=== PATIENT | female | born 1985 | race Caucasian/White ===

== ENCOUNTER 2019-10-16 01:40 | Emergency (ER) | payer MEDICAID ==
[~2019-10-16] VITALS: Ht 160 cm; Wt 77.1 kg
--- OUTSIDE RECORDS SUMMARY | ~2019-10-16 | XMS | Encounter Summary ---
Demographics + + + | Address | [address] | | | [place] [address] | + + + | Home Phone | [phone] | + + + | Preferred Language | Unknown | + + + | Marital Status | Legally | + + + | Zoroastrian Affiliation | Unknown | + + + | Race | White | + + + | Ethnic Group | Not or | + + + Author + + + | Author | | + + + | Organization | | + + + | Address | [address] | | | [place] [address] | + + + | Phone | [phone] | + + + Care Team Providers + +------+ + | Care Hydro Station Operator Name | Role | Phone | + +------+ + | Dr. Family Adhikari | 3 | Unavailable | | [place] | | | + +------+ + | Aurelio Dong MD | 3 | Unavailable | + +------+ + | Dr. Family Adhikari | 4 | Unavailable | | [place] | | | + +------+ + Reason for Visit + + | None recorded. | + + Instructions + + | 1. Moderate persistent asthma | + + | Advair Diskus 250 mcg-50 mcg/dose powder for inhalation | + + | Advair Diskus 250 mcg-50 mcg/dose powder for inhalation | + + | 2. Goiter | + + | US, head + neck, soft tissue | + + | TSH, serum or plasma | + + | T4, free, serum | + + | 3. Smoker | + + | Chantix Starting Month Box 0.5 mg (11)-1 mg (42) tablets in dose pack | + + + + | Discussion Note | + + | [id number] | + + Patient educational handouts: No information available. Plan of Care + + + + + | Reminders | | | Provider | | | | | | + + + + + | Appointments | Office Visit 20 | 04/13/2018 1:20PM | Aurelio Dong MD | + + + + + | | Well Woman Exam 40 | on or around | [facility] | | | | 05/06/2018 | | + + + + + | Lab | TSH, Serum or | 03/05/2018 | [facility] | | | Plasma | | Lab | + + + + + | | T4, Free, Serum | 03/05/2018 | [facility] | | | | | Lab | + + + + + | Referral | None recorded. | | | + + + + + | Procedures | None recorded. | | | + + + + + | Surgeries | None recorded. | | | + + + + + | Imaging | US, Head + Neck, | 03/05/2018 | [facility] | | | Soft Tissue | | Center (Main) | + + + + + Medications + + + + | Name | Start Date | | | | | | + + + + + +---+ | Advair Diskus 250 mcg-50 mcg/dose powder | | | for inhalation Inhale 1 puff twice a day | | | by inhalation route. | | + +---+ | Chantix Starting Month Box 0.5 mg (11)-1 | | | mg (42) tablets in dose pack Take 1 startr | | | pk by oral route. | | + +---+ | EpiPen 2-El 0.3 mg/0.3 mL injection, | | | auto-injector Use as directed for | | | anaphylaxis reaction | | + +---+ | levothyroxine 100 mcg tablet | | | Take 1 tablet every day by oral route. | | + +---+ | mirtazapine 15 mg tablet Take 1 tablet | | | every day by oral route at bedtime. | | + +---+ | prazosin 2 mg capsule Take 1 capsule every | | | day by oral route at bedtime. | | + +---+ | ProAir HFA 90 mcg/actuation aerosol | | | inhaler Inhale 2 puffs every 4 hours by | | | inhalation route as needed. | | + +---+ Medications Administered None recorded. Vitals + + + + + | Height | Weight | BMI | Blood Pressure | + + + + + | 5 ft 4 in | 172 lbs 16 oz | 29.7 kg/m2 | 122/74 mm[Hg] | + + + + + Lab Results None recorded. Allergies +--------+--------+ + + +--------+-------+ | Code | Code | Name | Reaction | Severity | Status | Onset | | | System | | | | | | +--------+--------+ + + +--------+-------+ | [id number] | RxNorm | Geodon | Rash | | Active | | +--------+--------+ + + +--------+-------+ | | | Insect | | | Active | | | | | Venom | | | | | +--------+--------+ + + +--------+-------+ | [id number] | RxNorm | Morphine | Hives | | Active | | +--------+--------+ + + +--------+-------+ | | | Penicillin | | | Active | | | | | s | | | | | +--------+--------+ + + +--------+-------+ | [id number] | RxNorm | Venom-darci | | | Active | | | | | y Bee | | | | | +--------+--------+ + + +--------+-------+ | [id number] | RxNorm | Ziprasidon | | | Active | | | | | e | | | | | +--------+--------+ + + +--------+-------+ Problems + + + + + + | Name | Status | Onset Date | Source | | | | | | | | + + + + + + + +--------+ +---+ | 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 | | | | + +--------+ +---+ | 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 | | + +--------+ +---+ | Nicotine Dependence | Active | 01/10/2018 | | + +--------+ +---+ | Asthma | Active | 01/10/2018 | | + +--------+ +---+ | Pain in Right Lower | Active | 01/10/2018 | | | Limb | | | | + +--------+ +---+ Procedures + + + + + | Date | Name | Performed by | | | | | | | + + + + + + + + + | | Section | Information not available | + + + + | | Section | Information not available | + + + + | | Section | Information not available | + + + + | | Section | Information not available | + + + + | | Open Heart Surgery | Information not available | + + + + | 03/05/2018 | US, Head + Neck, Soft | [facility] ([facility] | | | Tissue | [address] | | | | [place] [address] | | | | (Work Place) | + + + + Vaccine List + + | Vaccine Type | + + | influenza, unspecified formulation | + + | 12/02/2017 | + + | Tdap | + + | 12/08/2002 | + + Social History + + +---+ | Smoking Status | Heavy Tobacco Smoker (1 | | | | PPD) | | + + +---+ Past Encounters + + | 03/05/2018Moderate Persistent Asthma; Goiter; Lisa Dong MD: [address] | | [address] [place], [place] [address], Ph. | |Aurelio Dong MD: [address], [place] [address], Ph. | + + | 02/28/2018Allergy to Bee Venom; Asthma; ROCIO Seo: [address] | [address], [place] [address], Ph. | |ROCIO Holt: [address], [place] [address], Ph. | + + History of Present Illness Note:32yo female here for a new patient. Patient has a long history of asthma for which she has taken advair (but is currently out of). She states she often wakes up at nigh t and has to use her albuterol inhalor multiple times throughout the day. She has been hospi talized 2 times for asthma exacerbations within the last five years. She has taken off of al l of her medications by her ex- who she is now living apart from and would like to re start her medications. She is also newly and active smoker and wishes to quit smoking. Review of Systems + + + | | Moderate Female ROS | + + + | Reported By: | Patient | + + + | Constitutional: | Constitutional: no fever, no significant | | | weight loss/gain | + + + | ENMT: | Mouth/Throat: no sore throat. Nose: no | | | nose/sinus problems. Eyes: no ocular | | | discharge. Ears no ear pain, no loss of | | | hearing, no ringing in the ears | + + + | Cardiovascular: | Cardiovascular: no chest pain, no | | | palpitations | + + + | Respiratory: | Respiratory: no wheezing, no shortness of | | | breath | + + + | Gastrointestinal: | Gastrointestinal: no nausea, no vomiting, | | | no diarrhea | + + + | Genitourinary: | Genitourinary: no dysuria, no urinary | | | frequency | + + + | Integumentary: | Skin: no pruritis, no lesions | + + + | Neurologic: | Neurologic: no seizures, no headaches | + + + Physical Exam + + + | | FM General Adult Exam-Male | + + + | Reported By: | Patient | + + + | Constitutional: | General Appearance: healthy-appearing, | | | well-nourished, well-developed, well | | | hydrated. Level of Distress: NAD. | | | Ambulation: ambulating normally | + + + | Psychiatric: | Insight: good judgement. Mental Status: | | | active and alert, normal mood, normal | | | affect | + + + | Head: | Head: normocephalic, atraumatic | + + + | Eyes: | Pupils: PERRLA. EOM: EOMI. Vision: acuity | | | grossly intact | + + + | Neck: | Neck: supple. Thyroid: non-tender, no | | | nodules, thyromegaly | + + + | Lungs: | Respiratory effort: no dyspnea. | | | Auscultation: breath sounds normal, good | | | air movement, equal bilaterally | + + + | Cardiovascular: | Heart Auscultation: RRR, no murmurs | + + + | Abdomen: | Bowel Sounds: normal. Inspection and | | | Palpation: soft, non-distended, non-tender | | | (no guarding, no rebound), no masses | + + + | Musculoskeletal:: | Joints, Bones, and Muscles: normal | | | movement of all extremities. Extremities: | | | no cyanosis, no edema | + + + | Neurologic: | Gait and Station: normal gait. Cranial | | | Nerves: grossly intact | + + + | Skin: | Inspection and palpation: clear | + + +"
--- OUTSIDE RECORDS SUMMARY | ~2019-10-16 | XMS | Continuity of Care Document ---
Demographics + + + | Address | [address] | | | [place] [address] | + + + | Home Phone | | + + + | Preferred Language | Unknown | + + + | Marital Status | Unknown | + + + | Oriental Orthodox Affiliation | Unknown | + + + | Race | Unknown | + + + | Ethnic Group | Unknown | + + + Author + + + | Author | [facility] | + + + | Organization | [facility] | + + + | Address | [address] | | | [place] [address] | + + + | Phone | | + + + Support + + + + + | Name | Relationship | Address | Phone | + + + + + | Aurelio Dong MD | Caregiver | [address] | | | | | [place], | | | | | [place] [address] | | + + + + + | Jorge Luis Owens MD | Caregiver | ER | | | | | [place] [address] | | + + + + + | ALLI ALVARADO | Next Of Kin | [address] | | | | | [place] | | | | | [address] | | + + + + + Care Team Providers + + + + | Care Project Management Intern Name | Role | Phone | + + + + | Aurelio Dong MD | Unavailable | | + + + + Insurance Providers + + + + + | Payer Name | Policy Number | Subscriber Name | Relationship | + + + + + | [employer] | [id number] | ALY LIPSCOMB | SELF | + + + + + Chief Complaint and Reason for Visit + + + | Reason for Visit | ASTHMA FLARE | + + + Problems Active Medical Problems + + + +--------+ | Problem | Onset Date | Recorded Date | Status | + + + +--------+ | Abdominal pain | Unknown | 04/21/14 | Active | + + + +--------+ | Sore throat | Unknown | 04/28/14 | Active | + + + +--------+ | Pneumonia | Unknown | 06/11/14 | Active | + + + +--------+ | Excessive cerumen | Unknown | 06/28/14 | Active | | in both ear canals | | | | + + + +--------+ | Left ear pain | Unknown | 10/12/14 | Active | + + + +--------+ | Cerumen impaction | Unknown | 10/12/14 | Active | + + + +--------+ | UTI (urinary tract | Unknown | 06/27/15 | Active | | infection) | | | | + + + +--------+ | Cellulitis of right | Unknown | 12/28/15 | Active | | thigh | | | | + + + +--------+ | | Unknown | 07/03/16 | Active | + + + +--------+ | Pharyngitis | Unknown | 07/11/16 | Active | + + + +--------+ | Asthma | Unknown | 07/25/17 | Active | + + + +--------+ | Right calf pain | Unknown | 09/08/17 | Active | + + + +--------+ | Influenza | Unknown | 04/03/18 | Active | + + + +--------+ Medications Current Home Medications + +------+-------+ + + + + + | Medicati | Dose | Units | Route | Directio | Days/Qty | Instruct | Start | | on | | | | ns | | ions | Date | + +------+-------+ + + + + + | ADVAIR | | | | | | | | + +------+-------+ + + + + + | Albutero | 1-2 | PUFF | Inhalati | Every 4 | 1 | Please | 04/10/16 | | l | | | on | Hours as | | instruct | | | (Ventoli | | | | Needed | | patient | | | n Hfa) | | | | as | | on use. | | | 90 MCG | | | | needed | | | | | INH | | | | for | | | | | | | | | Cough | | | | + +------+-------+ + + + + + | Buspiron | 20 | MG | ORAL | Daily | | | | | e Hcl | | | | | | | | | (Buspar) | | | | | | | | | | | | | | | | | | (Unknown | | | | | | | | | | | | | | | | | | Strength | | | | | | | | | ) TAB | | | | | | | | + +------+-------+ + + + + + | Citalopr | 20 | MG | ORAL | Daily | | | | | am | | | | | | | | | Hydrobro | | | | | | | | | mide | | | | | | | | | (Celexa) | | | | | | | | | 20 MG | | | | | | | | | TAB | | | | | | | | + +------+-------+ + + + + + | Epinephr | 0.3 | MG | INTRAMUS | As | | | | | ine Hcl | | | C | Directed | | | | | (Epipen) | | | | as | | | | | 0.3 | | | | needed | | | | | MG/SYR | | | | for | | | | | SYR | | | | Allergic | | | | | | | | | | | | | | | | | | Reaction | | | | + +------+-------+ + + + + + | Guaifene | 600 | MG | ORAL | | | | | | sin | | | | | | | | | (Mucinex | | | | | | | | | ) 600 MG | | | | | | | | | | | | | | | | | | TABLET.S | | | | | | | | | A | | | | | | | | + +------+-------+ + + + + + | Hydrocod | 1-2 | TAB | ORAL | Every 4 | 20 | max | /04/21 | | one | | | | Hours as | | 6/day | | | Bit/Acet | | | | needed | | | | | aminophe | | | | for Pain | | | | | n (Sunset | | | | | | | | | 5-325 | | | | | | | | | Tablet) | | | | | | | | | 1 EACH | | | | | | | | | TABLET | | | | | | | | + +------+-------+ + + + + + | Levothyr | 50 | MCG | ORAL | Daily | | | | | oxine | | | | | | | | | Sodium | | | | | | | | | (Synthro | | | | | | | | | id/Levot | | | | | | | | | hroid) | | | | | | | | | (Unknown | | | | | | | | | | | | | | | | | | Strength | | | | | | | | | ) TAB | | | | | | | | + +------+-------+ + + + + + | Nicotine | 1 | PATCH | Topical | Daily | | | | | | | | | | | | | | (Nicoder | | | | | | | | | owen Skinner) 14 | | | | | | | | | MG | | | | | | | | | PATCH | | | | | | | | + +------+-------+ + + + + + Past Home Medications + + + + + | Medication | Directions | Ordered | Status | + + + + + | Albuterol (Proair | Every 4 Hours as | Unknown | Discontinued | | Hfa) 6.7 Gm Aers | Needed as needed | | | | Aers, 1-2 Puff | for SOB | | | | Inhalation | | | | + + + + + | Albuterol (Proair | Every 4-6 Hours as | Unknown | Discontinued | | Hfa) 6.7 Gm Aers | Needed | | | | Aers, 1-2 Puff | | | | | Inhalation | | | | + + + + + | Albuterol (Proair | Every 4 Hours as | 06/11/14 | Discontinued | | Hfa) 6.7 Gm Aers | Needed | | | | Aers, 1-2 Puff | | | | | Inhalation | | | | + + + + + | Albuterol (Proair | Every 4-6 Hours as | 04/28/14 | Discontinued | | Hfa) 6.7 Gm Aers | Needed as needed | | | | Aers, 1-2 Puff | for Difficulty | | | | Inhalation | Breathing | | | + + + + + | Amoxicillin 500 Mg | Q8H | 08/07/08 | Discontinued | | Cap Cap, 500 Mg | | | | | Oral | | | | + + + + + | Amoxicillin | Twice Each Day for | 10/12/14 | Discontinued | | Trihydrate | Infection | | | | (Amoxicillin) 500 | | | | | Mg Capsule Capsule, | | | | | 1,000 Mg Oral | | | | + + + + + | Azithromycin | Daily | 06/11/14 | Discontinued | | (Zithromax) 250 Mg | | | | | Tab Tab, 0 Mg Oral | | | | + + + + + | Azithromycin | DIRECTED for | 04/10/16 | Discontinued | | (Zithromax) 250 Mg | INFECTION | | | | Tablet Tablet, 0 Mg | | | | | Oral | | | | + + + + + | Benzocaine/Antipyri | Three Times a Day | 06/28/14 | Discontinued | | ne Otic (Auralgan | as Needed as needed | | | | Otic) 10 Ml Soln | for EAR PAIN | | | | Soln, 2 Drop Both | | | | | Ears | | | | + + + + + | Benzonatate | Every 8 Hours as | 04/10/16 | Discontinued | | (Tessalon) 100 Mg | Needed as needed | | | | Cap Cap, 100 Mg | for Cough | | | | Oral | | | | + + + + + | Bupropion Hcl | Once A Day | Unknown | Discontinued | | (Wellbutrin) 75 Mg | | | | | Tab Tab, 350 Mg | | | | | Oral | | | | + + + + + | Buspirone Hcl | | Unknown | Discontinued | | (Buspar) 15 Mg Tab | | | | | Tab, 15 Mg Oral | | | | + + + + + | Buspirone Hcl | Twice Each Day | 04/28/14 | Discontinued | | (Buspar) 15 Mg Tab | | | | | Tab, 15 Mg Oral | | | | + + + + + | Cephalexin | Three Times a Day | 06/27/15 | Discontinued | | Monohydrate | | | | | (Keflex) 500 Mg Cap | | | | | Cap, 500 Mg Oral | | | | + + + + + | Citalopram | Daily | Unknown | Discontinued | | Hydrobromide | | | | | (Celexa) 20 Mg Tab | | | | | Tab, 20 Mg Oral | | | | + + + + + | Clonazepam | Twice Each Day | Unknown | Discontinued | | (Klonopin) 1 Mg Tab | | | | | Tab, 1 Tab Oral | | | | + + + + + | Cyclobenzaprine | | Unknown | Discontinued | | (Flexeril) 10 Mg | | | | | Tab Tab, 10 Mg Oral | | | | + + + + + | Cyclobenzaprine | Two Times A Day As | 08/07/08 | Discontinued | | (Flexeril) 10 Mg | Needed | | | | Tab Tab, 10 Mg Oral | | | | + + + + + | Duloxetine Hcl | Q12H | Unknown | Discontinued | | (Cymbalta) 30 Mg | | | | | Capsule. | | | | | Capsule., 25 Mg | | | | | Oral | | | | + + + + + | Epinephrine (Epipen | | Unknown | Discontinued | | 2-El) 0.3 Mg/0.3 | | | | | Ml Auto.injct | | | | | Auto.injct, 0.3 Mg | | | | | Injection | | | | + + + + + | Escitalopram | Daily | Unknown | Discontinued | | Oxalate (Lexapro) | | | | | 20 Mg Tab Tab, 20 | | | | | Mg Oral | | | | + + + + + | Fluticasone/Salmete | Twice Each Day | Unknown | Discontinued | | rol (Advair 250/50) | | | | | 250 Mcg/50 Mcg | | | | | Disk Disk, 1 Puff | | | | | Inhalation | | | | + + + + + | Hydrocodone/Acetami | as needed for PAIN | Unknown | Discontinued | | nophen 5-300 Mgz | | | | | (Vicodin 5-300 Mg) | | | | | 1 Each Tablet | | | | | Tablet, 1 Each Oral | | | | + + + + + | Hydrocodone | Every 4 Hours as | 03/19/15 | Discontinued | | Bit/Acetaminophen | Needed as needed | | | | (Sunset 5-325 | for PAIN | | | | Tablet) 1 Each | | | | | Tablet Tablet, 1-2 | | | | | Tab Oral | | | | + + + + + | Hydrocodone/Acetami | Every 4-6 Hours PRN | Unknown | Discontinued | | nophen (Vicodin) 5 | Pain | | | | Mg/500 Mg Tab Tab, | | | | | 1 Tab Oral | | | | + + + + + | Hydrocodone/Acetami | Q6HPP | 08/07/08 | Discontinued | | nophen (Vicodin) 5 | | | | | Mg/500 Mg Tab Tab, | | | | | 1 Tab Oral | | | | + + + + + | Hydroxyzine Hcl | Every 6 Hours as | 06/18/13 | Discontinued | | (Atarax) 25 Mg Tab | Needed as needed | | | | Tab, 1-2 Tab Oral | for Anxiety | | | + + + + + | Inhaler, Assist | Every 4 Hours | 04/10/16 | Discontinued | | Devices (Space | | | | | Chamber Plus) 1 | | | | | Each Spacer Spacer, | | | | | 1 Each Miscell | | | | + + + + + | Ibuprofen (Motrin) | Three Times a Day | Unknown | Discontinued | | 800 Mg Tab Tab, 800 | | | | | Mg Oral | | | | + + + + + | Ibuprofen (Motrin) | Three Times a Day | 08/07/08 | Discontinued | | 800 Mg Tab Tab, 800 | as Needed | | | | Mg Oral | | | | + + + + + | Ketorolac | Every 4-6 Hours as | 07/06/11 | Discontinued | | Tromethamine | Needed | | | | (Toradol) 10 Mg Tab | | | | | Tab, 1 Tab Oral | | | | + + + + + | Levothyroxine | Daily | Unknown | Discontinued | | Sodium | | | | | (Synthroid/Levothro | | | | | id) 0.075 Mg Tab | | | | | Tab, 0.075 Mg Oral | | | | + + + + + | Naproxen (Naprosyn) | Twice Each Day | 06/25/11 | Discontinued | | 500 Mg Tab Tab, 1 | | | | | Tab Oral | | | | + + + + + | Naproxen (Naprosyn) | Twice Each Day for | 06/27/15 | Discontinued | | 500 Mg Tablet | PAIN | | | | Tablet, 500 Mg Oral | | | | + + + + + | Naproxen (Naprosyn) | Twice Each Day for | 06/18/13 | Discontinued | | 500 Mg Tablet | PAIN | | | | Tablet, 500 Mg Oral | | | | + + + + + | No Historical | | Unknown | Discontinued | | Medications . ., | | | | + + + + + | Omeprazole | Daily | Unknown | Discontinued | | Magnesium (Prilosec | | | | | Otc) 20 Mg | | | | | Tablet. | | | | | Tablet.dr, 20 Mg | | | | | Oral | | | | + + + + + | Phenazopyridine | Three Times a Day | 06/27/15 | Discontinued | | (Pyridium) 200 Mg | for PAIN | | | | Tablet Tablet, 200 | | | | | Mg Oral | | | | + + + + + | Prednisone | TAPER | 06/11/14 | Discontinued | | (Prednisone 10 Mg | | | | | Tab) 10 Mg Tab Tab, | | | | | 0 Mg Oral | | | | + + + + + | Promethazine Hcl | Every 4 Hours as | Unknown | Discontinued | | (Phenergan) 25 Mg | Needed as needed | | | | Tab Tab, 25 Mg Oral | for Nausea & | | | | | Vomiting | | | + + + + + | Promethazine/Codein | Every 4 Hours as | 04/28/14 | Discontinued | | e | Needed as needed | | | | (Phenergan/Codeine | for Nausea & | | | | Syrup) 6.25 Mg/10 | Vomiting/cough | | | | Mg Syrp Syrp, 1 Tsp | | | | | Oral | | | | + + + + + | Pseudoephedrine Hcl | Q12H | 06/25/11 | Discontinued | | (Sudafed 12 Hour) | | | | | 120 Mg Tabcr Tabcr, | | | | | 1 Tab Oral | | | | + + + + + | Quetiapine Fumarate | At Bedtime | Unknown | Discontinued | | (Seroquel) 100 Mg | | | | | Tab Tab, 1 Tab Oral | | | | + + + + + | Rx Prepack | Three Times a Day | 06/25/11 | Discontinued | | Codeine/Guaifenesin | | | | | (Robitussin Ac | | | | | Prepack) 10 Mg/100 | | | | | Mg Syrp Syrp, 1 Tsp | | | | | Oral | | | | + + + + + | Rx Prepack | Every 6 Hours as | 07/06/11 | Discontinued | | Promethazine | Needed | | | | (Phenergan Prepack) | | | | | 25 Mg Tab Tab, 25 | | | | | Mg Oral | | | | + + + + + | Sulfamethoxazole/Tr | Twice Each Day for | 12/28/15 | Discontinued | | imethoprim Ds | Infection | | | | (Bactrim Ds) 1 Each | | | | | Tablet Tablet, 1 | | | | | Tab Oral | | | | + + + + + | Thyroid ([place] | Daily | Unknown | Discontinued | | Thyroid) 60 Mg Tab | | | | | Tab, 15 Mg Oral | | | | + + + + + | Thyroid ([place] | Daily | Unknown | Discontinued | | Thyroid) 60 Mg Tab | | | | | Tab, 60 Mg Oral | | | | + + + + + | Tramadol Hcl | Every 6 Hours as | 04/21/14 | Discontinued | | (Ultram) 50 Mg | Needed as needed | | | | Tablet Tablet, | for PAIN | | | | 50-100 Mg Oral | | | | + + + + + | Tramadol Hcl | Every 6 Hours as | 06/18/13 | Discontinued | | (Ultram) 50 Mg | Needed as needed | | | | Tablet Tablet, | for PAIN | | | | 50-100 Mg Oral | | | | + + + + + | Varenicline | Once A Day | Unknown | Discontinued | | Tartrate (Chantix) | | | | | 1 Mg Tab Tab, 1 Tab | | | | | Oral | | | | + + + + + | Zolpidem Tartrate | At Bedtime | Unknown | Discontinued | | (Ambien) 10 Mg Tab | | | | | Tab, 1 Tab Oral | | | | + + + + + Social History + + + + | Problem | Response | Recorded Date | + + + + | MENTAL HEALTH PROBLEMS/ | Yes | 07/03/16 | + + + + + + + + + | Query | Response | Start Date | Stop Date | + + + + + | Smoking status/ | Current Every Day | | | | | Smoker | | | + + + + + Hospital Discharge Instructions No hospital discharge instructions. Plan of Care + + + | Discharge Date | 04/03/18 | + + + | Disposition | HOME | + + + | Condition at Discharge | Fair | + + + | Instructions/Education Provided | Influenza, Adult, [id number] | + + + | Prescriptions | See Medications Section | + + + | Referrals | Aurelio Dong MD - | + + + Functional Status No functional status results. Allergies, Adverse Reactions, Alerts + +---------+ + +--------+ + | Allergen | Type | Severity | Reaction | Status | Last Updated | + +---------+ + +--------+ + | morphine | Allergy | Mild | Itching | Active | 04/03/18 | + +---------+ + +--------+ + | Insect | Allergy | Severe | | Active | 04/03/18 | | Extracts | | | | | | + +---------+ + +--------+ + | venom-wasp | Allergy | Severe | | Active | 04/03/18 | + +---------+ + +--------+ + | ziprasidone | Allergy | Unknown | | Active | 04/03/18 | + +---------+ + +--------+ + Immunizations No Known History of Immunizations. Vital Signs + + + + | Vital Reading | Collection Date/Time | Result | + + + + | Blood Pressure | 04/03/18 2:59pm | 126/76 | + + + + | Blood Pressure Source | 07/03/16 11:46am | Left Arm | + + + + | Temperature | 04/03/18 1:26pm | 97.3 F | + + + + | Temperature Source | 04/03/18 1:26pm | Temporal | + + + + | Respiratory Rate | 04/03/18 2:59pm | 15 | + + + + | Pulse Rate | 04/03/18 2:59pm | 92 | + + + + | Bedside Pulse Oximetry | 04/03/18 2:59pm | 98 | + + + + | Height | 04/03/18 1:26pm | 5 ft 4 in | + + + + | Height | 04/03/18 1:26pm | 162.56 cm | + + + + | Weight | 04/03/18 1:26pm | 170 lb | + + + + | Weight | 04/03/18 1:26pm | 77.11 kg | + + + + | Body Mass Index | 04/03/18 1:26pm | 29.2 kg/m2 | + + + + Results No known relevant diagnostic tests, laboratory data and/or discharge summary. Procedures No Known History of Procedures. Encounters + + + + + + | Encounter | Location | Arrival/Admit | Discharge/Depar | Attending | | | | Date | t Date | Provider | + + + + + + | Departed | [facility] | 04/03/18 1:11pm | 04/03/18 4:03pm | Jorge Luis Owens | | Emergency | [facility] | | | MD | + + + + + + + + + | Encounter Diagnosis | Onset Date | + + + | Influenza | | + + +"
--- OUTSIDE RECORDS SUMMARY | ~2019-10-16 | XMS | Encounter Summary ---
Demographics + + + | Address | [address] | | | [place] [address] | + + + | Home Phone | [phone] | + + + | Preferred Language | Unknown | + + + | Marital Status | | + + + | Muslim Affiliation | Unknown | + + + | Race | White | + + + | Ethnic Group | Unknown | + + + Author + + + | Author | | + + + | Organization | | + + + | Address | [address] | | | [place] [address] | + + + | Phone | [phone] | + + + Care Team Providers + +------+ + | Care Concrete Paver Name | Role | Phone | + +------+ + | Dr. Myesha Aguilar | 3 | [phone] | + +------+ + Reason for Visit + + | None recorded. | + + Instructions + + | 1. Acid reflux | + + | omeprazole 20 mg capsule,delayed release | + + | H pylori urea breath test, co2 infrared | + + | 2. Abdominal pain | + + | Miralax 17 gram/dose oral powder | + + Discussion Note: None recorded.Patient educational handouts: No information available. Plan of Care + + + + + | Reminders | | | Provider | | | | | | + + + + + | Appointments | Return to Office | on or around | Gogo Marcum NP | | | | 09/16/2019 | | + + + + + | | Follow up 20 | 10/08/2019 10:50AM | Myesha Emmanuel | | | | | MD Lauren | + + + + + | Lab | H Pylori [place] | 09/16/2019 | [facility] | | | Breath Test, Co2 | | Center - Lab | | | Infrared | | | + + + + + | Referral | None recorded. | | | + + + + + | Procedures | None recorded. | | | + + + + + | Surgeries | None recorded. | | | + + + + + | Imaging | None recorded. | | | + + + + + Medications + + + + + | Name | Start Date | | | | | | | | + + + + + + +---+ | albuterol sulfate | | + +---+ | Epi E-Z Pen 0.3 mg/0.3 mL injection, | | | auto-injector INJECT 0.3 MILLILITER (0.3 | | | MG) BY INTRAMUSCULAR ROUTE ONCE NEEDED | | | FOR ANAPHYLAXIS | | + +---+ | escitalopram 20 mg tablet | | | Take 1 tablet every day by oral route. | | + +---+ | ibuprofen 800 mg tablet Take 1 tablet 3 | | | times a day by oral route. | | + +---+ | Miralax 17 gram/dose oral powder 17gm | | | twice daily until you have a large BM. | | | Then use once daily as needed after. | | + +---+ | montelukast 10 mg tablet | | | Take 1 tablet every day by oral route. | | + +---+ | omeprazole 20 mg capsule,delayed release | | | Take 1 capsule twice a day by oral route. | | + +---+ | ondansetron 4 mg disintegrating tablet | | | Take 2 tablets every 12 hours by oral | | | route. | | + +---+ Medications Administered None recorded. Vitals + + + + + | Height | Weight | BMI | Blood Pressure | + + + + + | 5 ft 4 in | 188 lbs | 32.3 kg/m2 | 128/88 mm[Hg] | + + + + + Results + + | Lab Results | + + | | + + +------+------+-------+-------+-------+-------+-------+-------+-------+-------+---+ | Date | Name | Speci | Resul | Inter | Descr | Value | Range | Statu | Addre | | | | | men | t | preta | iptio | | | s | ss | | | | | | | tion | n | | | | | | +------+------+-------+-------+-------+-------+-------+-------+-------+-------+---+ +--------+--------+---+--------+---+--------+--------+--------+-------+--------+ | 09/14/ | CBC W/ | | Normal | | Wbc | 11.24 | 4.00-1 | Final | [facility] | | 2020 | Auto | | | | | K/mm3 | 1.30 | | [facility] | | | Diff | | | | | | K/mm3 | | l | | | | | | | | | | | Center | | | | | | | | | | | | | | | | | | | | | | ([facility]) | | | | | | | | | | | : [address] | | | | | | | | | | | | | | | | | | | | | [address] | | | | | | | | | | | [address] | | | | | | | | | | | [address], | | | | | | | | | | | [place] | | | | | | | | | | | rg | +--------+--------+---+--------+---+--------+--------+--------+-------+--------+ | | | | Normal | | Rbc | 4.40 | 3.80-5 | Final | [facility] | | | | | | | | M/mm3 | .20 | | [facility] | | | | | | | | | M/mm3 | | l | | | | | | | | | | | Center | | | | | | | | | | | | | | | | | | | | | | (Main) | | | | | | | | | | | : [address] | | | | | | | | | | | | | | | | | | | | | [address] | | | | | | | | | | | [address] | | | | | | | | | | | [address], | | | | | | | | | | | [place] | | | | | | | | | | | rg | +--------+--------+---+--------+---+--------+--------+--------+-------+--------+ | | | | Normal | | Hgb | 13.8 | 11.5-1 | Final | [facility] | | | | | | | | g/dL | 6.0 | | [facility] | | | | | | | | | g/dL | | l | | | | | | | | | | | Center | | | | | | | | | | | | | | | | | | | | | | (Main) | | | | | | | | | | | : [address] | | | | | | | | [address] | | | | | | | | | | | [address], | | | | | | | | | | | [place] | | | | | | | | | | | rg | +--------+--------+---+--------+---+--------+--------+--------+-------+--------+ | | | | Normal | | Hct | 42.2 % | 33.0-5 | Final | [facility] | | | | | | | | | 1.0 % | | [facility] | | | | | | | | | | | l | | | | | | | | | | | Center | | | | | | | | | | | | | | | | | | | | | | (Main) | | | | | | | | | | | : [address] | | | | | | | | | | | | | | | | | | | | | | [address] | | | | | | | | | | | [address] | | | | | | | | | | | [address], | | | | | | | | | | | [place] | | | | | | | | | | | rg | +--------+--------+---+--------+---+--------+--------+--------+-------+--------+ | | | | Normal | | Mcv | 96 fL | 80-100 | Final | [facility] | | | | | | | | | fL | | [facility] | | | | | | | | | | | l | | | | | | | | | | | Center | | | | | | | | | | | | | | | | | | | | | | (Main) | | | | | | | | | | | : [address] | | | | | | | | | | | | | | | | | | | | | | [address] | | | | | | | | | | | [address] | | | | | | | | | | | [address], | | | | | | | | | | | [place] | | | | | | | | | | | rg | +--------+--------+---+--------+---+--------+--------+--------+-------+--------+ | | | | Normal | | Mch | 31.4 | 26.0-3 | Final | [facility] | | | | | | | | pg | 4.0 pg | | [facility] | | | | | | | | | | | l | | | | | | | | | | | Center | | | | | | | | | | | | | | | | | | | | | | (Main) | | | | | | | | | | | : [address] | | | | | | | | | | | | | | | | | | | | | | [address] | | | | | | | | | | | [address] | | | | | | | | | | | [address], | | | | | | | | | | | [place] | | | | | | | | | | | rg | +--------+--------+---+--------+---+--------+--------+--------+-------+--------+ | | | | Normal | | Mchc | 32.7 | 31.5-3 | Final | [facility] | | | | | | | | g/dL | 6.5 | | [facility] | | | | | | | | | g/dL | | l | | | | | | | | | | | Center | | | | | | | | | | | | | | | | | | | | | | (Main) | | | | | | | | | | | : [address] | | | | | | | | | | | | | | | | | | | | | | [address] | | | | | | | | | | | [address] | | | | | | | | | | | [address], | | | | | | | | | | | [place] | | | | | | | | | | | rg | +--------+--------+---+--------+---+--------+--------+--------+-------+--------+ | | | | Normal | | Rdw | 46.2 | 35.1-4 | Final | [facility] | | | | | | | Sd | fL | 6.3 fL | | [facility] | | | | | | | | | | | l | | | | | | | | | | | Center | | | | | | | | | | | | | | | | | | | | | | (Main) | | | | | | | | | | | : [address] | | | | | | | | | | | | | | | | | | | | | | [address] | | | | | | | | | | | [address] | | | | | | | | | | | [address], | | | | | | | | | | | [place] | | | | | | | | | | | rg | +--------+--------+---+--------+---+--------+--------+--------+-------+--------+ | | | | Normal | | Rdw | 13.0 % | 11.7-1 | Final | [facility] | | | | | | | Cv | | 4.2 % | | [facility] | | | | | | | | | | | l | | | | | | | | | | | Center | | | | | | | | | | | | | | | | | | | | | | (Main) | | | | | | | | | | | : [address] | | | | | | | | | | | | | | | | | | | | [address] | | | | | | | | | | | [address] | | | | | | | | | | | [address], | | | | | | | | | | | [place] | | | | | | | | | | | rg | +--------+--------+---+--------+---+--------+--------+--------+-------+--------+ | | | | Low | | Plt | 145 | 150-40 | Final | [facility] | | | | | | | | K/mm3 | 0 | | [facility] | | | | | | | | | K/mm3 | | l | | | | | | | | | | | Center | | | | | | | | | | | | | | | | | | | | | | (Main) | | | | | | | | | | | : [address] | | | | | | | | | | | | | | | | | | | | | | [address] | | | | | | | | | | | [address] | | | | | | | | | | | [address], | | | | | | | | | | | [place] | | | | | | | | | | | rg | +--------+--------+---+--------+---+--------+--------+--------+-------+--------+ | | | | High | | Mpv | 13.3 | 9.1-12 | Final | [facility] | | | | | | | | fL | .4 fL | | [facility] | | | | | | | | | | | l | | | | | | | | | | | Center | | | | | | | | | | | | | | | | | | | | | | (Main) | | | | | | | | | | | : [address] | | | | | | | | | | | | | | | | | | | | | | [address] | | | | | | | | | | | [address] | | | | | | | | | | | [address], | | | | | | | | | | | [place] | | | | | | | | | | | rg | +--------+--------+---+--------+---+--------+--------+--------+-------+--------+ | | | | Normal | | Diff | auto | | Final | [facility] | | | | | | | Type | | | | [facility] | | | | | | | | | | | l | | | | | | | | | | | Center | | | | | | | | | | | | | | | | | | | | | | (Main) | | | | | | | | | | | : [address] | | | | | | | | | | | | | | | | | | | | | | [address] | | | | | | | | | | | t | | | | | | | | | | | [address], | | | | | | | | | | | [place] | | | | | | | | | | | rg | +--------+--------+---+--------+---+--------+--------+--------+-------+--------+ | | | | Normal | | Neut | 51 % | 41-73 | Final | [facility] | | | | | | | % | | % | | [facility] | | | | | | | | | | | l | | | | | | | | | | | Center | | | | | | | | | | | | | | | | | | | | | | (Main) | | | | | | | | | | | : [address] | | | | | | | | | | | | | | | | | | | | | | [address] | | | | | | | | | | | [address] | | | | | | | | | | | [address], | | | | | | | | | | | [place] | | | | | | | | | | | rg | +--------+--------+---+--------+---+--------+--------+--------+-------+--------+ | | | | Normal | | Lymph | 38 % | 21-46 | Final | [facility] | | | | | | | % | | % | | [facility] | | | | | | | | | | | l | | | | | | | | | | | Center | | | | | | | | | | | | | | | | | | | | | | (Main) | | | | | | | | | | | : [address] | | | | | | | | | | | | | | | | | | | | | | [address] | | | | | | | | | | | [address] | | | | | | | | | | | [address], | | | | | | | | | | | [place] | | | | | | | | | | | rg | +--------+--------+---+--------+---+--------+--------+--------+-------+--------+ | | | | Normal | | [place] | 11 % | 4-13 % | Final | [facility] | | | | | | | % | | | | [facility] | | | | | | | | | | | l | | | | | | | | | | | Center | | | | | | | | | | | | | | | | | | | | | | (Main) | | | | | | | | | | | : [address] | | | | | | | | | | | | | | | | | | | | | | [address] | | | | | | | | | | | t | | | | | | | | | | | [address], | | | | | | | | | | | [place] | | | | | | | | | | | rg | +--------+--------+---+--------+---+--------+--------+--------+-------+--------+ | | | | Normal | | Eosin | 0 % | 0-6 % | Final | [facility] | | | | | | | % | | | | [facility] | | | | | | | | | | | l | | | | | | | | | | | Center | | | | | | | | | | | | | | | | | | | | | | (Main) | | | | | | | | | | | : [address] | | | | | | | | | | | | | | | | | | | | | | [address] | | | | | | | | | | | [address] | | | | | | | | | | | [address], | | | | | | | | | | | [place] | | | | | | | | | | | rg | +--------+--------+---+--------+---+--------+--------+--------+-------+--------+ | | | | Normal | | Baso | 1 % | 0-2 % | Final | [facility] | | | | | | | % | | | | [facility] | | | | | | | | | | | l | | | | | | | | | | | Center | | | | | | | | | | | | | | | | | | | | | | (Main) | | | | | | | | | | | : [address] | | | | | | | | | | | | | | | | | | | | | | [address] | | | | | | | | | | | t | | | | | | | | | | | [address], | | | | | | | | | | | [place] | | | | | | | | | | | rg | +--------+--------+---+--------+---+--------+--------+--------+-------+--------+ | | | | Normal | | Imm | 0 % | 0-1 % | Final | [facility] | | | | | | | Grans | | | | [facility] | | | | | | | % | | | | l | | | | | | | | | | | Center | | | | | | | | | | | | | | | | | | | | | | (Main) | | | | | | | | | | | : [address] | | | | | | | | | | | | | | | | | | | | | | [address] | | | | | | | | | | | t | | | | | | | | | | | [address], | | | | | | | | | | | [place] | | | | | | | | | | | rg | +--------+--------+---+--------+---+--------+--------+--------+-------+--------+ | | | | Normal | | Nrbc | 0.0 | 0.0-0. | Final | [facility] | | | | | | | | /100 | 2 /100 | | [facility] | | | | | | | | WBC | WBC | | l | | | | | | | | | | | Center | | | | | | | | | | | | | | | | | | | | | | (Main) | | | | | | | | | | | : [address] | | | | | | | | | | | | | | | | | | | | | | [address] | | | | | | | | | | | [address] | | | | | | | | | | | [address], | | | | | | | | | | | [place] | | | | | | | | | | | rg | +--------+--------+---+--------+---+--------+--------+--------+-------+--------+ | | | | Normal | | Abs | 5.71 | 1.96-9 | Final | [facility] | | | | | | | Neut | K/mm3 | .15 | | [facility] | | | | | | | | | K/mm3 | | l | | | | | | | | | | | Center | | | | | | | | | | | | | | | | | | | | | | (Main) | | | | | | | | | | | : [address] | | | | | | | | | | | | | | | | | | | | | | [address] | | | | | | | | | | | t | | | | | | | | | | | [address], | | | | | | | | | | | [place] | | | | | | | | | | | rg | +--------+--------+---+--------+---+--------+--------+--------+-------+--------+ | | | | Normal | | Abs | 4.22 | 0.84-5 | Final | [facility] | | | | | | | Lymph | K/mm3 | .20 | | [facility] | | | | | | | | | K/mm3 | | l | | | | | | | | | | | Center | | | | | | | | | | | | | | | | | | | | | | (Main) | | | | | | | | | | | : [address] | | | | | | | | | | | | | | | | | | | | | | [address] | | | | | | | | | | | t | | | | | | | | | | | [address], | | | | | | | | | | | [place] | | | | | | | | | | | rg | +--------+--------+---+--------+---+--------+--------+--------+-------+--------+ | | | | Normal | | Abs | 1.22 | 0.16-1 | Final | [facility] | | | | | | | [place] | K/mm3 | .47 | | [facility] | | | | | | | | | K/mm3 | | l | | | | | | | | | | | Center | | | | | | | | | | | | | | | | | | | | | | (Main) | | | | | | | | | | | : [address] | | | | | | | | | | | | | | | | | | | | [address] | | | | | | | | | | [address] | | | | | | | | | | | [address], | | | | | | | | | | | [place] | | | | | | | | | | | rg | +--------+--------+---+--------+---+--------+--------+--------+-------+--------+ | | | | Normal | | Abs | 0.00 | 0.00-0 | Final | [facility] | | | | | | | Eosin | K/mm3 | .68 | | [facility] | | | | | | | | | K/mm3 | | l | | | | | | | | | | | Center | | | | | | | | | | | | | | | | | | | | | | (Main) | | | | | | | | | | | : [address] | | | | | | | | | | | | | | | | | | | | | | [address] | | | | | | | | | | | t | | | | | | | | | | | [address], | | | | | | | | | | | [place] | | | | | | | | | | | rg | +--------+--------+---+--------+---+--------+--------+--------+-------+--------+ | | | | Normal | | Abs | 0.07 | 0.00-0 | Final | [facility] | | | | | | | Baso | K/mm3 | .23 | | [facility] | | | | | | | | | K/mm3 | | l | | | | | | | | | | | Center | | | | | | | | | | | | | | | | | | | | | | (Main) | | | | | | | | | | | : [address] | | | | | | | | | | | | | | | | | | | | | | [address] | | | | | | | | | | | t | | | | | | | | | | | [address], | | | | | | | | | | | [place] | | | | | | | | | | | rg | +--------+--------+---+--------+---+--------+--------+--------+-------+--------+ | | | | Normal | | Abs | 0.02 | 0.00-0 | Final | [facility] | | | | | | | Imm | K/mm3 | .10 | | [facility] | | | | | | | Grans | | K/mm3 | | l | | | | | | | | | | | Center | | | | | | | | | | | | | | | | | | | | | | (Main) | | | | | | | | | | | : [address] | | | | | | | | | | | | | | | | | | | | | | [address] | | | | | | | | | | | t | | | | | | | | | | | [address], | | | | | | | | | | | [place] | | | | | | | | | | | rg | +--------+--------+---+--------+---+--------+--------+--------+-------+--------+ | | | | Normal | | Abs | 0.00 | 0.00-0 | Final | [facility] | | | | | | | NRBC | K/mm3 | .02 | | [facility] | | | | | | | | | K/mm3 | | l | | | | | | | | | | | Center | | | | | | | | | | | | | | | | | | | | | | (Main) | | | | | | | | | | | : [address] | | | | | | | | | | | | | | | | | | | | | | [address] | | | | | | | | | | | t | | | | | | | | | | | [address], | | | | | | | | | | | [place] | | | | | | | | | | | rg | +--------+--------+---+--------+---+--------+--------+--------+-------+--------+ | 06/14/ | CMP, | | Normal | | Na | 137 | 136-14 | Final | [facility] | | 2020 | Serum | | | | | mmol/L | 5 | | [facility] | | | or | | | | | | mmol/L | | l | | | Plasma | | | | | | | | Center | | | | | | | | | | | | | | | | | | | | | | (Main) | | | | | | | | | | | : [address] | | | | | | | | | | | | | | | | | | | | | | [address] | | | | | | | | | | | t | | | | | | | | | | | [address], | | | | | | | | | | | [place] | | | | | | | | | | | rg | +--------+--------+---+--------+---+--------+--------+--------+-------+--------+ | | | | Normal | | K | 3.9 | 3.5-5. | Final | [facility] | | | | | | | | mmol/L | 5 | | [facility] | | | | | | | | | mmol/L | | l | | | | | | | | | | | Center | | | | | | | | | | | | | | | | | | | | | | (Main) | | | | | | | | | | | : [address] | | | | | | | | | | | | | | | | | | | | | | [address] | | | | | | | | | | | t | | | | | | | | | | | [address], | | | | | | | | | | | [place] | | | | | | | | | | | rg | +--------+--------+---+--------+---+--------+--------+--------+-------+--------+ | | | | Normal | | Cl | 107 | 98-108 | Final | [facility] | | | | | | | | mmol/L | | | [facility] | | | | | | | | | mmol/L | | l | | | | | | | | | | | Center | | | | | | | | | | | | | | | | | | | | | | (Main) | | | | | | | | | | | : [address] | | | | | | | | | | | | | | | | | | | | | | [address] | | | | | | | | | | | t | | | | | | | | | | | [address], | | | | | | | | | | | [place] | | | | | | | | | | | rg | +--------+--------+---+--------+---+--------+--------+--------+-------+--------+ | | | | Normal | | Co2 | 25 | 21-32 | Final | [facility] | | | | | | | | mmol/L | mmol/L | | [facility] | | | | | | | | | | | l | | | | | | | | | | | Center | | | | | | | | | | | | | | | | | | | | | | (Main) | | | | | | | | | | | : [address] | | | | | | | | | | | | | | | | | | | | | | [address] | | | | | | | | | | | t | | | | | | | | | | | [address], | | | | | | | | | | | [place] | | | | | | | | | | | rg | +--------+--------+---+--------+---+--------+--------+--------+-------+--------+ | | | | Low | | Anion | 5 | 6-16 | Final | [facility] | | | | | | | Gap | mmol/L | mmol/L | | [facility] | | | | | | | | | | | l | | | | | | | | | | | Center | | | | | | | | | | | | | | | | | | | | | | (Main) | | | | | | | | | | | : [address] | | | | | | | | | | | | | | | | | | | | | | [address] | | | | | | | | | | | t | | | | | | | | | | | [address], | | | | | | | | | | | [place] | | | | | | | | | | | rg | +--------+--------+---+--------+---+--------+--------+--------+-------+--------+ | | | | High | | Gluc | 122 | 70-99 | Final | [facility] | | | | | | | | mg/dL | mg/dL | | [facility] | | | | | | | | | | | l | | | | | | | | | | | Center | | | | | | | | | | | | | | | | | | | | | | (Main) | | | | | | | | | | | : [address] | | | | | | | | | | | | | | | | | | | | | | [address] | | | | | | | | | | | t | | | | | | | | | | | [address], | | | | | | | | | | | [place] | | | | | | | | | | | rg | +--------+--------+---+--------+---+--------+--------+--------+-------+--------+ | | | | Normal | | Bun | 13 | 8-24 | Final | [facility] | | | | | | | | mg/dL | mg/dL | | [facility] | | | | | | | | | | | l | | | | | | | | | | | Center | | | | | | | | | | | | | | | | | | | | | | (Main) | | | | | | | | | | | : [address] | | | | | | | | | | | | | | | | | | | | | | [address] | | | | | | | | | | | t | | | | | | | | | | | [address], | | | | | | | | | | | [place] | | | | | | | | | | | rg | +--------+--------+---+--------+---+--------+--------+--------+-------+--------+ | | | | Normal | | Creat | 0.65 | 0.40-1 | Final | [facility] | | | | | | | | mg/dL | .00 | | [facility] | | | | | | | | | mg/dL | | l | | | | | | | | | | | Center | | | | | | | | | | | | | | | | | | | | | | (Main) | | | | | | | | | | | : [address] | | | | | | | | | | | | | | | | | | | | [address] | | | | | | | | | [address] | | | | | | | | | | | [address], | | | | | | | | | | | [place] | | | | | | | | | | | rg | +--------+--------+---+--------+---+--------+--------+--------+-------+--------+ | | | | Normal | | | 20.0 % | 12.0-2 | Final | [facility] | | | | | | | BUN/cr | | 0.0 % | | [facility] | | | | | | | eat | | | | l | | | | | | | | | | | Center | | | | | | | | | | | | | | | | | | | | | | (Main) | | | | | | | | | | | : [address] | | | | | | | | | | | | | | | | | | | | | | [address] | | | | | | | | | | [address] | | | | | | | | | | | [address], | | | | | | | | | | | [place] | | | | | | | | | | | rg | +--------+--------+---+--------+---+--------+--------+--------+-------+--------+ | | | | Normal | | Gfr | >60 | 60- | Final | [facility] | | | | | | | | | | | [facility] | | | | | | | | | | | l | | | | | | | | | | | Center | | | | | | | | | | | | | | | | | | | | | | ([facility]) | | | | | | | | | | | : [address] | | | | | | | | | | | | | | | | | | | | | | [address] | | | | | | | | | | [address] | | | | | | | | | | | [address], | | | | | | | | | | | [place] | | | | | | | | | | | rg | +--------+--------+---+--------+---+--------+--------+--------+-------+--------+ | | | | Low | | Ca | 8.4 | 8.5-10 | Final | [facility] | | | | | | | | mg/dL | .1 | | [facility] | | | | | | | | | mg/dL | | l | | | | | | | | | | | Center | | | | | | | | | | | | | | | | | | | | | | ([place]) | | | | | | | | | | | : [address] | | | | | | | | | | | | | | | | | | | | | | [address] | | | | | | | | | | | [address] | | | | | | | | | | | [address], | | | | | | | | | | | [place] | | | | | | | | | | | rg | +--------+--------+---+--------+---+--------+--------+--------+-------+--------+ | | | | Normal | | Total | 8.0 | 6.4-8. | Final | [facility] | | | | | | | | g/dL | 2 g/dL | | [facility] | | | | | | | Protei | | | | l | | | | | | | n | | | | Center | | | | | | | | | | | | | | | | | | | | | | ([facility]) | | | | | | | | | | | : [address] | | | | | | | | | | | | | | | | | | | | | | [address] | | | | | | | | | | | [address] | | | | | | | | | | | [address], | | | | | | | | | | | [place] | | | | | | | | | | | rg | +--------+--------+---+--------+---+--------+--------+--------+-------+--------+ | | | | Normal | | Alb | 4.0 | 3.4-5. | Final | [facility] | | | | | | | | g/dL | 0 g/dL | | [facility] | | | | | | | | | | | l | | | | | | | | | | | Center | | | | | | | | | | | | | | | | | | | | | | (Main) | | | | | | | | | | | : [address] | | | | | | | | | | | | | | | | | | | | | | [address] | | | | | | | | | | | [address] | | | | | | | | | | | [address], | | | | | | | | | | | [place] | | | | | | | | | | | rg | +--------+--------+---+--------+---+--------+--------+--------+-------+--------+ | | | | Normal | | Glob | 4.0 | 2.2-4. | Final | [facility] | | | | | | | | g/dL | 0 g/dL | | [facility] | | | | | | | | | | | l | | | | | | | | | | | Center | | | | | | | | | | | | | | | | | | | | | | (Main) | | | | | | | | | | | : [address] | | | | | | | | | | | | | | | | | | | | | | [address] | | | | | | | | | | | [address] | | | | | | | | | | | [address], | | | | | | | | | | | [place] | | | | | | | | | | | rg | +--------+--------+---+--------+---+--------+--------+--------+-------+--------+ | | | | Normal | | | 1.0 | 0.8-1. | Final | [facility] | | | | | | | Alb/gl | | 8 | | [facility] | | | | | | | ob | | | | l | | | | | | | | | | | Center | | | | | | | | | | | | | | | | | | | | | | (Main) | | | | | | | | | | | : [address] | | | | | | | | | | | | | | | | | | | | | | [address] | | | | | | | | | | | [address] | | | | | | | | | | | [address], | | | | | | | | | | | [place] | | | | | | | | | | | rg | +--------+--------+---+--------+---+--------+--------+--------+-------+--------+ | | | | Normal | | Bili | 0.4 | 0.1-1. | Final | [facility] | | | | | | | Tot | mg/dL | 0 | | [facility] | | | | | | | | | mg/dL | | l | | | | | | | | | | | Center | | | | | | | | | | | | | | | | | | | | | | (Main) | | | | | | | | | | | : [address] | | | | | | | | | | | | | | | | | | | | | | [address] | | | | | | | | | | | [address] | | | | | | | | | | | [address], | | | | | | | | | | | [place] | | | | | | | | | | | rg | +--------+--------+---+--------+---+--------+--------+--------+-------+--------+ | | | | Normal | | Alk | 111 | 50-136 | Final | [facility] | | | | | | | Phos | U/L | U/L | | [facility] | | | | | | | | | | | l | | | | | | | | | | | Center | | | | | | | | | | | | | | | | | | | | | | ([facility]) | | | | | | | | | | | : [address] | | | | | | | | | | | | | | | | | | | | | | [address] | | | | | | | | | | | [address] | | | | | | | | | | | [address], | | | | | | | | | | | [place] | | | | | | | | | | | rg | +--------+--------+---+--------+---+--------+--------+--------+-------+--------+ | | | | Normal | | Ast | 35 U/L | 12-37 | Final | [facility] | | | | | | | (Sgot) | | U/L | | [facility] | | | | | | | | | | | l | | | | | | | | | | | Center | | | | | | | | | | | | | | | | | | | | | | ([facility]) | | | | | | | | | | | : [address] | | | | | | | | | | | | | | | | | | | | | | [address] | | | | | | | | | | | [address] | | | | | | | | | | | [address], | | | | | | | | | | | [place] | | | | | | | | | | | rg | +--------+--------+---+--------+---+--------+--------+--------+-------+--------+ | | | | Normal | | Alt | 58 U/L | 12-78 | Final | [facility] | | | | | | | (Sgpt) | | U/L | | [facility] | | | | | | | | | | | l | | | | | | | | | | | Center | | | | | | | | | | | | | | | | | | | | | | ([place]) | | | | | | | | | | | : [address] | | | | | | | | | | | | | | | | | | | | | | [address] | | | | | | | | | | | [address] | | | | | | | | | | | [address], | | | | | | | | | | | [place] | | | | | | | | | | | rg | +--------+--------+---+--------+---+--------+--------+--------+-------+--------+ | 09/14/ | Lipase | | Normal | | | 135 | 73-393 | Final | [facility] | | 2020 | , | | | | Lipase | U/L | U/L | | [facility] | | | Serum | | | | | | | | l | | | or | | | | | | | | Center | | | Plasma | | | | | | | | | | | | | | | | | | | ([facility]) | | | | | | | | | | | : [address] | | | | | | | | | | | | | | | | | | | | | | [address] | | | | | | | | | | | t | | | | | | | | | | | Pkw[address], | | | | | | | | | | | [place] | | | | | | | | | | | rg | +--------+--------+---+--------+---+--------+--------+--------+-------+--------+ | 09/14/ | Urinal | | Normal | | | clean | | Final | [facility] | | 2020 | ysis, | | | | Source | catch | | | [facility] | | | Reflex | | | | | | | | l | | | | | | | | | | | Center | | | Cultur | | | | | | | | | | | e | | | | | | | | (Main) | | | | | | | | | | | : [address] | | | | | | | | | | | | | | | | | | | | | | [address] | | | | | | | | | | | t | | | | | | | | | | | [address]kw[address], | | | | | | | | | | | [place] | | | | | | | | | | | rg | +--------+--------+---+--------+---+--------+--------+--------+-------+--------+ | | | | Normal | | Color | yellow | P-yell | Final | [facility] | | | | | | | | | ow | | [facility] | | | | | | | | | | | l | | | | | | | | | | | Center | | | | | | | | | | | | | | | | | | | | | | ([place]) | | | | | | | | | | | : [address] | | | | | | | | | | | | | | | | | | | | | | [address] | | | | | | | | | | | t | | | | | | | | | | | [address]kw[address], | | | | | | | | | | | [place] | | | | | | | | | | | rg | +--------+--------+---+--------+---+--------+--------+--------+-------+--------+ | | | | High | | | hazy | clear | Final | [facility] | | | | | | | Appear | | | | [facility]ica | | | | | | | ance | | | | l | | | | | | | | | | | Center | | | | | | | | | | | | | | | | | | | | | | (Main) | | | | | | | | | | | : [address] | | | | | | | | | | | | | | | | | | | | | | [address] | | | | | | | | | | | t | | | | | | | | | | | [address]kw[address], | | | | | | | | | | | [place] | | | | | | | | | | | rg | +--------+--------+---+--------+---+--------+--------+--------+-------+--------+ | | | | Normal | | Spec | 1.020 | 1.003- | Final | [facility] | | | | | | | Gravit | | 1.022 | | [facility] | | | | | | | y | | | | l | | | | | | | | | | | Center | | | | | | | | | | | | | | | | | | | | | | ([facility]) | | | | | | | | | | | : [address] | | | | | | | | | | | | | | | | | | | | | | [address] | | | | | | | | | | | t | | | | | | | | | | | Pkw[address], | | | | | | | | | | | [place] | | | | | | | | | | | rg | +--------+--------+---+--------+---+--------+--------+--------+-------+--------+ | | | | Normal | | Ph | 5.0 | 5.0-8. | Final | [facility] | | | | | | | | | 0 | | [facility] | | | | | | | | | | | l | | | | | | | | | | | Center | | | | | | | | | | | | | | | | | | | | | | ([facility]) | | | | | | | | | | | : [address] | | | | | | | | | | | | | | | | | | | | | | [address] | | | | | | | | | | | t | | | | | | | | | | | [address]kw[address], | | | | | | | | | | | [place] | | | | | | | | | | | rg | +--------+--------+---+--------+---+--------+--------+--------+-------+--------+ | | | | Normal | | | neg | neg | Final | [facility] | | | | | | | Leukoc | | | | [facility] | | | | | | | yte | | | | l | | | | | | | Est | | | | Center | | | | | | | | | | | | | | | | | | | | | | ([facility]) | | | | | | | | | | | : [address] | | | | | | | | | | | | | | | | | | | | | | [address] | | | | | | | | | | | t | | | | | | | | | | | Pkw[address], | | | | | | | | | | | [place] | | | | | | | | | | | rg | +--------+--------+---+--------+---+--------+--------+--------+-------+--------+ | | | | Normal | | | neg | neg | Final | [facility] | | | | | | | Nitrit | | | | Medica | | | | | | | e | | | | l | | | | | | | | | | | Center | | | | | | | | | | | | | | | | | | | | | | (Main) | | | | | | | | | | | : [address] | | | | | | | | | | | | | | | | | | | | | | [address] | | | | | | | | | | | t | | | | | | | | | | | [address], | | | | | | | | | | | [place] | | | | | | | | | | | rg | +--------+--------+---+--------+---+--------+--------+--------+-------+--------+ | | | | High | | | trace | neg | Final | [facility] | | | | | | | Protei | | | | Medica | | | | | | | n | | | | l | | | | | | | | | | | Center | | | | | | | | | | | | | | | | | | | | | | ([facility]) | | | | | | | | | | | : [address] | | | | | | | | | | | | | | | | | | | | | | [address] | | | | | | | | | | | t | | | | | | | | | | | [address]kw[address], | | | | | | | | | | | [place] | | | | | | | | | | | rg | +--------+--------+---+--------+---+--------+--------+--------+-------+--------+ | | | | High | | | 1+ | neg | Final | [facility] | | | | | | | Glucos | | | | Medica | | | | | | | e | | | | l | | | | | | | | | | | Center | | | | | | | | | | | | | | | | | | | | | | ([facility]) | | | | | | | | | | | : [address] | | | | | | | | | | | | | | | | | | | | | | [address] | | | | | | | | | | | t | | | | | | | | | | | Pkw[address], | | | | | | | | | | | [place] | | | | | | | | | | | rg | +--------+--------+---+--------+---+--------+--------+--------+-------+--------+ | | | | Normal | | | neg | neg | Final | [facility] | | | | | | | Ketone | | | | [facility]ica | | | | | | | s | | | | l | | | | | | | | | | | Center | | | | | | | | | | | | | | | | | | | | | | ([facility]) | | | | | | | | | | | : [address] | | | | | | | | | | | | | | | | | | | | | | [address] | | | | | | | | | | | t | | | | | | | | | | | Pkw[address], | | | | | | | | | | | [place] | | | | | | | | | | | rg | +--------+--------+---+--------+---+--------+--------+--------+-------+--------+ | | | | Normal | | | norm | normal | Final | [facility] | | | | | | | Urobil | | | | [facility] | | | | | | | inogen | | | | l | | | | | | | | | | | Center | | | | | | | | | | | | | | | | | | | | | | ([facility]) | | | | | | | | | | | : [address] | | | | | | | | | | | | | | | | | | | | | | [address] | | | | | | | | | | | t | | | | | | | | | | | [address]kw[address], | | | | | | | | | | | [place] | | | | | | | | | | | rg | +--------+--------+---+--------+---+--------+--------+--------+-------+--------+ | | | | Normal | | | neg | neg | Final | [facility] | | | | | | | Biliru | | | | Medica | | | | | | | bin | | | | l | | | | | | | | | | | Center | | | | | | | | | | | | | | | | | | | | | | (Main) | | | | | | | | | | | : [address] | | | | | | | | | | | | | | | | | | | | | | [address] | | | | | | | | | | | t | | | | | | | | | | | Pkw[address], | | | | | | | | | | | [place] | | | | | | | | | | | rg | +--------+--------+---+--------+---+--------+--------+--------+-------+--------+ | | | | High | | Blood | trace | neg | Final | [facility] | | | | | | | | | | | Medica | | | | | | | | | | | l | | | | | | | | | | | Center | | | | | | | | | | | | | | | | | | | | | | (Main) | | | | | | | | | | | : [address] | | | | | | | | | | | | | | | | | | | | | | [address] | | | | | | | | | | | t | | | | | | | | | | | Pkw[address], | | | | | | | | | | | [place] | | | | | | | | | | | rg | +--------+--------+---+--------+---+--------+--------+--------+-------+--------+ | | | | High | | | yes | no | Final | [facility] | | | | | | | Cultur | | | | Medica | | | | | | | ed ? | | | | l | | | | | | | | | | | Center | | | | | | | | | | | | | | | | | | | | | | (Main) | | | | | | | | | | | : [address] | | | | | | | | | | | | | | | | | | | | | | [address] | | | | | | | | | | | t | | | | | | | | | | | Pkwy, | | | | | | | | | | | [place] | | | | | | | | | | | rg | +--------+--------+---+--------+---+--------+--------+--------+-------+--------+ | 06/14/ | Urinal | | Normal | | Wbcs | 0-2 | 0-5 | Final | [facility] | | 2020 | ysis, | | | | | /hpf | /hpf | | [facility] | | | Micros | | | | | | | | l | | | copic | | | | | | | | Center | | | | | | | | | | | | | | | | | | | | | | (Main) | | | | | | | | | | | : [address] | | | | | | | | | | | | | | | | | | | | | | [address] | | | | | | | | | | | t | | | | | | | | | | | Pkwy, | | | | | | | | | | | [place] | | | | | | | | | | | rg | +--------+--------+---+--------+---+--------+--------+--------+-------+--------+ | | | | Normal | | Rbcs | 0-2 | 0-2 | Final | [facility] | | | | | | | | /hpf | /hpf | | [facility]ica | | | | | | | | | | | l | | | | | | | | | | | Center | | | | | | | | | | | | | | | | | | | | | | (Main) | | | | | | | | | | | : [address] | | | | | | | | | | | | | | | | | | | | | | [address] | | | | | | | | | | | t | | | | | | | | | | | Pkwy, | | | | | | | | | | | [place] | | | | | | | | | | | rg | +--------+--------+---+--------+---+--------+--------+--------+-------+--------+ | | | | High | | | many | few | Final | [facility] | | | | | | | Epithe | /hpf | /hpf | | Medica | | | | | | | lial | | | | l | | | | | | | | | | | Center | | | | | | | | | | | | | | | | | | | | | | (Main) | | | | | | | | | | | : [address] | | | | | | | | | | | | | | | | | | | | | | [address] | | | | | | | | | | | t | | | | | | | | | | | Pkwy, | | | | | | | | | | | [place] | | | | | | | | | | | rg | +--------+--------+---+--------+---+--------+--------+--------+-------+--------+ | | | | High | | | many | none | Final | [facility] | | | | | | | Bacter | /hpf | /hpf | | Medica | | | | | | | ia | | | | l | | | | | | | | | | | Center | | | | | | | | | | | | | | | | | | | | | | (Main) | | | | | | | | | | | : [address] | | | | | | | | | | | | | | | | | | | | | | [address] | | | | | | | | | | | t | | | | | | | | | | | Pkw[address], | | | | | | | | | | | [place] | | | | | | | | | | | rg | +--------+--------+---+--------+---+--------+--------+--------+-------+--------+ | 05/26/ | CBC W/ | | Normal | | Wbc | 9.77 | 4.00-1 | Final | [facility] | | 2020 | Auto | | | | | K/mm3 | 1.30 | | [facility] | | | Diff | | | | | | K/mm3 | | l | | | | | | | | | | | Center | | | | | | | | | | | | | | | | | | | | | | (Main) | | | | | | | | | | | : [address] | | | | | | | | | | | | | | | | | | | | | | [address] | | | | | | | | | | | t | | | | | | | | | | | Pkw[address], | | | | | | | | | | | [place] | | | | | | | | | | | rg | +--------+--------+---+--------+---+--------+--------+--------+-------+--------+ | | | | Normal | | Rbc | 4.15 | 3.80-5 | Final | [facility] | | | | | | | | M/mm3 | .20 | | [facility] | | | | | | | | | M/mm3 | | l | | | | | | | | | | | Center | | | | | | | | | | | | | | | | | | | | | | (Main) | | | | | | | | | | | : [address] | | | | | | | | | | | | | | | | | | | | | | [address] | | | | | | | | | | | t | | | | | | | | | | | Pkwy, | | | | | | | | | | | [place] | | | | | | | | | | | rg | +--------+--------+---+--------+---+--------+--------+--------+-------+--------+ | | | | Normal | | Hgb | 13.1 | 11.5-1 | Final | [facility] | | | | | | | | g/dL | 6.0 | | [facility] | | | | | | | | | g/dL | | l | | | | | | | | | | | Center | | | | | | | | | | | | | | | | | | | | | | (Main) | | | | | | | | | | | : [address] | | | | | | | | | | | | | | | | | | | | | | [address] | | | | | | | | | | | t | | | | | | | | | | | Pkwy, | | | | | | | | | | | [place] | | | | | | | | | | | rg | +--------+--------+---+--------+---+--------+--------+--------+-------+--------+ | | | | Normal | | Hct | 40.2 % | 33.0-5 | Final | [facility] | | | | | | | | | 1.0 % | | Medica | | | | | | | | | | | l | | | | | | | | | | | Center | | | | | | | | | | | | | | | | | | | | | | (Main) | | | | | | | | | | | : [address] | | | | | | | | | | | | | | | | | | | | | | [address] | | | | | | | | | | | t | | | | | | | | | | | Pkw[address], | | | | | | | | | | | [place] | | | | | | | | | | | rg | +--------+--------+---+--------+---+--------+--------+--------+-------+--------+ | | | | Normal | | Mcv | 97 fL | 80-100 | Final | [facility] | | | | | | | | | fL | | Medica | | | | | | | | | | | l | | | | | | | | | | | Center | | | | | | | | | | | | | | | | | | | | | | (Main) | | | | | | | | | | | : [address] | | | | | | | | | | | | | | | | | | | | | | [address] | | | | | | | | | | | t | | | | | | | | | | | Pkwy, | | | | | | | | | | | [place] | | | | | | | | | | | rg | +--------+--------+---+--------+---+--------+--------+--------+-------+--------+ | | | | Normal | | Mch | 31.6 | 26.0-3 | Final | [facility] | | | | | | | | pg | 4.0 pg | | [facility] | | | | | | | | | | | l | | | | | | | | | | | Center | | | | | | | | | | | | | | | | | | | | | | (Main) | | | | | | | | | | | : [address] | | | | | | | | | | | | | | | | | | | | | | [address] | | | | | | | | | | | t | | | | | | | | | | | Pkw[address], | | | | | | | | | | | [place] | | | | | | | | | | | rg | +--------+--------+---+--------+---+--------+--------+--------+-------+--------+ | | | | Normal | | Mchc | 32.6 | 31.5-3 | Final | [facility] | | | | | | | | g/dL | 6.5 | | [facility] | | | | | | | | | g/dL | | l | | | | | | | | | | | Center | | | | | | | | | | | | | | | | | | | | | | (Main) | | | | | | | | | | | : [address] | | | | | | | | | | | | | | | | | | | | | | [address] | | | | | | | | | | | t | | | | | | | | | | | Pkwy, | | | | | | | | | | | [place] | | | | | | | | | | | rg | +--------+--------+---+--------+---+--------+--------+--------+-------+--------+ | | | | High | | Rdw | 46.4 | 35.1-4 | Final | [facility] | | | | | | | Sd | fL | 6.3 fL | | Medica | | | | | | | | | | | l | | | | | | | | | | | Center | | | | | | | | | | | | | | | | | | | | | | (Main) | | | | | | | | | | | : [address] | | | | | | | | | | | | | | | | | | | | | | [address] | | | | | | | | | | | t | | | | | | | | | | | Pkwy, | | | | | | | | | | | [place] | | | | | | | | | | | rg | +--------+--------+---+--------+---+--------+--------+--------+-------+--------+ | | | | Normal | | Rdw | 13.0 % | 11.7-1 | Final | [facility] | | | | | | | Cv | | 4.2 % | | Medica | | | | | | | | | | | l | | | | | | | | | | | Center | | | | | | | | | | | | | | | | | | | | | | (Main) | | | | | | | | | | | : [address] | | | | | | | | | | | | | | | | | | | | | | [address] | | | | | | | | | | | t | | | | | | | | | | | Pkw[address], | | | | | | | | | | | [place] | | | | | | | | | | | rg | +--------+--------+---+--------+---+--------+--------+--------+-------+--------+ | | | | Low | | Plt | 148 | 150-40 | Final | [facility] | | | | | | | | K/mm3 | 0 | | [facility] | | | | | | | | | K/mm3 | | l | | | | | | | | | | | Center | | | | | | | | | | | | | | | | | | | | | | (Main) | | | | | | | | | | | : [address] | | | | | | | | | | | | | | | | | | | | | | [address] | | | | | | | | | | | t | | | | | | | | | | | Pkwy, | | | | | | | | | | | [place] | | | | | | | | | | | rg | +--------+--------+---+--------+---+--------+--------+--------+-------+--------+ | | | | High | | Mpv | 13.3 | 9.1-12 | Final | [facility] | | | | | | | | fL | .4 fL | | [facility] | | | | | | | | | | | l | | | | | | | | | | | Center | | | | | | | | | | | | | | | | | | | | | | (Main) | | | | | | | | | | | : [address] | | | | | | | | | | | | | | | | | | | | | | [address] | | | | | | | | | | | t | | | | | | | | | | | [address]kw[address], | | | | | | | | | | | [place] | | | | | | | | | | | rg | +--------+--------+---+--------+---+--------+--------+--------+-------+--------+ | | | | Normal | | Diff | auto | | Final | [facility] | | | | | | | Type | | | | [facility]ica | | | | | | | | | | | l | | | | | | | | | | | Center | | | | | | | | | | | | | | | | | | | | | | (Main) | | | | | | | | | | | : [address] | | | | | | | | | | | | | | | | | | | | | | [address] | | | | | | | | | | | t | | | | | | | | | | | Pkw[address], | | | | | | | | | | | [place] | | | | | | | | | | | rg | +--------+--------+---+--------+---+--------+--------+--------+-------+--------+ | | | | Normal | | Neut | 53 % | 41-73 | Final | [facility] | | | | | | | % | | % | | Medica | | | | | | | | | | | l | | | | | | | | | | | Center | | | | | | | | | | | | | | | | | | | | | | (Main) | | | | | | | | | | | : [address] | | | | | | | | | | | | | | | | | | | | | | [address] | | | | | | | | | | | t | | | | | | | | | | | [address]kw[address], | | | | | | | | | | | [place] | | | | | | | | | | | rg | +--------+--------+---+--------+---+--------+--------+--------+-------+--------+ | | | | Normal | | Lymph | 36 % | 21-46 | Final | [facility] | | | | | | | % | | % | | Medica | | | | | | | | | | | l | | | | | | | | | | | Center | | | | | | | | | | | | | | | | | | | | | | (Main) | | | | | | | | | | | : [address] | | | | | | | | | | | | | | | | | | | | | | [address] | | | | | | | | | | | t | | | | | | | | | | | Pkw[address], | | | | | | | | | | | [place] | | | | | | | | | | | rg | +--------+--------+---+--------+---+--------+--------+--------+-------+--------+ | | | | Normal | | [place] | 10 % | 4-13 % | Final | [facility] | | | | | | | % | | | | Medica | | | | | | | | | | | l | | | | | | | | | | | Center | | | | | | | | | | | | | | | | | | | | | | (Main) | | | | | | | | | | | : [address] | | | | | | | | | | | | | | | | | | | | | | [address] | | | | | | | | | | | t | | | | | | | | | | | Pkw[address], | | | | | | | | | | | [place] | | | | | | | | | | | rg | +--------+--------+---+--------+---+--------+--------+--------+-------+--------+ | | | | Normal | | Eosin | 0 % | 0-6 % | Final | [facility] | | | | | | | % | | | | Med[facility] | | | | | | | | | | | l | | | | | | | | | | | Center | | | | | | | | | | | | | | | | | | | | | | (Main) | | | | | | | | | | | : [address] | | | | | | | | | | | | | | | | | | | | | | [address] | | | | | | | | | | | t | | | | | | | | | | | Pkwy, | | | | | | | | | | | [place] | | | | | | | | | | | rg | +--------+--------+---+--------+---+--------+--------+--------+-------+--------+ | | | | Normal | | Baso | 1 % | 0-2 % | Final | [facility] | | | | | | | % | | | | [facility] | | | | | | | | | | | l | | | | | | | | | | | Center | | | | | | | | | | | | | | | | | | | | | | (Main) | | | | | | | | | | | : [address] | | | | | | | | | | | | | | | | | | | | | | [address] | | | | | | | | | | | t | | | | | | | | | | | Pkw[address], | | | | | | | | | | | [place] | | | | | | | | | | | rg | +--------+--------+---+--------+---+--------+--------+--------+-------+--------+ | | | | Normal | | Imm | 0 % | 0-1 % | Final | [facility] | | | | | | | Grans | | | | Medica | | | | | | | % | | | | l | | | | | | | | | | | Center | | | | | | | | | | | | | | | | | | | | | | (Main) | | | | | | | | | | | : [address] | | | | | | | | | | | | | | | | | | | | | | [address] | | | | | | | | | | | t | | | | | | | | | | | Pkw[address], | | | | | | | | | | | [place] | | | | | | | | | | | rg | +--------+--------+---+--------+---+--------+--------+--------+-------+--------+ | | | | Normal | | Nrbc | 0.0 | 0.0-0. | Final | [facility] | | | | | | | | /100 | 2 /100 | | [facility] | | | | | | | | WBC | WBC | | l | | | | | | | | | | | Center | | | | | | | | | | | | | | | | | | | | | | (Main) | | | | | | | | | | | : [address] | | | | | | | | | | | | | | | | | | | | | | [address] | | | | | | | | | | | t | | | | | | | | | | | Pkwy, | | | | | | | | | | | [place] | | | | | | | | | | | rg | +--------+--------+---+--------+---+--------+--------+--------+-------+--------+ | | | | Normal | | Abs | 5.18 | 1.96-9 | Final | [facility] | | | | | | | Neut | K/mm3 | .15 | | [facility] | | | | | | | | | K/mm3 | | l | | | | | | | | | | | Center | | | | | | | | | | | | | | | | | | | | | | (Main) | | | | | | | | | | | : [address] | | | | | | | | | | | | | | | | | | | | | | [address] | | | | | | | | | | | t | | | | | | | | | | | Pkw[address], | | | | | | | | | | | [place] | | | | | | | | | | | rg | +--------+--------+---+--------+---+--------+--------+--------+-------+--------+ | | | | Normal | | Abs | 3.56 | 0.84-5 | Final | [facility] | | | | | | | Lymph | K/mm3 | .20 | | [facility] | | | | | | | | | K/mm3 | | l | | | | | | | | | | | Center | | | | | | | | | | | | | | | | | | | | | | (Main) | | | | | | | | | | | : [address] | | | | | | | | | | | | | | | | | | | | | [address] | | | | | | | | | | [address] | | | | | | | | | | | [address], | | | | | | | | | | | [facility] | | | | | | | | | | | rg | +--------+--------+---+--------+---+--------+--------+--------+-------+--------+ | | | | Normal | | Abs | 0.95 | 0.16-1 | Final | [facility] | | | | | | | [place] | K/mm3 | .47 | | [facility] | | | | | | | | | K/mm3 | | l | | | | | | | | | | | Center | | | | | | | | | | | | | | | | | | | | | | (Main) | | | | | | | | | | | : [address] | | | | | | | | | | | | | | | | | | | | | | [address] | | | | | | | | | | | [address] | | | | | | | | | | | [address], | | | | | | | | | | | [facility] | | | | | | | | | | | rg | +--------+--------+---+--------+---+--------+--------+--------+-------+--------+ | | | | Normal | | Abs | 0.00 | 0.00-0 | Final | [facility] | | | | | | | Eosin | K/mm3 | .68 | | [facility] | | | | | | | | | K/mm3 | | l | | | | | | | | | | | Center | | | | | | | | | | | | | | | | | | | | | | ([facility]) | | | | | | | | | | | : [address] | | | | | | | | | | | | | | | | | | | | | | [address] | | | | | | | | | | | [address] | | | | | | | | | | | [address], | | | | | | | | | | | [place] | | | | | | | | | | | rg | +--------+--------+---+--------+---+--------+--------+--------+-------+--------+ | | | | Normal | | Abs | 0.07 | 0.00-0 | Final | [facility] | | | | | | | Baso | K/mm3 | .23 | | [facility] | | | | | | | | | K/mm3 | | l | | | | | | | | | | | Center | | | | | | | | | | | | | | | | | | | | | | ([facility]) | | | | | | | | | | | : [address] | | | | | | | | | | | | | | | | | | | | | | [address] | | | | | | | | | | [address] | | | | | | | | | | | [address], | | | | | | | | | | | [place] | | | | | | | | | | | rg | +--------+--------+---+--------+---+--------+--------+--------+-------+--------+ | | | | Normal | | Abs | 0.01 | 0.00-0 | Final | [facility] | | | | | | | Imm | K/mm3 | .10 | | [facility] | | | | | | | Grans | | K/mm3 | | l | | | | | | | | | | | Center | | | | | | | | | | | | | | | | | | | | | | (Main) | | | | | | | | | | | : [address] | | | | | | | | | | | | | | | | | | | | | | [address] | | | | | | | | | | | [address] | | | | | | | | | | | [address], | | | | | | | | | | | [facility] | | | | | | | | | | | rg | +--------+--------+---+--------+---+--------+--------+--------+-------+--------+ | | | | Normal | | Abs | 0.00 | 0.00-0 | Final | [facility] | | | | | | | NRBC | K/mm3 | .02 | | [facility] | | | | | | | | | K/mm3 | | l | | | | | | | | | | | Center | | | | | | | | | | | | | | | | | | | | | | (Main) | | | | | | | | | | | : [address] | | | | | | | | | | | | | | | | | | | | | | [address] | | | | | | | | | | | [address] | | | | | | | | | | | [address], | | | | | | | | | | | [place] | | | | | | | | | | | rg | +--------+--------+---+--------+---+--------+--------+--------+-------+--------+ | 05/26/ | CMP, | | Normal | | Na | 142 | 136-14 | Final | [facility] | | 2020 | Serum | | | | | mmol/L | 5 | | [facility] | | | or | | | | | | mmol/L | | l | | | Plasma | | | | | | | | Center | | | | | | | | | | | | | | | | | | | | | | ([facility]) | | | | | | | | | | | : [address] | | | | | | | | | | | | | | | | | | | | | | [address] | | | | | | | | | | | [address] | | | | | | | | | | | [address], | | | | | | | | | | | [facility] | | | | | | | | | | | rg | +--------+--------+---+--------+---+--------+--------+--------+-------+--------+ | | | | Normal | | K | 3.8 | 3.5-5. | Final | [facility] | | | | | | | | mmol/L | 5 | | [facility] | | | | | | | | | mmol/L | | l | | | | | | | | | | | Center | | | | | | | | | | | | | | | | | | | | | | (Main) | | | | | | | | | | | : [address] | | | | | | | | | | | | | | | | | | | | | | [address] | | | | | | | | | | | [address] | | | | | | | | | | | [address], | | | | | | | | | | | [facility] | | | | | | | | | | | rg | +--------+--------+---+--------+---+--------+--------+--------+-------+--------+ | | | | High | | Cl | 110 | 98-108 | Final | [facility] | | | | | | | | mmol/L | | | [facility] | | | | | | | | | mmol/L | | l | | | | | | | | | | | Center | | | | | | | | | | | | | | | | | | | | | | (Main) | | | | | | | | | | | : [address] | | | | | | | | | | | | | | | | | | | | | | [address] | | | | | | | | | | | [address] | | | | | | | | | | | [address], | | | | | | | | | | | [facility] | | | | | | | | | | | rg | +--------+--------+---+--------+---+--------+--------+--------+-------+--------+ | | | | Normal | | Co2 | 27 | 21-32 | Final | [facility] | | | | | | | | mmol/L | mmol/L | | [facility] | | | | | | | | | | | l | | | | | | | | | | | Center | | | | | | | | | | | | | | | | | | | | | | ([facility]) | | | | | | | | | | | : [address] | | | | | | | | | | | | | | | | | | | | | | [address] | | | | | | | | | | | [address] | | | | | | | | | | | [address], | | | | | | | | | | | [facility] | | | | | | | | | | | rg | +--------+--------+---+--------+---+--------+--------+--------+-------+--------+ | | | | Low | | Anion | 5 | 6-16 | Final | [facility] | | | | | | | Gap | mmol/L | mmol/L | | [facility] | | | | | | | | | | | l | | | | | | | | | | | Center | | | | | | | | | | | | | | | | | | | | | | ([facility]) | | | | | | | | | | | : [address] | | | | | | | | | | | | | | | | | | | | | | [address] | | | | | | | | | | | [address] | | | | | | | | | | | [address], | | | | | | | | | | | [facility] | | | | | | | | | | | rg | +--------+--------+---+--------+---+--------+--------+--------+-------+--------+ | | | | Normal | | Gluc | 84 | 70-99 | Final | [facility] | | | | | | | | mg/dL | mg/dL | | [facility] | | | | | | | | | | | l | | | | | | | | | | | Center | | | | | | | | | | | | | | | | | | | | | | (Main) | | | | | | | | | | | : [address] | | | | | | | | | | | | | | | | | | | [address] | | | | | | | | | | [address] | | | | | | | | | [address], | | | | | | | | | | | [place] | | | | | | | | | | | rg | +--------+--------+---+--------+---+--------+--------+--------+-------+--------+ | | | | Normal | | Bun | 13 | 8-24 | Final | [facility] | | | | | | | | mg/dL | mg/dL | | [facility] | | | | | | | | | | | l | | | | | | | | | | | Center | | | | | | | | | | | | | | | | | | | | | | (Main) | | | | | | | | | | | : [address] | | | | | | | | | | | | | | | | | | | | | | [address] | | | | | | | | | | [address] | | | | | | | | | | | [address], | | | | | | | | | | | [place] | | | | | | | | | | | rg | +--------+--------+---+--------+---+--------+--------+--------+-------+--------+ | | | | Normal | | Creat | 0.82 | 0.40-1 | Final | [facility] | | | | | | | | mg/dL | .00 | | [facility] | | | | | | | | | mg/dL | | l | | | | | | | | | | | Center | | | | | | | | | | | | | | | | | | | | | | (Main) | | | | | | | | | | | : [address] | | | | | | | | | | | | | | | | | | | | | [address] | | | | | | | | | | [address] | | | | | | | | | | | [address], | | | | | | | | | | | [place] | | | | | | | | | | | rg | +--------+--------+---+--------+---+--------+--------+--------+-------+--------+ | | | | Normal | | | 15.8 % | 12.0-2 | Final | [facility] | | | | | | | BUN/cr | | 0.0 % | | [facility] | | | | | | | eat | | | | l | | | | | | | | | | | Center | | | | | | | | | | | | | | | | | | | | | | (Main) | | | | | | | | | | | : [address] | | | | | | | | | | | | | | | | | | | | | | [address] | | | | | | | | | | [address] | | | | | | | | | | | [address], | | | | | | | | | | | [place] | | | | | | | | | | | rg | +--------+--------+---+--------+---+--------+--------+--------+-------+--------+ | | | | Normal | | Gfr | >60 | 60- | Final | [facility] | | | | | | | | | | | [facility] | | | | | | | | | | | l | | | | | | | | | | | Center | | | | | | | | | | | | | | | | | | | | | | (Main) | | | | | | | | | | | : [address] | | | | | | | | | | | | | | | | | | | | | [address] | | | | | | | | | | [address] | | | | | | | | | | | [address], | | | | | | | | | | | [place] | | | | | | | | | | | rg | +--------+--------+---+--------+---+--------+--------+--------+-------+--------+ | | | | Normal | | Ca | 8.5 | 8.5-10 | Final | [facility] | | | | | | | | mg/dL | .1 | | [facility] | | | | | | | | | mg/dL | | l | | | | | | | | | | | Center | | | | | | | | | | | | | | | | | | | | | | (Main) | | | | | | | | | | | : [address] | | | | | | | | | | | | | | | | | | | | | | [address] | | | | | | | | | | [address] | | | | | | | | | | | [address], | | | | | | | | | | | [place] | | | | | | | | | | | rg | +--------+--------+---+--------+---+--------+--------+--------+-------+--------+ | | | | Normal | | Total | 7.8 | 6.4-8. | Final | [facility] | | | | | | | | g/dL | 2 g/dL | | [facility] | | | | | | | Protei | | | | l | | | | | | | n | | | | Center | | | | | | | | | | | | | | | | | | | | | | (Main) | | | | | | | | | | | : [address] | | | | | | | | | | | | | | | | | | | | | | [address] | | | | | | | | | | [address] | | | | | | | | | | | [address], | | | | | | | | | | | [place] | | | | | | | | | | | rg | +--------+--------+---+--------+---+--------+--------+--------+-------+--------+ | | | | Normal | | Alb | 3.9 | 3.4-5. | Final | [facility] | | | | | | | | g/dL | 0 g/dL | | [facility] | | | | | | | | | | | l | | | | | | | | | | | Center | | | | | | | | | | | | | | | | | | | | | | (Main) | | | | | | | | | | | : [address] | | | | | | | | | | | | | | | | | | | | | | [address] | | | | | | | | | | | [address] | | | | | | | | | | | [address]kw[address], | | | | | | | | | | | [place] | | | | | | | | | | | rg | +--------+--------+---+--------+---+--------+--------+--------+-------+--------+ | | | | Normal | | Glob | 3.9 | 2.2-4. | Final | [facility] | | | | | | | | g/dL | 0 g/dL | | [facility] | | | | | | | | | | | l | | | | | | | | | | | Center | | | | | | | | | | | | | | | | | | | | | | (Main) | | | | | | | | | | | : [address] | | | | | | | | | | | | | | | | | | | | | | [address] | | | | | | | | | | [address] | | | | | | | | | | | [address], | | | | | | | | | | | [place] | | | | | | | | | | | rg | +--------+--------+---+--------+---+--------+--------+--------+-------+--------+ | | | | Normal | | | 1.0 | 0.8-1. | Final | [facility] | | | | | | | Alb/gl | | 8 | | [facility] | | | | | | | ob | | | | l | | | | | | | | | | | Center | | | | | | | | | | | | | | | | | | | | | | (Main) | | | | | | | | | | | : [address] | | | | | | | | | | | | | | | | | | | | | | [address] | | | | | | | | | | [address] | | | | | | | | | | | [address], | | | | | | | | | | | [place] | | | | | | | | | | | rg | +--------+--------+---+--------+---+--------+--------+--------+-------+--------+ | | | | Normal | | Bili | 0.4 | 0.1-1. | Final | [facility] | | | | | | | Tot | mg/dL | 0 | | [facility] | | | | | | | | | mg/dL | | l | | | | | | | | | | | Center | | | | | | | | | | | | | | | | | | | | | | (Main) | | | | | | | | | | | : [address] | | | | | | | | | | | | | | | | | | | | | | [address] | | | | | | | | | | [address] | | | | | | | | | | | [address]kw[address], | | | | | | | | | | | [place] | | | | | | | | | | | rg | +--------+--------+---+--------+---+--------+--------+--------+-------+--------+ | | | | Normal | | Alk | 80 U/L | 50-136 | Final | [facility] | | | | | | | Phos | | U/L | | [facility] | | | | | | | | | | | l | | | | | | | | | | | Center | | | | | | | | | | | | | | | | | | | | | | (Main) | | | | | | | | | | | : [address] | | | | | | | | | | | | | | | | | | | | | | [address] | | | | | | | | | | | [address] | | | | | | | | | | | [address]kw[address], | | | | | | | | | | | [place] | | | | | | | | | | | rg | +--------+--------+---+--------+---+--------+--------+--------+-------+--------+ | | | | Normal | | Ast | 13 U/L | 12-37 | Final | [facility] | | | | | | | (Sgot) | | U/L | | [facility] | | | | | | | | | | | l | | | | | | | | | | | Center | | | | | | | | | | | | | | | | | | | | | | (Main) | | | | | | | | | | | : [address] | | | | | | | | | | | | | | | | | | | | | | [address] | | | | | | | | | | [address] | | | | | | | | | | | [address]kw[address], | | | | | | | | | | | [place] | | | | | | | | | | | rg | +--------+--------+---+--------+---+--------+--------+--------+-------+--------+ | | | | Normal | | Alt | 22 U/L | 12-78 | Final | [facility] | | | | | | | (Sgpt) | | U/L | | [facility] | | | | | | | | | | | l | | | | | | | | | | | Center | | | | | | | | | | | | | | | | | | | | | | (Main) | | | | | | | | | | | : [address] | | | | | | | | | | | | | | | | | | | | | | [address] | | | | | | | | | | | [address] | | | | | | | | | | | [address]kw[address], | | | | | | | | | | | [place] | | | | | | | | | | | rg | +--------+--------+---+--------+---+--------+--------+--------+-------+--------+ | 05/26/ | TSH, | | Normal | | Tsh | 1.300 | 0.360- | Final | [facility] | | 2020 | Serum | | | | | uIU/mL | 4.800 | | [facility] | | | or | | | | | | uIU/mL | | l | | | Plasma | | | | | | | | Center | | | | | | | | | | | | | | | | | | | | | | (Main) | | | | | | | | | | | : [address] | | | | | | | | | | | | | | | | | | | | | | [address] | | | | | | | | | | | [address] | | | | | | | | | | | [address]kw[address], | | | | | | | | | | | [place] | | | | | | | | | | | rg | +--------+--------+---+--------+---+--------+--------+--------+-------+--------+ | 05/26/ | T4, | | Normal | | Free | 1.20 | 0.70-1 | Final | [facility] | | 2020 | Free, | | | | T4 | NG/dL | .60 | | [facility] | | | Serum | | | | | | NG/dL | | l | | | | | | | | | | | Center | | | | | | | | | | | | | | | | | | | | | | (Main) | | | | | | | | | | | : [address] | | | | | | | | | | | | | | | | | | | | | | [address] | | | | | | | | | | | [address] | | | | | | | | | | | [address]kw[address], | | | | | | | | | | | [place] | | | | | | | | | | | rg | +--------+--------+---+--------+---+--------+--------+--------+-------+--------+ Allergies +--------+--------+ + + +--------+-------+ | Code | Code | Name | Reaction | Severity | Status | Onset | | | System | | | | | | +--------+--------+ + + +--------+-------+ | | | Bee Venom | Anaphylaxi | Fatal | Active | | | | | Protein | s | | | | | | | (Honey | | | | | | | | Bee) | | | | | +--------+--------+ + + +--------+-------+ | [id number] | RxNorm | Chantix | Headache | Mild | Active | | +--------+--------+ + + +--------+-------+ | [id number] | RxNorm | Geodon | | | Active | | +--------+--------+ + + +--------+-------+ | 7052 | RxNorm | Morphine | | | Active | | +--------+--------+ + + +--------+-------+ Problems + + + + + + | Name | Status | Onset Date | Source | | | | | | | | + + + + + + + +--------+ +---+ | Bipolar Disorder | Active | 08/14/2018 | | + +--------+ +---+ | Mixed Anxiety and | Active | 08/14/2018 | | | Depressive Disorder | | | | + +--------+ +---+ | Nicotine Dependence | Active | 08/14/2018 | | + +--------+ +---+ | Asthma | Active | 08/14/2018 | | + +--------+ +---+ | 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 | | + +--------+ +---+ | History of | Active | 08/17/2018 | | | Pancreatitis | | | | + +--------+ +---+ | Goiter | Active | 08/12/2019 | | + +--------+ +---+ | Tobacco Dependence | Active | 08/12/2019 | | | Syndrome | | | | + +--------+ +---+ | 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 | 08/12/2019 | | | Asthma | | | | + +--------+ +---+ | 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 | | | | + +--------+ +---+ Procedures + + + + + | Date | Name | Performed by | | | | | | | + + + + + +---+ + + | | Section | Information not available | +---+ + + | | Section | Information not available | +---+ + + | | Section | Information not available | +---+ + + | | Open Heart Surgery | Information not available | +---+ + + | | Section | Information not available | +---+ + + Vaccine List + + | Vaccine Type | + + | influenza, unspecified formulation | + + | 12/02/2017 | + + | Tdap | + + | 12/08/2002 | + + Social History + + +---+ | Tobacco Smoking Status | Heavy Tobacco Smoker (1 | | | | PPD) | | + + +---+ Past Encounters + + | 09/16/2019 | | Acid Reflux; Abdominal Pain | | Gogo Marcum NP: [address] [place] [address], Ph. [phone] | + + | 08/27/2019 | | Mixed Anxiety and Depressive Disorder | | Isai Pedroza: [address] [place] [address], Ph. [phone] | + + History of Present Illness Note:<p>33 yr old female presents to clinic today for ER follow up / stomach pain .
</p><p>
</p><p>For the last week was having needle like pain in her abdomen and r adiating around to her flanks. Went to the ER yesterday. Testing was unremarkable including UA (C&S shows no growth on prelim as of today), labs and CT abd/pelvis. States she passed ou t due to the pain once she arrived to the ER. She was told she had an ulcer and believes she was sent home with zofran and an NSAID. Was given toradol and diazepam while in ER. ER note indicates a dx of only abdominal pain. </p><p>
</p><p>Today she has pain in the middle o f her abdomen, crackers and noodles are the only things she's kept down today. Vomiting x 3 days. Has had a tubal ligation.
</p> Review of Systems + + + | | Comprehensive General Adult ROS | + + + | Reported By: | Patient | + + + | Constitutional: | Constitutional: no fever, no chills | + + + | Eyes: | Eyes: no vision change | + + + | Cardiovascular: | Cardiovascular: no chest pain, no | | | palpitations | + + + | Respiratory: | Respiratory: no cough, no shortness of | | | breath | + + + | Gastrointestinal: | Gastrointestinal: abdominal pain, nausea, | | | vomiting | + + + | Musculoskeletal: | Musculoskeletal: no muscle aches, no | | | muscle weakness | + + + | Integumentary: | Skin: no rashes | + + + | Psychiatric: | Psych: no depression, no anxiety | + + + | Notes: | <p>
</p> | + + + Physical Exam + + + | | General Adult Exam | + + + | Reported By: | Patient | + + + | Constitutional: | General Appearance: healthy-appearing, | | | well-nourished, well-developed. Level of | | | Distress: NAD. Ambulation: ambulating | | | normally | + + + | Psychiatric: | Mental Status: active and alert, normal | | | mood, normal affect. Orientation: to time, | | | to place, to person | + + + | Head: | Head: normocephalic, atraumatic | + + + | Eyes: | Lids and Conjunctivae: non-injected, no | | | discharge. Corneas: grossly intact | + + + | ENMT: | Ears: no lesions on external ear. | | | Oropharynx: moist mucous membranes | + + + | Lungs: | Respiratory effort: no dyspnea; No | | | increased respiratory effort | + + + | Abdomen: | Inspection and Palpation: non-distended, | | | no guarding, no masses, epigastric | | | tenderness, RUQ tenderness, RLQ | | | tenderness, CVA tenderness; milder | | | tenderness in RLQ, LLQ. Left CVA | | | tenderness | + + + | Musculoskeletal:: | Motor Strength and Tone: normal motor | | | strength, normal tone. Joints, Bones, and | | | Muscles: normal movement of all | | | extremities | + + + | Neurologic: | Gait and Station: normal gait, normal | | | station. Cranial Nerves: grossly intact. | | | Coordination and Cerebellum: no tremor | + + + | Skin: | Inspection and palpation: no rash, no | | | lesions, no jaundice | + + + | Back: | Thoracolumbar Appearance: normal curvature | + + +"
--- OUTSIDE RECORDS SUMMARY | ~2019-10-16 | XMS | Encounter Summary ---
Demographics + + + | Address | [address] | | | [place] [address] | + + + | Home Phone | [phone] | + + + | Preferred Language | Unknown | + + + | Marital Status | | + + + | Shinto Affiliation | Unknown | + + + | Race | White | + + + | Ethnic Group | Not or | + + + Author + + + | Author | | + + + | Organization | | + + + | Address | [address] | | | [place] [address] | + + + | Phone | [phone] | + + + Care Team Providers + +------+ + | Care Road Machine Operator Name | Role | Phone | + +------+ + | Dr. Family Adhikari | 3 | Unavailable | | [place] | | | + +------+ + | Aurelio Dong MD | 3 | Unavailable | + +------+ + | Dr. Family Adhikari | 4 | Unavailable | | [place] | | | + +------+ + Reason for Visit + + | None recorded. | + + Instructions + + | 1. Impacted cerumen | + + | ibuprofen 800 mg tablet | + + | 2. Otitis externa of left ear | + + | Ciprodex 0.3 %-0.1 % ear drops,suspension | + + + + | Discussion Note | + + | Patient advised to followup if symptoms are not improving in 3 days, if symptoms worsen, | | or if new symptoms develop. | + + Patient educational handouts: No information available. Plan of Care + + + + + | Reminders | | | Provider | | | | | | + + + + + | Appointments | None recorded. | | | + + + + + | Lab | None recorded. | | | + [...] inhalation route. | | + +---+ | cefuroxime axetil 500 mg tablet Take 1 | | | tablet every 12 hours by oral route for 10 | | | days. | | + +---+ | Chantix Starting Month Box 0.5 mg (11)-1 | | | mg (42) tablets in dose pack Take 1 startr | | | pk by oral route. | | + +---+ | Ciprodex 0.3 %-0.1 % ear drops,suspension | | | INSTILL 4 DROPS INTO AFFECTED EAR(S) BY | | | OTIC ROUTE 2 TIMES PER DAY FOR 7 DAYS | | + +---+ | EpiPen 2-El 0.3 mg/0.3 mL injection, | | | auto-injector Use as directed for | | | anaphylaxis reaction | | + +---+ | ibuprofen 800 mg tablet | | | Take 1 tablet by oral route. | | | ec 1330 | | + +---+ | levothyroxine 100 mcg tablet | | | Take 1 tablet every day by oral route. | | + +---+ | mirtazapine 15 mg tablet Take 1 tablet | | | every day by oral route at bedtime. | | + +---+ | duguvrok-yghrmscbp-gkscsfpwp 3.5 mg-10,000 | | | unit/mL-1 % ear drops,susp INSTILL 4 | | | DROPS INTO AFFECTED EAR(S) BY OTIC ROUTE 3 | | | TIMES PER DAY FOR 10 DAYS | | + +---+ | Neffs 5 mg-325 mg tablet Take 1 tablet | | | every 4-6 hours by oral route. | | + +---+ | prazosin 2 mg capsule Take 1 capsule every | | | day by oral route at bedtime. | | + +---+ | ProAir HFA 90 mcg/actuation aerosol | | | inhaler Inhale 2 puffs every 4 hours by | | | inhalation route as needed. | | + +---+ Medications Administered + + + + | Name | Date | | + + + + + + + | ibuprofen 800 mg tablet | [id number]:[id number]:31 | | Take 1 tablet by oral route. | | + + + Vitals + + + + + | Height | Weight | BMI | Blood Pressure | + + + + + | 5 ft 4 in | 195 lbs 2 oz | 33.5 kg/m2 | 119/59 mm[Hg] | + + + + + Lab Results None recorded. Allergies +--------+--------+ + + +--------+-------+ | Code | Code | Name | Reaction | Severity | Status | Onset | | | System | | | | | | +--------+--------+ + + +--------+-------+ | [id number] | RxNorm | Geodon | Rash | [...] | | +--------+--------+ + + +--------+-------+ | [id number] | RxNorm | Venom-darci | | | Active | | | | | y Bee | | | | | +--------+--------+ + + +--------+-------+ | [id number] | RxNorm | Ziprasidon | | | Active | | | | | e | | | | | +--------+--------+ + + +--------+-------+ Problems + + + + + + | Name | Status | Onset Date | Source | | | | | | | | + + + + + + + +--------+ + + | 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 | | | | + +--------+ + + | 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 | | + +--------+ + + | Nicotine Dependence | Active | 01/10/2018 | | + +--------+ + + | Asthma | Active | 01/10/2018 | | + +--------+ + + | Pain in Right Lower | Active | 01/10/2018 | | | Limb | | | | + +--------+ + + | Excessive Cerumen | Active | | External | | in Ear Canal | | | | + +--------+ + + | Impacted Cerumen | Active | | External | + +--------+ + + | Otalgia | Active | | External | + +--------+ + + | Sore Throat Symptom | Active | | External | + +--------+ + + | Pharyngitis | Active | | External | + +--------+ + + | Pneumonia | Active | | External | + +--------+ + + | Urinary Tract | Active | | External | | Infectious Disease | | | | + +--------+ + + | Cellulitis of Thigh | Active | | External | + +--------+ + + | Pain in Calf | Active | | External | + +--------+ + + | Abdominal Pain | Active | | External | + +--------+ + + Procedures + + + + + | [...] | + + +---+ Past Encounters + -------+ | 07/13/2018Impacted Cerumen; Otitis Externa of Left EarJohannasera OSORIO Ware: [address] | | [facility] [address] [address], Ph. | |OSORIO Maxwell: [address] [address], Ph. [phone] | + -------+ | 06/30/2018 | | Acute Left Otitis Media; Otitis Externa of Left Ear | | Bruno Gaspar MD: [address] [address] [address], Ph. | + -------+ History of Present Illness Note:32 y/o female c/o left ear pain and feeling plugged x 2 weeks despite being treated with omnicef and polymixin ear drops. Denies drainage from ear, +decreased hearing. No f/c/s. No n/v/d. Review of Systems None recorded. Physical Exam + + + | | General Adult Exam | + + + | Reported By: | Patient | + + + | Constitutional: | General Appearance: awake, alert, oriented | | | x 3, NAD, hydrated | + + + | Head: | Head: normocephalic | + + + | Eyes: | Eyes: OTF, EOMI, clear | + + + | ENMT: | Ears: left TM clear, left canal clear; | | | right EAC impacted with cerumen.Unable to | | | fully evacuated with. Pharynx: mucous | | | membranes moist, airway clear, normal | | | dentition. Nasopharynx: clear. Throat: | | | throat clear, tonsils normal. Neck: | | | supple, non tender | + + + | Cardiovascular: | Heart: no murmurs; normal S1 and S2 and | | | RRR | + + + | Lungs: | Chest/Lungs: ; No wheezing or | | | rales/crackles and CTA bilaterally | + + + | Skin: | Skin: clear | + + +"
--- OUTSIDE RECORDS SUMMARY | ~2019-10-16 | XMS | Encounter Summary ---
Demographics + + + | Address | [address] | | | [place] [address] | + + + | Home Phone | [phone] | + + + | Preferred Language [...] | [address] | | | [place] [address] | + + + | Phone | [phone] | + + + Care Team Providers + +------+ + | Care Utility Worker [place] Name | Role | Phone | + +------+ + | Dr. Family Adhikari | 3 | Unavailable | | [place] | | | + +------+ + | Aurelio Dong MD | 3 | Unavailable | + +------+ + | Dr. Family Adhikari | 4 | Unavailable | | [place] | | | + +------+ + Reason for Visit + + | None recorded. | + + Instructions + + | 1. Acute left otitis media | + + | cefuroxime axetil 500 mg tablet | + + | 2. Otitis externa of left ear | + + | jrqdpdwz-zaswrhshq-kwesvoqmt 3.5 mg-10,000 unit/mL-1 % ear drops,susp | + + + + | Discussion Note | + + | L OTITIS MEDIA; possible cerumen impaction left ear Rx cefuroxime 500mg tab, 1 PO BID | | for 10 days L OTITIS EXTERNA Rx cortisporin otic suspension, instill 4 | | drops to the the affected ear TID for 10 days Given her pain, advised | | against irrigation today as it would be too painful Followup | | with PCP next week when the pain has subsided for irrigation of possible cerumen | | impaction. Recheck if not markedly improved in three days, or not entirely | | well in ten days. Recheck sooner if worsening. | | | | | |Given her pain, advised against irrigation today as it would be too painful | | | | | | | | | |Followup with PCP next week when the pain has subsided for irrigation of possible cerumen i mpaction. | | | | | | | | | |Recheck if not markedly improved in three days, or not entirely well in ten days. Recheck s ooner if worsening. | + + Patient educational handouts: No [...] at bedtime. | | + +---+ | iedgwojv-wngsqzdmc-bozfvdxkb 3.5 mg-10,000 | | | unit/mL-1 % ear drops,susp INSTILL 4 | | | DROPS INTO AFFECTED EAR(S) BY OTIC ROUTE 3 | | | TIMES PER DAY FOR 10 DAYS | | + +---+ | [place] 5 mg-325 mg tablet Take 1 tablet [...] 5 ft 4 in | 188 lbs 5 oz | 32.3 kg/m2 | 110/80 mm[Hg] | + + + + + Lab Results None recorded. Allergies +--------+--------+ + + +--------+-------+ | Code | Code | Name | Reaction | Severity | Status | Onset | | | System | | | | | | +--------+--------+ + + +--------+-------+ | [id number] | RxNorm | Geodon | Rash | [...] | | +--------+--------+ + + +--------+-------+ | [id number] | RxNorm | Venom-darci | | | Active | | | | | y Bee | | | | | +--------+--------+ + + +--------+-------+ | [id number] | RxNorm | Ziprasidon | | | [...] | 07/13/2018Impacted Cerumen; Otitis Externa of Left EarChenelle Chaz, PASUP: [address] | | [address] [address], Ph. | |ELDA MaxwellUP: [address] [facility] [address] [address], Ph. | + -------+ | 06/30/2018 | | Acute Left Otitis Media; Otitis Externa of Left Ear | | Bruno Gaspar MD: [address] [address], Ph. | + -------+ History of Present Illness Note:32 YOF nonsmoker, complains of Lt ear ache x1week, which [facility]. She states her ear pops and feels plugged. She had a fever a couple of days ago. Does no t use Q-tips.<div>
</div><div>Denies S/T, runny nose, cough, chills, congestion, nause a, vomiting, or changes in bowel or bladder.
</div><div>
</div><div>PMH; no diabetes, heart disease, thyroid problems, chronic lung disease or asthma.</div> Review of Systems + + + | | Moderate Male ROS | + + + | Reported By: | Patient | + + + | Constitutional: | Constitutional: no fever | + + + | ENMT: | Mouth/Throat: no sore throat. Nose: no | | | nose/sinus problems. Ears ear pain | + + + | Cardiovascular: | Cardiovascular: no chest pain | + + + | Respiratory: | Respiratory: no shortness of breath | + + + | Gastrointestinal: | Gastrointestinal: no nausea, no vomiting, | | | no diarrhea | + + + Physical Exam + + + | | Male Exam - Moderate | + + + | Reported By: | Patient | + + + | Constitutional: | General Appearance: awake, alert, oriented | | | x 3, NAD, hydrated | + + + | HEENT: | Ears: normal EACs, normal tympanic | | | membranes; L EAR: Hurt to pull on the | | | external ear. The EAC was full of wax. | | | Oropharynx: no pharyngeal erythema, no | | | pharyngeal exudates; no trismus, no | | | abcess, pt has nl voice | + + + | Neck: | Neck: no cervical lymphadenopathy, no | | | thyroid nodules; Supple, non-tender, no | | | supraclavicular adenopathy. No JVD | + + + | Cardiovascular: | Heart Auscultation: RRR, no murmurs | + + + | Lungs: | Auscultation: clear to auscultation | | | bilaterally, no wheezing, no | | | rales/crackles, no rhonchi | + + + | Musculoskeletal:: | Extremities: no edema | + + + | Skin: | Inspection and palpation: no concerning | | | lesions | + + +"
--- OUTSIDE RECORDS SUMMARY | ~2019-10-16 | XMS | Encounter Summary ---
Demographics + + + | Address | [address] | | | [place] [address] | + + + | Home Phone | [phone] | + + + | Preferred Language | Unknown | + + + | Marital Status | | + + + | Methodist Affiliation | Unknown | + + + | Race | White | + + + | Ethnic Group | Unknown | + + + Author + + + | Author | | + + + | Organization | | + + + | Address | [address] | | | [place] [address] | + + + | Phone | [phone] | + + + Care Team Providers + +------+ + | Care Senior Software Engineering Manager Name | Role | Phone | + +------+ + | Dr. Myesha Aguilar | 3 | [phone] | + +------+ + Reason for Visit + + | None recorded. | + + Instructions + + | 1. Mixed anxiety and depressive disorder | + + Discussion Note: None recorded.Patient educational handouts: No information available. Plan of Care + + + + + | Reminders | | | Provider | | | | | | + + + + + | Appointments | Follow up 20 | on or around | Myesha Emmanuel | | | | 09/24/2019 | MD Lauren | + + + [...] inhalation route. | | + +---+ | albuterol sulfate HFA 90 mcg/actuation | | | aerosol inhaler Inhale 2 puffs every 4 | | | hours by inhalation route. | | + +---+ | Epi E-Z Pen 0.3 mg/0.3 mL injection, | | | auto-injector INJECT 0.3 MILLILITER (0.3 | | | MG) BY INTRAMUSCULAR ROUTE ONCE NEEDED | | | FOR ANAPHYLAXIS | | + +---+ | escitalopram 20 mg tablet | | | Take 1 tablet every day by oral route. | | + +---+ | montelukast 10 mg tablet | | | Take 1 tablet every day by oral route. | | + +---+ Medications Administered None recorded. Vitals None recorded. Results + + | Lab Results | [...] | | | | +------+------+-------+-------+-------+-------+-------+-------+-------+-------+---+ +--------+--------+---+--------+---+--------+--------+--------+-------+--------+ | 08/12/ | Bacter | | Normal | | | vagina | | Final | [facility] | | 2020 | ial | | | | Source | l/cerv | | | Medica | | | Vagino | | | | | ix | | | l | | | sis + | | | | | | | | Center | | | Vagini | | | | | | | | | | | tis | | | | | | | | (Main) | | | Panel, | | | | | | | | : [address] | | | | | | | | | | | | | | [address] | | | | | | | | [address] | | | l | | | | | | | | t | | | | | | | | | | | P[address], | | | | | | | | | | | [place] | | | | | | | | | | | rg | +--------+--------+---+--------+---+--------+--------+--------+-------+--------+ | | | | Normal | | T. | negati | negati | Final | [facility] | | | | | | | Vagina | ve | ve | | Medica | | | | | | | lis | | | | l | | | | | | | (DNA | | | | Center | | | | | | | Probe) | | | | | | | [...] | | | | Normal | | g. | negati | negati | Final | [facility] | | | | | | | Vagina | ve | ve | | Medica | | | | | | | lis | | | | l | | | | | | | (DNA | | | | Center | | | | | | | Probe) | | | | | | | [...] | | | Normal | | | negati | negati | Final | [facility] | | | | | | | Candid | ve | ve | | Medica | | | | | | | a | | | | l | | | | | | | Specie | | | | Center | | | | | | | s (DNA | | | | | | | | | | | | | | | (Main) | | | | | | | Probe) | | | | : [address] | [...] | | | rg | +--------+--------+---+--------+---+--------+--------+--------+-------+--------+ | 0512/ | Pap, | | Normal | | | commen | . | Final | [facility] | | 2020 | LB + | | | | Diagno | t | | | Medica | | | hr HPV | | | | sis: | | | | l | | [...] | | | Normal | | | commen | . | Final | [facility] | | | | | | | Specim | t | | | Medica | | | | | | | en | | | | l | | | | | | | Adequa | | | | Center | | | | | | | cy: | | | | | | | [...] | | | Normal | | | commen | . | Final | [facility] | | | | | | | Perfor | t | | | Medica | | | | | | | med | | | | l | | | | | | | by: | | | | Center | | [...] | | | | Normal | | . | . | . | Final | [facility] | | | [...] | | | | Normal | | Note: | commen | . | Final | [facility] | | | | | | | | t | | | Medica | | | [...] | | | | Normal | | Test | commen | | Final | [facility] | | | | | | | Method | t | | | Medica | | | | | | | ology: | | | | l | | [...] | | | | Normal | | HPV | negati | negati | Final | [facility] | | | | | | | Other | ve | ve | | Medica | | | | | | | hr | | | | l | | | | | | | Types | | | | Center | | [...] | | | | Normal | | Hpv | negati | negati | Final | [facility] | | | | | | | 16 | ve | ve | | Medica | | | | [...] | | | | Normal | | Hpv | negati | negati | Final | [facility] | | | | | | | 18 | ve | ve | | Medica | | | | [...] | | +--------+--------+ + + +--------+-------+ | [id number] | RxNorm | Chantix | Headache | Mild | Active | | +--------+--------+ + + +--------+-------+ | [id number] | RxNorm | Geodon | | | [...] available | + + + + | 08/13/2019 | US, Head + Neck, Soft | [facility] | | | Tissue | (Imaging)[address] | | | | [address] [place] [address], [place] [address]) | | | | [phone] (Work Place) | + + + + | 08/13/2019 | US, Doppler Echocardiogram, | [facility] ([facility]) | | | W/ Color Flow | [address] | | | | [place] [address] | | | | (Work Place) | [...] + +---+ Past Encounters + + | 08/27/2019 | | Mixed Anxiety and Depressive Disorder | | Isai Pedroza: [address] [place] [address], Ph. [phone] | + + | 08/13/2019 | | Mixed Anxiety and Depressive Disorder | | Isai Pedroza: [address], [place] [address], Ph. [phone] | + + | 08/13/2019Gynecologic Examination; Goiter; Vaginal Discharge; Moderate Persistent | | Asthma; Tobacco Dependence Syndrome; 22Q11.2 Deletion Syndrome; History of Repair of | | Patent Ductus Arteriosus; Mixed Anxiety and Depressive Disorder; Fatigue; Allergic | | Reaction to Bee Sting; Health Condition Feared but Not PresentHeidi Lien Aguilar MD: | | [address], [place] [address], Ph. [phone] | + + History of Present Illness None recorded. Review of Systems None recorded. Physical Exam None recorded."
--- OUTSIDE RECORDS SUMMARY | ~2019-10-16 | XMS | Encounter Summary ---
Demographics + + + | Address | [address] | | | [place] [address] | + + + | Home Phone | [phone] | + + + | Preferred Language | Unknown | + + + | Marital Status | | + + + | Adventism Affiliation | Unknown | + + + | Race | White | + + + | Ethnic Group | Unknown | + + + Author + + + | Author | | + + + | Organization | | + + + | Address | [address] | | | [place] [address] | + + + | Phone | [phone] | + + + Care Team Providers + +------+ + | Care Tableau Developer Name | Role | Phone | + +------+ + | Dr. Myesha Aguilar | 3 | [phone] | + +------+ + Reason for Visit + + | physical | + + Instructions + + | 1. Gynecologic examination | + + | pap, LB + HR HPV | + + | 2. Goiter | + + | TSH, ultra-sensitive, serum | + + | US, head + neck, soft tissue | + + | T4, free, serum | + + | ENT referral - Referral # [id number] | + + | 3. Vaginal discharge | + + | bacterial vaginosis + vaginitis panel, vaginal | + + | 4. Moderate persistent asthma | + + | montelukast 10 mg tablet | + + | albuterol sulfate HFA 90 mcg/actuation aerosol inhaler | + + | 5. 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 History of repair of patent ductus arteriosus | + + | US, doppler echocardiogram, w/ color flow - PFO repair | + + | 8. Mixed anxiety and depressive disorder | + + | escitalopram 20 mg tablet | + + | 9. Fatigue | + + | CBC w/ auto diff | + + | 10. Allergic reaction to bee sting | + + | 11. Health condition feared but not present | + + Discussion Note: None recorded.Patient educational handouts: No information available. Plan of Care + + + + + | Reminders | | | Provider | | | | | | + + + + + | Appointments | Video Visit | 08/27/2019 4:00PM | Isai Pedroza | + + + + + | | Follow up 20 | on or around | Myesha Emmanuel | | | | 09/24/2019 | MD Lauren | + + + + + | Lab | Pap, LB + hr HPV | 08/13/2019 | [facility] | | | | | [facility] | | | | | [place] (Lab | | | | | Clinic) | + + + + + | | TSH, | 08/13/2019 | [facility] | | | Ultra-sensitive, | | [place] - Lab | | | Serum | | | + + + + + | | T4, Free, Serum | 08/13/2019 | [facility] | | | | | Center - Lab | + + + + + | | CBC W/ Auto Diff | 08/13/2019 | [facility] | | | | | Center - Lab | + + + + + | | CMP, Serum or | 08/13/2019 | [facility] | | | Plasma | | Center - Lab | + + + + + | | Bacterial Vaginosis | 08/13/2019 | [facility] | | | + Vaginitis Panel, | | Center - Lab | | | Vaginal | | | + + + + + | Referral | ENT Referral | 08/13/2019 | [facility] | | | | | [facility] | + + + + + | Procedures | None recorded. | | | + + + + + | Surgeries | None recorded. | | | + + + + + | Imaging | US, Head + Neck, | 08/13/2019 | [facility] | | | Soft Tissue | | Imaging (Imaging) | + + + + + | | US, Doppler | 08/13/2019 | [facility] | | | Echocardiogram, W/ | | Center ([facility]) | | | Color Flow | | | + + + + [...] + | 5 ft 4 in | 194 lbs | 33.3 kg/m2 | 124/80 mm[Hg] | + + + + + Results + + | Lab Results | + + | | + + None recorded. Allergies +--------+--------+ + + +--------+-------+ [...] | | +--------+--------+ + + +--------+-------+ | [id number] | RxNorm | Chantix | Headache | Mild | Active | | +--------+--------+ + + +--------+-------+ | [id number] | RxNorm | Geodon | | | [...] | | | Tissue | (Imaging)[address] | | | | [address] [place] [address], [place] [address]) | | | | [phone] (Work Place) | + + + + | 08/13/2019 | US, Doppler Echocardiogram, | [facility] ([facility]) | | | W/ Color Flow | [address] | | | | [place] [address] | | | | (Work Place) | [...] + +---+ Past Encounters + + | 08/13/2019 | | Mixed Anxiety and Depressive Disorder | | Isai Pedroza: [address] [place] [address], Ph. [phone] | + + | 08/13/2019Gynecologic Examination; Goiter; Vaginal Discharge; Moderate Persistent | | Asthma; Tobacco Dependence Syndrome; 22Q11.2 Deletion Syndrome; History of Repair of | | Patent Ductus Arteriosus; Mixed Anxiety and Depressive Disorder; Fatigue; Allergic | | Reaction to Bee Sting; Health Condition Feared but Not PresentHeidi Lien Aguilar MD: | | [address] [place] [address], Ph. [phone] | + + History of Present Illness Note:<p>Jessica is a 33 y/o female here today with her for her annual w omens exam with pap.</p><p>
</p><p>Spot - She says her mom is currently dying from oral c ancer. Pt has a small spot on her inner lip that is red in color and she would like it check ed today. </p><p>
</p><p>Thyroid - She is also requesting a TSH, due to worsening fatigue . Reports that she has been told of a new treatment to treat her goiter a couple of years ag o. Reports that it is hard for her to breathe and swallow at times due to her goiter. Used t o see Dr. Clinton.</p><p>
</p><p>Asthma - Has not been breathing as well recently due to not having her medications. Also struggles with allergies which further makes it harder for her to breathe.</p><p>
</p><p>Smoking - Has been smoking more due to her recent losses in her life and depression.</p><p>
</p><p>Reaction - When she got stung by a bee last year, she got disoriented and she felt like she became swollen. Patient adds that she felt like sh e could not breathe when she was last stung by a bee. Was not admitted to the hospital for t his.</p><p>
</p><p>Depression- PHQ-9 is a . Depression Severity: Severe. Immediate i nitiation of pharmacotherapy and, if severe impairment or poor response to therapy, expedite d referral to a mental health specialist for psychotherapy and/or collaborative management. She hasn't been seeing her counselor due to COVID and is currently off of lexapro. Is unsure how long she has been off of it. She says she lost a close uncle and has been grieving and she would like to restart the lexapro. Doesn't get to talk to her kids which made her sad, e specially on mother's day. Has nightmares about her kids sometimes. She says she has a mom i [place] dying of mouth cancer and uncle dying of throat/lung cancer which makes her sad. H as been crying a lot. Notes that her anxiety is also off and on most days due to having so m uch on her plate. Has difficulty sleeping as well. She has had a lot of close family members pass over the last year and is sad due to that. When she took the Lexapro, she found that i t worked well for her. Is going to try and get back into counseling at [facility], but wants so meone different this time.
</p><p>
</p><p>Gissel's - Reports that she had a heart macias rgery to close a hole in her heart when she was younger, but otherwise does not believe that she has any cardiac defects.</p><p>
</p><p>Yeast Infection - She is also concerned about a possible yeast infection. She says it started a few days ago. She has itching, foul odor and vaginal discharge that is white in color. She says she also has some pelvic pain and marily rrhea since this started and believes this is associated with possible yeast infection</p> Review of Systems + + + | | Comprehensive General Adult ROS, | | | Comprehensive Adult Problem ROS | + + + | Reported By: | Patient | + + + | Constitutional: | Constitutional: no significant weight | | | gain, no significant weight loss | + + + | Gastrointestinal: | GI: diarrhea | + + + | Integumentary: | Skin: abnormal mole | + + + | Psychiatric: | Psych: depression, sleep disturbances, | | | anxiety, stress | + + + | Endocrine: | Endocrine: fatigue | + + + Physical Exam + + + | | General Adult Exam, Annual Customer Pricing Manager Exam | + + + | Reported By: | Patient | + + + | Constitutional: | General Appearance: healthy-appearing, | | | well-developed, obese. Level of Distress: | | | NAD | + + + | Psychiatric: | Insight: good judgement. Mental Status: | | | active and alert, normal mood, normal | | | affect | + + + | Head: | Head: normocephalic, atraumatic | + + + | ENMT: | Ears: no lesions on external ear. Lips, | | | Teeth, and Gums: no mouth or lip ulcers, | | | no bleeding gums, normal dentition. | | | Oropharynx: moist mucous membranes, no | | | erythema, no exudates, tonsils not | | | enlarged | + + + | Neck: | Thyroid: thyromegaly | + + + | Lungs: | Auscultation: no wheezing, no | | | rales/crackles, no rhonchi, diminished air | | | movement | + + + | Cardiovascular: | Heart Auscultation: RRR, no murmurs | + + + | Abdomen: | Inspection and Palpation: soft, | | | non-distended, no tenderness | + + + | Female : | External genitalia: normal, no lesions, no | | | rash, no masses. Vagina: moist mucosa, no | | | discharge, no erythema, tenderness. | | | Cervix: no discharge, no cervical motion | | | tenderness, grossly normal, sample taken | | | for Pap smear. Uterus: normal size, | | | non-tender. Adnexae: size WNL | + + + | Musculoskeletal:: | Extremities: no cyanosis, no edema | + + +"
--- OUTSIDE RECORDS SUMMARY | ~2019-10-16 | XMS | Encounter Summary ---
Demographics + + + | Address | [address] | | | [place] [address] | + + + | Home Phone | [phone] | + + + | Preferred Language | Unknown | + + + | Marital Status | Legally | + + + | Church Affiliation | Unknown | + + + | Race | White | + + + | Ethnic Group | Not or | + + + Author + + + | Author | | + + + | Organization | | + + + | Address | [address] | | | [place] [address] | + + + | Phone | [phone] | + + + Care Team Providers + +------+ + | Care Paraprofessional Education Assistant Name | Role | Phone | + +------+ + | Dr. Family Adhikari | 3 | Unavailable | | [place] | | | + +------+ + | Aurelio Dong MD | 3 | Unavailable | + +------+ + | Dr. Family Adhikari | 4 | Unavailable | | [place] | | | + +------+ + Reason for Visit + + | None recorded. | + + Instructions + + | 1. Allergy to bee venom | + + | EpiPen 2-El 0.3 mg/0.3 mL injection, auto-injector | + + | 2. Asthma | + + | ProAir HFA 90 mcg/actuation aerosol inhaler | + + | 3. Hyperthyroidism | + + + + | Discussion Note | + + | 1) Asthma and allergy: Medications refilled as requested. 2) Hypothyroidism: off | | levothyroxine for months. Patient had her thyroid levels checked recently by Dr. Love | | Betito at [facility]. Her TSH and free T4 were WNL. Patient was called and | | informed that she does not need to be on thyroid medications at this time. Additionally, | | she will be set up with her PCP here at [place]. recommend she schedule f/u with her | | farm planner she saw about 1 year ago. | + + Patient educational handouts: No information available. Plan of Care + + + + + | Reminders | | | Provider | | | | | | + + + + + | Appointments | New Patient 38 | 03/05/2018 2:20PM | Aurelio Dong MD | + + [...] + + + + + +---+ | EpiPen 2-El 0.3 mg/0.3 mL injection, | | | auto-injector Use as directed for | | | anaphylaxis reaction | | + +---+ | levothyroxine 100 mcg tablet | | | Take 1 tablet twice a day by oral route. | [...] + | 5 ft 4 in | 171 lbs | 29.4 kg/m2 | 140/99 mm[Hg] | + + + + + Lab Results None recorded. Allergies +--------+--------+ + + +--------+-------+ | Code | Code | Name | Reaction | Severity | Status | Onset | | | System | | | | | | +--------+--------+ + + +--------+-------+ | [id number] | RxNorm | Geodon | Rash | [...] | | +--------+--------+ + + +--------+-------+ | [id number] | RxNorm | Venom-darci | | | Active | | | | | y Bee | | | | | +--------+--------+ + + +--------+-------+ | [id number] | RxNorm | Ziprasidon | | | [...] | Smoking Status | Heavy Tobacco Smoker (04/04 | | | | PPD) | | + + +---+ Past Encounters + + | 02/28/2018Allergy to Bee Venom; Asthma; Eliecer uBrton PA: [address] | | [facility] [address] [address], Ph. | |ROCIO Holt: [address] [address], Ph. | + + History of Present Illness Note:<div>Jessica Vazquez is a 32 YOF requesting a refill on her epi pen and lev othyroxine 100 mcg. She has been off her thyroid medication for months. She is on additional medications for nightmares, depression, and anxiety, but does not remember their names. Rec ently placed on these by her psychiatrist Dr. Cisse. States she had her thyroid level chec ked after Dr. Kate Cisse at [facility] sent her for blood work. She does not h ave a PCP at this time, but she had one assigned by her insurance. She saw an endocrinologis t one year ago but has not scheduled a f/u appt. they had recommended treatments for her goi ter. </div><div>
</div><div>SHx</div><div>Recently </div> Review of Systems + + + | | Moderate Female ROS | + + + | Reported By: | Patient | + + + | Constitutional: | Constitutional: no fever | + + + | ENMT: | Mouth/Throat: ; thyroid enlargement and | | | tenderness | + + + Physical Exam + + + | | UC URI | + + + | Reported By: | Patient | + + + | Constitutional: | General Appearance: awake, alert, NAD, | | | well-hydrated | + + + | ENT: | Right Ear: TM clear, EAC clear. Left Ear: | | | TM clear, EAC clear. External Eye | | | conjunctivae clear, sclerae clear. | | | Nasopharynx: clear. Pharynx: airway clear. | | | Tonsils: normal, no erythema, no trismus, | | | no abscess. Neck: supple, trachea | | | midline; Diffusely moderately enlarged | | | thyroid that is mildly tender to palpation | + + + | Chest/Lungs: | Chest/Lungs: clear to auscultation, breath | | | sounds equal bilaterally; No wheezing, | | | rhonchi, rales, tachypnea or accessory | | | muscle use | + + + | Cardiovascular: | Heart: heart sounds, normal, regular rate | | | & rhythm | + + + | Abdomen: | Palpation soft, nontender, normal bowel | | | sounds; No HSM | + + + | Musculoskeletal:: | Extremities: ; Brisk capillary refills. No | | | peripheral edema | + + + | Skin: | Skin ; [place], warm, and dry | + + +"
--- OUTSIDE RECORDS SUMMARY | ~2019-10-16 | XMS | Encounter Summary ---
Demographics + + + | Address | [address] | | | [place] [address] | + + + | Home Phone | [phone] | + + + | Preferred Language | Unknown | + + + | Marital Status | Legally | + + + | Episcopal Affiliation | Unknown | + + + | Race | White | + + + | Ethnic Group | Not or | + + + Author + + + | Author | | + + + | Organization | | + + + | Address | [address] | | | [place] [address] | + + + | Phone | [phone] | + + + Care Team Providers + +------+ + | Care Silk Soaker Name | Role | Phone | + +------+ + | Dr. Family Adhikari | 3 | Unavailable | | [place] | | | + +------+ + | Aurelio Dong MD | 3 | Unavailable | + +------+ + | Dr. Family Adhikari | 4 | Unavailable | | [place] | | | + +------+ + Reason [...] | Discussion Note | + + | [id number] | + + Patient educational handouts: No [...] | TSH, Serum or | 03/05/2018 | [facility] | | | Plasma | | [...] | | +--------+--------+ + + +--------+-------+ | [id number] | RxNorm | Geodon | Rash | [...] | | +--------+--------+ + + +--------+-------+ | [id number] | RxNorm | Venom-darci | | | Active | | | | | y Bee | | | | | +--------+--------+ + + +--------+-------+ | [id number] | RxNorm | Ziprasidon | | | [...] | US, Head + Neck, Soft | [facility] | | | Tissue | [address] | | | | [place] [address] | | | | (Work Place) | [...] Asthma; Goiter; Lisa Dong MD: [address] | | [employer], [place] [address], Ph. | |Aureilo Dong MD: [address], [place] [address], Ph. | + + | 02/28/2018Allergy to Bee Venom; Asthma; ROCIO Seo: [address] | | [address], [place] [address], Ph. | |ROCIO Holt: [address], [place] [address], Ph. | + + History of Present [...]
--- OUTSIDE RECORDS SUMMARY | ~2019-10-16 | XMS | Encounter Summary ---
Demographics + + + | Address | [facility] | | | [place] [address] | + + + | Home Phone | [phone] | + + + | Preferred Language | Unknown | + + + | Marital Status | | + + + | Worship Affiliation | Unknown | + + + | Race | White | + + + | Ethnic Group | Not or | + + + Author + + + | Author | | + + + | Organization | | + + + | Address | [address] | | | [place] [address] | + + + | Phone | [phone] | + + + Care Team Providers + +------+ + | Care Instrument Inspector Name | Role | Phone | + +------+ + | Dr. Family Adhikari | 3 | Unavailable | | [facility] | | | + +------+ + | Kieran GONZALEZ | 3 | [phone] | + +------+ + | Dr. Family Adhikari | 4 | Unavailable | | [facility] | | | + +------+ + Reason for Visit + + | None recorded. | + + Instructions + + | 1. Infectious gastroenteritis | + + | urinalysis, dipstick, auto | + + | test, urine | + + | gastrointestinal pathogens panel, PCR, stool | + + | Zofran ODT 8 mg disintegrating tablet | + + | 2. Headache | + + + + | Discussion Note | + + | Patient declined IV fluids/lab work at this time. Patient received GI Panel PCR. | | Discussed the diagnosis and prescribed medications with the patient. Supportive measures | | were advised including BRAT diet and pushing fluids (1 L of gatorade and 1 L of watery | | by bedtime today). Questions and concerns were addressed. Patient to return if signs and | | symptoms worsen or fail to improve in 3 days. | + + Patient educational handouts: No information available. Plan of Care + + + + + | Reminders | | | Provider | | | | | | + + + + + | Appointments | New Patient 38 | 01/11/2018 1:20PM | [facility] | + + + + + | Lab | Urinalysis, | 01/01/2018 | [facility] | | | Dipstick, Auto | | [facility] | + + + + + | | Test, | 01/01/2018 | [facility] | | | Urine | | [facility] | + + + + + | | Gastrointestinal | 01/01/2018 | [facility] | | | Pathogens Panel, | | Lab | | | PCR, Stool | | | + + + + [...] + + + + + +---+ | buspirone 7.5 mg tablet | | | Take 1 tablet twice a day by oral route. | | + +---+ | citalopram 20 mg tablet | | | Take 1 tablet every day by oral route. | | + +---+ | hydroxyzine HCl 25 mg tablet TAKE ONE | | | TABLET BY MOUTH EVERY 8 HOURS NEEDED | | | FOR ITCHING | | + +---+ | levothyroxine 50 mcg tablet | | | Take 1 tablet every day by oral route. | | + +---+ | Zofran ODT 8 mg disintegrating tablet | | | Place 1 tablet every 8 hours by | | | translingual route as needed. | | + +---+ Medications Administered None recorded. Vitals + + + | Weight | Blood Pressure | + + + | 177 lbs 16 oz | 143/88 mm[Hg] | + + + Lab Results +-------+-------+-------+-------+-------+-------+-------+-------+-------+-------+-------+ | Date | Name | Speci | Resul | Inter | Descr | Value | Range | Statu | Addre | | | | | men | t | preta | iptio | | | s | ss | | | | | | | tion | n | | | | | | | | | | | | | | | | | | | | | | | | | | | | | | | | | | | | | | | | | | | | | | | | | | | | | | +-------+-------+-------+-------+-------+-------+-------+-------+-------+-------+-------+ +---+--------+---+---+---+--------+--------+---+---+--------+ | | Pregna | | | | | negati | | | Evergr | | | ncy | | | | Result | ve | | | een | | | Test, | | | | | | | | Family | | | Urine | | | | | | | | | | | | | | | | | | | Medici | | | | | | | | | | | ne PC: | | | | | | | | | | | [address] | | | | | | | | | | | [address] | | | | | | | | | | | [address] | | | | | | | | | | | [address], | | | | | | | | | | | [place] | | | | | | | | | | | rg | +---+--------+---+---+---+--------+--------+---+---+--------+ | | Urinal | | | | Color | Yellow | | | Evergr | | | ysis, | | | | | | | | een | | | Dipsti | | | | | | | | Family | | | ck, | | | | | | | | | | | Auto | | | | | | | | Medici | | | | | | | | | | | ne PC: | | | | | | | | | | | [address] | | | | | | | | | | | [address] | | | | | | | | | | | [address] | | | | | | | | | | | [address], | | | | | | | | | | | [place] | | | | | | | | | | | rg | +---+--------+---+---+---+--------+--------+---+---+--------+ | | | | | | | Turbid | | | Evergr | | | | | | | Clarit | | | | een | | | | | | | y | | | | Family | | | | | | | | | | | | | | | | | | | | | | Medici | | | | | | | | | | | ne PC: | | | | | | | | | | | [address] | | | | | | | | | | | [address] | | | | | | | | | | | [address] | | | | | | | | | | | [address], | | | | | | | | | | | [place] | | | | | | | | | | | rg | +---+--------+---+---+---+--------+--------+---+---+--------+ | | | | | | | Negati | | | Evergr | | | | | | | Glucos | ve | | | een | | | | | | | e | | | | Family | | | | | | | | | | | | | | | | | | | | | | Medici | | | | | | | | | | | ne PC: | | | | | | | | | | | [address] | [address] | | | | | | | | | | | [address] | | | | | | | | | | | [address] | | | | | | | | | | | [address], | | | | | | | | | | | [place] | | | | | | | | | | | rg | +---+--------+---+---+---+--------+--------+---+---+--------+ | | | | | | | Negati | | | Evergr | | | | | | | Biliru | ve | | | een | | | | | | | bin | | | | Family | | | | | | | | | | | | | | | | | | | | | | Medici | | | | | | | | | | | ne PC: | | | | | | | | | | | [address] | | | | | | | | | | | [address] | | | | | | | | | | | [address] | | | | | | | | | | | [address], | | | | | | | | | | | [place] | | | | | | | | | | | rg | +---+--------+---+---+---+--------+--------+---+---+--------+ | | | | | | | Negati | | | Evergr | | | | | | | Ketone | ve | | | een | | | | | | | s | | | | Family | | | | | | | | | | | | | | | | | | | | | | Medici | | | | | | | | | | | ne PC: | | | | | | | | | | | [address] | | | | | | | | | | | [address] | | | | | | | | | | | [address] | | | | | | | | | | | [address], | | | | | | | | | | | [place] | | | | | | | | | | | rg | +---+--------+---+---+---+--------+--------+---+---+--------+ | | | | | | | 1.020 | | | Evergr | | | | | | | Specif | | | | een | | | | | | | ic | | | | Family | | | | | | | Gravit | | | | | | | | | | | y | | | | Medici | | | | | | | | | | | ne PC: | | | | | | | | | | | [address] | | | | | | | | | | | [address] | | | | | | | | | | | [address] | | | | | | | | | | | [address], | | | | | | | | | | | [place] | | | | | | | | | | | rg | +---+--------+---+---+---+--------+--------+---+---+--------+ | | | | | | Blood | Negati | | | Evergr | | | | | | | | ve | | | een | | | | | | | | | | | Family | | | | | | | | | | | | | | | | | | | | | | Medici | | | | | | | | | | | ne PC: | | | | | | | | | | | [address] | | | | | | | | | | | [address] | | | | | | | | | | | [address] | | | | | | | | | | | [address], | | | | | | | | | | | [place] | | | | | | | | | | | rg | +---+--------+---+---+---+--------+--------+---+---+--------+ | | | | | | Ph | 8.5 | | | Evergr | | | | | | | | | | | een | | | | | | | | | | | Family | | | | | | | | | | | | | | | | | | | | | | Medici | | | | | | | | | | | ne PC: | | | | | | | | | | | [address] | | | | | | | | | | | [address] | | | | | | | | | | | [address] | | | | | | | | | | | [address], | | | | | | | | | | | [place] | | | | | | | | | | | rg | +---+--------+---+---+---+--------+--------+---+---+--------+ | | | | | | | Negati | | | Evergr | | | | | | | Protei | ve | | | een | | | | | | | n | | | | Family | | | | | | | | | | | | | | | | | | | | | | Medici | | | | | | | | | | | ne PC: | | | | | | | | | | | [address] | | [address] | | | | | | | | | | | [address] | | | | | | | | | | | [address] | | | | | | | | | | | [address], | | | | | | | | | | | [place] | | | | | | | | | | | rg | +---+--------+---+---+---+--------+--------+---+---+--------+ | | | | | | | 0.2 | | | Evergr | | | | | | | Urobil | | | | een | | | | | | | inogen | | | | Family | | | | | | | | | | | | | | | | | | | | | | Medici | | | | | | | | | | | ne PC: | | | | | | | | | | | [address] | | | | | | | | | | | [address] | | | | | | | | | | | [address] | | | | | | | | | | | [address], | | | | | | | | | | | [place] | | | | | | | | | | | rg | +---+--------+---+---+---+--------+--------+---+---+--------+ | | | | | | | Negati | | | Evergr | | | | | | | Nitrat | ve | | | een | | | | | | | e | | | | Family | | | | | | | | | | | | | | | | | | | | | | Medici | | | | | | | | | | | ne PC: | | | | | | | | | | | [address] | | [address] | [address] | | | | | | | | | | | [place] | | | | | | | | | | | [address] | | | | | | | | | | | [address], | | | | | | | | | | | [place] | | | | | | | | | | | rg | +---+--------+---+---+---+--------+--------+---+---+--------+ | | | | | | | Negati | | | Evergr | | | | | | | Leukoc | ve | | | een | | | | | | | ytes | | | | Family | | | | | | | | | | | | | | | | | | | | | | Medici | | | | | | | | | | | ne PC: | | | | | | | | | | | [address] | | | | | | | | | | | [place] | | | | | | | | | | | [address] | | | | | | | | | | | [address], | | | | | | | | | | | [place] | | | | | | | | | | | rg | +---+--------+---+---+---+--------+--------+---+---+--------+ Allergies +--------+--------+ + + +--------+-------+ | Code | Code | Name | Reaction | Severity | Status | Onset | | | System | | | | | | +--------+--------+ + + +--------+-------+ | [id number] | RxNorm | Geodon | Rash | | Active | | +--------+--------+ + + +--------+-------+ | [id number] | RxNorm | Morphine | Hives | | Active | | +--------+--------+ + + +--------+-------+ | | | Penicillin | | | Active | | | | | s | | | | | +--------+--------+ + + +--------+-------+ | [id number] | RxNorm | Venom-darci | | | Active | | | | | y Bee | | | | | +--------+--------+ + + +--------+-------+ Problems + + + + + + | Name | Status | Onset Date | Source | | | | | | | | + + + + + + + +--------+---+ + | Viral Disease | Active | | Encounter | + +--------+---+ + | Migraine | Active | | Encounter | + +--------+---+ + | Nausea and Vomiting | Active | | Encounter | + +--------+---+ + Procedures None recorded. Vaccine List None recorded. Social History + + +---+ | Smoking Status | Light Tobacco Smoker (2 | | | | PPW) | | + + +---+ Past Encounters + + | 01/01/2018Infectious Gastroenteritis; HeadacheROCIO Holt: [address] [facility] | | [address] [place] [phone], Ph. | |RCOIO Holt: [address] [address] [address], [place] [address], Ph. | + + History of Present Illness Note:Jessica is a 32 year old female who presents with n/v/d, headach,e, myalgi as, intermittent dizzinesss x 3 days. Symptoms started with n/v/d on monday with some genera lzied cramping and stabbing and burning belly abd pain and body aches. she consumed alcohol , (one drink) at a alliance party on monday. then dizziness and MEDRANO developed by monday evening. her dizziness is a Room spinning sensation, lightheadedness like she might pass out when sh e stands up. Last period at end of last month (hx of tubal ligation). <div>Denies black or bloody stools, rhinorrhea, cough, s/t, hematemesis, sob, wheezing. No suspect food or water sources, no recent travel outside [place]. PMHX: hypothyroidism but has not been treated for it i n a year, asthma, , tubal ligation, no other abdominal surgeries.</div> Review of Systems + + + | | Moderate Female ROS | + + + | Reported By: | Patient | + + + | Constitutional: | Constitutional: no fever | + + + | ENMT: | Mouth/Throat: no sore throat | + + + | Respiratory: | Respiratory: ; no cough | + + + | Gastrointestinal: | Gastrointestinal: nausea, vomiting; | | | abdominal pain, loose stool, no blood in | | | stool | + + + | Neurologic: | Neurologic: headaches; dizziness, | | | lightheadedness | + + + Physical Exam + + + | | UC URI | + + + | Reported By: | Patient | + + + | Constitutional: | General Appearance: awake, alert, NAD; | + + + | ENT: | Right Ear: TM clear, EAC ceruminous. Left | | | Ear: TM clear, EAC clear. External Eye | | | conjunctivae clear, sclerae clear; Sclerae | | | white. Eyelids normal. no ulcers, | | | abrasion, or infiltrate of the anterior | | | chamber were appreciated . PERRLA. | | | Nasopharynx: clear; No tenderness with | | | percussion to the maxillary and frontal | | | sinuses. Pharynx: airway clear. Tonsils: | | | normal, no erythema, no trismus, no | | | abscess. Neck: supple, trachea midline; | | | Tenderness of cervical paraspinals, no | | | anterior or posterior bilateral cervical | | | lymphadenopathy | + + + | Chest/Lungs: | [...] | Musculoskeletal:: | Extremities: ; Brisk capillary refills | + + + | Skin: | Skin ; [place], warm, and dry | + + + | Notes: | NEURO: A&Ox3/3, CN II-XII grossly intact, | | | 5/5 strength in flexion and extension | | | symmetric in bilateral upper and lower | | | extremities, sensation intact, no pronator | | | drift, negative Romberg's | + + +"
--- OUTSIDE RECORDS SUMMARY | ~2019-10-16 | XMS | Clinical Summary ---
Demographics + + + | Address | [facility] [address] | | | [place] [address] | + + + | Home Phone | | + + + | Preferred Language | Unknown | + + + | Marital Status | M | + + + | Buddhism Affiliation | Unknown | + + + | Race | White | + + + | Ethnic Group | Not or | + + + Author + + + | Author | [facility] | + + + | Organization | [facility] | + + + | Address | [address] | | | [place] [address] | + + + | Phone | Unavailable | + + + Care Team Providers + +------+ + | Care Bindery Helper Name | Role | Phone | + +------+ + | Tejas Davis MD | PCP | | + +------+ + Conditions or Problems +---------+---------+---------+---------+---------+---------+---------+---------+---------+ | Problem | Problem | Onset | Status | Entry | Provide | Comment | Standar | Annotat | | Name | Code | Date | | Date | r | | d | e | | | | | | | | | Descrip | | | | | | | | | | tion | | +---------+---------+---------+---------+---------+---------+---------+---------+---------+ | PERIPHE | [id number] | | Active | | [place] | | Periphe | | | RAL | 00 | /11 | | /11 | Killian | | ral | | | EDEMA | (SNOMED | | | | PA-C | | edema | | | | CT) | | | | | | | | +---------+---------+---------+---------+---------+---------+---------+---------+---------+ | WHEEZIN | [id number] | | Resolve | | [place] | | Wheezin | | | G | 4 | /13 | d | /13 | Killian | | g | | | | (SNOMED | | | | PA-C | | | | | | CT) | | | | | | | | +---------+---------+---------+---------+---------+---------+---------+---------+---------+ | PNEUMON | [id number] | | Resolve | | [place] | | Pneumon | | | IA | 07 | /07 | d | /07 | Killian | | ia | | | | (SNOMED | | | | PA-C | | | | | | CT) | | | | | | | | +---------+---------+---------+---------+---------+---------+---------+---------+---------+ | SCREENI | Z13.9 | | Resolve | | [place] | | Encount | | | NG FOR | (ICD-10 | /07 | d | /07 | Killian | | er for | | | OTHER | -CM) | | | | PA-C | | screeni | | | AND | | | | | | | ng, | | | UNSPECI | | | | | | | unspeci | | | FIED | | | | | | | fied | | | ENDOCRI | | | | | | | | | | NE, | | | | | | | | | | NUTRITI | | | | | | | | | | ONAL, | | | | | | | | | | METABOL | | | | | | | | | | IC, AND | | | | | | | | | | | | | | | | | | | | IMMUNIT | | | | | | | | | | Y | | | | | | | | | | DISORDE | | | | | | | | | | RS | | | | | | | | | +---------+---------+---------+---------+---------+---------+---------+---------+---------+ | ABDOMIN | [id number] | | Resolve | | [place] | | Right | | | AL | 06 | / | d | /17 | Killian | | upper | | | PAIN, | (SNOMED | | | | PA-C | | quadran | | | RIGHT | CT) | | | | | | t pain | | | UPPER | | | | | | | | | | QUADRAN | | | | | | | | | | T | | | | | | | | | +---------+---------+---------+---------+---------+---------+---------+---------+---------+ | NAUSEA | [id number] | | Resolve | | [place] | | Nausea | | | AND | 0 | | d | | Killian | | and | | | VOMITIN | (SNOMED | | | | PA-C | | vomitin | | | G | CT) | | | | | | g | | +---------+---------+---------+---------+---------+---------+---------+---------+---------+ | DIARRHE | [id number] | | Resolve | | [place] | | Diarrhe | | | A | 8 | | d | /17 | Killian | | a | | | | (SNOMED | | | | PA-C | | | | | | CT) | | | | | | | | +---------+---------+---------+---------+---------+---------+---------+---------+---------+ | DYSURIA | [id number] | | Resolve | | [place] | | Dysuria | painful | | | 1 | /08 | d | /08 | Killian | | | | | | (SNOMED | | | | PA-C | | | urinati | | | CT) | | | | | | | on | +---------+---------+---------+---------+---------+---------+---------+---------+---------+ | PREVENT | [id number] | | Resolve | | [place] | | Screeni | | | KAY | 02 | /06 | d | /06 | Killian | | ng - | | | HEALTH | (SNOMED | | | | PA-C | | health | | | CARE | CT) | | | | | | check | | +---------+---------+---------+---------+---------+---------+---------+---------+---------+ | MISSED | [id number] | | Resolve | | [place] | | Missed | | | PERIOD | 0 | /13 | d | /13 | Killian | | period | | | | (SNOMED | | | | PA-C | | | | | | CT) | | | | | | | | +---------+---------+---------+---------+---------+---------+---------+---------+---------+ | STRIDOR | [id number] | | Active | | Tejas | | Stridor | | | | 1 | /19 | | / | Balhan | | | | | | (SNOMED | | | | MD | | | | | | CT) | | | | | | | | +---------+---------+---------+---------+---------+---------+---------+---------+---------+ | HX OF | [id number] | | Active | | Daniela | | H/O: | | | BEE | | | | | Green | | non-alexei | | | STING | (SNOMED | | | | NCMA | | g | | | ALLERGY | CT) | | | | | | allergy | | +---------+---------+---------+---------+---------+---------+---------+---------+---------+ | WHEEZIN | [id number] | | Removed | | Hanna | | Wheezin | | | G | 4 | /13 | | /13 | Winston | | g | | | | (SNOMED | | | | CNM | | | | | | CT) | | | | | | | | +---------+---------+---------+---------+---------+---------+---------+---------+---------+ | MISSED | [id number] | | Removed | | Hanna | | Missed | | | PERIOD | 0 | /13 | | /13 | Winston | | period | | | | (SNOMED | | | | CNM | | | | | | CT) | | | | | | | | +---------+---------+---------+---------+---------+---------+---------+---------+---------+ | PREVENT | [id number] | | Removed | | [place] | | Screeni | | | KAY | 02 | / | | | Devereu | | ng - | | | HEALTH | (SNOMED | | | | x DNP, | | health | | | CARE | CT) | | | | CRANE SERVICE TECHNICIAN-C | | check | | +---------+---------+---------+---------+---------+---------+---------+---------+---------+ | DYSURIA | [id number] | | Removed | | [place] | | Dysuria | painful | | | 1 | /08 | | /08 | Devereu | | | | | | (SNOMED | | | | x DNP, | | | urinati | | | CT) | | | | CRANE SERVICE TECHNICIAN-C | | | on | +---------+---------+---------+---------+---------+---------+---------+---------+---------+ | SEXUAL | [id number] | | Inactiv | | [place] | | High | | | ACTIVIT | 04 | /08 | e | /08 | Devereu | | risk | | | Y, HIGH | (SNOMED | | | | x DNP, | | sexual | | | RISK | CT) | | | | CRANE SERVICE TECHNICIAN-C | | behavio | | | | | | | | | | r | | +---------+---------+---------+---------+---------+---------+---------+---------+---------+ | DIARRHE | [id number] | | Removed | | Adilia | | Diarrhe | | | A | 8 | /17 | | /17 | Kallie | | a | | | | (SNOMED | | | | ANP | | | | | | CT) | | | | | | | | +---------+---------+---------+---------+---------+---------+---------+---------+---------+ | NAUSEA | [id number] | | Removed | | Adilia | | Nausea | | | AND | 0 | /17 | | / | Kallie | | and | | | VOMITIN | (SNOMED | | | | ANP | | vomitin | | | G | CT) | | | | | | g | | +---------+---------+---------+---------+---------+---------+---------+---------+---------+ | ABDOMIN | [id number] | | Removed | | Adilia | | Right | | | AL | 06 | /17 | | /17 | Kallie | | upper | | | PAIN, | (SNOMED | | | | ANP | | quadran | | | RIGHT | CT) | | | | | | t pain | | | UPPER | | | | | | | | | | QUADRAN | | | | | | | | | | T | | | | | | | | | +---------+---------+---------+---------+---------+---------+---------+---------+---------+ | OTITIS | [id number] | | Inactiv | | Jorge Luis Fair | | Otitis | | | EXTERNA | | | e | | Calderón | | externa | | | | (SNOMED | | | | ACNP | | | | | | CT) | | | | | | | | +---------+---------+---------+---------+---------+---------+---------+---------+---------+ | CERUMEN | [id number] | | Inactiv | | Jorge Luis Fair | | Impacte | | | | 6 | | e | | Kaitlynn | | d | | | IMPACTI | (SNOMED | | | | ACNP | | cerumen | | | ON | CT) | | | | | | | | +---------+---------+---------+---------+---------+---------+---------+---------+---------+ | SCREENI | Z13.9 | | Removed | | Adilia | | Encount | | | NG FOR | (ICD-10 | | | | Kallie | | er for | | | OTHER | -CM) | | | | ANP | | screeni | | | AND | | | | | | | ng, | | | UNSPECI | | | | | | | unspeci | | | FIED | | | | | | | fied | | | ENDOCRI | | | | | | | | | | NE, | | | | | | | | | | NUTRITI | | | | | | | | | | ONAL, | | | | | | | | | | METABOL | | | | | | | | | | IC, AND | | | | | | | | | | | | | | | | | | | | IMMUNIT | | | | | | | | | | Y | | | | | | | | | | DISORDE | | | | | | | | | | RS | | | | | | | | | +---------+---------+---------+---------+---------+---------+---------+---------+---------+ | HYPOTHY | [id number] | | Active | | Adilia | | Hypothy | | | ROIDISM | 8 | | | | Kallie | | roidism | | | | (SNOMED | | | | ANP | | | | | | CT) | | | | | | | | +---------+---------+---------+---------+---------+---------+---------+---------+---------+ | ANXIETY | [id number] | | Active | | Adilia | | Mixed | | | | 06 | /07 | | /07 | Kallie | | anxiety | | | DEPRESS | (SNOMED | | | | ANP | | and | | | ION | CT) | | | | | | depress | | | | | | | | | | kay | | | | | | | | | | disorde | | | | | | | | | | r | | +---------+---------+---------+---------+---------+---------+---------+---------+---------+ | NICOTIN | [id number] | | Active | | Adilia | | Nicotin | | | E | 8 | / | | /07 | Kallie | | e | | | ADDICTI | (SNOMED | | | | ANP | | depende | | | ON | CT) | | | | | | nce | | +---------+---------+---------+---------+---------+---------+---------+---------+---------+ | BACK | [id number] | | Active | | Adilia | | Low | | | PAIN, | 07 | /07 | | /07 | Kallie | | back | | | LUMBAR | (SNOMED | | | | ANP | | pain | | | | CT) | | | | | | | | +---------+---------+---------+---------+---------+---------+---------+---------+---------+ | PNEUMON | [id number] | | Removed | | Adilia | | Pneumon | | | IA | 07 | /07 | | /07 | Kallie | | ia | | | | (SNOMED | | | | ANP | | | | | | CT) | | | | | | | | +---------+---------+---------+---------+---------+---------+---------+---------+---------+ | ASTHMA | [id number] | | Active | | Adilia | | Asthma | | | | 01 | /07 | | /07 | Kallie | | | | | | (SNOMED | | | | ANP | | | | | | CT) | | | | | | | | +---------+---------+---------+---------+---------+---------+---------+---------+---------+ Medications + + + + + + + + | Medication | Instructio | Start Date | Stop Date | Generic | NDC | Provider | | | ns | | | Name | | | + + + + + + + + | IBUPROFEN | One tab by | | | IBUPROFEN | [id number] | Adilia | | 800 MG | mouth | | | | 0 | Kallie ANP | | TABS | every 12 | | | | | | | | hours as | | | | | | | | needed for | | | | | | | | back pain | | | | | | | | take with | | | | | | | | food | | | | | | + + + + + + + + | CELEXA 40 | | | | CITALOPRAM | [id number] | Delaney | | MG TABS | | | | | 0 | Rishi MA | | | | | | HYDROBROMI | | | | | | | | DE | | | + + + + + + + + | PREDNISONE | 1 tab po q | | | PREDNISONE | [id number] | Adilia | | 10 MG | d | | | | 2 | Kallie ANP | | TABS | | | | | | | + + + + + + + + | BIMART | | | | BIMART | | Adilia | | ROSEBUG | | | | ROSEBUG | | Kallie ANP | + + + + + + + + | PROAIR HFA | | | | ALBUTEROL | [id number] | [place] | | 108 (90 | | | | SULFATE | 0 | Killian PA-C | | Base) | | | | | | | | MCG/ACT | | | | | | | | AERS | | | | | | | + + + + + + + + | OMEPRAZOLE | 1 capsule | | | OMEPRAZOLE | [id number] | Delaney | | MAGNESIUM | by mouth | | | MAGNESIUM | 2 | Rishi MA | | 20.6 (20 | once a day | | | | | | | Base) MG | | | | | | | | CPDR | | | | | | | + + + + + + + + | PREDNISONE | 1 tab po q | | | PREDNISONE | [id number] | Adilia | | 10 MG | d | | | | 2 | Kallie ANP | | TABS | | | | | | | + + + + + + + + | LEVOXYL 88 | | | | LEVOTHYROX | [id number] | Delaney | | MCG TABS | | | | INE SODIUM | 0 | Rishi TAIWO | + + + + + + + + | HYDROXYZIN | | | | HYDROXYZIN | [id number] | Delaney | | E HCL 10 | | | | E HCL | 0 | Rishi MARAVILLA | | MG TABS | | | | | | | + + + + + + + + | PROAIR HFA | as needed | | | ALBUTEROL | [id number] | Daniela | | 108 (90 | | | | SULFATE | 0 | Green NCMA | | Base) | | | | | | | | MCG/ACT | | | | | | | | AERS | | | | | | | + + + + + + + + | DOXYCYCLIN | | | | DOXYCYCLIN | [id number] | [place]ma | | E HYCLATE | | | | E HYCLATE | 1 | Killian PA-C | | 150 MG | | | | | | | | TBEC | | | | | | | + + + + + + + + | BUSPIRONE | 1 tab po q | | | BUSPIRONE | [id number] | Delaney | | HCL 15 MG | d | | | HCL | 0 | Rishi MARAVILLA | | TABS | | | | | | | + + + + + + + + | ARMOUR | 1 tab po q | | | THYROID | [id number] | Delaney | | THYROID 15 | d | | | | 1 | Rishi MA | | MG TABS | | | | | | | + + + + + + + + | CYCLOBENZA | 1 tab po | | | CYCLOBENZA | [id number] | Delaney | | GRZEGORZ HCL | BIDprn for | | | GRZEGORZ HCL | 0 | Rishi MA | | 10 MG TABS | muscle | | | | | | | | spasms | | | | | | + + + + + + + + | PROAIR HFA | | | | ALBUTEROL | [id number] | Delaney | | 108 (90 | | | | SULFATE | 0 | Rishi MA | | Base) | | | | | | | | MCG/ACT | | | | | | | | AERS | | | | | | | + + + + + + + + | CHANTIX | take as | | | VARENICLIN | [id number] | Cam[place] | | STARTING | directed | | | E TARTRATE | 3 | Devereux | | MONTH TEDDY | | | | | | DNP, CRANE SERVICE TECHNICIAN-C | | 0.5 MG X | | | | | | | | 11 & 1 MG | | | | | | | | X 42 TABS | | | | | | | + + + + + + + + | PROMETHAZI | 1 tab po | | | PROMETHAZI | [id number] | [place] | | NE HCL 25 | Q6prn for | | | NE HCL | 0 | Devereux | | MG TABS | nausea | | | | | DNP, CRANE SERVICE TECHNICIAN-C | + + + + + + + + | MUCINEX | 1 tab two | | | GUAIFENESI | [id number] | [place] | | 600 MG | times per | | | N | 2 | Constantin PETERS | | [id number] | day | | | | | | + + + + + + + + | LEVAQUIN | 1 tab | | | LEVOFLOXAC | [id number] | [place] | | 750 MG | every day | | | IN | 7 | Devereux | | TABS | for 6 days | | | | | DNP, CRANE SERVICE TECHNICIAN-C | + + + + + + + + | ESCITALOPR | 1 tab po | | | ESCITALOPR | 8591508403 | Delaney | | AM OXALATE | daily for | | | AM OXALATE | 7 | Rishi MA | | 20 MG | depression | | | | | | | TABS | | | | | | | + + + + + + + + | IBUPROFEN | One tab by | | | IBUPROFEN | [id number] | [place] | | 800 MG | mouth | | | | 0 | Devereux | | TABS | every 12 | | | | | DNP, CRANE SERVICE TECHNICIAN-C | | | hours as | | | | | | | | needed for | | | | | | | | back pain | | | | | | | | take with | | | | | | | | food | | | | | | + + + + + + + + | PREDNISONE | take three | | | PREDNISONE | [id number] | [place] | | 20 MG | tablets | | | | 5 | Devereux | | TABS | daily for | | | | | DNP, CRANE SERVICE TECHNICIAN-C | | | 2 days, | | | | | | | | then take | | | | | | | | 2 tablets | | | | | | | | for 2 | | | | | | | | days, then | | | | | | | | 1 tablet | | | | | | | | for 2 days | | | | | | | | and | | | | | | | | finally | | | | | | | | 1/2 tab | | | | | | | | for 2 days | | | | | | | | then | | | | | | | | stop. | | | | | | + + + + + + + + | DOXYCYCLIN | | | | DOXYCYCLIN | [id number] | Delaney | | E HYCLATE | | | | E HYCLATE | 1 | Rishi MA | | 150 MG | | | | | | | | TBEC | | | | | | | + + + + + + + + | BENZONATAT | 1 tab once | | | BENZONATAT | [id number] | Hanna Montero | | E 100 MG | every 8 | | | E | 0 | CNM | | CAPS | hours | | | | | | + + + + + + + + | ONDANSETRO | 1 tab po | | | ONDANSETRO | 5670737675 | Adilia | | N HCL 4 MG | daily as | | | N HCL | 0 | Kallie ANP | | TABS | needed | | | | | | + + + + + + + + | VENTOLIN | 2 puffs | | | ALBUTEROL | 6139691453 | Delaney | | HFA 108 | QIDprn for | | | SULFATE | 0 | Rishi MA | | (90 Base) | SOB | | | | | | | MCG/ACT | | | | | | | | AERS | | | | | | | + + + + + + + + | BENZONATAT | 1 tab once | | | BENZONATAT | 9618592725 | Camille | | E 100 MG | every 8 | | | E | 0 | Devereux | | CAPS | hours | | | | | DNP, CRANE SERVICE TECHNICIAN-C | + + + + + + + + | KLOR-CON | Take 1 tab | | | POTASSIUM | 6572070731 | [place] | | M10 10 MEQ | with | | | CHLORIDE | 0 | Constantin PETERS | | CR-TABS | Lasix | | | ROBERTO CR | | | | | (furosemid | | | | | | | | e) | | | | | | + + + + + + + + | FUROSEMIDE | Take 1 tab | | | FUROSEMIDE | 0028743851 | [place] | | 20 MG | daily x | | | | 0 | Constantin PETERS | | TABS | 10 days. | | | | | | + + + + + + + + | ALBUTEROL | use | | | ALBUTEROL | 6145292330 | [place] | | SULFATE | nebulizer | | | SULFATE | 3 | Devereux | | 0.63 | every 6 | | | | | DNP, CRANE SERVICE TECHNICIAN-C | | MG/3ML | hours as | | | | | | | NEBU | needed for | | | | | | | | | | | | | | | | bronchospa | | | | | | | | sm. | | | | | | + + + + + + + + | MUCINEX | 1 tab two | | | GUAIFENESI | 8158401738 | [place] | | 600 MG | times per | | | N | 2 | Devereux | | [id number] | day | | | | | DNP, CRANE SERVICE TECHNICIAN-C | + + + + + + + + | PREDNISONE | take three | | | PREDNISONE | [id number] | [place] | | 20 MG | tablets | | | | 5 | Devereux | | TABS | daily for | | | | | DNP, CRANE SERVICE TECHNICIAN-C | | | 2 days, | | | | | | | | then take | | | | | | | | 2 tablets | | | | | | | | for 2 | | | | | | | | days, then | | | | | | | | 1 tablet | | | | | | | | for 2 days | | | | | | | | and | | | | | | | | finally | | | | | | | | 1/2 tab | | | | | | | | for 2 days | | | | | | | | then | | | | | | | | stop. | | | | | | + + + + + + + + | EPIPEN | use as | | | EPINEPHRIN | [id number] | Cam[facility] | | 2-TEDDY 0.3 | directed | | | E | 2 | Devereux | | MG/0.3ML | for | | | | | DNP, CRANE SERVICE TECHNICIAN-C | | SOAJ | anaphylaxi | | | | | | | | s reaction | | | | | | + + + + + + + + | NICODERM | Apply one | | | NICOTINE | [id number] | Hanna Montero | | CQ 21 | patch | | | | 2 | CNM | | MG/24HR | every 24 | | | | | | | PT24 | hours. | | | | | | + + + + + + + + | LEVAQUIN | 1 tab | | | LEVOFLOXAC | 6216257327 | Cam[facility] | | 750 MG | every day | | | IN | 7 | Devereux | | TABS | for 6 days | | | | | DNP, CRANE SERVICE TECHNICIAN-C | + + + + + + + + | CHANTIX | take as | | | VARENICLIN | 4040158174 | [place] | | STARTING | directed | | | E TARTRATE | 3 | Devereux | | MONTH TEDDY | | | | | | DNP, CRANE SERVICE TECHNICIAN-C | | 0.5 MG X | | | | | | | | 11 & 1 MG | | | | | | | | X 42 TABS | | | | | | | + + + + + + + + | OMEPRAZOLE | 1 capsule | | | OMEPRAZOLE | 8794625271 | Cam[facility] | | MAGNESIUM | by mouth | | | MAGNESIUM | 2 | Devereux | | 20.6 (20 | once a day | | | | | DNP, CRANE SERVICE TECHNICIAN-C | | Base) MG | | | | | | | | CPDR | | | | | | | + + + + + + + + | ESCITALOPR | 1 tab po | | | ESCITALOPR | 4508376825 | [place] | | AM OXALATE | daily for | | | AM OXALATE | 7 | Devereux | | 20 MG | depression | | | | | DNP, CRANE SERVICE TECHNICIAN-C | | TABS | | | | | | | + + + + + + + + | BUSPIRONE | 1 tab po q | | | BUSPIRONE | 4187276617 | Cam[place] | | HCL 15 MG | d | | | HCL | 0 | Devereux | | TABS | | | | | | DNP, CRANE SERVICE TECHNICIAN-C | + + + + + + + + | CYCLOBENZA | 1 tab po | | | CYCLOBENZA | 4058624768 | [place] | | GRZEGORZ HCL | BIDprn for | | | GRZEGORZ HCL | 0 | Devereux | | 10 MG TABS | muscle | | | | | DNP, CRANE SERVICE TECHNICIAN-C | | | spasms | | | | | | + + + + + + + + | VENTOLIN | 2 puffs | | | ALBUTEROL | [id number] | [place] | | HFA 108 | QIDprn for | | | SULFATE | 0 | Devereux | | (90 Base) | SOB | | | | | DNP, CRANE SERVICE TECHNICIAN-C | | MCG/ACT | | | | | | | | AERS | | | | | | | + + + + + + + + | ADVAIR | 1 puff BID | | | FLUTICASON | [id number] | [place] | | DISKUS | for | | | E-SALMETER | 0 | Devereux | | 250-50 | asthma | | | OL | | DNP, CRANE SERVICE TECHNICIAN-C | | MCG/DOSE | | | | | | | | AEPB | | | | | | | + + + + + + + + | PROAIR HFA | as needed | | | ALBUTEROL | 1823738178 | Cam[facility] | | 108 (90 | | | | SULFATE | 0 | Devereux | | Base) | | | | | | DNP, CRANE SERVICE TECHNICIAN-C | | MCG/ACT | | | | | | | | AERS | | | | | | | + + + + + + + + | ARMOUR | 1 tab po q | | | THYROID | 7662123638 | [place] | | THYROID 15 | d | | | | 1 | Devereux | | MG TABS | | | | | | DNP, CRANE SERVICE TECHNICIAN-C | + + + + + + + + | PROMETHAZI | 1 tab po | | | PROMETHAZI | [id number] | Ad[facility] | | NE HCL 25 | Q6prn for | | | NE HCL | 0 | Kallie ANP | | MG TABS | nausea | | | | | | + + + + + + + + | POLYMYXIN | Place 4 | | | POLYMYXIN | [id number] | Jorge Luis Fair | | B-TRIMETHO | drops in | | | B-TRIMETHO | 0 | Calderón | | PRIM | the | | | PRIM | | ACNP | | 17138-4.1 | affected | | | | | | | UNIT/ML-% | ear four | | | | | | | SOLN | times per | | | | | | | | day for | | | | | | | | seven | | | | | | | | days. | | | | | | + + + + + + + + | ONDANSETRO | 1 tab po | | | ONDANSETRO | 0546093312 | Adilia | | N HCL 4 MG | daily as | | | N HCL | 0 | Kallie ANP | | TABS | needed | | | | | | + + + + + + + + | IBUPROFEN | One tab by | | | IBUPROFEN | [id number] | Adilia | | 800 MG | mouth | | | | 0 | Kallie ANP | | TABS | every 12 | | | | | | | | hours as | | | | | | | | needed for | | | | | | | | back pain | | | | | | | | take with | | | | | | | | food | | | | | | + + + + + + + + | ESCITALOPR | 1 tab po | | | ESCITALOPR | 9694338869 | Adilia | | AM OXALATE | daily for | | | AM OXALATE | 2 | Kallie ANP | | 20 MG | depression | | | | | | | TABS | | | | | | | + + + + + + + + | CYCLOBENZA | 1 tab po | | | CYCLOBENZA | [id number] | Adilia | | GRZEGORZ HCL | BIDprn for | | | GRZEGORZ HCL | 0 | Kallie ANP | | 10 MG TABS | muscle | | | | | | | | spasms | | | | | | + + + + + + + + Medications Administered No information available. Allergies, Adverse Reactions, Alerts + + + + +--------+ + | Allergy Name | Reaction | Start Date | Severity | Status | Provider | | | Description | | | | | + + + + +--------+ + | BEE STINGS | | | Critical | | Daniela Green | | | | | | | NCMA | + + + + +--------+ + | GEODON | | | Critical | | Adilia Kallie | | | | | | | ANP | + + + + +--------+ + | MORPHINE | | | Critical | | Adilia Kallie | | | | | | | ANP | + + + + +--------+ + Results +------+------+-------+------+-------+------+ + | Date | Name | Value | Unit | Range | Flag | Descriptio | | | | | | | | n | +------+------+-------+------+-------+------+ + + + | Office Visit: Follow Up | + + + + +----+---+---+---+ + | | CULT MRSA | No | | | | Culture, | | | | | | | | Methicilli | | | | | | | | n | | | | | | | | Resistant | | | | | | | | Staphyloco | | | | | | | | ccus | | | | | | | | aureus | + + +----+---+---+---+ + + + | Lab Report: H. Pylori Antibody | + + + + + +---+ +---+ + | | HELICOB | Negative | | Negative | | Helicobact | | | IGG | | | | | er pylori | | | | | | | | antibody, | | | | | | | | IgG, serum | + + + +---+ +---+ + + + | Lab Report: CMP (Comprehensive Metabolic Panel), Lipase | + + + +---------+-----+-----+--------+---+ + | | LIPASE | 134 | U/L | [phone] | | lipase, | | | SERUM | | | | | serum | + +---------+-----+-----+--------+---+ + + + | Office Visit: Establish Care | + + + + + +---+---+---+ + | | DEPSCREEN | positive | | | | Adolescent | | | | | | | | | | | | | | | | depression | | | | | | | | screening | | | | | | | | | | | | | | | | assessment | + + + +---+---+---+ + | | BLOOD UR | negative | | | | blood in | | | DIP | | | | | urine | | | | | | | | (hemoglobi | | | | | | | | n) by | | | | | | | | dipstick | + + + +---+---+---+ + | | PHQ-9 | 16 | | | | PHQ-9 | | | SCORE | | | | | quick | | | | | | | | depression | | | | | | | | | | | | | | | | assessment | | | | | | | | panel | | | | | | | | [Reported. | | | | | | | | PHQ] | + + + +---+---+---+ + | | PHQ-9 | 3|3|3||2|3 | | | | Adolescent | | | | |0|0|2|Cm | | | | | | | | ewhat | | | | depression | | | | Difficult | | | | screening | | | | | | | | | | | | | | | | assessment | + + + +---+---+---+ + + + | Replaced Document: Urinalysis Culture If Indicat, Urinalysis, Microscopic | + + + + + + + +---+ + | | BACTERIA | Few | | None | A | bacteria, | | | URN | | | | | urine | | | | | | | | microscopy | + + + + + +---+ + | | EPI | Few | /[HPF] | Few | | epithelial | | | CELL/HPF | | | | | cells, | | | | | | | | urine, per | | | | | | | | | | | | | | | | microscopy | + + + + + +---+ + | | RBCS MICRO | 10-25 | | 0-2 | A | RBC urine | | | U | | | | | by | | | | | | | | microscopy | + + + + + +---+ + | | WBCS MICRO | 5-10 / | {Cells}/[H | 0-5 | A | WBC urine | | | U | | PF] | | | on | | | | | | | | microscopy | + + + + + +---+ + | | REFURINCLT | Yes | | No | A | reflex | | | IN | | | | | urine | | | | | | | | culture | | | | | | | | indicated | + + + + + +---+ + | | BLOOD | 5+ | | Neg | A | RBC, | | | URINE | | | | | urine, | | | | | | | | dipstick | + + + + + +---+ + | | BILIRUBIN | Neg | | Neg | | bilirubin, | | | UR | | | | | urine | + + + + + +---+ + | | UROBILINOG | 1+ | | Normal | A | urobilinog | | | EN | | | | | en, urine, | | | | | | | | | | | | | | | | semiquanti | | | | | | | | tative | | | | | | | | (dipstick) | + + + + + +---+ + | | KETONES | 1+ | | Neg | A | ketones, | | | URN | | | | | urine, by | | | | | | | | test strip | + + + + + +---+ + | | GLUCOSE, | Neg | | Neg | | glucose, | | | URN | | | | | urine, | | | | | | | | semiquanti | | | | | | | | tative | + + + + + +---+ + | | PROTEIN, | 3+ | | Neg | A | Albumin | | | URN | | | | | [Presence] | | | | | | | | in Urine | + + + + + +---+ + | | NITRITE | Pos | | Neg | A | nitrite, | | | URN | | | | | urine, | | | | | | | | semiquanti | | | | | | | | tative | + + + + + +---+ + | | WBC DIPSTK | 2+ | | Neg | A | leukocyte | | | U | | | | | esterase, | | | | | | | | urine, by | | | | | | | | dipstick | + + + + + +---+ + | | PH URINE | 5.0 | | 5.0-8.0 | | pH, urine, | | | | | | | | | | | | | | | | semiquanti | | | | | | | | tative | + + + + + +---+ + | | SPEC GR | 1.030 | | 1.003-1.02 | A | specific | | | URIN | | | 2 | | gravity, | | | | | | | | urine | + + + + + +---+ + | | APPEARANCE | Cloudy | | Clear | A | appearance | | | U | | | | | , urine | + + + + + +---+ + | | UA COLOR | Rachel | | P-Yellow | A | urine | | | | | | | | color | + + + + + +---+ + + + | Office Visit: F/u Anxiety/Depression | + + + + + +---+---+---+ + | | HPV RESULT | Negative | | | | Human | | | | | | | | papilloma | | | | | | | | virus | | | | | | | | identified | | | | | | | | in | | | | | | | | Unspecifie | | | | | | | | d specimen | + + + +---+---+---+ + | | PAP DONE | WNL | | | | General | | | | | | | | categories | | | | | | | | | | | | | | | | [Interpret | | | | | | | | ation] of | | | | | | | | Cervical | | | | | | | | or vaginal | | | | | | | | smear or | | | | | | | | scraping | | | | | | | | by Cyto | | | | | | | | stain | + + + +---+---+---+ + + + | Lab Report: Comprehensive Metabolic Panel, Thyroid Stimulating Hormone, ... | + + + + +------+-------+ +---+ + | | T4, FREE | 1.15 | ng/dL | 0.70-1.60 | N | thyroxine, | | | | | | | | serum, | | | | | | | | free | + + +------+-------+ +---+ + + + | Lab Report: Comprehensive Metabolic Panel, Magnesium, Blood | + + + + +-----+-------+---------+---+ + | | MAGNESIUM | 2.0 | mg/dL | 1.6-2.4 | N | magnesium, | | | | | | | | serum | + + +-----+-------+---------+---+ + + + | Lab Report: Beta Hcg Serum | + + + + + +---+ +---+ + | | BETA-HCG | Negative | | Negative | N | beta HCG, | | | QL | | | | | serum, | | | | | | | | qualitativ | | | | | | | | e | + + + +---+ +---+ + + + | Lab Report: Arterial Blood Gases | + + + + +------+--------+ +---+ + | | OXYHEMOG % | 91.6 | % | 95.0-100.0 | L | oxyhemoglo | | | | | | | | bin as | | | | | | | | percent of | | | | | | | | arterial | | | | | | | | blood | | | | | | | | hemoglobin | + + +------+--------+ +---+ + | | HB ARTER | 13.2 | g/dL | 12.0-16.0 | N | hemoglobin | | | TOT | | | | | , arterial | | | | | | | | blood, | | | | | | | | total | + + +------+--------+ +---+ + | | O2SAT | 94 | % | 95-100 | L | oxygen | | | (ART) | | | | | saturation | | | | | | | | , arterial | | | | | | | | blood | + + +------+--------+ +---+ + | | BASE | 4.6 | mmol/L | -2-2 | H | base | | | EXCESS | | | | | excess, | | | | | | | | arterial | | | | | | | | blood | + + +------+--------+ +---+ + | | HCO3 (ART) | 27.9 | mmol/L | 22.0-28.0 | N | bicarbonat | | | | | | | | e, | | | | | | | | arterial | | | | | | | | blood | + + +------+--------+ +---+ + | | PO2 (ART) | 71.0 | mm[Hg] | 80-100 | L | oxygen, | | | | | | | | partial | | | | | | | | pressure, | | | | | | | | arterial | | | | | | | | blood | + + +------+--------+ +---+ + | | PCO2 (ART) | 55.5 | mm[Hg] | 35-45 | H | carbon | | | | | | | | dioxide, | | | | | | | | partial | | | | | | | | pressure, | | | | | | | | arterial | | | | | | | | blood | + + +------+--------+ +---+ + | | PH (ART) | 7.35 | | 7.35-7.45 | N | pH, | | | | | | | | arterial | | | | | | | | blood | + + +------+--------+ +---+ + + + | Lab Report: CBC with Auto Diff | + + + + + + + +---+ + | | ZZ-GE-UNK | 0.00 K/mm3 | | 0.00-0.02 | N | GE use | | | | | | | | only - for | | | | | | | | LinkLogic | | | | | | | | import | | | | | | | | when terms | | | | | | | | are not | | | | | | | | otherwise | | | | | | | | specified | + + + + + +---+ + | | ABSOLUTE | 0.01 | 10*3/uL | 0.00-0.23 | N | Absolute | | | BAS | | | | | Basophils | + + + + + +---+ + | | EOS ABSLT | 0.17 | 10*3/uL | 0.00-0.68 | N | Eosinophil | | | | | | | | Absolute | | | | | | | | Count | + + + + + +---+ + | | ABSOLUTE | 1.17 | 10*3/uL | 0.16-1.47 | N | Absolute | | | MON | | | | | Monocytes | + + + + + +---+ + | | LYMPHOCYTA | 4.06 | 10*3/uL | 0.84-5.20 | N | lymphocyte | | | BS | | | | | s, | | | | | | | | absolute | + + + + + +---+ + | | ANC | 4.63 | 10*3/mm3 | 1.96-9.15 | N | neutrophil | | | | | | | | count, | | | | | | | | blood | + + + + + +---+ + | | NRBCS/100W | 0.0 | % | 0.0-0.2 | N | nucleated | | | BC | | | | | red blood | | | | | | | | cells as | | | | | | | | percent of | | | | | | | | blood | | | | | | | | leukocytes | + + + + + +---+ + | | IMM GRANU | 0 | % | 0-1 | N | immature | | | % | | | | | granulocyt | | | | | | | | es, | | | | | | | | percentage | | | | | | | | of total | | | | | | | | cells, | | | | | | | | blood | + + + + + +---+ + | | BASOPHIL % | 0 | % | 0-2 | N | basophils | | | | | | | | as percent | | | | | | | | of blood | | | | | | | | leukocytes | + + + + + +---+ + | | EOSINOPHIL | 2 | % | 0-6 | N | eosinophil | | | % | | | | | s as | | | | | | | | percent of | | | | | | | | blood | | | | | | | | leukocytes | + + + + + +---+ + | | MONOCYTE % | 12 | % | 4-13 | N | monocytes | | | | | | | | as percent | | | | | | | | of blood | | | | | | | | leukocytes | + + + + + +---+ + | | LYMPHS % | 40 | % | 21-46 | N | lymphocyte | | | | | | | | s as | | | | | | | | percent of | | | | | | | | blood | | | | | | | | leukocytes | + + + + + +---+ + | | PMN % | 46 | % | 41-73 | N | neutrophil | | | | | | | | s as | | | | | | | | percent of | | | | | | | | blood | | | | | | | | leukocytes | + + + + + +---+ + | | MPV | 12.6 | fL | 9.1-12.4 | H | mean | | | | | | | | platelet | | | | | | | | volume | + + + + + +---+ + | | PLATELETS | 171 | 10*3/mm3 | 150-400 | N | platelet | | | | | | | | count | + + + + + +---+ + | | RDW | 13.6 | % | 11.7-14.2 | N | red blood | | | | | | | | cell | | | | | | | | distributi | | | | | | | | on width | + + + + + +---+ + | | RDW-SD | 48.9 | fL | 35.1-46.3 | H | red blood | | | | | | | | cell | | | | | | | | distributi | | | | | | | | on width, | | | | | | | | size | | | | | | | | density | + + + + + +---+ + | | MCHC RBC | 32.9 | g/dL | 31.5-36.5 | N | mean | | | | | | | | corpuscula | | | | | | | | r | | | | | | | | hemoglobin | | | | | | | | | | | | | | | | concentrat | | | | | | | | ion, RBC | + + + + + +---+ + | | MCH | 32.7 | pg | 26.0-34.0 | N | mean | | | | | | | | corpuscula | | | | | | | | r | | | | | | | | hemoglobin | | | | | | | | , RBC | + + + + + +---+ + | | MCV | 99 | fL | 80-100 | N | mean | | | | | | | | corpuscula | | | | | | | | r volume, | | | | | | | | RBC | + + + + + +---+ + | | HCT | 39.8 | % | 33.0-51.0 | N | hematocrit | | | | | | | | , blood | + + + + + +---+ + | | HGB | 13.1 | g/dL | 11.5-16.0 | N | hemoglobin | | | | | | | | , blood | + + + + + +---+ + | | RBC | 4.01 | 10*6/mm3 | 3.80-5.20 | N | erythrocyt | | | | | | | | e (RBC) | | | | | | | | count | + + + + + +---+ + | | WBC | 10.07 | 10*3/mm3 | 4.00-11.30 | N | leukocyte | | | | | | | | count, | | | | | | | | blood | + + + + + +---+ + + + | Lab Report: Comprehensive Metabolic Panel, Thyroid Stimulating Hormone | + + + + +--------+ + +---+ + | | TSH ULTRA | 1.150 | u[iU]/mL | 0.360-4.80 | N | thyroid | | | | | | 0 | | stimulatin | | | | | | | | g hormone | | | | | | | | (TSH), | | | | | | | | ultra | | | | | | | | sensitive | + + +--------+ + +---+ + | | SGPT (ALT) | 23 | U/L | 12-78 | N | alanine | | | | | | | | aminotrans | | | | | | | | ferase | | | | | | | | (SGPT), | | | | | | | | serum | + + +--------+ + +---+ + | | SGOT (AST) | 17 | U/L | 12-37 | N | aspartate | | | | | | | | aminotrans | | | | | | | | ferase | | | | | | | | (SGOT), | | | | | | | | serum | + + +--------+ + +---+ + | | ALK PHOS | 72 | U/L | 50-136 | N | alkaline | | | | | | | | phosphatas | | | | | | | | e, serum | + + +--------+ + +---+ + | | BILI TOTAL | 0.2 | mg/dL | 0.1-1.0 | N | bilirubin, | | | | | | | | serum, | | | | | | | | total | + + +--------+ + +---+ + | | A/G RATIO | 1.0 | | 0.8-1.8 | N | albumin/gl | | | | | | | | obulin | | | | | | | | ratio, | | | | | | | | serum | + + +--------+ + +---+ + | | GLOBULIN | 3.3 | g/dL | 2.2-4.0 | N | globulins, | | | TOT | | | | | serum, | | | | | | | | total | + + +--------+ + +---+ + | | ALBUMIN | 3.4 | g/dL | 3.4-5.0 | N | albumin, | | | | | | | | serum | + + +--------+ + +---+ + | | PROTEIN, | 6.7 | g/dL | 6.4-8.2 | N | protein, | | | TOT | | | | | total, | | | | | | | | serum | + + +--------+ + +---+ + | | CALCIUM | 8.3 | mg/dL | 8.5-10.1 | L | calcium, | | | | | | | | serum | + + +--------+ + +---+ + | | GFRC | >60 | mL/min/1.7 | 60- | N | Glomerular | | | | | 3m2 | | | | | | | | | | | Filtration | | | | | | | | Rate | | | | | | | | Calculatio | | | | | | | | n | + + +--------+ + +---+ + | | BUN/CREAT | 25.9 % | | 12.0-20.0 | H | urea | | | | | | | | nitrogen/c | | | | | | | | reatinine | | | | | | | | ratio, | | | | | | | | serum | + + +--------+ + +---+ + | | CREATININE | 0.54 | mg/dL | 0.40-1.00 | N | creatinine | | | | | | | | , serum | + + +--------+ + +---+ + | | BUN | 14 | mg/dL | 8-24 | N | urea | | | | | | | | nitrogen, | | | | | | | | blood | + + +--------+ + +---+ + | | GLUCOSE | 96 | mg/dL | 70-99 | N | blood | | | SER | | | | | glucose | + + +--------+ + +---+ + | | ANION GAP | 7 | mmol/L | 6-16 | N | anion gap, | | | | | | | | serum | + + +--------+ + +---+ + | | CO2 | 30 | mmol/L | 21-32 | N | carbon | | | | | | | | dioxide, | | | | | | | | venous | | | | | | | | blood | + + +--------+ + +---+ + | | CHLORIDE | 105 | mmol/L | 98-108 | N | chloride, | | | | | | | | serum | + + +--------+ + +---+ + | | POTASSIUM | 3.9 | mmol/L | 3.5-5.5 | N | potassium, | | | | | | | | serum | + + +--------+ + +---+ + | | SODIUM | 142 | mmol/L | 136-145 | N | sodium, | | | | | | | | serum | + + +--------+ + +---+ + + + | Office Visit: [place]: L leg pain and swelling | + + + +--------+ +---+---+---+ + | | SMOK | Current | | | | Tobacco | | | STATUS | every day | | | | use CPHS | | | | smoker | | | | | + +--------+ +---+---+---+ + | | MEDS | Done | | | | Documentat | | | REVIEW | | | | | ion of | | | | | | | | current | | | | | | | | medication | | | | | | | | s | | | | | | | | (procedure | | | | | | | | ) | + +--------+ +---+---+---+ + Plan of Care + + + + | Type | Date | Detail | + + + + | Appointment | 09:00 AM | Hanna HARRISON, [address] | | | | [facility] [address], | | | | [place], [address], | | | | | + + + + | Appointment | 02:20 PM | Tejas Davis MD, [address] | | | | [place] [address], | | | | [place], [address], | | | | | + + + + | Referral | | Follow Up Appt | + + + + | Referral | | PFT (Complete) | + + + + | Referral | | ENT Consult | + + + + | Referral | | PFT (Complete) | + + + + | Referral | | ENT Consult | + + + + | Referral | | Pulmonology Consult | | | | Tejas Davis, | | | | [address], [address], | | | | [place], [address] | | | | | + + + + | Referral | | Pulmonology Consult | | | | Tejas Davis, | | | | [address], [address], | | | | [place], [address] | | | | | + + + + | Referral | | [facility]ST[facility] HELPER Consult | + + + + | Pending order | | Comprehensive Metabolic | | | | Panel | + + + + | Pending order | | BNP (natriuretic peptide) | + + + + | Pending order | | CT Chest-WO Con | + + + + | Pending order | | CT Neck Soft Tissue-W Con | + + + + | Pending order | | CT Chest-WO Con | + + + + | Pending order | | CT Neck Soft Tissue-W Con | + + + + | Pending order | | XR Chest-2V | + + + + | Pending order | | Sputum Culture | + + + + | Pending order | | TSH | + + + + | Pending order | | Comprehensive Metabolic | | | | Panel | + + + + | Pending order | | T4 Free | + + + + | Pending order | | Chlamydia / GC DNA Probe | + + + + | Pending order | | CBC w/ Auto Diff | + + + + | Pending order | | US Abdomen-Cmplt | + + + + | Pending order | | Lipase | + + + + | Pending order | | H. Pylori Antibody | + + + + | Pending order | | TSH | + + + + | Pending order | | Comprehensive Metabolic | | | | Panel | + + + + | Pending order | | CBC w/ Auto Diff | + + + + | Pending order | | Comprehensive Metabolic | | | | Panel | + + + + | Pending order | | TSH | + + + + | Pending order | | Vit D, 25 hydroxy | + + + + Procedures + + + + + | Code | Procedure Name | Date | Entry Date | + + + + + | CPT-07596 | PeakFlow | | | + + + + + | CPT-86959 | Nebulizer Treatment | | | | | | | | + + + + + | CPT-J7620 | Duoneb | | | + + + + + | CPT-04772 | Nebulizer/Updraft | | | | | Treatment | | | + + + + + | TSH 67898 | TSH | | | + + + + + | CHEM PROF | Comprehensive | | | | | Metabolic Panel | | | + + + + + | FREE T4 82118 | T4 Free | | | + + + + + | CPT-25651 | UA Dipstick | | | + + + + + | GC CHL PRO MULTIPLE | Chlamydia / GC DNA | | | | | Probe | | | + + + + + | CPT-H0002 | Behavioral Health | | | | | Screening (H0002) | | | + + + + + | [address] | US Abdomen-Cmplt | | | + + + + + | [place] [address] | H. Pylori Antibody | | | + + + + + | CBC AUTO 25932 | CBC w/ Auto Diff | | | + + + + + | LIPASE 81593 | Lipase | | | + + + + + | TSH 07836 | TSH | | | + + + + + | CHEM PROF | Comprehensive | | | | | Metabolic Panel | | | + + + + + | CPT-G8427 | Current Medications | | | | | Documented | | | + + + + + Vital Signs + + +-------+---------+ + | Date | Name | Value | Unit | Description | + + +-------+---------+ + | | BMI (Body Mass | 27.88 | kg/m2 | Body Mass Index | | | Index) | | | [Ratio] | + + +-------+---------+ + | | BP Diastolic | 80 | mm[Hg] | blood pressure, | | | | | | diastolic, | | | | | | second | | | | | | observation | + + +-------+---------+ + | | BP Diastolic | 80 | mm[Hg] | blood pressure, | | | | | | diastolic - | | | | | | 8462-4 | + + +-------+---------+ + | | BP Systolic | 128 | mm[Hg] | blood pressure, | | | | | | systolic - | | | | | | 8480-6 | + + +-------+---------+ + | | BP Systolic | 128 | mm[Hg] | blood pressure, | | | | | | systolic, | | | | | | second | | | | | | observation | + + +-------+---------+ + | | Body | 97.2 | [degF] | temperature E&M | | | Temperature | | | | + + +-------+---------+ + | | Heart Rate | 105 | /min | pulse rate E&M | | | | | | - 8867-4 | + + +-------+---------+ + | | Height | 61 | [in_us] | height E&M - | | | | | | 8302-2 | + + +-------+---------+ + | | O2 % BldC | 98 | % | oxygen | | | Oximetry | | | saturation, | | | | | | oximetry | + + +-------+---------+ + | | Weight Measured | 147 | [lb_av] | weight E&M - | | | | | | 3141-9 | + + +-------+---------+ + | | Respiratory | 16 | /min | respiratory | | | Rate | | | rate E&M - | | | | | | 9279-1 | + + +-------+---------+ + | | BSA (Body | 1.60 | | body surface | | | Surface Area) | | | area | + + +-------+---------+ + Social History + + + +-------+ + | Concept | Observation | Observation | Units | Start Date | | Description | Name | Value | | | + + + +-------+ + | Current every | SMOK STATUS | Current every | | | | day smoker | | day smoker | | | + + + +-------+ + | Current every | SMOK STATUS | Current every | | | | day smoker | | day smoker | | | + + + +-------+ + | Current every | SMOK STATUS | Current every | | | | day smoker | | day smoker | | | + + + +-------+ + | Current every | SMOK STATUS | Current every | | | | day smoker | | day smoker | | | + + + +-------+ + | Current every | SMOK STATUS | Current every | | | | day smoker | | day smoker | | | + + + +-------+ + | Current every | SMOK STATUS | Current every | | | | day smoker | | day smoker | | | + + + +-------+ + | Current every | SMOK STATUS | Current every | | | | day smoker | | day smoker | | | + + + +-------+ + | Current every | SMOK STATUS | Current every | | | | day smoker | | day smoker | | | + + + +-------+ + | Current every | SMOK STATUS | Current every | | | | day smoker | | day smoker | | | + + + +-------+ + | Details of drug | DRUG USE | none | | | | misuse | | | | | | behavior | | | | | + + + +-------+ + | Feeling down, | PHQ9 Q2 | 3 | | | | depressed, or | | | | | | hopeless? | | | | | + + + +-------+ + | Little interest | PHQ9 Q1 | 3 | | | | or pleasure in | | | | | | doing things? | | | | | + + + +-------+ + | Feeling down, | PHQ9 Q2 | 3 | | | | depressed, or | | | | | | hopeless? | | | | | + + + +-------+ + | Little interest | PHQ9 Q1 | 2 | | | | or pleasure in | | | | | | doing things? | | | | | + + + +-------+ + | Current every | SMOK STATUS | Current every | | | | day smoker | | day smoker | | | + + + +-------+ + | Health-related | HIV RSK EVAL | No | | | | behavior | | | | | + + + +-------+ + | Current every | SMOK STATUS | Current every | | | | day smoker | | day smoker | | | + + + +-------+ + | Alcohol intake | ETOH USE | current | | | + + + +-------+ + | Current every | SMOK STATUS | Current every | | | | day smoker | | day smoker | | | + + + +-------+ + | Details of drug | DRUG USE | cannabis | | | | misuse | | (marijuana; | | | | behavior | | pot) | | | + + + +-------+ +"
--- OUTSIDE RECORDS SUMMARY | ~2019-10-16 | XMS | Continuity of Care Document ---
Demographics + + + | Address | [address] | | | [place] [address] | + + + | Home Phone | | + + + | Preferred Language | Unknown | + + + | Marital Status | | + + + | Adventist Affiliation | Cheondoism (non-Spiritism, non-specific) | + + + | Race | White | + + + | Ethnic Group | Not or | + + + Author + + + | Author | [facility] | + + + | Organization | [facility] | + + + | Address | [address] | | | [place] [address] | + + + | Phone | | + + + Support + + + + + | Name | Relationship | Address | Phone | + + + + + | MD Myesha Aguilar | PRS | [address] | | | | | [place] | | | | | [address] | | + + + + + | ROCIO Conde July | PRS | [address] | | | | | [place] [address] | | + + + + + | ALLI ALVARADO | PRS | [address] | | | | | [place] | | | | | [address] | | + + + + + Care Team Providers + +------+ + | Care Strategy Consultant Name | Role | Phone | + +------+ + | MD Myesha Aguilar | PCP | | + +------+ + Allergies, Adverse Reactions, Alerts + + + + + + + + | Allergen | Type | Severity | Reaction | Last | Verified | Status | | | | | | Updated | | | | | | | | | | | | | | | | | | | + + + + + + + + | diazepam | Allergy | Unknown | | September 14, | Yes | Active | | | | | | 2020 | | | | | | | | | | | | | | | | | | | + + + + + + + + | morphine | Allergy | Mild | Itching | September 14, | Yes | Active | | | | | | 2020 | | | | | | | | | | | | | | | | | | | + + + + + + + + | Insect | Allergy | Severe | | September 14, | Yes | Active | | Extracts | | | | 2020 | | | | | | | | | | | | | | | | | | | + + + + + + + + | venom-wasp | Allergy | Severe | | September 14, | Yes | Active | | | | | | 2020 | | | | | | | | | | | | | | | | | | | + + + + + + + + | ziprasidon | Allergy | Unknown | | September 14, | Yes | Active | | e | | | | 2020 | | | | | | | | | | | | | | | | | | | + + + + + + + + Medications +-------+-------+-------+-------+-------+-------+-------+-------+-------+-------+-------+ | Medic | Statu | Dose | Units | Route | Sig | Qty | Days | Start | End | Instr | | ation | s | | | | | | | Date | Date | uctio | | | | | | | | | | | | ns | | | | | | | | | | | | | | | | | | | | | | | | | | | | | | | | | | | | | +-------+-------+-------+-------+-------+-------+-------+-------+-------+-------+-------+ | ADVAI | Activ | | | | | | | | | | | R | e | | | | | | | | | | | | | | | | | | | | | | | | | | | | | | | | | | | | | | | | | | | | | | | | | | | | | | | | | | +-------+-------+-------+-------+-------+-------+-------+-------+-------+-------+-------+ | Albut | Activ | 1-2 | | Respi | Every | 1 | | Janua | | Pleas | | kiki | e | | | rator | 4 | | | ry | | e | | (Prov | | | | y | Hours | | | 8th, | | instr | | entil | | | | (Inha | as | | | 2017 | | uct | | HFA | | | | latio | Neede | | | 10:26 | | patie | | Inhal | | | | n) | d as | | | am | | nt on | | er) | | | | | neede | | | | | use. | | 90 | | | | | d for | | | | | | | MCG | | | | | | | | | | | | INH | | | | | Cough | | | | | | | | | | | | | | | | | | | | | | | | | | | | | | | | | | | | | | | | | | | | | | | | | | | | | | +-------+-------+-------+-------+-------+-------+-------+-------+-------+-------+-------+ | BusPI | Activ | 20 | mg | Oral | Daily | | | | | | | Toy | e | | | | | | | | | | | HCL | | | | | | | | | | | | (Busp | | | | | | | | | | | | ar) | | | | | | | | | | | | (Unkn | | | | | | | | | | | | own | | | | | | | | | | | | Stren | | | | | | | | | | | | gth) | | | | | | | [...] | | | | | | +-------+-------+-------+-------+-------+-------+-------+-------+-------+-------+-------+ | Cital | Activ | 20 | mg | Oral | Daily | | | | | | | opram | e | | | | | | | | | | | | | | | | | | | | | | | Breda | | | | | | | | | | | | bromi | | | | | | | | | | | | de | | | | | | | | | | | | (Olivia | | | | | | | | | | | | XA 20 | | | | | | | | | | | | mg | | | | | | | | | | | | Tab) | | | | | | | [...] | | | | | | +-------+-------+-------+-------+-------+-------+-------+-------+-------+-------+-------+ | Epine | Activ | 0.3 | mg | Intra | As | | | | | | | phrin | e | | | muscu | Direc | | | | | | | e Hcl | | | | lar | elisabeth | | | | | | | | | | | | as | | | | | | | (Epip | | | | | neede | | | | | | | en) | | | | | d for | | | | | | | 0.3 | | | | | | | | | | | | MG/SY | | | | | Aller | | | | | | | R SYR | | | | | gic | | | | | | | | | | | | React | | | | | | | | | | | | ion | | | | | | | | | | | | | | | | | | | | | | | | | | | | | | | | | | | | | | | | | | | | | | | | | | | | | | +-------+-------+-------+-------+-------+-------+-------+-------+-------+-------+-------+ | HYDRO | Activ | 1-2 | | Oral | Every | 20 | | Janua | | max | | codon | e | | | | 4 | | | ry | | 6/day | | e/APA | | | | | Hours | | | 1st, | | | | P | | | | | as | | | 2019 | | | | (Norc | | | | | neede | | | 3:50p | | | | o | | | | | d for | | | m | | | | 5/325 | | | | | Pain | | | | | | | | | | | | | | | | | | | Table | | | | | | | | | | | | t) 1 | | | | | | | | | | | | EACH | | | | | | | | | | | | TABLE | | | | | | | | | | | | T | | | | | | | | | | | | | | | | | | | | | | | | | | | | | | | | | | | | | | | | | | | | | | | +-------+-------+-------+-------+-------+-------+-------+-------+-------+-------+-------+ | Ibupr | Activ | 800 | mg | Oral | Every | 30 | | Lorelei | | | | ofen | e | | | | 8 | | | 14th, | | | | (Advi | | | | | Hours | | | 2020 | | | | l/Mot | | | | | as | | | | | | | rin | | | | | neede | | | 1:16p | | | | 800 | | | | | d for | | | m | | | | mg | | | | | Pain | | | | | | | Tab) | | | | | | | | | | | | 800 | | | | | | | [...] | | | | | | +-------+-------+-------+-------+-------+-------+-------+-------+-------+-------+-------+ | Levot | Activ | 50 | ug | Oral | Daily | | | | | | | hyrox | e | | | | | | | | | | | ine | | | | | | | | | | | | Sodiu | | | | | | | | | | | | m | | | | | | | | | | | | (Synt | | | | | | | | | | | | hroid | | | | | | | | | | | | /Levo | | | | | | | | | | | | throi | | | | | | | | | | | | d) | | | | | | | | | | | | (Unkn | | | | | | | | | | | | own | | | | | | | | | | | | Stren | | | | | | | | | | | | gth) | | | | | | | [...] | | | | | | +-------+-------+-------+-------+-------+-------+-------+-------+-------+-------+-------+ | Nicot | Activ | 1 | | Topic | Daily | | | | | | | ine | e | | | al | | | | | | | | (João | | | | | | | | | | | | derm | | | | | | | | | | | | Cq) | | | | | | | | | | | | 14 MG | | | | | | [...] | | | | | | +-------+-------+-------+-------+-------+-------+-------+-------+-------+-------+-------+ | Ondan | Activ | 4 | mg | | Q6H | 10 | | Lorelei | | | | setro | e | | | | as | | | 14th, | | | | n | | | | | neede | | | 2020 | | | | (Zofr | | | | | d for | | | | | | | an | | | | | | | | 1:16p | | | | ODT 4 | | | | | Nause | | | m | | | | mg | | | | | a & | | | | | | | Tab) | | | | | Vomit | | | | | | | 4 MG | | | | | ing | | | | | | | SOLUT | | | | | | | | | | | | AB | | | | | | | | | | | | | | | | | | | | | | | | | | | | | | | | | | | | | | | | | | | | | | | +-------+-------+-------+-------+-------+-------+-------+-------+-------+-------+-------+ | guaiF | Activ | 600 | mg | Oral | | | | | | | | ENesi | e | | | | | | | | | | | n | | | | | | | | | | | | (Humi | | | | | | | | | | | | bid-L | | | | | | | | | | | | A 600 | | | | | | | | | | | | mg | | | | | | | | | | | | Tab | | | | | | | | | | | | CR) | | | | | | | | | | | | 600 | | | | | | | | | | | | MG | | | | | | | | | | | | TABLE | | | | | | | | | | | | T.SA | | | | | | | | | | | | | | | | | | | | | | | | | | | | | | | | | | | | | | | | | | | | | | | | | | | | | | | | | | | +-------+-------+-------+-------+-------+-------+-------+-------+-------+-------+-------+ | Albut | Disco | 1-2 | | Respi | Every | | | | Decem | Pleas | | kiki | ntinu | | | rator | 4 | | | | clark | e | | (Prov | ed | | | y | Hours | | | | 17th, | instr | | entil | | | | (Inha | as | | | | 2014 | uct | | HFA | | | | latio | Neede | | | | | patie | | Inhal | | | | n) | d as | | | | 7:08p | nt on | | er) | | | | | neede | | | | m | use. | | 200 | | | | | d for | | | | | | | ACT/6 | | | | | SOB | | | | | | | .7 GM | | | | | | | [...] | | | | | | +-------+-------+-------+-------+-------+-------+-------+-------+-------+-------+-------+ | Albut | Disco | 1 - 2 | | Respi | Every | 1 | | | Augus | Pleas | | kiki | ntinu | | | rator | 4-6 | | | | t | e | | (Prov | ed | | | y | Hours | | | | 17th, | instr | | entil | | | | (Inha | as | | | | 2015 | uct | | HFA | | | | latio | Neede | | | | | patie | | Inhal | | | | n) | d | | | | 9:11p | nt on | | er) | | | | | | | | | m | use. | | 200 | | | | | | | | | | | | ACT/6 | | | | | | | | | | | | .7 GM | | | | | | | [...] | | | | | | +-------+-------+-------+-------+-------+-------+-------+-------+-------+-------+-------+ | Albut | Disco | 1-2 | | Respi | Every | 1 | | March | Augus | Pleas | | kiki | ntinu | | | rator | 4 | | | | t | e | | (Prov | ed | | | y | Hours | | | 11th, | 17th, | instr | | entil | | | | (Inha | as | | | 2015 | 2015 | uct | | HFA | | | | latio | Neede | | | | | patie | | Inhal | | | | n) | d | | | 1:53a | 9:11p | nt on | | er) | | | | | | | | m | m | use. | | 200 | | | | | | | | | | | | ACT/6 | | | | | | | | | | | | .7 GM | | | | | | | [...] | | | | | | +-------+-------+-------+-------+-------+-------+-------+-------+-------+-------+-------+ | Albut | Disco | 1-2 | | Respi | Every | 1 | | Janua | March | Pleas | | kiki | ntinu | | | rator | 4-6 | | | ry | | e | | (Prov | ed | | | y | Hours | | | 26th, | 11th, | instr | | entil | | | | (Inha | as | | | 2015 | 2015 | uct | | HFA | | | | latio | Neede | | | | | patie | | Inhal | | | | n) | d as | | | 4:33p | 12:21 | nt on | | er) | | | | | neede | | | m | am | | | 200 | | | | | d for | | | | | use.W | | ACT/6 | | | | | | | | | | ITH | | .7 GM | | | | | Diffi | | | | | SPACE | | AERS | | | | | culty | | | | | R | | | | | | | | | | | | | | | | | | | Breat | | | | | | | | | | | | keerthi | | | | | | | | | | | | | | | | | | | | | | | | | | | | | | | | | | | | | | | | | | | | | | | | | | | | | | +-------+-------+-------+-------+-------+-------+-------+-------+-------+-------+-------+ | Amoxi | Disco | 500 | mg | Oral | Q8H | 42 | | May | Kalli | | | cilli | ntinu | | | | | | | 7th, | 4th, | | | n | ed | | | | | | | 2008 | 2011 | | | (Trim | | | | | | | | 5:02p | | | | ox | | | | | | | | m | 6:32p | | | 500 | | | | | | | | | m | | | mg | | | | | | | | | | | | Cap) | | | | | | | | | | | | 500 | | | | | | | | | | | | MG | | | | | | | | | | | | CAP | | | | | | | | | | | | | | | | | | | | | | | | | | | | | | | | | | | | | | | | | | | | | | | | | | | | | | | | | | | +-------+-------+-------+-------+-------+-------+-------+-------+-------+-------+-------+ | Amoxi | Disco | 1000 | mg | Oral | Twice | 40 | | Mica | Augus | 2 | | cilli | ntinu | | | | Each | | | , | t | CAPS | | n | ed | | | | Day | | | 2014 | 17, | TWICE | | Trihy | | | | | for | | | | 2015 | A | | drate | | | | | Infec | | | 5:39p | | DAYFO | | | | | | | tion | | | m | 9:11p | R 10 | | (Amox | | | | | | | | | m | DAYS. | | icill | | | | | | | | | | | | in) | | | | | | | | | | | | 500 | | | | | | | | | | | | MG | | | | | | | | | | | | CAPSU | | | | | | | | | | | | LE | | | | | | | | | | | | | | | | | | | | | | | | | | | | | | | | | | | | | | | | | | | | | | | +-------+-------+-------+-------+-------+-------+-------+-------+-------+-------+-------+ | Azith | Disco | 0 | mg | Oral | Daily | 6 | | March | Augus | TAKE | | romyc | ntinu | | | | | | | | t | TWO | | in | ed | | | | | | | 11th, | 17th, | TABLE | | (Zith | | | | | | | | 2015 | 2015 | TS | | romax | | | | | | | | | | FOR | | 250 | | | | | | | | 1:53a | 9:11p | THE | | mg | | | | | | | | m | m | FIRST | | Tab) | | | | | | | | | | DOSE | | 250 | | | | | | | | | | | | MG | | | | | | | | | | FOLLO | | TAB | | | | | | | | | | WEDBY | | | | | | | | | | | | ONE | | | | | | | | | | | | TABLE | | | | | | | | | | | | T | | | | | | | | | | | | DAILY | | | | | | | | | | | | FOR | | | | | | | | | | | | 4 | | | | | | | | | | | | DAYS. | | | | | | | | | | | | | | | | | | | | | | | | | | | | | | | | | | | | | | | | | | | | | | | | | +-------+-------+-------+-------+-------+-------+-------+-------+-------+-------+-------+ | Azith | Disco | 0 | mg | Oral | | 1 | | Janua | Kalli | 500 | | romyc | ntinu | | | | DIREC | | | ry | 1st, | MG ON | | in | ed | | | | ELISABETH | | | , | 2016 | DAY | | (Zith | | | | | for | | | 2017 | | ONE, | | romax | | | | | INFEC | | | 10:26 | 11:24 | THEN | | 250 | | | | | TION | | | am | pm | 250 | | mg | | | | | | | | | | MG ON | | Tab) | | | | | | | | | | DAYS | | 250 | | | | | | | | | | TWO | | MG | | | | | | | | | | THRU | | TABLE | | | | | | | | | | FIVE. | | T | | | | | | | | | | | | | | | | | | | | | | | | | | | | | | | | | | | | | | | | | | | | | | | +-------+-------+-------+-------+-------+-------+-------+-------+-------+-------+-------+ | Benzo | Disco | 2 | | | Three | 1 | | March | Augus | | | lauren | ntinu | | | | | | | | t | | | /Anti | ed | | | | Times | | | 28th, | 17th, | | | pyrin | | | | | a | | | 2015 | 2015 | | | e | | | | | Day | | | | | | | Otic | | | | | as | | | 1:39p | 9:11p | | | (Aura | | | | | Neede | | | m | m | | | lgan | | | | | d as | | | | | | | Otic) | | | | | neede | | | | | | | 10 | | | | | d for | | | | | | | ML | | | | | EAR | | | | | | | SOLN | | | | | PAIN | | | | | | | | | | | | | | | | | | | | | | | | | | | | | | | | | | | | | | | | | | | | | | | | | | | | | | +-------+-------+-------+-------+-------+-------+-------+-------+-------+-------+-------+ | Benzo | Disco | 100 | mg | Oral | Every | 30 | | Janua | Kalli | | | natat | ntinu | | | | 8 | | | ry | | | | e | ed | | | | Hours | | | 8th, | 10th, | | | (Lesley | | | | | as | | | 2017 | 2017 | | | juan) | | | | | Neede | | | 10:26 | | | | 100 | | | | | d as | | | am | 2:08p | | | MG | | | | | neede | | | | m | | | CAP | | | | | d for | | | | | | | | | | | | | | | | | | | | | | | | Cough | | | | | | | | | | | | | | | | | | | | | | | | | | | | | | | | | | | | | | | | | | | | | | | | | | | | | | +-------+-------+-------+-------+-------+-------+-------+-------+-------+-------+-------+ | Buspi | Disco | 15 | mg | Oral | | | | | Decem | | | toy | ntinu | | | | | | | | clark | | | Hcl | ed | | | | | | | | , | | | (Busp | | | | | | | | | 2014 | | | ar) | | | | | | | | | | | | 15 MG | | | | | | | | | 7:08p | | | TAB | | | | | | | | | m | | | | | | | | | | | | | | | | | | | | | | | | | | | | | | | | | | | | | | | | | | | | | | | | | | +-------+-------+-------+-------+-------+-------+-------+-------+-------+-------+-------+ | Buspi | Disco | 15 | mg | Oral | Twice | 30 | | Janua | Augus | | | toy | ntinu | | | | Each | | | ry | t | | | Hcl | ed | | | | Day | | | , | 17, | | | (Busp | | | | | | | | 2014 | 2014 | | | ar) | | | | | | | | | | | | 15 MG | | | | | | | | 4:33p | 9:11p | | | TAB | | | | | | | | m | m | | | | | | | | | | | | | | | | | | | | | | | | | | | | | | | | | | | | | | | | | | | | | | | | | | +-------+-------+-------+-------+-------+-------+-------+-------+-------+-------+-------+ | Cepha | Disco | 500 | mg | Oral | Three | 21 | | March | Septe | | | lexin | ntinu | | | | | | | | mber | | | | ed | | | | Times | | | , | 26, | | | Monoh | | | | | a | | | 2015 | 2015 | | | ydrat | | | | | Day | | | | | | | e | | | | | | | | 3:37p | 11:06 | | | (Kefl | | | | | | | | m | pm | | | ex | | | | | | | | | | | | 500 | | | | | | | | | | | | mg | | | | | | | | | | | | Cap) | | | | | | | | | | | | 500 | | | | | | | | | | | | MG | | | | | | | | | | | | CAP | | | | | | | | | | | | | | | | | | | | | | | | | | | | | | | | | | | | | | | | | | | | | | | | | | | | | | | | | | | +-------+-------+-------+-------+-------+-------+-------+-------+-------+-------+-------+ | Cital | Disco | 20 | mg | Oral | Daily | | | | Augus | | | opram | ntinu | | | | | | | | t | | | | ed | | | | | | | | 17th, | | | Breda | | | | | | | | | 2015 | | | bromi | | | | | | | | | | | | de | | | | | | | | | 9:11p | | | (Olivia | | | | | | | | | m | | | XA 20 | | | | | | | | | | | | mg | | | | | | | | | | | | Tab) | | | | | | | [...] | | | | | | +-------+-------+-------+-------+-------+-------+-------+-------+-------+-------+-------+ | Cyclo | Disco | 10 | mg | Oral | | | | | Decem | | | benza | ntinu | | | | | | | | clark | | | trae | ed | | | | | | | | 17th, | | | HCL | | | | | | | | | 2015 | | | (Flex | | | | | | | | | | | | eril | | | | | | | | | 7:08p | | | 10 mg | | | | | | | | | m | | | Tab) | | | | | | | | | | | | 10 | | | | | | | [...] | | | | | | +-------+-------+-------+-------+-------+-------+-------+-------+-------+-------+-------+ | Cyclo | Disco | 10 | mg | Oral | Two | 30 | | May | Kalli | | | benza | ntinu | | | | Times | | | 7th, | 4th, | | | trae | ed | | | | A | | | 2008 | 2011 | | | HCL | | | | | Day | | | 5:02p | | | | (Flex | | | | | As | | | m | 6:32p | | | eril | | | | | Neede | | | | m | | | 10 mg | | | | | d | | | | | | | Tab) | | | | | | | | | | | | 10 | | | | | | | [...] | | | | | | +-------+-------+-------+-------+-------+-------+-------+-------+-------+-------+-------+ | DULox | Disco | 25 | mg | Oral | Q12H | 30 | | | Augus | | | etine | ntinu | | | | | | | | t | | | HCL | ed | | | | | | | | 17th, | | | (Cymb | | | | | | | | | 2015 | | | zahra) | | | | | | | | | | | | 30 | | | | | | | | | 9:11p | | | MG | | | | | | | | | m | | | CAPSU | | | | | | | | | | | | LE.DR | | | | | | | | | | | | | | | | | | | | | | | | | | | | | | | | | | | | | | | | | | | | | | | | | | | | | | | | | | | +-------+-------+-------+-------+-------+-------+-------+-------+-------+-------+-------+ | EPINE | Disco | 0.3 | mg | | | | | | Decem | | | PHRIN | ntinu | | | | | | | | clark | | | E | ed | | | | | | | | 17th, | | | (EPIP | | | | | | | | | 2015 | | | EN | | | | | | | | | | | | 2-TEDDY | | | | | | | | | 7:08p | | | ) 0.3 | | | | | | | | | m | | | | | | | | | | | | | | | MG/0. | | | | | | | | | | | | 3 ML | | | | | | | | | | | | AUTO. | | | | | | | | | | | | INJCT | | | | | | | | | | | | | | | | | | | | | | | | | | | | | | | | | | | | | | | | | | | | | | | | | | | | | | | | | | | +-------+-------+-------+-------+-------+-------+-------+-------+-------+-------+-------+ | Escit | Disco | 20 | mg | Oral | Daily | | | | Decem | | | alopr | ntinu | | | | | | | | clark | | | am | ed | | | | | | | | , | | | Oxala | | | | | | | | | 2014 | | | te | | | | | | | | | | | | (Mathis | | | | | | | | | 7:08p | | | pro | | | | | | | | | m | | | 20) | | | | | | | | | | | | 20 MG | | | | | | | | | | | | Tab | | | | | | | | | | | | | | | | | | | | | | | | | | | | | | | | | | | | | | | | | | | | | | | | | | | | | | | | | | | +-------+-------+-------+-------+-------+-------+-------+-------+-------+-------+-------+ | Fluti | Disco | 1 | | Respi | Twice | | | | Decem | ONE | | javy | ntinu | | | rator | Each | | | | clark | PUFF | | e/Justyn | ed | | | y | Day | | | | 17, | | | meter | | | | (Inha | | | | | 2015 | | | ol | | | | latio | | | | | | | | (Adva | | | | n) | | | | | 7:08p | | | ir | | | | | | | | | m | | | 250/5 | | | | | | | | | | | | 0) | | | | | | | | | | | | 250 | | | | | | | | | | | | MCG-5 | | | | | | | | | | | | 0 | | | | | | | | | | | | MCG/D | | | | | | | | | | | | OSE | | | | | | | | | | | | DISK | | | | | | | | | | | | | | | | | | | | | | | | | | | | | | | | | | | | | | | | | | | | | | | | | | | | | | | | | | | +-------+-------+-------+-------+-------+-------+-------+-------+-------+-------+-------+ | HYDRO | Disco | 1 | | Oral | as | | | | Janua | | | CODON | ntinu | | | | neede | | | | ry | | | E/MIGUELANGEL | ed | | | | d for | | | | 19th, | | | TAMIN | | | | | PAIN | | | | 2015 | | | OPHEN | | | | | | | | | | | | | | | | | | | | | 11:09 | | | 5-300 | | | | | | | | | pm | | | MGz | | | | | | | | | | | | (KENRICK | | | | | | | | | | | | DIN | | | | | | | | | | | | 5-300 | | | | | | | | | | | | MG) | | | | | | | | | | | | 5 | | | | | | | | | | | | MG-30 | | | | | | | | | | | | 0 MG | | | | | | | | | | | | TABLE | | | | | | | | | | | | T | | | | | | | | | | | | | | | | | | | | | | | | | | | | | | | | | | | | | | | | | | | | | | | +-------+-------+-------+-------+-------+-------+-------+-------+-------+-------+-------+ | HYDRO | Disco | 1-2 | | Oral | Every | 20 | | Decem | Febru | | | codon | ntinu | | | | 4 | | | clark | tasneem | | | e/APA | ed | | | | Hours | | | 17, | , | | | P | | | | | as | | | 2014 | 2015 | | | (Norc | | | | | Neede | | | | | | | o | | | | | d as | | | 9:22p | 9:18a | | | 5/325 | | | | | neede | | | m | m | | | | | | | | d for | | | | | | | Table | | | | | PAIN | | | | | | | t) 1 | | | | | | | | | | | | EACH | | | | | | | | | | | | TABLE | | | | | | | | | | | | T | | | | | | | | | | | | | | | | | | | | | | | | | | | | | | | | | | | | | | | | | | | | | | | +-------+-------+-------+-------+-------+-------+-------+-------+-------+-------+-------+ | [facility] | Disco | 1 | | Oral | Every | 15 | | | Janua | | | codon | ntinu | | | | 4-6 | | | | ry | | | e/Miguelangel | ed | | | | Hours | | | | 19, | | | tamin | | | | | PRN | | | | 2015 | | | ophen | | | | | Pain | | | | | | | | | | | | | | | | 11:09 | | | (Kenrick | | | | | | | | | pm | | | din) | | | | | | | | | | | | 5 | | | | | | | | | | | | MG/50 | | | | | | | | | | | | 0 MG | | | | | | [...] | | | | | | +-------+-------+-------+-------+-------+-------+-------+-------+-------+-------+-------+ | [facility] | Disco | 1 | | Oral | Q6HPP | 15 | | May | Kalli | | | codon | ntinu | | | | | | | 7th, | 4th, | | | e/Miguelangel | ed | | | | | | | 2008 | 2011 | | | tamin | | | | | | | | 5:02p | | | | ophen | | | | | | | | m | 6:32p | | | | | | | | | | | | m | | | (Kenrick | | | | | | | | | | | | din) | | | | | | | | | | | | 5 | | | | | | | | | | | | MG/50 | | | | | | | | | | | | 0 MG | | | | | | [...] | | | | | | +-------+-------+-------+-------+-------+-------+-------+-------+-------+-------+-------+ | INHAL | Disco | 1 | | Not | Every | 1 | | Janua | Kalli | | | ER, | ntinu | | | Appli | 4 | | | ry | | | | ZINA | ed | | | cable | Hours | | | 8th, | 10th, | | | T | | | | | | | | 2016 | 2016 | | | DEVIC | | | | | | | | 10:26 | | | | ES | | | | | | | | am | 2:08p | | | (SPAC | | | | | | | | | m | | | E | | | | | | | | | | | | CHAMB | | | | | | | | | | | | ER | | | | | | | | | | | | PLUS) | | | | | | | | | | | | 1 | | | | | | | | | | | | EACH | | | | | | | | | | | | SPACE | | | | | | | | | | | | R | | | | | | | | | | | | | | | | | | | | | | | | | | | | | | | | | | | | | | | | | | | | | | | +-------+-------+-------+-------+-------+-------+-------+-------+-------+-------+-------+ | Ibupr | Disco | 800 | mg | Oral | Three | | | | Decem | | | ofen | ntinu | | | | | | | | clark | | | (Advi | ed | | | | Times | | | | 17th, | | | l/Mot | | | | | a | | | | 2015 | | | rin | | | | | Day | | | | | | | 800 | | | | | | | | | 7:08p | | | mg | | | | | | | | | m | | | Tab) | | | | | | | | | | | | 800 | | | | | | | [...] | | | | | | +-------+-------+-------+-------+-------+-------+-------+-------+-------+-------+-------+ | Ibupr | Disco | 800 | mg | Oral | Three | 30 | | May | Kalli | | | ofen | ntinu | | | | | | | 7th, | 4th, | | | (Advi | ed | | | | Times | | | 2009 | 2012 | | | l/Mot | | | | | a | | | 5:02p | | | | rin | | | | | Day | | | m | 6:32p | | | 800 | | | | | as | | | | m | | | mg | | | | | Neede | | | | | | | Tab) | | | | | d | | | | | | | 800 | | | | | | | [...] | | | | | | +-------+-------+-------+-------+-------+-------+-------+-------+-------+-------+-------+ | Ketor | Disco | 1 | | Oral | Every | 20 | | Kalli | March | | | olac | ntinu | | | | 4-6 | | | 4th, | | | | Trome | ed | | | | Hours | | | 2012 | 11th, | | | thami | | | | | as | | | | 2015 | | | ne | | | | | Neede | | | 8:15p | | | | (Nicolette | | | | | d | | | m | 12:22 | | | dol | | | | | | | | | am | | | 10 mg | | | | | | | | | | | | Tab) | | | | | | | | | | | | 10 | | | | | | | [...] | | | | | | +-------+-------+-------+-------+-------+-------+-------+-------+-------+-------+-------+ | Levot | Disco | 0.075 | mg | Oral | Daily | | | | Augus | | | hyrox | ntinu | | | | | | | | t | | | ine | ed | | | | | | | | 17th, | | | Sodiu | | | | | | | | | 2015 | | | m | | | | | | | | | | | | (Synt | | | | | | | | | 9:11p | | | hroid | | | | | | | | | m | | | /Levo | | | | | | | | | | | | throi | | | | | | | | | | | | d) 75 | | | | | | | | | | | | MCG | | | | | | | [...] | | | | | | +-------+-------+-------+-------+-------+-------+-------+-------+-------+-------+-------+ | Napro | Disco | 500 | mg | Oral | Twice | 30 | | June | June | | | xen | ntinu | | | | Each | | | | | | | (Napr | ed | | | | Day | | | 18th, | 11th, | | | osyn | | | | | for | | | 2014 | 2015 | | | 500 | | | | | PAIN | | | | | | | mg | | | | | | | | 2:31p | 12:22 | | | Tab) | | | | | | | | m | am | | | 500 | | | | | | | [...] | | | | | | +-------+-------+-------+-------+-------+-------+-------+-------+-------+-------+-------+ | Napro | Disco | 1 | | Oral | Twice | 14 | | March | Kalli | | | xen | ntinu | | | | Each | | | | 4th, | | | (Napr | ed | | | | Day | | | , | 2011 | | | osyn | | | | | | | | 2011 | | | | 500 | | | | | | | | | 6:32p | | | mg | | | | | | | | 8:49p | m | | | Tab) | | | | | | | | m | | | | 500 | | | | | | | [...] | | | | | | +-------+-------+-------+-------+-------+-------+-------+-------+-------+-------+-------+ | Napro | Disco | 500 | mg | Oral | Twice | 20 | | March | Septe | | | xen | ntinu | | | | Each | | | | mber | | | (Napr | ed | | | | Day | | | , | 26, | | | osyn | | | | | for | | | 2015 | 2016 | | | 500 | | | | | PAIN | | | | | | | mg | | | | | | | | 3:37p | 11:06 | | | Tab) | | | | | | | | m | pm | | | 500 | | | | | | | | | | | | MG | | | | | | | | | | | | TABLE | | | | | | | | | | | | T | | | | | | | | | | | | | | | | | | | | | | | | | | | | | | | | | | | | | | | | | | | | | | | +-------+-------+-------+-------+-------+-------+-------+-------+-------+-------+-------+ | No | Disco | | | | | | | | Septe | | | Histo | ntinu | | | | | | | | mber | | | rical | ed | | | | | | | | 26th, | | | | | | | | | | | | 2016 | | | Medic | | | | | | | | | | | | ation | | | | | | | | | 11:06 | | | s . | | | | | | | | | pm | | | | | | | | | | | | | | | | | | | | | | | | | | | | | | | | | | | | | | | | | | | | | | | | | | +-------+-------+-------+-------+-------+-------+-------+-------+-------+-------+-------+ | Omepr | Disco | 20 | mg | Oral | Daily | | | | Decem | | | azole | ntinu | | | | | | | | clark | | | | ed | | | | | | | | 17th, | | | (PriL | | | | | | | | | 2015 | | | OSEC | | | | | | | | | | | | 20 mg | | | | | | | | | 7:08p | | | | | | | | | | | | m | | | CapCR | | | | | | | | | | | | ) 20 | | | | | | | | | | | | MG | | | | | | | | | | | | CAPCR | | | | | | | | | | | | | | | | | | | | | | | | | | | | | | | | | | | | | | | | | | | | | | | | | | | | | | | | | | | +-------+-------+-------+-------+-------+-------+-------+-------+-------+-------+-------+ | Phena | Disco | 200 | mg | Oral | Three | 9 | | March | Septe | | | zopyr | ntinu | | | | | | | | mber | | | idine | ed | | | | Times | | | 26th, | 26th, | | | | | | | | a | | | 2016 | 2016 | | | (Pyri | | | | | Day | | | | | | | dium) | | | | | for | | | 4:41p | 11:06 | | | 200 | | | | | PAIN | | | m | pm | | | MG | | | | | | | | | | | | TABLE | | | | | | | | | | | | T | | | | | | | | | | | | | | | | | | | | | | | | | | | | | | | | | | | | | | | | | | | | | | | +-------+-------+-------+-------+-------+-------+-------+-------+-------+-------+-------+ | Prome | Disco | 25 | mg | Oral | Every | | | | Decem | | | thazi | ntinu | | | | 4 | | | | clark | | | ne | ed | | | | Hours | | | | 17th, | | | HCl | | | | | as | | | | 2014 | | | (Phen | | | | | Neede | | | | | | | ergan | | | | | d as | | | | 7:08p | | | 25 | | | | | neede | | | | m | | | mg | | | | | d for | | | | | | | Tab) | | | | | | | | | | | | 25 MG | | | | | Nause | | | | | | | TAB | | | | | a & | | | | | | | | | | | | Vomit | | | | | | | | | | | | ing | | | | | | | | | | | | | | | | | | | | | | | | | | | | | | | | | | | | | | | | | | | | | | | | | | | | | | +-------+-------+-------+-------+-------+-------+-------+-------+-------+-------+-------+ | Prome | Disco | 1 | | Oral | Every | 120 | | Janua | March | | | thazi | ntinu | | | | 4 | | | ry | | | | ne/Co | ed | | | | Hours | | | 26th, | 11th, | | | deine | | | | | as | | | 2015 | 2015 | | | | | | | | Neede | | | | | | | (Phen | | | | | d as | | | 4:33p | 12:22 | | | ergan | | | | | neede | | | m | am | | | /Code | | | | | d for | | | | | | | ine | | | | | | | | | | | | Syrup | | | | | Nause | | | | | | | ) | | | | | a & | | | | | | | 6.25 | | | | | Vomit | | | | | | | MG-10 | | | | | ing/c | | | | | | | MG/5 | | | | | ough | | | | | | | ML | | | | | | | | | | | | SYRP | | | | | | | | | | | | | | | | | | | | | | | | | | | | | | | | | | | | | | | | | | | | | | | | | | | | | | | | | | | +-------+-------+-------+-------+-------+-------+-------+-------+-------+-------+-------+ | Pseud | Disco | 1 | | Oral | Q12H | 20 | | March | Kalli | | | oephe | ntinu | | | | | | | | 4th, | | | drine | ed | | | | | | | 24, | 2011 | | | HCl | | | | | | | | 2011 | | | | (Suda | | | | | | | | | 6:32p | | | fed | | | | | | | | 8:49p | m | | | 12 | | | | | | | | m | | | | Hour) | | | | | | | | | | | | 120 | | | | | | | | | | | | MG | | | | | | | | | | | | TABCR | | | | | | | | | | | | | | | | | | | | | | | | | | | | | | | | | | | | | | | | | | | | | | | | | | | | | | | | | | | +-------+-------+-------+-------+-------+-------+-------+-------+-------+-------+-------+ | QUEti | Disco | 1 | | Oral | At | 60 | | | Kalli | | | apine | ntinu | | | | Bedti | | | | 4th, | | | | ed | | | | me | | | | 2012 | | | Fumar | | | | | | | | | | | | ate | | | | | | | | | 6:33p | | | (SERO | | | | | | | | | m | | | quel | | | | | | | | | | | | 100 | | | | | | | | | | | | mg | | | | | | | | | | | | Tab) | | | | | | | | | | | | 100 | | | | | | | [...] | | | | | | +-------+-------+-------+-------+-------+-------+-------+-------+-------+-------+-------+ | Rx | Disco | 1 | | Oral | Three | 30 | | June | Kalli | | | Prepa | ntinu | | | | | | | | 4th, | | | ck | ed | | | | Times | | | , | 2011 | | | Codei | | | | | a | | | 2011 | | | | ne/Gu | | | | | Day | | | | 6:32p | | | aifen | | | | | | | | 8:49p | m | | | esin | | | | | | | | m | | | | (Samy | | | | | | | | | | | | tussi | | | | | | | | | | | | n Ac | | | | | | | | | | | | Prepa | | | | | | | | | | | | ck) | | | | | | | | | | | | 10 | | | | | | | | | | | | MG/10 | | | | | | | | | | | | 0 MG | | | | | | | | | | | | SYRP | | | | | | | | | | | | | | | | | | | | | | | | | | | | | | | | | | | | | | | | | | | | | | | | | | | | | | | | | | | +-------+-------+-------+-------+-------+-------+-------+-------+-------+-------+-------+ | Rx | Disco | 25 | mg | Oral | Every | 4 | | Kalli | Janua | Take | | Prepa | ntinu | | | | 6 | | | 4th, | ry | one | | ck | ed | | | | Hours | | | 2011 | , | table | | Prome | | | | | as | | | | 2015 | t | | thazi | | | | | Neede | | | 8:15p | | every | | ne | | | | | d | | | m | 11:09 | 6 | | (Phen | | | | | | | | | pm | hours | | ergan | | | | | | | | | | as | | | | | | | | | | | | neede | | Prepa | | | | | | | | | | d for | | ck) | | | | | | | | | | | | 25 MG | | | | | | | | | | nause | | TAB | | | | | | | | | | a/ | | | | | | | | | | | | vomit | | | | | | | | | | | | ing. | | | | | | | | | | | | | | | | | | | | | | | | | | | | | | | | | | | | | +-------+-------+-------+-------+-------+-------+-------+-------+-------+-------+-------+ | Thyro | Disco | 15 | mg | Oral | Daily | | | | Decem | | | id | ntinu | | | | | | | | clark | | | (Armo | ed | | | | | | | | 17th, | | | ur | | | | | | | | | 2015 | | | Thyro | | | | | | | | | | | | id) | | | | | | | | | 7:08p | | | 60 MG | | | | | | | | | m | | | TAB | | | [...] | | | | | | +-------+-------+-------+-------+-------+-------+-------+-------+-------+-------+-------+ | Thyro | Disco | 60 | mg | Oral | Daily | | | | Augus | | | id | ntinu | | | | | | | | t | | | (Armo | ed | | | | | | | | 17th, | | | ur | | | | | | | | | 2014 | | | Thyro | | | | | | | | | | | | id) | | | | | | | | | 9:11p | | | 60 MG | | | | | | | | | m | | | TAB | | | [...] | | | | | | +-------+-------+-------+-------+-------+-------+-------+-------+-------+-------+-------+ | TraMA | Disco | 50-10 | mg | Oral | Every | 20 | | Janua | March | | | Dol | ntinu | 0 | | | 6 | | | ry | | | | HCL | ed | | | | Hours | | | 19, | 11th, | | | (Ultr | | | | | as | | | 2015 | 2015 | | | am 50 | | | | | Neede | | | | | | | mg | | | | | d as | | | 11:12 | 12:22 | | | Tab) | | | | | neede | | | pm | am | | | 50 MG | | | | | d for | | | | | | | TAB | | | | | PAIN | | | | | | | | | | | | | | | | | | | | | | | | | | | | | | | | | | | | | | | | | | | | | | | | | | | | | | +-------+-------+-------+-------+-------+-------+-------+-------+-------+-------+-------+ | TraMA | Disco | 50-10 | mg | Oral | Every | 20 | | March | Janua | | | Dol | ntinu | 0 | | | 6 | | | | ry | | | HCL | ed | | | | Hours | | | 18th, | 19th, | | | (Ultr | | | | | as | | | 2013 | 2014 | | | am 50 | | | | | Neede | | | | | | | mg | | | | | d as | | | 2:31p | 11:09 | | | Tab) | | | | | neede | | | m | pm | | | 50 MG | | | | | d for | | | | | | | TAB | | | | | PAIN | | | | | | | | | | | | | | | | | | | | | | | | | | | | | | | | | | | | | | | | | | | | | | | | | | | | | | +-------+-------+-------+-------+-------+-------+-------+-------+-------+-------+-------+ | Trime | Disco | 1 | | Oral | Twice | 20 | | Septe | Janua | | | thopr | ntinu | | | | Each | | | mber | ry | | | im/Adams | ed | | | | Day | | | 26th, | 8th, | | | lfame | | | | | for | | | 2016 | 2017 | | | thoxa | | | | | Infec | | | | 9:05a | | | zole | | | | | tion | | | 11:42 | m | | | (Bact | | | | | | | | pm | | | | rim | | | | | | | | | | | | DS) 1 | | | | | | | | | | | | EACH | | | | | | | | | | | | | | | | | | | | | | | | TABLE | | | | | | | | | | | | T | | | | | | | | | | | | | | | | | | | | | | | | | | | | | | | | | | | | | | | | | | | | | | | +-------+-------+-------+-------+-------+-------+-------+-------+-------+-------+-------+ | Varen | Disco | 1 | | Oral | Once | 15 | | | Kalli | | | iclin | ntinu | | | | A Day | | | | 4th, | | | e | ed | | | | | | | | 2011 | | | Tartr | | | | | | | | | | | | ate | | | | | | | | | 6:33p | | | (Manley | | | | | | | | | m | | | tix) | | | | | | | | | | | | 1 MG | | | | | | | | | | | | Tab | | | | | | | | | | | | | | | | | | | | | | | | | | | | | | | | | | | | | | | | | | | | | | | | | | | | | | | | | | | +-------+-------+-------+-------+-------+-------+-------+-------+-------+-------+-------+ | Zolpi | Disco | 1 | | Oral | At | 10 | | | March | | | dem | ntinu | | | | Bedti | | | | | | | Tartr | ed | | | | me | | | | 11th, | | | ate | | | | | | | | | 2015 | | | (Ambi | | | | | | | | | | | | en 10 | | | | | | | | | 12:22 | | | mg | | | | | | | | | am | | | Tab) | | | | | | | | | | | | 10 MG | | | | | | [...] | | | | | | +-------+-------+-------+-------+-------+-------+-------+-------+-------+-------+-------+ | buPRO | Disco | 350 | mg | Oral | Once | 60 | | | Augus | | | Pion | ntinu | | | | A Day | | | | t | | | HCl | ed | | | | | | | | 17th, | | | (Well | | | | | | | | | 2015 | | | butri | | | | | | | | | | | | n) 75 | | | | | | | | | 9:11p | | | MG | | | | | | | | | m | | | TAB | | | [...] | | | | | | +-------+-------+-------+-------+-------+-------+-------+-------+-------+-------+-------+ | clona | Disco | 1 | | Oral | Twice | 30 | | | Augus | | | zePAM | ntinu | | | | Each | | | | t | | | | ed | | | | Day | | | | 17, | | | (Klon | | | | | | | | | 2014 | | | oPIN) | | | | | | | | | | | | 1 MG | | | | | | | | | 9:11p | | | TAB | | | | | | | | | m | | | | | | | | | | | | | | | | | | | | | | | | | | | | | | | | | | | | | | | | | | | | | | | | | | +-------+-------+-------+-------+-------+-------+-------+-------+-------+-------+-------+ | hydrO | Disco | 1-2 | | Oral | Every | 30 | | March | March | | | XYzin | ntinu | | | | 6 | | | | | | | e HCl | ed | | | | Hours | | | 18th, | 11th, | | | | | | | | as | | | 2013 | 2014 | | | (Atar | | | | | Neede | | | | | | | ax 25 | | | | | d as | | | 2:31p | 12:22 | | | mg | | | | | neede | | | m | am | | | Tab) | | | | | d for | | | | | | | 25 MG | | | | | | | | | | | | TAB | | | | | Anxie | | | | | | | | | | | | ty | | | | | | | | | | | | | | | | | | | | | | | | | | | | | | | | | | | | | | | | | | +-------+-------+-------+-------+-------+-------+-------+-------+-------+-------+-------+ | predn | Disco | 0 | mg | Oral | TAPER | 33 | | March | Augus | GIVE | | iSONE | ntinu | | | | | | | | t | 40 MG | | | ed | | | | | | | 11th, | 17th, | | | (Delt | | | | | | | | 2015 | 2015 | DAILY | | asone | | | | | | | | | | FOR | | 10 | | | | | | | | 1:53a | 9:11p | 3 | | mg | | | | | | | | m | m | DAYS. | | Tab) | | | | | | | | | | THEN | | 10 MG | | | | | | | | | | 30 | | TAB | | | | | | | | | | MG | | | | | | | | | | | | DAILY | | | | | | | | | | | | X | | | | | | | | | | | | 3DAYS | | | | | | | | | | | | . | | | | | | | | | | | | THEN | | | | | | | | | | | | 20 MG | | | | | | | | | | | | | | | | | | | | | | | | DAILY | | | | | | | | | | | | X 3 | | | | | | | | | | | | DAYS. | | | | | | | | | | | | THEN | | | | | | | | | | | | 10 | | | | | | | | | | | | MG | | | | | | | | | | | | DAILY | | | | | | | | | | | | X 6 | | | | | | | | | | | | DAYS | | | | | | | | | | | | THEN | | | | | | | | | | | | STOP. | | | | | | | | | | | | | | | | | | | | | | | | | | | | | | | | | | | | | | | | | | | | | | | | | +-------+-------+-------+-------+-------+-------+-------+-------+-------+-------+-------+ Problems Active Problems + + + + | Medical Problem | Onset Date | Status | | | | | + + + + | Abdominal pain | | Active | | | | | + + + + | Sore throat | | Active | | | | | + + + + | Pneumonia | | Active | + + + + | Excessive cerumen in both | | Active | | ear canals | | | | | | | + + + + | Left ear pain | | Active | | | | | + + + + | Cerumen impaction | | Active | | | | | + + + + | UTI (urinary tract | | Active | | infection) | | | | | | | + + + + | Cellulitis of right thigh | | Active | | | | | + + + + | | | Active | + + + + | Pharyngitis | | Active | | | | | + + + + | Asthma | | Active | + + + + | Right calf pain | | Active | | | | | + + + + | Influenza | | Active | + + + + Procedures No procedure information available. Relevant Diagnostic Tests and/or Laboratory Data Laboratory Results + + + + + + + + | Test | Date/Time | Result | Interpreta | Reference | Result | Performing | | | | | tion | Range | Comment | Site | | | | | | | | | | | | | | | | | + + + + + + + + | White | September 14, | 11.24 | | 4.00-11.30 | | [facility] | | Blood | 2020 | | | | | [facility] | | Count | 11:54am | | | | | CENTER, | | | | | | | | [address] | | | [address] | [address] | | | | | | | | [address] | | | | | | | | [place] | | | | | | | | [address] | | | | | | | | | | | | | | | | | + + + + + + + + | Red Blood | September 14, | 4.40 | | 3.80-5.20 | | [facility] | | Count | 2020 | | | | | MEDICAL | | | 11:54am | | | | | CENTER, | | | | | | | | [address] | | | | | | | | [address] | | | | | | | | [address] | | | | | | | | [place] | | | | | | | | [address] | | | | | | | | | | | | | | | | | + + + + + + + + | Hemoglobin | September 14, | 13.8 | | 11.5-16.0 | | [facility] | | | 2020 | | | | | [facility] | | | 11:54am | | | | | CENTER, | | | | | | | | [address] | | | | | | | | [address] | | | | | | | | [address] | | | | | | | | [place] | | | | | | | | [address] | | | | | | | | | | | | | | | | | + + + + + + + + | Hematocrit | September 14, | 42.2 | | 33.0-51.0 | | [facility] | | | 2020 | | | | | [facility] | | | 11:54am | | | | | CENTER, | | | | | | | | [address] | | | | | | | | [address] | | | | | | | | [address] | | | | | | | | [place] | | | | | | | | [address] | | | | | | | | | | | | | | | | | + + + + + + + + | Mean | September 14, | 96 | | 80-100 | | [facility] | | Corpuscula | 2020 | | | | | MEDICAL | | r Volume | 11:54am | | | | | CENTER, | | | | | | | | [address] | [address] | | | | | | | [address] | | | | | | | | [place] | | | | | | | | [address] | | | | | | | | | | | | | | | | | + + + + + + + + | Mean | September 14, | 31.4 | | 26.0-34.0 | | [facility] | | Corpuscula | 2020 | | | | | MEDICAL | | r | 11:54am | | | | | CENTER, | | Hemoglobin | | | | | | [address] | | | | | | | | [address] | | | | | | | | [address] | | | | | | | | [place] | | | | | | | | [address] | | | | | | | | | | | | | | | | | + + + + + + + + | Mean | September 14, | 32.7 | | 31.5-36.5 | | [facility] | | Corpuscula | 2020 | | | | | MEDICAL | | r | 11:54am | | | | | CENTER, | | Hemoglobin | | | | | | [address] | | [address] | | | | | | [address] | | | | | | | | [address] | | | | | | | | [place] | | | | | | | | [address] | | | | | | | | | | | | | | | | | + + + + + + + + | RDW | September 14, | 46.2 | | 35.1-46.3 | | [facility] | | Standard | 2020 | | | | | MEDICAL | | Deviation | 11:54am | | | | | CENTER, | | | | | | | | [address] | | | | | | | | [address] | | | | | | | | [address] | | | | | | | | [place] | | | | | | | | [address] | | | | | | | | | | | | | | | | | + + + + + + + + | RDW | September 14, | 13.0 | | 11.7-14.2 | | [facility] | | Coefficien | 2020 | | | | | MEDICAL | | t of | 11:54am | | | | | CENTER, | | Variation | | | | | | [address] | | | | | | | | [address] | | | | | | | | [address] | | | | | | | | [place] | | | | | | | | [address] | | | | | | | | | | | | | | | | | + + + + + + + + | Platelet | September 14, | 145 | | 150-400 | | [facility] | | Count | 2020 | | | | | MEDICAL | | | 11:54am | | | | | CENTER, | | | | | | | | [address] | | | | | | | | [address] | | | | | | | | [address] | | | | | | | | [place] | | | | | | | | [address] | | | | | | | | | | | | | | | | | + + + + + + + + | Mean | September 14, | 13.3 | | 9.1-12.4 | | [facility] | | Platelet | 2020 | | | | | MEDICAL | | Volume | 11:54am | | | | | CENTER, | | | | | | | | [address] | | | | | | | | [address] | | | | | | | | [address] | | | | | | | | [place] | | | | | | | | [address] | | | | | | | | | | | | | | | | | + + + + + + + + | Differenti | September 14, | Auto | | | | [facility] | | al Method | 2019 | | | | | MEDICAL | | | 11:54am | | | | | CENTER, | | | | | | | | [address] | | | | | | | | [address] | | | | | | | | [address] | | | | | | | | [place] | | | | | | | | [address] | | | | | | | | | | | | | | | | | + + + + + + + + | Neutrophil | September 14, | 51 | | 41-73 | | [facility] | | s (%) | 2019 | | | | | MEDICAL | | (Auto) | 11:54am | | | | | CENTER, | | | | | | | | [address] | | | | | | | | [address] | | | | | | | | [address] | | | | | | | | [place] | | | | | | | | [address] | | | | | | | | | | | | | | | | | + + + + + + + + | Lymphocyte | September 14, | 38 | | 21-46 | | [facility] | | s (%) | 2020 | | | | | MEDICAL | | (Auto) | 11:54am | | | | | CENTER, | | | | | | | | [address] | | | | | | | | [address] | | | | | | | | [address] | | | | | | | | [place] | | | | | | | | [address] | | | | | | | | | | | | | | | | | + + + + + + + + | Monocytes | September 14, | 11 | | 4-13 | | [facility] | | (%) (Auto) | 2020 | | | | | MEDICAL | | | 11:54am | | | | | CENTER, | | | | | | | | [address] | | | | | | | | [address] | | | | | | | | [address] | | | | | | | | [place] | | | | | | | | [address] | | | | | | | | | | | | | | | | | + + + + + + + + | Eosinophil | September 14, | 0 | | 0-6 | | [facility] | | s (%) | 2019 | | | | | MED[facility] | | (Auto) | 11:54am | | | | | CENTER, | | | | | | | | [address] | | | | | | | | [address] | | | | | | | | [address] | | | | | | | | [place] | | | | | | | | [address] | | | | | | | | | | | | | | | | | + + + + + + + + | Basophils | September 14, | 1 | | 0-2 | | [facility] | | (%) (Auto) | 2020 | | | | | [facility] | | | 11:54am | | | | | CENTER, | | | | | | | | [address] | | | | | | | | [address] | | | | | | | | [address] | | | | | | | | [place] | | | | | | | | [address] | | | | | | | | | | | | | | | | | + + + + + + + + | Immature | September 14, | 0 | | 0-1 | | [facility] | | Granulocyt | 2020 | | | | | [facility] | | e % (Auto) | 11:54am | | | | | CENTER, | | | | | | | | [address] | | | | | | | | [address] | | | | | | | | [address] | | | | | | | | [place] | | | | | | | | [address] | | | | | | | | | | | | | | | | | + + + + + + + + | Nucleated | September 14, | 0.0 | | 0.0-0.2 | | [facility] | | Red Blood | 2020 | | | | | MED[facility] | | Cells % | 11:54am | | | | | CENTER, | | | | | | | | [address] | | | | | | | | [address] | | | | | | | | [address] | | | | | | | | [place] | | | | | | | | [address] | | | | | | | | | | | | | | | | | + + + + + + + + | Absolute | September 14, | 5.71 | | 1.96-9.15 | | [facility] | | Neutrophil | 2020 | | | | | MED[facility] | | s (auto) | 11:54am | | | | | CENTER, | | | | | | | | [address] | | | | | | | | [address] | | | | | | | | [address] | | | | | | | | [place] | | | | | | | | [address] | | | | | | | | | | | | | | | | | + + + + + + + + | Absolute | September 14, | 4.22 | | 0.84-5.20 | | [facility] | | Lymphocyte | 2019 | | | | | MED[facility] | | s (auto) | 11:54am | | | | | CENTER, | | | | | | | | [address] | | | | | | | | [address] | | | | | | | | [address] | | | | | | | | [place] | | | | | | | | [address] | | | | | | | | | | | | | | | | | + + + + + + + + | Absolute | September 14, | 1.22 | | 0.16-1.47 | | [facility] | | Monocytes | 2019 | | | | | MED[facility] | | (auto) | 11:54am | | | | | CENTER, | | | | | | | | [address] | | | | | | | | [address] | | | | | | | | [address] | | | | | | | | [place] | | | | | | | | [address] | | | | | | | | | | | | | | | | | + + + + + + + + | Absolute | September 14, | 0.00 | | 0.00-0.68 | | [facility] | | Eosinophil | 2019 | | | | | MED[facility] | | s (auto) | 11:54am | | | | | CENTER, | | | | | | | | [address] | | | | | | | | [address] | | | | | | | | [address] | | | | | | | | [place] | | | | | | | | [address] | | | | | | | | | | | | | | | | | + + + + + + + + | Absolute | September 14, | 0.07 | | 0.00-0.23 | | [facility] | | Basophils | 2019 | | | | | MED[facility] | | (auto) | 11:54am | | | | | CENTER, | | | | | | | | [address] | | | | | | | | [address] | | | | | | | | [address] | | | | | | | | [place] | | | | | | | | [address] | | | | | | | | | | | | | | | | | + + + + + + + + | Absolute | Lorelei 14th, | 0.02 | | 0.00-0.10 | | [facility] | | Immature | 2020 | | | | | MED[facility] | | Granulocyt | 11:54am | | | | | CENTER, | | e (auto | | | | | | [address] | | | | | | | | [address] | | | | | | | | [address] | | | | | | | | [place] | | | | | | | | [address] | | | | | | | | | | | | | | | | | + + + + + + + + | Nucleated | September 14, | 0.00 | | 0.00-0.02 | | [facility] | | RBC | 2020 | | | | | MED[facility] | | Absolute | 11:54am | | | | | CENTER, | | Count | | | | | | [address] | | (auto) | | | | | | [address] | | | | | | | | [address] | | | | | | | | [place] | | | | | | | | [address] | | | | | | | | | | | | | | | | | + + + + + + + + | Urine | September 14, | Clean | | | | [facility] | | Source | 2020 | Catch | | | | MEDICAL | | | 12:02pm | | | | | CENTER, | | | | | | | | [address] | | | | | | | | [address] | | | | | | | | [address] | | | | | | | | [place] | | | | | | | | [address] | | | | | | | | | | | | | | | | | + + + + + + + + | Urine | September 14, | Yellow | | P-Yellow | | [facility] | | Color | 2019 | | | | | MED[facility] | | | 12:02pm | | | | | CENTER, | | | | | | | | [address] | | | | | | | | [address] | | | | | | | | [address] | | | | | | | | [place] | | | | | | | | [address] | | | | | | | | | | | | | | | | | + + + + + + + + | Urine | September 14, | Hazy | | Clear | | [facility] | | Appearance | 2020 | | | | | MED[facility] | | | 12:02pm | | | | | CENTER, | | | | | | | | [address] | | | | | | | | [address] | | | | | | | | [address] | | | | | | | | [place] | | | | | | | | [address] | | | | | | | | | | | | | | | | | + + + + + + + + | Urine | September 14, | 1.020 | | 1.003-1.02 | | [facility] | | Specific | 2020 | | | 2 | | MEDICAL | | Curtiss | 12:02pm | | | | | CENTER, | | | | | | | | [address] | | | | | | | | [address] | | | | | | | | [address] | | | | | | | | [place] | | | | | | | | [address] | | | | | | | | | | | | | | | | | + + + + + + + + | Urine pH | September 14, | 5.0 | | 5.0-8.0 | | [facility] | | | 2019 | | | | | [facility] | | | 12:02pm | | | | | CENTER, | | | | | | | | [address] | | | | | | | | [address] | | | | | | | | [address] | | | | | | | | [place] | | | | | | | | [address] | | | | | | | | | | | | | | | | | + + + + + + + + | Urine | September 14, | Neg | | Neg | | [facility] | | Leukocyte | 2019 | | | | | MEDICAL | | Esterase | 12:02pm | | | | | CENTER, | | | | | | | | [address] | | | | | | | | [address] | | | | | | | | [address] | | | | | | | | [place] | | | | | | | | [address] | | | | | | | | | | | | | | | | | + + + + + + + + | Urine | September 14, | Neg | | Neg | | [facility] | | Nitrite | 2020 | | | | | MEDICAL | | | 12:02pm | | | | | CENTER, | | | | | | | | [address] | | | | | | | | [address] | | | | | | | | [address] | | | | | | | | [place] | | | | | | | | [address] | | | | | | | | | | | | | | | | | + + + + + + + + | Urine | September 14, | Trace | | Neg | | [facility] | | Protein | 2020 | | | | | MEDICAL | | | 12:02pm | | | | | CENTER, | | | | | | | | [address] | | | | | | | | [address] | | | | | | | | [address] | | | | | | | | [place] | | | | | | | | [address] | | | | | | | | | | | | | | | | | + + + + + + + + | Urine | September 14, | 1+ | | Neg | | [facility] | | Glucose | 2019 | | | | | MEDICAL | | | 12:02pm | | | | | CENTER, | | | | | | | | [address] | | | | | | | | [address] | | | | | | | | [address] | | | | | | | | [place] | | | | | | | | [address] | | | | | | | | | | | | | | | | | + + + + + + + + | Urine | September 14, | Neg | | Neg | | [facility] | | Ketones | 2019 | | | | | MEDICAL | | | 12:02pm | | | | | CENTER, | | | | | | | | [address] | | | | | | | | [address] | | | | | | | | [address] | | | | | | | | [place] | | | | | | | | [address] | | | | | | | | | | | | | | | | | + + + + + + + + | Urine | September 14, | NORM | | Normal | | [facility] | | Urobilinog | 2019 | | | | | MEDICAL | | en | 12:02pm | | | | | CENTER, | | | | | | | | [address] | | | | | | | | [address] | | | | | | | | [address] | | | | | | | | [place] | | | | | | | | [address] | | | | | | | | | | | | | | | | | + + + + + + + + | Urine | September 14, | Neg | | Neg | | [facility] | | Bilirubin | 2020 | | | | | MEDICAL | | | 12:02pm | | | | | CENTER, | | | | | | | | [address] | | | | | | | | [address] | | | | | | | | [address] | | | | | | | | [place] | | | | | | | | [address] | | | | | | | | | | | | | | | | | + + + + + + + + | Urine | September 14, | Trace | | Neg | | [facility] | | Blood | 2020 | | | | | MEDICAL | | | 12:02pm | | | | | CENTER, | | | | | | | | [address] | | | | | | | | [address] | | | | | | | | [address] | | | | | | | | [place] | | | | | | | | [address] | | | | | | | | | | | | | | | | | + + + + + + + + | Urine WBC | September 14, | 0-2 | | 0-5 | | [facility] | | | 2019 | | | | | MEDICAL | | | 12:02pm | | | | | CENTER, | | | | | | | | [address] | | | | | | | | [address] | | | | | | | | [address] | | | | | | | | [place] | | | | | | | | [address] | | | | | | | | | | | | | | | | | + + + + + + + + | Urine RBC | September 14, | 0-2 | | 0-2 | | [facility] | | | 2019 | | | | | MEDICAL | | | 12:02pm | | | | | CENTER, | | | | | | | | [address] | | | | | | | | [address] | | | | | | | | [address] | | | | | | | | [place] | | | | | | | | [address] | | | | | | | | | | | | | | | | | + + + + + + + + | Urine | September 14, | Many | | Few | | [facility] | | Squamous | 2020 | | | | | MEDICAL | | Epithelial | 12:02pm | | | | | CENTER, | | Cells | | | | | | [address] | | | | | | | | [address] | | | | | | | | [address] | | | | | | | | [place] | | | | | | | | [address] | | | | | | | | | | | | | | | | | + + + + + + + + | Urine | September 14, | Many | | None | | [facility] | | Bacteria | 2020 | | | | | MEDICAL | | | 12:02pm | | | | | CENTER, | | | | | | | | [address] | | | | | | | | [address] | | | | | | | | [address] | | | | | | | | [place] | | | | | | | | [address] | | | | | | | | | | | | | | | | | + + + + + + + + | Urine | September 14, | Yes | | No | | [facility] | | Culture | 2020 | | | | | MEDICAL | | Indicated | 12:02pm | | | | | CENTER, | | | | | | | | [address] | | | | | | | | [address] | | | | | | | | [address] | | | | | | | | [place] | | | | | | | | [address] | | | | | | | | | | | | | | | | | + + + + + + + + | Sodium | September 14, | 137 | | 136-145 | | [facility] | | Level | 2020 | | | | | MEDICAL | | | 11:54am | | | | | CENTER, | | | | | | | | [address] | | | | | | | | [address] | | | | | | | | [address] | | | | | | | | [place] | | | | | | | | [address] | | | | | | | | | | | | | | | | | + + + + + + + + | Potassium | September 14, | 3.9 | | 3.5-5.5 | | [facility] | | Level | 2020 | | | | | MEDICAL | | | 11:54am | | | | | CENTER, | | | | | | | | [address] | | | | | | | | [address] | | | | | | | | [address] | | | | | | | | [place] | | | | | | | | [address] | | | | | | | | | | | | | | | | | + + + + + + + + | Chloride | September 14, | 107 | | 98-108 | | [facility] | | Level | 2020 | | | | | MEDICAL | | | 11:54am | | | | | CENTER, | | | | | | | | [address] | | | | | | | | [address] | | | | | | | | [address] | | | | | | | | [place] | | | | | | | | [address] | | | | | | | | | | | | | | | | | + + + + + + + + | Carbon | September 14, | 25 | | 21-32 | | [facility] | | Dioxide | 2020 | | | | | MEDICAL | | Level | 11:54am | | | | | CENTER, | | | | | | | | [address] | | | | | | | | [address] | | | | | | | | [address] | | | | | | | | [place] | | | | | | | | [address] | | | | | | | | | | | | | | | | | + + + + + + + + | Anion Gap | September 14, | 5 | | 6-16 | | [facility] | | | 2020 | | | | | MEDICAL | | | 11:54am | | | | | CENTER, | | | | | | | | [address] | | | | | | | | [address] | | | | | | | | [address] | | | | | | | | [place] | | | | | | | | [address] | | | | | | | | | | | | | | | | | + + + + + + + + | Glucose | September 14, | 122 | | 70-99 | | [facility] | | Level | 2020 | | | | | MEDICAL | | | 11:54am | | | | | CENTER, | | | | | | | | [address] | | | | | | | | [address] | | | | | | | | [address] | | | | | | | | [place] | | | | | | | | [address] | | | | | | | | | | | | | | | | | + + + + + + + + | Blood Urea | September 14, | 13 | | 8-24 | | [facility] | | Nitrogen | 2020 | | | | | MEDICAL | | | 11:54am | | | | | CENTER, | | | | | | | | [address] | | | | | | | | [address] | | | | | | | | [address] | | | | | | | | [place] | | | | | | | | [address] | | | | | | | | | | | | | | | | | + + + + + + + + | Creatinine | September 14, | 0.65 | | 0.40-1.00 | | [facility] | | | 2020 | | | | | MEDICAL | | | 11:54am | | | | | CENTER, | | | | | | | | [address] | | | | | | | | [address] | | | | | | | | [address] | | | | | | | | [place] | | | | | | | | [address] | | | | | | | | | | | | | | | | | + + + + + + + + | BUN/Creati | September 14, | 20.0 | | 12.0-20.0 | | [facility] | | nine Ratio | 2019 | | | | | MEDICAL | | | 11:54am | | | | | CENTER, | | | | | | | | [address] | | | | | | | | [address] | | | | | | | | [address] | | | | | | | | [place] | | | | | | | | [address] | | | | | | | | | | | | | | | | | + + + + + + + + | Glomerular | September 14, | >60 | | 60- | Non-Tessa | [facility] | | | 2019 | | | | n Stateless | MEDICAL | | Filtration | 11:54am | | | | GFR | CENTER, | | Rate Calc | | | | | CalcFor | [address] | | | | | | | | [address] | | | | | | | [place], | [place] | | | | | | | multiply | [place] | | | | | | | the | [address] | | | | | | | calculated | | | | | | | | GFR by | | | | | | | | 1.21Refere | | | | | | | | nce Range: | | | | | | | | Above 60 | | | | | | | | mL/min/1.7 | | | | | | | | 3m^2 | | | | | | | | | | | | | | | | | | + + + + + + + + | Calcium | September 14, | 8.4 | | 8.5-10.1 | | [facility] | | Level | 2020 | | | | | MEDICAL | | | 11:54am | | | | | CENTER, | | | | | | | | [address] | | | | | | | | [address] | | | | | | | | [address] | | | | | | | | [place] | | | | | | | | [address] | | | | | | | | | | | | | | | | | + + + + + + + + | Total | September 14, | 8.0 | | 6.4-8.2 | | [facility] | | Protein | 2020 | | | | | MEDICAL | | | 11:54am | | | | | CENTER, | | | | | | | | [address] | | | | | | | | [address] | | | | | | | | [address] | | | | | | | | [place] | | | | | | | | [address] | | | | | | | | | | | | | | | | | + + + + + + + + | Albumin | September 14, | 4.0 | | 3.4-5.0 | | [facility] | | | 2020 | | | | | MEDICAL | | | 11:54am | | | | | CENTER, | | | | | | | | [address] | | | | | | | | [address] | | | | | | | | [address] | | | | | | | | [place] | | | | | | | | [address] | | | | | | | | | | | | | | | | | + + + + + + + + | Globulin | September 14, | 4.0 | | 2.2-4.0 | | [facility] | | | 2020 | | | | | MEDICAL | | | 11:54am | | | | | CENTER, | | | | | | | | [address] | | | | | | | | [address] | | | | | | | | [address] | | | | | | | | [place] | | | | | | | | [address] | | | | | | | | | | | | | | | | | + + + + + + + + | Albumin/Gl | September 14, | 1.0 | | 0.8-1.8 | | [facility] | | obulin | 2019 | | | | | MEDICAL | | Ratio | 11:54am | | | | | CENTER, | | | | | | | | [address] | | | | | | | | [address] | | | | | | | | [address] | | | | | | | | [place] | | | | | | | | [address] | | | | | | | | | | | | | | | | | + + + + + + + + | Total | September 14, | 0.4 | | 0.1-1.0 | | [facility] | | Bilirubin | 2020 | | | | | MEDICAL | | | 11:54am | | | | | CENTER, | | | | | | | | [address] | | | | | | | | [address] | | | | | | | | [place] | | | | | | | | [place] | | | | | | | | [address] | | | | | | | | | | | | | | | | | + + + + + + + + | Alkaline | September 14, | 111 | | 50-136 | | [facility] | | Phosphatas | 2020 | | | | | MEDICAL | | e | 11:54am | | | | | CENTER, | | | | | | | | [address] | | | | | | | | [address] | | | | | | | | [address] | | | | | | | | [place] | | | | | | | | [address] | | | | | | | | | | | | | | | | | + + + + + + + + | Aspartate | September 14, | 35 | | 12-37 | | [facility] | | Amino | 2020 | | | | | MEDICAL | | Transf | 11:54am | | | | | CENTER, | | (AST/SGOT) | | | | | | [address] | | | | | | | | [address] | | | | | | | | [place] | | | | | | | | [place] | | | | | | | | [address] | | | | | | | | | | | | | | | | | + + + + + + + + | Alanine | September 14, | 58 | | 12-78 | | [facility] | | Aminotrans | 2020 | | | | | MEDICAL | | ferase | 11:54am | | | | | CENTER, | | (ALT/SGPT) | | | | | | [address] | | | | | | | | [address] | | | | | | | | [place] | | | | | | | | [place] | | | | | | | | [address] | | | | | | | | | | | | | | | | | + + + + + + + + | Lipase | September 14, | 135 | | 73-393 | | [facility] | | | 2019 | | | | | MEDICAL | | | 11:54am | | | | | CENTER, | | | | | | | | [address] | | | | | | | | [address] | | | | | | | | [place] | | | | | | | | [place] | | | | | | | | [address] | | | | | | | | | | | | | | | | | + + + + + + + + | Thyroid | August 26, | 1.300 | | 0.360-4.80 | | [facility] | | Stimulatin | 2019 | | | 0 | | MEDICAL | | g Hormone | 5:38pm | | | | | CENTER, | | (TSH) | | | | | | [address] | | | | | | | | [address] | | | | | | | | [place] | | | | | | | | [place] | | | | | | | | [address] | | | | | | | | | | | | | | | | | + + + + + + + + | Free | August 26, | 1.20 | | 0.70-1.60 | | [facility] | | Thyroxine | 2020 | | | | | MEDICAL | | | 5:38pm | | | | | CENTER, | | | | | | | | [address] | | | | | | | | [address] | | | | | | | | [place] | | | | | | | | [place] | | | | | | | | [address] | | | | | | | | | | | | | | | | | + + + + + + + + | Vaginal | August 12, | Vaginal/Ce | | | | [facility] | | Pathogen | 2019 | rvix | | | | MEDICAL | | Source | 10:50am | | | | | CENTER, | | | | | | | | [address] | | | | | | | | [address] | | | | | | | | [place] | | | | | | | | [place] | | | | | | | | [address] | | | | | | | | | | | | | | | | | + + + + + + + + | Trichomona | August 12, | Negative | | NEGATIVE | | [facility] | | s | 2020 | | | | | MEDICAL | | vaginalis | 10:50am | | | | | CENTER, | | (Amp | | | | | | [address] | | Detect) | | | | | | [address] | | | | | | | | [place] | | | | | | | | [place] | | | | | | | | [address] | | | | | | | | | | | | | | | | | + + + + + + + + | Nateell | August 12th, | Negative | | NEGATIVE | | [facility] | | a DNA | 2020 | | | | | MEDICAL | | Probe | 10:50am | | | | | CENTER, | | | | | | | | [address] | | | | | | | | [address] | | | | | | | | [place] | | | | | | | | [place] | | | | | | | | [address] | | | | | | | | | | | | | | | | | + + + + + + + + | Josselin | August 12, | Negative | | NEGATIVE | The | [facility] | | species | 2020 | | | | results | MEDICAL | | DNA Probe | 10:50am | | | | for this | CENTER, | | | | | | | test are | [address] | | | | | | | only valid | [address] | | | | | | | if the | [address] | | | | | | | specimenwa | [place] | | | | | | | s | [phone] | | | | | | | submitted | | | | | | | | using the | | | | | | | | Affirm | | | | | | | | VPIII | | | | | | | | Ambient | | | | | | | | Temperatur | | | | | | | | eTransport | | | | | | | | System, | | | | | | | | which | | | | | | | | includes | | | | | | | | the | | | | | | | | addition | | | | | | | | of the | | | | | | | | [employer] | | | | | | | | t to the | | | | | | | | specimen | | | | | | | | tube. This | | | | | | | | reagent | | | | | | | | stabilizes | | | | | | | | | | | | | | | | thesample | | | | | | | | for up to | | | | | | | | 72 hours. | | | | | | | | | | | | | | | | | | + + + + + + + + | Pap Smear | August 12, | Comment | | . | NEGATIVE | [facility] | | Diagnosis | 2020 | | | | FOR | #[id number]/ | | | 10:50am | | | | INTRAEPITH | CHITO#[id number] | | | | | | | ELIAL | [address] | | | | | | | [place] | [address] | | | | | | | [address] | [address], | | | | | | | . | [address] | | | | | | | | [address] | | | | | | | | [place] | | | | | | | | [address] | | | | | | | | | | | | | | | | | + + + + + + + + | Pap Smear | August 12, | Comment | | . | | [facility] | | Specimen | 2019 | | | | | #[id number]/ | | Adequacy 2 | 10:50am | | | | | CHITO#[id number] | | | | | | | | [address] | | | | | | | | [address] | [address] | | [address], | | | | | | | | [address] | | | | | | | | [address] | | | | | | | | [place] | | | | | | | | [address] | | | | | | | | | | | | | | | | | + + + + + + + + | Pap Smear | August 12, | Comment | | . | Ankush S | [facility] | | Performed | 2019 | | | | Miki, | #[id number]/ | | By | 10:50am | | | | Cytotechno | CHITO#[id number] | | | | | | | logist | [address] | | | | | | | (ASCP) | [address] | | | | [address] | | | [address], | | | | | | | | [address] | | | | | | | | [address] | | | | | | | | [place] | | | | | | | | [address] | | | | | | | | | | | | | | | | | + + + + + + + + | Pap Smear | August 12, | . | | . | | [facility] | | Note | 2019 | | | | | #[id number]/ | | | 10:50am | | | | | CHITO#[id number] | | | | | | | | [address] | | | | | | | | | | | | | | | | Avenue, | | | | | | | | [address] | | | | | | | | [address] | | | | | | | | [place] | | | | | | | | [address] | | | | | | | | | | | | | | | | | + + + + + + + + | Pap Smear | August 12, | Comment | | . | The Pap | [facility] | | Comment | 2019 | | | | smear is a | #[id number]/ | | (2) | 10:50am | | | | screening | CHITO#[id number] | | | | | | | test | [address] | | | | | | | designed | | | | | | | | to aid in | [address], | | | | | | | thedetecti | Suite | | | | | | | on of | [address] | | | | | | | premaligna | [place] | | | | | | | nt and | [address] | | | | | | | malignant | | | | | | | | conditions | | | | | | | | of | | | | | | | | theuterine | | | | | | | | cervix. | | | | | | | | It is not | | | | | | | | a | | | | | | | | diagnostic | | | | | | | | procedure | | | | | | | | andshould | | | | | | | | not be | | | | | | | | used as | | | | | | | | the sole | | | | | | | | means of | | | | | | | | detecting | | | | | | | | cervicalca | | | | | | | | ncer. | | | | | | | | Both | | | | | | | | false-posi | | | | | | | | tive and | | | | | | | | false-nega | | | | | | | | tive | | | | | | | | reports | | | | | | | | dooccur. | | | | | | | | | | | | | | | | | | + + + + + + + + | Pap Smear | August 12, | Comment | | | The Thin | [facility] | | Method | 2020 | | | | Prep(R) | #[id number]/ | | | 10:50am | | | | Improvement Intern was | CHITO#[id number] | | | | | | | unable to | [address] | | | | | | | read this | [address] | | | | | | | | [address], | | | | | | | specimen.T | Suite | | | | | | | herefore a | [address] | | | | | | | manual | [place] | | | | | | | review was | [address] | | | | | | | | | | | | | | | performed. | | | | | | | | | | | | | | | | | | + + + + + + + + | HPV High | August 12, | Negative | | Negative | | [facility] | | Risk Other | 2020 | | | | | #[id number]/ | | | 10:50am | | | | | CHITO#[id number] | | | | | | | | [address] | | | | | | | | [address] | | | | [address] | | | [address], | | | | | | | | [address] | | | | | | | | [address] | | | | | | | | [place] | | | | | | | | [address] | | | | | | | | | | | | | | | | | + + + + + + + + | HPV | August 12, | Negative | | Negative | | [facility] | | Genotype | 2019 | | | | | #[id number]/ | | 16 (PCR) | 10:50am | | | | | CHITO#[id number] | | | | | | | | [address] | | | | | | | | [address] | | | [address] | | | [address], | | | | | | | | [address] | | | | | | | | [address] | | | | | | | | [place] | | | | | | | | [address] | | | | | | | | | | | | | | | | | + + + + + + + + | HPV | May 12th, | Negative | | Negative | This | [facility] | | Genotype | 2020 | | | | nucleic | #[id number]/ | | 18 (PCR) | 10:50am | | | | acid | CHITO#[id number] | | | | | | | amplificat | [address] | | | | | | | ion test | [address] | | | | | | | detects | [address], | | | | | | | fourteen | Suite | | | | | | | high-risk | [address] | | | | | | | HPV types: | [place] | | | | | | | HPV16, | [address] | | | | | | | HPV18 and | | | | | | | | twelve | | | | | | | | other | | | | | | | | high-riskt | | | | | | | | ypes | | | | | | | | (31,33,35, | | | | | | | | 39,45,51,5 | | | | | | | | 2,56,58,59 | | | | | | | | ,66,68) | | | | | | | | withoutdif | | | | | | | | ferentiati | | | | | | | | on.Perform | | | | | | | | ed at: =Z | | | | | | | | - [facility] | | | | | | | | [place] | | | | | | | | [place] [id number] | | | | | | | | [address] | | [address] | | [address] | | | | | | | | [address], | | | | | | | | [place], | | | | | | | | [place] | | | | | | | | [id number] | | | | | | | | ab | | | | | | | | Director: | | | | | | | | Jason | | | | | | | | Towmargaritall | | | | | | | | MD, Phone: | | | | | | | | | | | | | | | | [phone] | | | | | | | | Performed | | | | | | | | at: SE - | | | | | | | | [facility] | | | | | | | | [id number] | | | | | | | | | | | | | | | | Avenue | | | | | | | | [address], | | | | | | | | [place], | | | | | | | | [place] | | | | | | | | [id number] | | | | | | | | ab | | | | | | | | Director: | | | | | | | | Jason | | | | | | | | Kiah | | | | | | | | MD, Phone: | | | | | | | | | | | | | | | | [phone] | | | | | | | | | | | | | | | | | | + + + + + + + + Diagnostic Imaging Reports + + + + + | Report | Dictated Date/Time | Dictated By | Status | | | | | | + + + + + | Ultrasound | August 22, 2019 | Placido Andrade | completed | | | 1:58pm Blanca Tim MD | | | | | | | + + + + + + + | [facility] | | EXAM # TYPE/EXAM | | RESULT | | [id number] US /US Soft Tissue Head/Neck Exam | | | | | | | | US Soft Tissue Head/Neck Exam | | | | REASON FOR EXAM: [id number] GOITER | | | | COMPARISON: None available. | | | | TECHNIQUE: Multiple grayscale and color doppler sonographic images of the | | thyroid were obtained. | | | | FINDINGS: | | The right thyroid lobe measures 5.1 x 1.6 x 1.8 cm. Left thyroid lobe measures | | 4.8 x 1.2 x 1.6 cm. The isthmus measures 1 mm in thickness. Normal background | | echotexture throughout. No hyperemia. There is a solitary heterogeneously | | hypoechoic and cystic nodule in the mid right thyroid lobe measuring 10 x 7 x 8 | | mm, previously measuring 7 x 6 x 6 mm with well circumscribed margins and | | internal vascularity. No additional thyroid nodules are seen. | | | | IMPRESSION: | | 1. Slightly increased size of solitary indeterminate nodule in the right | | thyroid lobe remains probably benign. Suggest follow-up exam in 12 months. | | | | 2. No new thyroid nodules. | | | | Electronically Signed By: Placido Andrade MD | | Electronically Signed On: 08/22/2019 14:02 PDT | | | | Dictated by: Placido Andrade MD | | 08/22/19 1406 <Electronically signed by Placido Andrade MD in [place]> | | | | CC: Myesha Aguilar MD | + + + + + + + | ECHOCARDIOGRAM | August 22, 2019 | Jeramie Mohan MD | completed | | | 1:56pm | | | | | | | | + + + + + + + | | | Date of Service: 08/22/19 | | | | ECHOCARDIOGRAM | | | | Transthoracic Echocardiography Report (TTE) | | | | Name: RUEL Height: 64 inches Age: 33 year(s) | | ALY | | FLOR | | | | Procedure 08/22/2019 Weight: 198 pounds Gender Female | | date: | | | | MR#: [id number] BSA: 1.95 m^2 : 1985 | | | | Patient OP | | #: location: | | | | Continuous Towel Roller: Rhonda Leyva RDCS | | | | Referring Myesha Aguilar MD | | Physician: | | | | 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 | | | | Blood Pressure: 131/71 | | Reason for Study: Congenital Heart Disease. | | Rhythm: Sinus rhythm | | | | Type of Study | | | | TTE procedure: Echo-2D/MM/Color/Dop. | | | | Conclusions | | A complete transthoracic (2D/Color/Doppler) echocardiographic exam was | | performed. The exam was technically adequate. | | | | Normal left ventricular dimensions, mural thickness and systolic function | | with an estimated EF of 60-65%. | | Doppler and volumetric assessment of left ventricular diastolic function | | demonstrates normal filling and relaxation for age . | | Normal right ventricle structure and function. | | Normal left atrial size. No obvious interatrial shunt was visualized. | | Normal right ventricular systolic pressure estimated by Doppler. | | No significant valvular pathology identified. | | No significant flow acceleration in the descending aorta to suggest patent | | PDA. Additionally the left atrial size appears to be normal. | | | | No comparison study was available. | | | | Signature | | | | Electronically signed by Jeramie Mohan MD(Interpreting Physician) on | | 09/02/2019 08:21 AM | | | | | | Findings | | Mitral Valve | | Normal mitral valve structure and function. Trace mitral regurgitation. | | Aortic Valve | | Normal trileaflet aortic valve structure and function. The imaged portions | | and sizes of the ascending aorta, arch and descending aorta are normal. | | Tricuspid Valve | | Normal tricuspid valve structure and function. Normal right ventricular | | systolic pressure estimated by Doppler. | | Pulmonic Valve | | Normal pulmonic valve structure and function. | | Left Atrium | | Normal left atrial size. No obvious interatrial shunt was visualized. | | Left Ventricle | | Normal left ventricular dimensions, mural thickness and systolic function | | with an estimated EF of 60-65%. No regional wall motion abnormalities. | | Doppler and volumetric assessment of left ventricular diastolic function | | demonstrates normal filling and relaxation for age . | | Right Atrium | | Normal right atrial size. The IVC size and respiratory phasicity were | | normal. | | Right Ventricle | | Normal right ventricle structure and function. | | Pericardium | | No pericardial effusion. | | | | M-Mode/2D Measurements Calculations | | | | LV Diast Dimen: 4.94 LV Syst Dimen: 2.88 LA Dimen: 3.4 cm | | cm cm AO Root Dimen: 2.8 cmLA Area: | | LV PW Diastolic: EF(Teich):72 % 17.5 cm^2 | | 1.02 cm AV Cusp Separation: | | Septum Diastolic: 1.6 cm | | 0.98 cm | | RV Diast Dimen: 2.88 cm | | | | LA/Aorta: 1.2 | | Asc Aorta: 3.4 cm | | LA Vol Index: 23 | | ml/m^2 | | | | Doppler Measurements Calculations | | | | MV Pk E-Wave: 91.2 cm/s AV Pk Micheal: 159 cm/s LVOT Micheal: 100 cm/s | | MV Pk A-Wave: 61.2 cm/s AV Pk Grad: 10 mmHg LVOT Pk Grad: 4 mmHg | | MV E/A Ratio: 1.5 Est. RVSP: 24 mmHg | | MV Pk Grad: 3 mmHg Est. RAP:5 mmHg | | | | MV Decel Time: 190 msec | | Est. PASP: 24.18 mmHg TR Micheal:219 cm/s | | PV Pk Micheal: 93.6 cm/s | | MV E' Micheal: 10 cm/s PV Pk Grad: 4 mmHg | | | | E/E' Ratio: 9 | | | | + + + + | | !Normal values (adult) ! | | + + + + | | !Aortic Root (2.0-3.7cm) !RVEDd (1.9-3.8cm) !MV Inflow (<100 cm/s) ! | | + + + + | | !Ao Cusp. Sep (1.5-2.6cm)!EF (>50%) !MV Inflow A (<100 cm/s) ! | | + + + + | | !LA Dimen. (2.1-4.0cm) !MVA (>3.0cm2) !E/A Ratio (>1.0) ! | | + + + + | | !LVEDd (3.5-6.0cm) !DELORIS (>2.5 cm2) !MV Decel.Time (160-240 ms) ! | | + + + + | | !IVSd (0.6-1.2cm) !LVOT Micheal (<120cm/s) !IVRT (60-100 ms) ! | | + + + + | | !LVPWd (0.6-1.0cm) !Ao Pk Micheal (<200cm/s) !E/E' (<15) ! | | + + + + | | !RVSP (<30 mmHg) !MPA Pk Micheal (<120cm/s)! ! | | + + + + | | | | 09/02/19 08 <Electronically signed by Jeramie Mohan MD in [place]> | + + + + + + + | CT Scan | September 15, 2019 | Mitch Phelps | completed | | | 12:48pm | | | | | | | | + + + + + + + | [facility] Room | | EXAM # TYPE/EXAM | | RESULT | | [id number] CT /CT Abdomen and Pelvis-W Con | | | | | | | | HISTORY: epigastric pain | | | | TECHNIQUE: Thin section helical CT acquisition through the abdomen and pelvis | | after the IV administration of iodinated contrast material. Contiguous axial, | | sagittal, and coronal images generated and reviewed. Delayed phase images | | acquired. Automated tube current modulation and iterative reconstruction | | techniques employed for dose reduction. | | | | COMPARISON: None. | | | | FINDINGS: | | | | Inferior thorax: | | No suspicious findings in the lung bases. There is a small decompressed | | sliding-type hiatal hernia, which was present on prior. | | | | Upper abdominal organs: | | No suspicious liver lesions or biliary ductal dilatation. The gallbladder, | | pancreas, spleen, and adrenals are within normal limits. | | | | Genitourinary tract: | | The kidneys enhance symmetrically. No suspicious renal masses or hydronephrosis. | | No gross ureteral or bladder abnormality. No suspicious uterine or adnexal | | masses. | | | | Gastrointestinal tract and peritoneum: | | There is a small sliding-type hiatal hernia as noted above. The stomach and | | duodenum are otherwise within normal limits. No small bowel obstruction. The | | appendix is normal. There is a moderate right-sided colonic stool burden. The | | left colon is predominantly decompressed. No pneumoperitoneum or ascites. | | | | Retroperitoneum and mesentery: | | No masses or enlarged lymph nodes. There are minimal aortoiliac atherosclerotic | | changes. The central portions of the major abdominal arteries are patent. 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 This may be developmental or related to previous venous | | insult. There are several engorged veins in the right pelvis, in association | | with this finding. | | | | Muscular skeletal and soft tissues: | | No suspicious soft tissue abnormalities. No suspicious osseous lesions or acute | | bony abnormality. | | | | IMPRESSION: | | 1. Sliding-type hiatal hernia without acute features. No other CT finding to | | explain the history of epigastric abdominal pain. | | 2. 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 This | | may be congenital, or related to previous venous insult. | | 3. Additional details as above. | | | | Report generated using voice recognition software. Effort has been made to | | ensure the accuracy of this report, however occasional wording errors may be | | overlooked. Please call with any questions or concerns. | | | | Electronically Signed By: Mitch Phelps MD | | Electronically Signed On: 09/15/2019 12:53 PDT | | | | Dictated by: Mitch Phelps MD | | 09/15/19 1255 <Electronically signed by Micth Phelps MD in [place]> | | | | CC: Myesha Aguilar MD; [place] | + + Health Concerns No known health concerns documented Chief Complaint and Reason for Visit + + + | Reason for Visit | SEVERE ABD PN ON R SIDE | + + + Encounters + + + + + + | Encounter | Location(s) | Arrival/Admit | Discharge/Depar | Provider(s) | | | | Date | t Date | | | | | | | | + + + + + + | Departed | [facility] | September 15, 2019 | September 15, 2019 | [place], | | Emergency | [facility] | 11:40am | 1:24pm | July [place] | | | | | | | | | | | | | + + + + + + | Registered | [facility] | August 27, 2019 | | Myesha Aguilar | | Referral | [facility] [place] | 5:36pm | | MD | | | | | | | | | | | | | + + + + + + | Registered | [facility] | August 22, 2019 | | Myesha Aguilar | | Referral | [facility] [place] | 1:09pm | | MD | | | | | | | | | | | | | + + + + + + | Registered | [facility] | August 13, 2019 | | Myesha Aguilar | | Clinical | [facility] | 10:50am | | MD | | | | | | | | | | | | | + + + + + + + + + | Recent Diagnosis | Onset Date | + + + | Abdominal pain | | + + + Assessments + + + + + | Diagnosis | Onset Date | Resolution | Status | | | | | | + + + + + | Abdominal pain | | | Active | | | | | | + + + + + Functional Status No Functional Status information available Goals No Goals Information Available Immunizations No Immunization Information Available Mental Status No Mental Status Information Available Medical Equipment No Medical Equipment Information available Insurance Providers + + + | Guarantor | ALY LIPSCOMB | + + + | Address | [address] | | | [place] [address] | + + + | Contact Info. | Home Phone: | | | | + + + + + + + + + + + | Payer | Policy Id | Coverage | Subscriber | Subscriber | Effective | Expiration | | | | Id | 's Name | Id | Date | Date | | | | | | | | | | | | | | | | | + + + + + + + + | [employer] | [id number] | | RUEL, | | December | | | HEALTH | | | ALY | | 2018 | | | | | | M | | | | | | | | | | | | + + + + + + + + Plan of Treatment Future Tests Future scheduled test information is unavailable Pending Tests + + + | Test Name | Date ordered | + + + | Culture, Urine Bacterial | September 15, 2019 12:02pm | + + + Future Visits Future appointment information is unavailable Referrals to Other Providers + + + + + + | Reason for | Referral Start | Provider | Provider | Provider | | Referral | Date | | Contact | Address | | | | | Information | | + + + + + + | | | Myesha Aguilar | | | | | | MD | | | + + + + + + Future Procedures Future procedure information is unavailable Future Medications Future medication information is unavailable Patient Instructions + + | Abdominal Pain, Adult, [id number]-op-Tphc | + + Social History Smoking Status + + + | Status | Date of Observation | + + + | Current every day smoker | September 15, 2019 11:53am | + + + Observation Status + + + + | Observation | Response | Date of Response | | | | | + + + + | MENTAL HEALTH PROBLEMS/ | Yes | July 03, 2016 4:13am | | | | | + + + + + + + | Assigned Sex | Female | + + + Vital Signs + + + + | Vital Reading | Result | Collection Date/Time | | | | | + + + + | BP Systolic | 199 mm[Hg] | September 15, 2019 11:51am | | | | | + + + + | BP Diastolic | 88 mm[Hg] | September 15, 2019 11:51am | | | | | + + + + | Body Temperature | 98.9 [degF] | September 15, 2019 11:51am | | | | | + + + + | Respiratory rate | 18 /min | September 15, 2019 11:51am | | | | | + + + + | Heart Rate | 115 /min | September 15, 2019 11:51am | | | | | + + + + | Oxygen saturation by Pulse | 99 % | September 15, 2019 11:51am | | oximetry | | | + + + + | Height | 63 [in_i] | September 15, 2019 11:51am | | | | | + + + + | Weight | 200.00 [lb_av] | September 15, 2019 11:51am | | | | | + + + + | Weight | 90.72 kg | September 15, 2019 11:51am | | | | | + + + + | BMI (Body Mass Index) | 35.4 kg/m2 | September 15, 2019 11:51am | | | | | + + + +"
--- OUTSIDE RECORDS SUMMARY | ~2019-10-16 | XMS | Encounter Summary ---
Demographics + + + | Address | [address] | | | [place] [address] | + + + | Home Phone | [phone] | + + + | Preferred Language | Unknown | + + + | Marital Status | | + + + | Christian Affiliation | Unknown | + + + | Race | White | + + + | Ethnic Group | Unknown | + + + Author + + + | Author | | + + + | Organization | | + + + | Address | [address] | | | [place] [address] | + + + | Phone | [phone] | + + + Care Team Providers + +------+ + | Care Technical Service Rep Name | Role | Phone | + +------+ + | Myesha Aguilar MD | 3 | Unavailable | + +------+ + Reason for Visit + + | None recorded. | + + Instructions + + | 1. Goiter | + + | 2. Mixed anxiety and depressive disorder | + + | escitalopram 20 mg tablet | + + | psychiatry referral | + + | 3. Moderate persistent asthma | + + | 4. Tobacco dependence syndrome | + + | 5. Impacted cerumen of bilateral ears | + + | removal impacted cerumen using irrigation/lavage (PROC) | + + Discussion Note: None recorded.Patient educational handouts: No information available. Plan of Care + + + + + | Reminders | | | Provider | | | | | | + + + + + | Appointments | Physical | 10/19/2018 3:50PM | Myesha Emmanuel | | | | | MD Lauren | + + + + + | Lab | None recorded. | | | + + + + + | Referral | Psychiatry Referral | 08/17/2018 | | + + + + + | Procedures | Removal Impacted | 08/17/2018 | | | | Cerumen Using | | | | | Irrigation/lavage | | | | | (PROC) | | | + + + + [...] + | 5 ft 4 in | 193 lbs | 33.1 kg/m2 | 123/80 mm[Hg] | + + + + + Lab Results None recorded. Allergies +--------+--------+ + + +--------+-------+ | Code | Code | Name | Reaction | Severity | Status | Onset | | | System | | | | | | +--------+--------+ + + +--------+-------+ | [id number] | RxNorm | Chantix | Headache | Mild | Active | | +--------+--------+ + + +--------+-------+ | [id number] | RxNorm | Geodon | | | [...] + + + + +--------+ +---+ | Traceyeorge Sequence | Active | 08/14/2018 | | + +--------+ +---+ | Bipolar Disorder | [...] + + +---+ + + | | Other | Information not available | +---+ + [...] + +---+ Past Encounters + + | 08/17/2018Goiter; Mixed Anxiety and Depressive Disorder; Moderate Persistent Asthma; | | Tobacco Dependence Syndrome; Impacted Cerumen of Bilateral EarsHeidi Lien Aguilar MD: | | [address], [place] [address], Ph. [phone] | + + History of Present Illness Note:<p>Jessica is a 32 y/o female here today as a new patient to [facility]. She previously saw Dr Aurelio Dong at [facility]. She has four children, ages 10, 12, 13 18. They live with their father in [place]. She lives with her and three step children, aged 11, 9, and 7. She had a congenital heart defect, but this was repaired as a c hild without lasting effects.</p><p>
</p><p>She reported a history of hypothyroidism a nd was previously treated with levothyroxine. Medication was discontinued due to patient mis sing appointments.</p><p>
</p><p>The patient is currently smoking 1/2 pack of cigarett es per day, which is less than she has smoked in the past. She rates her motivation to quit as a 6/10. She has failed Chantix, Wellbutrin, and nicotine patches.</p><p>
</p><p>She wa s seen in urgent care x2 in the last month for an ear infection in her left ear. She was giv en antibiotics and drops. She is concerned she still has some discomfort in her left ear</p> Review of Systems + + + | | Comprehensive General Adult ROS | + + + | Reported By: | Patient | + + + | ENMT: | Ears: ear pain | + + + | Psychiatric: | Psych: depression, anxiety | + + + Physical Exam + + + | | General Adult Exam | + + + | Reported By: | Patient | + + + | Constitutional: | General Appearance: healthy-appearing, | | | well-nourished, well-developed. Level of | | | Distress: NAD | + + + | Psychiatric: | Insight: good judgement. Mental Status: | | | active and alert, normal mood, normal | | | affect | + + + | Head: | Head: normocephalic, atraumatic | + + + | ENMT: | Ears: EAC ceruminous; TMs not visualized. | | | Oropharynx: moist mucous membranes, no | | | erythema, no exudates, tonsils not | | | enlarged | + + + | Neck: | Thyroid: ; goiter (larger on right than | | | left) | + + + | Lungs: | Auscultation: no wheezing, no | | | rales/crackles, no rhonchi, diminished air | | | movement | + + + | Cardiovascular: | Heart Auscultation: RRR, no murmurs | + + + | Abdomen: | Inspection and Palpation: soft, | | | non-distended, no tenderness | + + + | Musculoskeletal:: | Extremities: no cyanosis, no edema | + + +"
--- OUTSIDE RECORDS SUMMARY | ~2019-10-16 | XMS | Encounter Summary ---
Demographics + + + | Address | [address] | | | [place] [address] | + + + | Home Phone | [phone] | + + + | Preferred Language | Unknown | + + + | Marital Status | | + + + | Voodoo Affiliation | Unknown | + + + | Race | White | + + + | Ethnic Group | Not or | + + + Author + + + | Author | | + + + | Organization | | + + + | Address | [address] | | | [place] [address] | + + + | Phone | [phone] | + + + Care Team Providers + +------+ + | Care Media Consultant Name | Role | Phone | + +------+ + | Dr. Family Adhikari | 3 | Unavailable | | [place] | | | + +------+ + | Aurelio Dong MD | 3 | Unavailable | + +------+ + | Myesha [facility] | 3 | [phone] | | [facility] | | | + +------+ + | Dr. Family Adhikari | 4 | Unavailable | | [place] | | | + +------+ + Reason for Visit + + | None recorded. | + + Instructions + + | 1. Oral lesion | + + | HSV (1+2) DNA, qual, PCR, unspecified specimen | + + | acyclovir 400 mg tablet | + + Discussion Note: None recorded.Patient educational handouts: No information available. Plan of Care + + + + + | Reminders | | | Provider | | | | | | + + + + + | Appointments | None recorded. | | | + + + + + | Lab | HSV (1+2) DNA, | 12/27/2018 | [facility] | | | Qual, PCR, | | Lab | | | Unspecified | | | | | Specimen | | | + + + + [...] + + + + + +---+ | acyclovir 400 mg tablet Take 1 tablet | | | every 8 hours by oral route as directed | | | for 7 days. | | + +---+ | EpiPen 2-El 0.3 mg/0.3 mL injection, | | | auto-injector Use as directed for | | | anaphylaxis reaction | | + +---+ Medications Administered None recorded. Vitals + + + + + | Height | Weight | BMI | Blood Pressure | + + + + + | 5 ft 4 in | 178 lbs 16 oz | 30.7 kg/m2 | 127/83 mm[Hg] | + + + + + Lab Results None recorded. Allergies +--------+--------+ + + +--------+-------+ | Code | Code | Name | Reaction | Severity | Status | Onset | | | System | | | | | | +--------+--------+ + + +--------+-------+ | [id number] | RxNorm | Geodon | Rash | [...] | | +--------+--------+ + + +--------+-------+ | [id number] | RxNorm | Venom-darci | | | Active | | | | | y Bee | | | | | +--------+--------+ + + +--------+-------+ | [id number] | RxNorm | Ziprasidon | | | [...] Tobacco Smoking Status | Heavy Tobacco Smoker (04/04 | | | | PPD) | | + + +---+ Past Encounters + ------+ | 12/27/2018Oral LesionAlexandra Kaitlynn Willis PA: [address], [place], [place] | | [address], Ph. | |ROCIO Perez: [address], [place] [address], Ph. | + ------+ History of Present Illness Note:Ms. Vazquez is a 33 y/o female with a history of HSV-1 presenting with a lesi on over her lip noticed two months ago that is not improved with applying [id number] A breva. She was last treated with acyclovir for HSV on 11/24/15.<div>
</div><div>SHx</div>< div>[id number] mother.
<div><div>
</div><div><em>Denies fever/chills, NVD, rash.</em > </div></div></div> Review of Systems + + + | | Moderate Male ROS | + + + | Reported By: | Patient | + + + | Constitutional: | Constitutional: no fever | + + + | Gastrointestinal: | Gastrointestinal: no nausea, no vomiting, | | | no diarrhea | + + + | Integumentary: | Skin: lesions | + + + Physical Exam + + + | | UC Skin | + + + | Reported By: | Patient | + + + | General Appearance: | General Appearance in no acute distress, | | | oriented to time, place, and person; | | | well-appearing | + + + | Skin: | Lesions ; 1 cm x 5 mm shallow ulceration | | | along the right lower lip extending along | | | the paloma border with surrounding | | | edema of the lower lip, tender to | | | palpation. No lymphadenopathy | + + +"
--- OUTSIDE RECORDS SUMMARY | ~2019-10-16 | XMS | Encounter Summary ---
Demographics + + + | Address | [address] | | | [place] [address] | + + + | Home Phone | [phone] | + + + | Preferred Language | Unknown | + + + | Marital Status | | + + + | Latter-Day Affiliation | Unknown | + + + | Race | White | + + + | Ethnic Group | Not or | + + + Author + + + | Author | | + + + | Organization | | + + + | Address | [address] | | | [place] [address] | + + + | Phone | [phone] | + + + Care Team Providers + +------+ + | Care Brass Molder Name | Role | Phone | + +------+ + | [facility] | 3 | [phone] | | [facility] | | | + +------+ + | Adilia Arreguin PRECISION MACHINE OPERATOR | 3 | [phone] | + +------+ + | [facility] | 4 | [phone] | | [facility] Center | | | + +------+ + Reason for Visit + + | None recorded. | + + Instructions + + | 1. Anxiety disorder | + + | hydroxyzine HCl 25 mg tablet | + + | buspirone 7.5 mg tablet | + + | 2. Hypothyroidism | + + | levothyroxine 50 mcg tablet | + + Discussion Note: None [...] + + + +---+ | albuterol sulfate HFA 90 mcg/actuation | | | aerosol inhaler Inhale 2 puffs every 4 | | | hours by inhalation route. | | + +---+ | Atrovent HFA 17 mcg/actuation aerosol | | | inhaler Inhale 2 puffs 4 times a day by | | | inhalation route. | | + +---+ | buspirone 7.5 mg tablet [...] + | 5 ft 4 in | 148 lbs 16 oz | 25.6 kg/m2 | 150/98 mm[Hg] | + + + + + Lab Results None recorded. Allergies +--------+ + + + +-------+ | Code | Code System | Name | Reaction | Severity | Onset | +--------+ + + + +-------+ | [id number] | RxNorm | Geodon | Rash | | | +--------+ + + + +-------+ | [id number] | RxNorm | Morphine | Hives | | | +--------+ + + + +-------+ | | | Penicillins | | | | +--------+ + + + +-------+ Problems + + + + + + [...] + +---+ Past Encounters + + | 09/02/2016 | | Anxiety Disorder; Hypothyroidism | | Bo Ramos, DO: [address] [address], Ph. | + + History of Present Illness Note:Patient is a 30-year-old female who [facility] a 3 week history of panic attacks and anxiety she is a smoker but is slowly weaning off of her cigarettes she also requested a refill of her thyroid medicine and she h as recently had a TSH done she is afebrile vital signs are stable pulse ox is 97% on room ai r on there is no suicidal or homicidal ideationReview of Systems:ROS as noted in the HPI Review of Systems None recorded. Physical Exam [...] + + + | ENMT: | Ears: right TM clear, left TM clear, right | | | canal clear, left canal clear. Pharynx: | | | mucous membranes moist, airway clear, | | | normal dentition. Nasopharynx: clear. | | | Throat: throat clear, tonsils normal. | | | Neck: supple, non tender | + + + | Cardiovascular: | Heart: regular heart rate, no murmurs | + + + | Lungs: | Chest/Lungs: clear to auscultation | + + + | Musculoskeletal: | Musculoskeletal: neurovascular intact, no | | | deformity | + + + | Neurologic: | Neurological: motor, sensory, reflexes, | | | equilibrium, mental status | + + +"
--- OUTSIDE RECORDS SUMMARY | ~2019-10-16 | XMS | Continuity of Care Document ---
Demographics + + + | Address | [address] | | | [place] [address] | + + + | Home Phone | | + + + | Preferred Language | Unknown | + + + | Marital Status | Unknown | + + + | Mu-Ism Affiliation | Unknown | + + + | Race | Unknown | + + + | Ethnic Group | Unknown | + + + Author + + + | Author | [facility] | + + + | Organization | [facility] | + + + | Address | [address] | | | [place] [address] | + + + | Phone | Unavailable | + + + Support + + + + + | Name | Relationship | Address | Phone | + + + + + | FRAN Brown | Caregiver | [facility] | | | [place] | | [facility], | | | | | [place] [address] | | + + + + + | CARLOS Casillas | Caregiver | [facility] | | | [place] | | [facility], [place] | | | | | [address] | | + + + + + | Provider, ED | Caregiver | [address] | Unavailable | | | | [facility], [place] | | | | | [address] | | + + + + + | Julián Julian DO | Caregiver | Emergency Room | | | | | [place] [address] | | + + + + + | ALLI ALVARADO | [facility] | , [place] | | + + + + + Care Team Providers + + + + | Care Dedicated Regional Driver Name | Role | Phone | + + + + | Vinny [employer] SYSTEMSusanne Obrien | Unavailable | | + + + + Insurance Providers + + + + + | Payer Name | Policy Number | Subscriber Name | Relationship | + + + + + | DCIPA/OHP | [id number] | ALY LIPSCOMB | SELF | + + + + + Chief Complaint and Reason for Visit + + + | Reason for Visit | BREATHING DIFF | + + + Problems Active Medical [...] | | + + + +--------+ | The administrative | Unknown | 07/03/16 | Active | | codes within the | | | | | O content you are | | | | | accessing may have | | | | | as of | | | | | 07/02/2016. Please | | | | | contact your IT | | | | | Dept/Help Desk and | | | | | request the latest | | | | | Regulatory release | | | | | be installed. IT | | | | | Dept/Help Desk- | | | | | Please refer to our | | | | | FAQ page | | | | | ([email or web address] | | | | | [email or web address] | | | | | [email or web address]) or | | | | | contact [facility] | | | | | Customer Support at | | | | | | | | | | [email or web address] | | | | | [email or web address] | | | | + + + +--------+ | Pharyngitis | Unknown | 07/11/16 | Active | + + + +--------+ Medications Current Home Medications + +------+-------+-------+ + + + + | Medicati | Dose | Units | Route | Directio | Days/Qty | Instruct | Start | | on | | | | ns | | ions | Date | + +------+-------+-------+ + + + + | [ADVAIR] | | | | | | | | | | | | | | | | | + +------+-------+-------+ + + + + | Albutero | 1-2 | PUFF | INH | Every 4 | 1 | Please | 04/10/16 | | l | | | | Hours as | | instruct | | | (Ventoli | | | | Needed | | patient | | | n Hfa) | | | | PRN | | on use. | | | 90 MCG | | | | Cough | | | | | INH | | | | | | | | + +------+-------+-------+ + + + + | Buspiron | 20 | MG | PO | Daily | | | | | [...] | | | | | | + +------+-------+-------+ + + + + | Citalopr | 20 | MG | PO | Daily | | | | | [...] | | | | | | + +------+-------+-------+ + + + + | Epinephr | 0.3 | MG | IM | As | | | | | ine Hcl | | | | Directed | | | | | (Epipen) | | | | PRN | | | | | 0.3 | | | | Allergic | | | | | MG/SYR | | | | | | | | | SYR | | | | Reaction | | | | + +------+-------+-------+ + + + + | Guaifene | 600 | MG | PO | | | | | | sin [...] | | | | | | + +------+-------+-------+ + + + + | Levothyr | 50 | MCG | PO | Daily | | | | | [...] | | | | | | + +------+-------+-------+ + + + + | Nicotine | 1 | PATCH | TOP | Daily | | | | | | | | | | | | | | (Nicoder | | | | | | | | | m Cq) 14 | | | | | | | | | MG | | | | | | | | | PATCH | | | | | | | | + +------+-------+-------+ + + + + Past Home Medications + + + + + | Medication | Directions | Ordered | Status | + + + + + | Albuterol (Proair | Every 4 Hours as | Unknown | Discontinued | | Hfa) 6.7 Gm Aers | Needed PRN SOB | | | | Aers, 1-2 Puff Inh | | | | + + + + + | Albuterol (Proair | Every 4-6 Hours as | Unknown | Discontinued | | Hfa) 6.7 Gm Aers | Needed | | | | Aers, 1-2 Puff Inh | | | | + + + + + | Albuterol (Proair | Every 4 Hours as | 06/11/14 | Discontinued | | Hfa) 6.7 Gm Aers | Needed | | | | Aers, 1-2 Puff Inh | | | | + + + + + | Albuterol (Proair | Every 4-6 Hours as | 04/28/14 | Discontinued | | Hfa) 6.7 Gm Aers | Needed PRN | | | | Aers, 1-2 Puff Inh | Difficulty | | | | | Breathing | | | + + + + + | Amoxicillin 500 Mg | Q8H | 08/07/08 | Discontinued | | Cap Cap, 500 Mg Po | | | | + + + + + | Amoxicillin | Twice Each Day For | 10/12/14 | Discontinued | | Trihydrate | Infection | | | | (Amoxicillin) 500 | | | | | Mg Capsule Capsule, | | | | | 1,000 Mg Po | | | | + + + + + | Azithromycin | Daily | 06/11/14 | Discontinued | | (Zithromax) 250 Mg | | | | | Tab Tab, 0 Mg Po | | | | + + + + + | Azithromycin | DIRECTED For | 04/10/16 | Discontinued | | (Zithromax) 250 Mg | INFECTION | | | | Tablet Tablet, 0 Mg | | | | | Po | | | | + + + + + | Benzocaine/Antipyri | Three Times a Day | 06/28/14 | Discontinued | | ne Otic (Auralgan | as Needed PRN EAR | | | | Otic) 10 Ml Soln | PAIN | | | | Soln, 2 Drop | | | | | Bothears | | | | + + + + + | Benzonatate | Every 8 Hours as | 04/10/16 | Discontinued | | (Tessalon) 100 Mg | Needed PRN Cough | | | | Cap Cap, 100 Mg Po | | | | + + + + + | Bupropion Hcl | Once A Day | Unknown | Discontinued | | (Wellbutrin) 75 Mg | | | | | Tab Tab, 350 Mg Po | | | | + + + + + | Buspirone Hcl | | Unknown | Discontinued | | (Buspar) 15 Mg Tab | | | | | Tab, 15 Mg Po | | | | + + + + + | Buspirone Hcl | Twice Each Day | 04/28/14 | Discontinued | | (Buspar) 15 Mg Tab | | | | | Tab, 15 Mg Po | | | | + + + + + | Cephalexin | Three Times a Day | 06/27/15 | Discontinued | | Monohydrate | | | | | (Keflex) 500 Mg Cap | | | | | Cap, 500 Mg Po | | | | + + + + + | Citalopram | Daily | Unknown | Discontinued | | Hydrobromide | | | | | (Celexa) 20 Mg Tab | | | | | Tab, 20 Mg Po | | | | + + + + + | Clonazepam | Twice Each Day | Unknown | Discontinued | | (Klonopin) 1 Mg Tab | | | | | Tab, 1 Tab Po | | | | + + + + + | Cyclobenzaprine | | Unknown | Discontinued | | (Flexeril) 10 Mg | | | | | Tab Tab, 10 Mg Po | | | | + + + + + | Cyclobenzaprine | Two Times A Day As | 08/07/08 | Discontinued | | (Flexeril) 10 Mg | Needed | | | | Tab Tab, 10 Mg Po | | | | + + + + + | Duloxetine Hcl | Q12H | Unknown | Discontinued | | (Cymbalta) 30 Mg | | | | | Capsule. | | | | | Capsule.dr, 25 Mg | | | | | Po | | | | + + + + + | Epinephrine (Epipen | | Unknown | Discontinued | | 2-El) 0.3 Mg/0.3 | | | | | Ml Auto.injct | | | | | Auto.injct, 0.3 Mg | | | | | Ij | | | | + + + + + | Escitalopram | Daily | Unknown | Discontinued | | Oxalate (Lexapro) | | | | | 20 Mg Tab Tab, 20 | | | | | Mg Po | | | | + + + + + | Fluticasone/Salmete | Twice Each Day | Unknown | Discontinued | | rol (Advair 250/50) | | | | | 250 Mcg/50 Mcg | | | | | Disk Disk, 1 Puff | | | | | Inh | | | | + + + + + | Hydrocodone/Acetami | PRN PAIN | Unknown | Discontinued | | nophen 5-300 Mgz | | | | | (Vicodin 5-300 Mg) | | | | | 1 Each Tablet | | | | | Tablet, 1 Each Po | | | | + + + + + | Hydrocodone | Every 4 Hours as | 03/19/15 | Discontinued | | Bit/Acetaminophen | Needed PRN PAIN | | | | ([place] 5-325 | | | | | Tablet) 1 Each | | | | | Tablet Tablet, 1-2 | | | | | Tab Po | | | | + + + + + | Hydrocodone/Acetami | Every 4-6 Hours PRN | Unknown | Discontinued | | nophen (Vicodin) 5 | Pain | | | | Mg/500 Mg Tab Tab, | | | | | 1 Tab Po | | | | + + + + + | Hydrocodone/Acetami | Q6HPP | 08/07/08 | Discontinued | | nophen (Vicodin) 5 | | | | | Mg/500 Mg Tab Tab, | | | | | 1 Tab Po | | | | + + + + + | Hydroxyzine Hcl | Every 6 Hours as | 06/18/13 | Discontinued | | (Atarax) 25 Mg Tab | Needed PRN Anxiety | | | | Tab, 1-2 Tab Po | | | | + + + + + | Inhaler, Assist | Every 4 Hours | 04/10/16 | Discontinued | | Devices (Space | | | | | Chamber Plus) 1 | | | | | Each Spacer Spacer, | | | | | 1 Each Mc | | | | + + + + + | Ibuprofen (Motrin) | Three Times a Day | Unknown | Discontinued | | 800 Mg Tab Tab, 800 | | | | | Mg Po | | | | + + + + + | Ibuprofen (Motrin) | Three Times a Day | 08/07/08 | Discontinued | | 800 Mg Tab Tab, 800 | as Needed | | | | Mg Po | | | | + + + + + | Ketorolac | Every 4-6 Hours as | 07/06/11 | Discontinued | | Tromethamine | Needed | | | | (Toradol) 10 Mg Tab | | | | | Tab, 1 Tab Po | | | | + + + + + | Levothyroxine | Daily | Unknown | Discontinued | | Sodium | | | | | (Synthroid/Levothro | | | | | id) 0.075 Mg Tab | | | | | Tab, 0.075 Mg Po | | | | + + + + + | Naproxen (Naprosyn) | Twice Each Day | 06/25/11 | Discontinued | | 500 Mg Tab Tab, 1 | | | | | Tab Po | | | | + + + + + | Naproxen (Naprosyn) | Twice Each Day For | 06/27/15 | Discontinued | | 500 Mg Tablet | PAIN | | | | Tablet, 500 Mg Po | | | | + + + + + | Naproxen (Naprosyn) | Twice Each Day For | 06/18/13 | Discontinued | | 500 Mg Tablet | PAIN | | | | Tablet, 500 Mg Po | | | | + + + + + | No Historical | | Unknown | Discontinued | | Medications . ., | | | | + + + + + | Omeprazole | Daily | Unknown | Discontinued | | Magnesium (Prilosec | | | | | Otc) 20 Mg | | | | | Tablet. | | | | | Tablet., 20 Mg Po | | | | + + + + + | Phenazopyridine | Three Times a Day | 06/27/15 | Discontinued | | (Pyridium) 200 Mg | For PAIN | | | | Tablet Tablet, 200 | | | | | Mg Po | | | | + + + + + | Prednisone | TAPER | 06/11/14 | Discontinued | | (Prednisone 10 Mg | | | | | Tab) 10 Mg Tab Tab, | | | | | 0 Mg Po | | | | + + + + + | Promethazine Hcl | Every 4 Hours as | Unknown | Discontinued | | (Phenergan) 25 Mg | Needed PRN Nausea & | | | | Tab Tab, 25 Mg Po | Vomiting | | | + + + + + | Promethazine/Codein | Every 4 Hours as | 04/28/14 | Discontinued | | e | Needed PRN Nausea & | | | | (Phenergan/Codeine | Vomiting/cough | | | | Syrup) 6.25 Mg/10 | | | | | Mg Syrp Syrp, 1 Tsp | | | | | Po | | | | + + + + + | Pseudoephedrine Hcl | Q12H | 06/25/11 | Discontinued | | (Sudafed 12 Hour) | | | | | 120 Mg Tabcr Tabcr, | | | | | 1 Tab Po | | | | + + + + + | Quetiapine Fumarate | At Bedtime | Unknown | Discontinued | | (Seroquel) 100 Mg | | | | | Tab Tab, 1 Tab Po | | | | + + + + + | Rx Prepack | Three Times a Day | 06/25/11 | Discontinued | | Codeine/Guaifenesin | | | | | (Robitussin Ac | | | | | Prepack) 10 Mg/100 | | | | | Mg Syrp Syrp, 1 Tsp | | | | | Po | | | | + + + + + | Rx Prepack | Every 6 Hours as | 07/06/11 | Discontinued | | Promethazine | Needed | | | | (Phenergan Prepack) | | | | | 25 Mg Tab Tab, 25 | | | | | Mg Po | | | | + + + + + | Sulfamethoxazole/Tr | Twice Each Day For | 12/28/15 | Discontinued | | imethoprim Ds | Infection | | | | (Bactrim Ds) 1 Each | | | | | Tablet Tablet, 1 | | | | | Tab Po | | | | + + + + + | Thyroid ([place] | Daily | Unknown | Discontinued | | Thyroid) 60 Mg Tab | | | | | Tab, 15 Mg Po | | | | + + + + + | Thyroid ([place] | Daily | Unknown | Discontinued | | Thyroid) 60 Mg Tab | | | | | Tab, 60 Mg Po | | | | + + + + + | Tramadol Hcl | Every 6 Hours as | 04/21/14 | Discontinued | | (Ultram) 50 Mg | Needed PRN PAIN | | | | Tablet Tablet, | | | | | 50-100 Mg Po | | | | + + + + + | Tramadol Hcl | Every 6 Hours as | 06/18/13 | Discontinued | | (Ultram) 50 Mg | Needed PRN PAIN | | | | Tablet Tablet, | | | | | 50-100 Mg Po | | | | + + + + + | Varenicline | Once A Day | Unknown | Discontinued | | Tartrate (Chantix) | | | | | 1 Mg Tab Tab, 1 Tab | | | | | Po | | | | + + + + + | Zolpidem Tartrate | At Bedtime | Unknown | Discontinued | | (Ambien) 10 Mg Tab | | | | | Tab, 1 Tab Po | | | | + + + + + Social History + + + + | Problem | Response | Recorded Date | + + + + | Potential for self | N | 07/03/16 | | inflicted injury? | | | + + + + [...] + + + | Discharge Date | 07/11/16 | + + + | Disposition | HOME | + + + | Condition at Discharge | Good | + + + | Instructions/Education Provided | Pharyngitis | + + + | Prescriptions | See Medications Section | + + + | Referrals | Camille Casillas - | + + + | Additional Instructions/Education | 1. Return to the ED if you develop | | | worsening symptoms 2. Follow up with | | | [facility] physician in 2-3 days 3. | | | Take your medications as prescribed | + + + Functional Status No functional status results. Allergies, Adverse Reactions, Alerts + +---------+ + +--------+ + | Allergen | Type | Severity | Reaction | Status | Last Updated | + +---------+ + +--------+ + | morphine | Allergy | Mild | Itching | Active | 07/03/16 | + +---------+ + +--------+ + | Insect | Allergy | Severe | | Active | 07/02/16 | | Extracts | | | | | | + +---------+ + +--------+ + | venom-wasp | Allergy | Severe | | Active | 07/02/16 | + +---------+ + +--------+ + | ziprasidone | Allergy | Unknown | | Active | 07/02/16 | + +---------+ + +--------+ + Immunizations No Known History of Immunizations. Vital Signs + + + + | Vital Reading | Collection Date/Time | Result | + + + + | Blood Pressure | 07/11/16 2:05pm | 125/74 | + + + + | Blood Pressure Source | 07/03/16 11:46am | Left Arm | + + + + | Patient Temperature | 07/11/16 2:05pm | 98.6 | + + + + | Temperature Source | 07/11/16 12:49pm | Temporal | + + + + | Respiratory Rate | 07/11/16 2:05pm | 20 | + + + + | Pulse Rate | 07/11/16 2:05pm | 106 | + + + + | Bedside Pulse Oximetry | 07/11/16 2:05pm | 100 | + + + + | Height | 07/11/16 12:49pm | 5 ft 3 in | + + + + | Weight | 07/11/16 12:49pm | 61.69 kg | + + + + | Weight | 07/11/16 12:49pm | 136 lb | + + + + | Body Mass Index | 07/11/16 12:49pm | 24.1 | + + + + | Pulse Location | 07/03/16 11:46am | Monitor | + + + + | Height | 07/03/16 4:33am | 162.6 cm | + + + + Results Laboratory Results + + + +-------+ + + + + | Test | Result | Units | Flags | Referenc | Collecti | Result | Comments | | Name | | | | e | on | Date/Clif | | | | | | | | Date/Clif | e | | | | | | | | e | | | + + + +-------+ + + + + | White | 10.07 | K/mm3 | | 4.00-11. | 07/11/16 | 07/11/16 | | | Blood | | | | 30 | 1:40pm | 2:17pm | | | Count | | | | | | | | + + + +-------+ + + + + | Red | 4.01 | M/mm3 | | 3.80-5.2 | 07/11/16 | 07/11/16 | | | Blood | | | | 0 | 1:40pm | 2:17pm | | | Count | | | | | | | | + + + +-------+ + + + + | Hemoglob | 13.1 | g/dL | | 11.5-16. | 07/11/16 | 07/11/16 | | | in | | | | 0 | 1:40pm | 2:17pm | | + + + +-------+ + + + + | Hematocr | 39.8 | % | | 33.0-51. | 07/11/16 | 07/11/16 | | | it | | | | 0 | 1:40pm | 2:17pm | | + + + +-------+ + + + + | Mean | 99 | fL | | 80-100 | 07/11/16 | 07/11/16 | | | Corpuscu | | | | | 1:40pm | 2:17pm | | | lar | | | | | | | | | Volume | | | | | | | | + + + +-------+ + + + + | Mean | 32.7 | pg | | 26.0-34. | 07/11/16 | 07/11/16 | | | Corpuscu | | | | 0 | 1:40pm | 2:17pm | | | lar | | | | | | | | | Hemoglob | | | | | | | | | in | | | | | | | | + + + +-------+ + + + + | Mean | 32.9 | g/dL | | 31.5-36. | 07/11/16 | 07/11/16 | | | Corpuscu | | | | 5 | 1:40pm | 2:17pm | | | lar | | | | | | | | | Hemoglob | | | | | | | | | in | | | | | | | | | Concent | | | | | | | | + + + +-------+ + + + + | RDW | 48.9 | fL | H | 35.1-46. | 07/11/16 | 07/11/16 | | | Standard | | | | 3 | 1:40pm | 2:17pm | | | | | | | | | | | | Deviatio | | | | | | | | | n | | | | | | | | + + + +-------+ + + + + | RDW | 13.6 | % | | 11.7-14. | 07/11/16 | 07/11/16 | | | Coeffici | | | | 2 | 1:40pm | 2:17pm | | | ent of | | | | | | | | | Variatio | | | | | | | | | n | | | | | | | | + + + +-------+ + + + + | Platelet | 171 | K/mm3 | | 150-400 | 07/11/16 | 07/11/16 | | | Count | | | | | 1:40pm | 2:17pm | | + + + +-------+ + + + + | Mean | 12.6 | fL | H | 9.1-12.4 | 07/11/16 | 07/11/16 | | | Platelet | | | | | 1:40pm | 2:17pm | | | Volume | | | | | | | | + + + +-------+ + + + + | Differen | Auto | | | | 07/11/16 | 07/11/16 | | | tial | | | | | 1:40pm | 2:17pm | | | Method | | | | | | | | + + + +-------+ + + + + | Neutroph | 46 | % | | 41-73 | 07/11/16 | 07/11/16 | | | ils (%) | | | | | 1:40pm | 2:17pm | | | (Auto) | | | | | | | | + + + +-------+ + + + + | Lymphocy | 40 | % | | 21-46 | 07/11/16 | 07/11/16 | | | mary (%) | | | | | 1:40pm | 2:17pm | | | (Auto) | | | | | | | | + + + +-------+ + + + + | Monocyte | 12 | % | | 4-13 | 07/11/16 | 07/11/16 | | | s (%) | | | | | 1:40pm | 2:17pm | | | (Auto) | | | | | | | | + + + +-------+ + + + + | Eosinoph | 2 | % | | 0-6 | 07/11/16 | 07/11/16 | | | ils (%) | | | | | 1:40pm | 2:17pm | | | (Auto) | | | | | | | | + + + +-------+ + + + + | Basophil | 0 | % | | 0-2 | 07/11/16 | 07/11/16 | | | s (%) | | | | | 1:40pm | 2:17pm | | | (Auto) | | | | | | | | + + + +-------+ + + + + | Immature | 0 | % | | 0-1 | 07/11/16 | 07/11/16 | | | | | | | | 1:40pm | 2:17pm | | | Granuloc | | | | | | | | | yte % | | | | | | | | | (Auto) | | | | | | | | + + + +-------+ + + + + | Nucleate | 0.0 | /100 WBC | | 0.0-0.2 | 07/11/16 | 07/11/16 | | | d Red | | | | | 1:40pm | 2:17pm | | | Blood | | | | | | | | | Cells % | | | | | | | | + + + +-------+ + + + + | Absolute | 4.63 | K/mm3 | | 1.96-9.1 | 07/11/16 | 07/11/16 | | | | | | | 5 | 1:40pm | 2:17pm | | | Neutroph | | | | | | | | | ils | | | | | | | | | (auto) | | | | | | | | + + + +-------+ + + + + | Absolute | 4.06 | K/mm3 | | 0.84-5.2 | 07/11/16 | 07/11/16 | | | | | | | 0 | 1:40pm | 2:17pm | | | Lymphocy | | | | | | | | | mary | | | | | | | | | (auto) | | | | | | | | + + + +-------+ + + + + | Absolute | 1.17 | K/mm3 | | 0.16-1.4 | 07/11/16 | 07/11/16 | | | | | | | 7 | 1:40pm | 2:17pm | | | Monocyte | | | | | | | | | s (auto) | | | | | | | | + + + +-------+ + + + + | Absolute | 0.17 | K/mm3 | | 0.00-0.6 | 07/11/16 | 07/11/16 | | | | | | | 8 | 1:40pm | 2:17pm | | | Eosinoph | | | | | | | | | ils | | | | | | | | | (auto) | | | | | | | | + + + +-------+ + + + + | Absolute | 0.01 | K/mm3 | | 0.00-0.2 | 07/11/16 | 07/11/16 | | | | | | | 3 | 1:40pm | 2:17pm | | | Basophil | | | | | | | | | s (auto) | | | | | | | | + + + +-------+ + + + + | Absolute | 0.03 | K/mm3 | | 0.00-0.1 | 07/11/16 | 07/11/16 | | | | | | | 0 | 1:40pm | 2:17pm | | | Immature | | | | | | | | | | | | | | | | | | Granuloc | | | | | | | | | yte | | | | | | | | | (auto | | | | | | | | + + + +-------+ + + + + | Nucleate | 0.00 | K/mm3 | | 0.00-0.0 | 07/11/16 | 07/11/16 | | | d RBC | | | | 2 | 1:40pm | 2:17pm | | | Absolute | | | | | | | | | Count | | | | | | | | | (auto) | | | | | | | | + + + +-------+ + + + + | Sodium | 142 | mmol/L | | 136-145 | 07/11/16 | 07/11/16 | | | Level | | | | | 1:40pm | 2:46pm | | + + + +-------+ + + + + | [place] | 3.9 | mmol/L | | 3.5-5.5 | 07/11/16 | 07/11/16 | 1+ | | m Level | | | | | 1:40pm | 2:46pm | hemolysi | | | | | | | | | s:Subopt | | | | | | | | | imal | | | | | | | | | specimen | | | | | | | | | due to | | | | | | | | | the | | | | | | | | | presence | | | | | | | | | of | | | | | | | | | 1+hemoly | | | | | | | | | sis. | | | | | | | | | Results | | | | | | | | | may be | | | | | | | | | falsely | | | | | | | | | increase | | | | | | | | | d. | + + + +-------+ + + + + | Chloride | 105 | mmol/L | | 98-108 | 07/11/16 | 07/11/16 | | | Level | | | | | 1:40pm | 2:46pm | | + + + +-------+ + + + + | Carbon | 30 | mmol/L | | 21-32 | 07/11/16 | 07/11/16 | | | Dioxide | | | | | 1:40pm | 2:46pm | | | Level | | | | | | | | + + + +-------+ + + + + | Anion | 7 | mmol/L | | 6-16 | 07/11/16 | 07/11/16 | | | Gap | | | | | 1:40pm | 2:46pm | | + + + +-------+ + + + + | Glucose | 96 | mg/dL | | 70-99 | 07/11/16 | 07/11/16 | | | Level | | | | | 1:40pm | 2:46pm | | + + + +-------+ + + + + | Blood | 14 | mg/dL | | 8-24 | 07/11/16 | 07/11/16 | | | Urea | | | | | 1:40pm | 2:46pm | | | Nitrogen | | | | | | | | + + + +-------+ + + + + | Creatini | 0.54 | mg/dL | | 0.40-1.0 | 07/11/16 | 07/11/16 | | | ne | | | | 0 | 1:40pm | 2:46pm | | + + + +-------+ + + + + | BUN/Crea | 25.9 | % | H | 12.0-20. | 07/11/16 | 07/11/16 | | | tinine | | | | 0 | 1:40pm | 2:46pm | | | Ratio | | | | | | | | + + + +-------+ + + + + | Glomerul | >60 | | | 60- | 07/11/16 | 07/11/16 | Non-Afri | | ar | | | | | 1:40pm | 2:46pm | can | | Filtrati | | | | | | | [place] | | on Rate | | | | | | | GFR | | Calc | | | | | | | CalcFor | | | | | | | | | | | | | | | | | | [place] | | | | | | | | | s, | | | | | | | | | multiply | | | | | | | | | the | | | | | | | | | calculat | | | | | | | | | ed GFR | | | | | | | | | by | | | | | | | | | 1.21Refe | | | | | | | | | rence | | | | | | | | | Range: | | | | | | | | | Above 60 | | | | | | | | | | | | | | | | | | mL/min/1 | | | | | | | | | .73m^2 | + + + +-------+ + + + + | Calcium | 8.3 | mg/dL | L | 8.5-10.1 | 07/11/16 | 07/11/16 | | | Level | | | | | 1:40pm | 2:46pm | | + + + +-------+ + + + + | Total | 6.7 | g/dL | | 6.4-8.2 | 07/11/16 | 07/11/16 | | | Protein | | | | | 1:40pm | 2:46pm | | + + + +-------+ + + + + | Albumin | 3.4 | g/dL | | 3.4-5.0 | 07/11/16 | 07/11/16 | | | | | | | | 1:40pm | 2:46pm | | + + + +-------+ + + + + | Globulin | 3.3 | g/dL | | 2.2-4.0 | 07/11/16 | 07/11/16 | | | | | | | | 1:40pm | 2:46pm | | + + + +-------+ + + + + | Albumin/ | 1.0 | | | 0.8-1.8 | 07/11/16 | 07/11/16 | | | Globulin | | | | | 1:40pm | 2:46pm | | | Ratio | | | | | | | | + + + +-------+ + + + + | Total | 0.2 | mg/dL | | 0.1-1.0 | 07/11/16 | 07/11/16 | | | Bilirubi | | | | | 1:40pm | 2:46pm | | | n | | | | | | | | + + + +-------+ + + + + | Alkaline | 72 | U/L | | 50-136 | 07/11/16 | 07/11/16 | | | | | | | | 1:40pm | 2:46pm | | | Phosphat | | | | | | | | | ase | | | | | | | | + + + +-------+ + + + + | Aspartat | 17 | U/L | | 12-37 | 07/11/16 | 07/11/16 | 1+ | | e Amino | | | | | 1:40pm | 2:46pm | hemolysi | | Transf | | | | | | | s:Subopt | | (AST/SGO | | | | | | | imal | | T) | | | | | | | specimen | | | | | | | | | due to | | | | | | | | | the | | | | | | | | | presence | | | | | | | | | of | | | | | | | | | 1+hemoly | | | | | | | | | sis. | | | | | | | | | Results | | | | | | | | | may be | | | | | | | | | falsely | | | | | | | | | increase | | | | | | | | | d. | + + + +-------+ + + + + | Alanine | 23 | U/L | | 12-78 | 07/11/16 | 07/11/16 | | | Aminotra | | | | | 1:40pm | 2:46pm | | | nsferase | | | | | | | | | | | | | | | | | | (ALT/SGP | | | | | | | | | T) | | | | | | | | + + + +-------+ + + + + | Thyroid | 1.150 | uIU/mL | | 0.360-4. | 07/11/16 | 07/11/16 | | | Stimulat | | | | 800 | 1:40pm | 2:46pm | | | ing | | | | | | | | | Hormone | | | | | | | | | (TSH) | | | | | | | | + + + +-------+ + + + + | Influenz | [employer] Swab | | | | 07/03/16 | 07/03/16 | | | a | | | | | 3:45am | 4:32am | | | Antigen | | | | | | | | | Source | | | | | | | | + + + +-------+ + + + + | Influenz | Negative | | | NEGATIVE | 07/03/16 | 07/03/16 | "A | | a Type A | | | | | 3:45am | 4:32am | negative | | Antigen | | | | | | | result | | | | | | | | | does not | | | | | | | | | | | | | | | | | | complete | | | | | | | | | ly | | | | | | | | | exclude | | | | | | | | | influenz | | | | | | | | | aviral | | | | | | | | | infectio | | | | | | | | | n. | | | | | | | | | Negative | | | | | | | | | results | | | | | | | | | may be | | | | | | | | | confirme | | | | | | | | | d | | | | | | | | | byinflue | | | | | | | | | nza A | | | | | | | | | and B | | | | | | | | | molecula | | | | | | | | | r assay. | | | | | | | | | To | | | | | | | | | request | | | | | | | | | a | | | | | | | | | molecula | | | | | | | | | rassay | | | | | | | | | for | | | | | | | | | influenz | | | | | | | | | a A, | | | | | | | | | influenz | | | | | | | | | a B | | | | | | | | | and/or | | | | | | | | | addition | | | | | | | | | alrespir | | | | | | | | | atory | | | | | | | | | viruses, | | | | | | | | | please | | | | | | | | | call | | | | | | | | | [facility] | | | | | | | | | [facility] | | | | | | | | | logy | | | | | | | | | [phone] | | | | | | | | | [phone] | | | | | | | | | within | | | | | | | | | 24 | | | | | | | | | hours." | + + + +-------+ + + + + | Influenz | Negative | | | NEGATIVE | 07/03/16 | 07/03/16 | "A | | a Type B | | | | | 3:45am | 4:32am | negative | | Antigen | | | | | | | result | | | | | | | | | does not | | | | | | | | | | | | | | | | | | complete | | | | | | | | | ly | | | | | | | | | exclude | | | | | | | | | influenz | | | | | | | | | aviral | | | | | | | | | infectio | | | | | | | | | n. | | | | | | | | | Negative | | | | | | | | | results | | | | | | | | | may be | | | | | | | | | confirme | | | | | | | | | d | | | | | | | | | byinflue | | | | | | | | | nza A | | | | | | | | | and B | | | | | | | | | molecula | | | | | | | | | r assay. | | | | | | | | | To | | | | | | | | | request | | | | | | | | | a | | | | | | | | | molecula | | | | | | | | | rassay | | | | | | | | | for | | | | | | | | | influenz | | | | | | | | | a A, | | | | | | | | | influenz | | | | | | | | | a B | | | | | | | | | and/or | | | | | | | | | addition | | | | | | | | | alrespir | | | | | | | | | atory | | | | | | | | | viruses, | | | | | | | | | please | | | | | | | | | call | | | | | | | | | [facility] | | | | | | | | | [facility]bio | | | | | | | | | logy | | | | | | | | | [phone] | | | | | | | | | [phone] | | | | | | | | | within | | | | | | | | | 24 | | | | | | | | | hours." | | | | | | | | | Testing | | | | | | | | | performe | | | | | | | | | d using | | | | | | | | | Sindy | | | | | | | | | influenz | | | | | | | | | a A+B | | | | | | | | | fluoresc | | | | | | | | | enceimmu | | | | | | | | | noassay. | + + + +-------+ + + + + | Arterial | 7.35 | | | 7.35-7.4 | 07/03/16 | 07/03/16 | | | Blood | | | | 5 | 1:47am | 2:08am | | | pH | | | | | | | | + + + +-------+ + + + + | Arterial | 55.5 | mmHg | H | 35-45 | 07/03/16 | 07/03/16 | | | Blood | | | | | 1:47am | 2:08am | | | pCO2 | | | | | | | | | (Temp | | | | | | | | | correct) | | | | | | | | + + + +-------+ + + + + | Arterial | 71.0 | mmHg | L | 80-100 | 07/03/16 | 07/03/16 | | | Blood | | | | | 1:47am | 2:08am | | | pO2 | | | | | | | | | (Temp | | | | | | | | | correcte | | | | | | | | | d) | | | | | | | | + + + +-------+ + + + + | Blood | 27.9 | mmol/L | | 22.0-28. | 07/03/16 | 07/03/16 | | | Gas HCO3 | | | | 0 | 1:47am | 2:08am | | + + + +-------+ + + + + | Blood | 4.6 | mmol/L | H | -2-2 | 07/03/16 | 07/03/16 | | | Gas Base | | | | | 1:47am | 2:08am | | | Excess | | | | | | | | + + + +-------+ + + + + | Blood | 94 | % | L | 95-100 | 07/03/16 | 07/03/16 | | | Gas | | | | | 1:47am | 2:08am | | | Oxygen | | | | | | | | | Saturati | | | | | | | | | on | | | | | | | | + + + +-------+ + + + + | Room Air | YES | | | | 07/03/16 | 07/03/16 | | | | | | | | 1:47am | 2:08am | | + + + +-------+ + + + + | Blood | 22 | | | | 07/03/16 | 07/03/16 | | | Gas | | | | | 1:47am | 2:08am | | | Respirat | | | | | | | | | ion Rate | | | | | | | | + + + +-------+ + + + + | Blood | RR | | | | 07/03/16 | 07/03/16 | | | Gas | | | | | 1:47am | 2:08am | | | Puncture | | | | | | | | | Site | | | | | | | | + + + +-------+ + + + + | Blood | 94 | | | 94-100 | 07/03/16 | 07/03/16 | | | Gas | | | | | 1:47am | 2:08am | | | Oximetry | | | | | | | | + + + +-------+ + + + + | Arterial | 13.2 | G/dL | | 12.0-16. | 07/03/16 | 07/03/16 | "If | | Blood | | | | 0 | 1:47am | 2:08am | hemoglob | | Hemoglob | | | | | | | in | | in | | | | | | | outside | | | | | | | | | of | | | | | | | | | normal | | | | | | | | | limits, | | | | | | | | | use main | | | | | | | | | | | | | | | | | | Labresul | | | | | | | | | ts when | | | | | | | | | consider | | | | | | | | | ing | | | | | | | | | transfus | | | | | | | | | ions". | + + + +-------+ + + + + | Arterial | 91.6 | % | L | 95.0-100 | 07/03/16 | 07/03/16 | | | Blood | | | | .0 | 1:47am | 2:08am | | | Oxyhemog | | | | | | | | | lobin | | | | | | | | + + + +-------+ + + + + | Blood | RESULTS | | | | 07/03/16 | 07/03/16 | | | Gas | TO ED | | | | 1:47am | 2:08am | | | Comments | | | | | | | | + + + +-------+ + + + + | Serum | Negative | | | Negative | 07/03/16 | 07/03/16 | Interpre | | HCG, | | | | | 0:50am | 1:07am | tation: | | Qualitat | | | | | | | | | beny | | | | | | | Negative | | | | | | | | | - HCG | | | | | | | | | Not | | | | | | | | | Detected | + + + +-------+ + + + + | White | 15.90 | K/mm3 | H | 4.00-11. | 07/03/16 | 07/03/16 | | | Blood | | | | 30 | 0:01am | 0:46am | | | Count | | | | | | | | + + + +-------+ + + + + | Red | 4.32 | M/mm3 | | 3.80-5.2 | 07/03/16 | 07/03/16 | | | Blood | | | | 0 | 0:01am | 0:46am | | | Count | | | | | | | | + + + +-------+ + + + + | Hemoglob | 14.1 | g/dL | | 11.5-16. | 07/03/16 | 07/03/16 | | | in | | | | 0 | 0:01am | 0:46am | | + + + +-------+ + + + + | Hematocr | 42.3 | % | | 33.0-51. | 07/03/16 | 07/03/16 | | | it | | | | 0 | 0:01am | 0:46am | | + + + +-------+ + + + + | Mean | 98 | fL | | 80-100 | 07/03/16 | 07/03/16 | | | Corpuscu | | | | | 0:01am | 0:46am | | | lar | | | | | | | | | Volume | | | | | | | | + + + +-------+ + + + + | Mean | 32.6 | pg | | 26.0-34. | 07/03/16 | 07/03/16 | | | Corpuscu | | | | 0 | 0:01am | 0:46am | | | lar | | | | | | | | | Hemoglob | | | | | | | | | in | | | | | | | | + + + +-------+ + + + + | Mean | 33.3 | g/dL | | 31.5-36. | 07/03/16 | 07/03/16 | | | Corpuscu | | | | 5 | 0:01am | 0:46am | | | lar | | | | | | | | | Hemoglob | | | | | | | | | in | | | | | | | | | Concent | | | | | | | | + + + +-------+ + + + + | RDW | 46.6 | fL | H | 35.1-46. | 07/03/16 | 07/03/16 | | | Standard | | | | 3 | 0:01am | 0:46am | | | | | | | | | | | | Deviatio | | | | | | | | | n | | | | | | | | + + + +-------+ + + + + | RDW | 13.1 | % | | 11.7-14. | 07/03/16 | 07/03/16 | | | Coeffici | | | | 2 | 0:01am | 0:46am | | | ent of | | | | | | | | | Variatio | | | | | | | | | n | | | | | | | | + + + +-------+ + + + + | Platelet | 227 | K/mm3 | | 150-400 | 07/03/16 | 07/03/16 | | | Count | | | | | 0:01am | 0:46am | | + + + +-------+ + + + + | Mean | 12.9 | fL | H | 9.1-12.4 | 07/03/16 | 07/03/16 | | | Platelet | | | | | 0:01am | 0:46am | | | Volume | | | | | | | | + + + +-------+ + + + + | Differen | Auto | | | | 07/03/16 | 07/03/16 | | | tial | | | | | 0:01am | 0:46am | | | Method | | | | | | | | + + + +-------+ + + + + | Neutroph | 77 | % | H | 41-73 | 07/03/16 | 07/03/16 | | | ils (%) | | | | | 0:01am | 0:46am | | | (Auto) | | | | | | | | + + + +-------+ + + + + | Lymphocy | 13 | % | L | 21-46 | 07/03/16 | 07/03/16 | | | mary (%) | | | | | 0:01am | 0:46am | | | (Auto) | | | | | | | | + + + +-------+ + + + + | Monocyte | 10 | % | | 4-13 | 07/03/16 | 07/03/16 | | | s (%) | | | | | 0:01am | 0:46am | | | (Auto) | | | | | | | | + + + +-------+ + + + + | Eosinoph | 0 | % | | 0-6 | 07/03/16 | 07/03/16 | | | ils (%) | | | | | 0:01am | 0:46am | | | (Auto) | | | | | | | | + + + +-------+ + + + + | Basophil | 0 | % | | 0-2 | 07/03/16 | 07/03/16 | | | s (%) | | | | | 0:01am | 0:46am | | | (Auto) | | | | | | | | + + + +-------+ + + + + | Immature | 0 | % | | 0-1 | 07/03/16 | 07/03/16 | | | | | | | | 0:01am | 0:46am | | | Granuloc | | | | | | | | | yte % | | | | | | | | | (Auto) | | | | | | | | + + + +-------+ + + + + | Nucleate | 0.0 | /100 WBC | | 0.0-0.2 | 07/03/16 | 07/03/16 | | | d Red | | | | | 0:01am | 0:46am | | | Blood | | | | | | | | | Cells % | | | | | | | | + + + +-------+ + + + + | Absolute | 12.22 | K/mm3 | H | 1.96-9.1 | 07/03/16 | 07/03/16 | | | | | | | 5 | 0:01am | 0:46am | | | Neutroph | | | | | | | | | ils | | | | | | | | | (auto) | | | | | | | | + + + +-------+ + + + + | Absolute | 2.04 | K/mm3 | | 0.84-5.2 | 07/03/16 | 07/03/16 | | | | | | | 0 | 0:01am | 0:46am | | | Lymphocy | | | | | | | | | mary | | | | | | | | | (auto) | | | | | | | | + + + +-------+ + + + + | Absolute | 1.57 | K/mm3 | H | 0.16-1.4 | 07/03/16 | 07/03/16 | | | | | | | 7 | 0:01am | 0:46am | | | Monocyte | | | | | | | | | s (auto) | | | | | | | | + + + +-------+ + + + + | Absolute | 0.00 | K/mm3 | | 0.00-0.6 | 07/03/16 | 07/03/16 | | | | | | | 8 | 0:01am | 0:46am | | | Eosinoph | | | | | | | | | ils | | | | | | | | | (auto) | | | | | | | | + + + +-------+ + + + + | Absolute | 0.01 | K/mm3 | | 0.00-0.2 | 07/03/16 | 07/03/16 | | | | | | | 3 | 0:01am | 0:46am | | | Basophil | | | | | | | | | s (auto) | | | | | | | | + + + +-------+ + + + + | Absolute | 0.06 | K/mm3 | | 0.00-0.1 | 07/03/16 | 07/03/16 | | | | | | | 0 | 0:01am | 0:46am | | | Immature | | | | | | | | | | | | | | | | | | Granuloc | | | | | | | | | yte | | | | | | | | | (auto | | | | | | | | + + + +-------+ + + + + | Nucleate | 0.00 | K/mm3 | | 0.00-0.0 | 07/03/16 | 07/03/16 | | | d RBC | | | | 2 | 0:01am | 0:46am | | | Absolute | | | | | | | | | Count | | | | | | | | | (auto) | | | | | | | | + + + +-------+ + + + + | Sodium | 140 | mmol/L | | 136-145 | 07/03/16 | 07/03/16 | | | Level | | | | | 0:01am | 0:57am | | + + + +-------+ + + + + | Potassiu | 4.2 | mmol/L | | 3.5-5.5 | 07/03/16 | 07/03/16 | 1+ | | m Level | | | | | 0:01am | 0:57am | hemolysi | | | | | | | | | s:Subopt | | | | | | | | | imal | | | | | | | | | specimen | | | | | | | | | due to | | | | | | | | | the | | | | | | | | | presence | | | | | | | | | of | | | | | | | | | 1+hemoly | | | | | | | | | sis. | | | | | | | | | Results | | | | | | | | | may be | | | | | | | | | falsely | | | | | | | | | increase | | | | | | | | | d. | + + + +-------+ + + + + | Chloride | 102 | mmol/L | | 98-108 | 07/03/16 | 07/03/16 | | | Level | | | | | 0:01am | 0:57am | | + + + +-------+ + + + + | Carbon | 26 | mmol/L | | 21-32 | 07/03/16 | 07/03/16 | | | Dioxide | | | | | 0:01am | 0:57am | | | Level | | | | | | | | + + + +-------+ + + + + | Anion | 12 | mmol/L | | 6-16 | 07/03/16 | 07/03/16 | | | Gap | | | | | 0:01am | 0:57am | | + + + +-------+ + + + + | Glucose | 178 | mg/dL | H | 70-99 | 07/03/16 | 07/03/16 | | | Level | | | | | 0:01am | 0:57am | | + + + +-------+ + + + + | Blood | 11 | mg/dL | | 8-24 | 07/03/16 | 07/03/16 | | | Urea | | | | | 0:01am | 0:57am | | | Nitrogen | | | | | | | | + + + +-------+ + + + + | Creatini | 0.45 | mg/dL | | 0.40-1.0 | 07/03/16 | 07/03/16 | | | ne | | | | 0 | 0:01am | 0:57am | | + + + +-------+ + + + + | BUN/Crea | 24.5 | % | H | 12.0-20. | 07/03/16 | 07/03/16 | | | tinine | | | | 0 | 0:01am | 0:57am | | | Ratio | | | | | | | | + + + +-------+ + + + + | Glomerul | >60 | | | 60- | 07/03/16 | 07/03/16 | Non-Afri | | ar | | | | | 0:01am | 0:57am | can | | Filtrati | | | | | | | [place] | | on Rate | | | | | | | GFR | | Calc | | | | | | | CalcFor | | | | | | | | | | | | | | | | | | [place] | | | | | | | | | s, | | | | | | | | | multiply | | | | | | | | | the | | | | | | | | | calculat | | | | | | | | | ed GFR | | | | | | | | | by | | | | | | | | | 1.21Refe | | | | | | | | | rence | | | | | | | | | Range: | | | | | | | | | Above 60 | | | | | | | | | | | | | | | | | | mL/min/1 | | | | | | | | | .73m^2 | + + + +-------+ + + + + | Calcium | 8.9 | mg/dL | | 8.5-10.1 | 07/03/16 | 07/03/16 | | | Level | | | | | 0:01am | 0:57am | | + + + +-------+ + + + + | Magnesiu | 2.0 | mg/dL | | 1.6-2.4 | 07/03/16 | 07/03/16 | 1+ | | m Level | | | | | 0:01am | 0:57am | hemolysi | | | | | | | | | s:Subopt | | | | | | | | | imal | | | | | | | | | specimen | | | | | | | | | due to | | | | | | | | | the | | | | | | | | | presence | | | | | | | | | of | | | | | | | | | 1+hemoly | | | | | | | | | sis. | | | | | | | | | Results | | | | | | | | | may be | | | | | | | | | falsely | | | | | | | | | increase | | | | | | | | | d. | + + + +-------+ + + + + | Total | 7.6 | g/dL | | 6.4-8.2 | 07/03/16 | 07/03/16 | | | Protein | | | | | 0:01am | 0:57am | | + + + +-------+ + + + + | Albumin | 3.9 | g/dL | | 3.4-5.0 | 07/03/16 | 07/03/16 | | | | | | | | 0:01am | 0:57am | | + + + +-------+ + + + + | Globulin | 3.7 | g/dL | | 2.2-4.0 | 07/03/16 | 07/03/16 | | | | | | | | 0:01am | 0:57am | | + + + +-------+ + + + + | Albumin/ | 1.1 | | | 0.8-1.8 | 07/03/16 | 07/03/16 | | | Globulin | | | | | 0:01am | 0:57am | | | Ratio | | | | | | | | + + + +-------+ + + + + | Total | 0.3 | mg/dL | | 0.1-1.0 | 07/03/16 | 07/03/16 | | | Bilirubi | | | | | 0:01am | 0:57am | | | n | | | | | | | | + + + +-------+ + + + + | Alkaline | 69 | U/L | | 50-136 | 07/03/16 | 07/03/16 | | | | | | | | 0:01am | 0:57am | | | Phosphat | | | | | | | | | ase | | | | | | | | + + + +-------+ + + + + | Aspartat | 35 | U/L | | 12-37 | 07/03/16 | 07/03/16 | 1+ | | e Amino | | | | | 0:01am | 0:57am | hemolysi | | Transf | | | | | | | s:Subopt | | (AST/SGO | | | | | | | imal | | T) | | | | | | | specimen | | | | | | | | | due to | | | | | | | | | the | | | | | | | | | presence | | | | | | | | | of | | | | | | | | | 1+hemoly | | | | | | | | | sis. | | | | | | | | | Results | | | | | | | | | may be | | | | | | | | | falsely | | | | | | | | | increase | | | | | | | | | d. | + + + +-------+ + + + + | Alanine | 36 | U/L | | 12-78 | 07/03/16 | 07/03/16 | | | Aminotra | | | | | 0:01am | 0:57am | | | nsferase | | | | | | | | | | | | | | | | | | (ALT/SGP | | | | | | | | | T) | | | | | | | | + + + +-------+ + + + + Microbiology Results + + + + + + | Procedure | Source | Result | Collection | Result | | | | | Date/Time | Date/Time | + + + + + + | Blood Culture | Blood, | FINAL REPORT: | 07/03/16 3:54am | 07/09/16 6:33am | | | Venipuncture | No growth | | | + + + + + + | Blood Culture | Blood, | FINAL REPORT: | 07/03/16 3:51am | 07/09/16 6:33am | | | Venipuncture | No growth | | | + + + + + + Date of Admission: 07/03/16 Date of Discharge: 07/03/16 Report: DISCHARGE SUMMARY DATE OF SERVICE: 07/03/2016 Please note this discharge against medical advice. HISTORY OF PRESENT ILLNESS: The patient is a 30-year-old female admitted for shortness of breath with acute asthma exacerbation and stridor. The patient has a history of asthma and has been having shortness of breath as well as wheezing and stridor. It has been worse last night and so she presented to the emergency room where she was noted to be very short of breath and was desaturating when she was sleeping. She has been given hour long nebulization treatment as well as high doses of steroids with mild relief. Blood gases showed elevated pCO2. The patient states that her breathing this morning seems to have subsided some. She still feels tightness. She still has some stridor and wheezing. She has occasional cough, nonproductive of phlegm. Chest x-ray shows elements of air trapping with no pneumonia or failure. Currently, the patient wants to go home as she has her wedding scheduled at 2:30 this afternoon. Her to be is at bedside. I did explain to her that leaving the hospital prematurely can result in worsening of respiratory failure and can even lead to , especially with her case because she has some stridor. I explained to her that it can even lead to her airway is closing off in a short period of time which is seconds to minutes. She states that she is feeling a little bit better, and feels she may be able to continue on with her plans to be wed today. She understands the risks associated with this, but wants to go home because she has her wedding already scheduled. I could not make her or her boyfriend changed their minds at this time, she is advised to continue using the nebulizer inhalers and continues with steroids from home and to call their primary care tomorrow once the office opens. The patient will be asked to sign against medical advice. The patient is encouraged to return to the emergency room as soon as she feels that her breathing starting to get tighter and more difficult. DISCHARGE DIAGNOSES: 1. Acute asthma exacerbation. 2. Anxiety. 3. Nicotine dependence. Thais Mccallum MD A P Job: [id number] / [id number] 07/04/16 1629 <Electronically signed by Thais Mccallum MD> Procedures No Known History of Procedures. Encounters + + + + + + | Encounter | Location | Arrival/Admit | Discharge/Depar | Attending | | | | Date | t Date | Provider | + + + + + + | Departed | [facility] | 07/11/16 | 07/11/16 3:42pm | Julián Julian DO | | Emergency | [facility] | 11:54am | | | + + + + + + | Discharged | [facility] | 07/02/16 | 07/03/16 | [place], | | Inpatient | [facility] | 10:31pm | 12:05pm | Tab Lechuga MD | + + + + + + | Discharged | [facility] | 07/02/16 | 07/03/16 3:30am | [place] | | Emergency | [facility] | 10:31pm | | Tab Lechuga MD | + + + + + + + + | Encounter Diagnosis | + + | Pharyngitis | + +
--- OUTSIDE RECORDS SUMMARY | ~2019-10-16 | XMS | Clinical Summary ---
Demographics + + + | Address | [facility] [address] | | | [place] [address] | + + + | Home Phone | | + + + | Preferred Language | Unknown | + + + | Marital Status | M | + + + | Holiness Affiliation | Unknown | + + + | Race | White | + + + | Ethnic Group | Not or | + + + Author + + + | Author | Mitch [facility]entes | + + + | Organization | [facility] | + + + | Address | [address] | | | [place] [address] | + + + | Phone | Unavailable | + + + Care Team Providers + +------+ + | Care Creel Operator Name | Role | Phone | [...] tion | | +---------+---------+---------+---------+---------+---------+---------+---------+---------+ | PERIPHE | [id number] | | Active | | [place] | | Periphe | | | RAL | 00 | /11 | | /11 | Killian | | ral | | | EDEMA | (SNOMED | | | | PA-C | | edema | | | | CT) | | | | | | | | +---------+---------+---------+---------+---------+---------+---------+---------+---------+ | WHEEZIN | [id number] | | Resolve | | [place]ma | | Wheezin | | | G | 4 | /13 | d | /13 | Killian | | g | | | | (SNOMED | | | | PA-C | | | | | | CT) | | | | | | | | +---------+---------+---------+---------+---------+---------+---------+---------+---------+ | PNEUMON | [id number] | | Resolve | | Irma | [...] | | | +---------+---------+---------+---------+---------+---------+---------+---------+---------+ | ABDOMIN | [id number] | | Resolve | | [place]ma | [...] | | | +---------+---------+---------+---------+---------+---------+---------+---------+---------+ | NAUSEA | [id number] | | Resolve | | [place] | | Nausea | | | AND | 0 | | d | | Killian | | and | | | VOMITIN | (SNOMED | | | | PA-C | | vomitin | | | G | CT) | | | | | | g | | +---------+---------+---------+---------+---------+---------+---------+---------+---------+ | DIARRHE | [id number] | | Resolve | | [place] | | Diarrhe | | | A | 8 | | d | /17 | Killian | | a | | | | (SNOMED | | | | PA-C | | | | | | CT) | | | | | | | | +---------+---------+---------+---------+---------+---------+---------+---------+---------+ | DYSURIA | [id number] | | Resolve | | [place] | | Dysuria | painful | | | 1 | /08 | d | /08 | Killian | | | | | | (SNOMED | | | | PA-C | | | urinati | | | CT) | | | | | | | on | +---------+---------+---------+---------+---------+---------+---------+---------+---------+ | PREVENT | [id number] | | Resolve | | [place] | | Screeni | | | KAY | 02 | /06 | d | /06 | Killian | | ng - | | | HEALTH | (SNOMED | | | | PA-C | | health | | | CARE | CT) | | | | | | check | | +---------+---------+---------+---------+---------+---------+---------+---------+---------+ | MISSED | [id number] | | Resolve | | [place]ma | | Missed | | | PERIOD | 0 | /13 | d | /13 | Killian | | period | | | | (SNOMED | | | | PA-C | | | | | | CT) | | | | | | | | +---------+---------+---------+---------+---------+---------+---------+---------+---------+ | STRIDOR | [id number] | | Active | | Tejas | | Stridor | | | | 1 | /19 | | / | Balhan | | | | | | (SNOMED | | | | MD | | | | | | CT) | | | | | | | | +---------+---------+---------+---------+---------+---------+---------+---------+---------+ | HX OF | [id number] | | Active | | Daniela | | H/O: | | | BEE | | | | | Green | | non-alexei | | | STING | (SNOMED | | | | NCMA | | g | | | ALLERGY | CT) | | | | | | allergy | | +---------+---------+---------+---------+---------+---------+---------+---------+---------+ | WHEEZIN | [id number] | | Removed | | Hanna | | Wheezin | | | G | 4 | /13 | | /13 | Winston | | g | | | | (SNOMED | | | | CNM | | | | | | CT) | | | | | | | | +---------+---------+---------+---------+---------+---------+---------+---------+---------+ | MISSED | [id number] | | Removed | | Hanna | | Missed | | | PERIOD | 0 | /13 | | /13 | Winston | | period | | | | (SNOMED | | | | CNM | | | | | | CT) | | | | | | | | +---------+---------+---------+---------+---------+---------+---------+---------+---------+ | PREVENT | [id number] | | Removed | | Camille | | Screeni | | | KAY | 02 | / | | | Devereu | | ng - | | | HEALTH | (SNOMED | | | | x DNP, | | health | | | CARE | CT) | | | | CITY SUPERINTENDENT-C | | check | | +---------+---------+---------+---------+---------+---------+---------+---------+---------+ | DYSURIA | [id number] | | Removed | | [place] | | Dysuria | painful | | | 1 | /08 | | /08 | Devereu | | | | | | (SNOMED | | | | x DNP, | | | urinati | | | CT) | | | | CITY SUPERINTENDENT-C | | | on | +---------+---------+---------+---------+---------+---------+---------+---------+---------+ | SEXUAL | [id number] | | Inactiv | | Camille | | High | | | ACTIVIT | 04 | /08 | e | /08 | Devereu | | risk | | | Y, HIGH | (SNOMED | | | | x DNP, | | sexual | | | RISK | CT) | | | | CITY SUPERINTENDENT-C | | behavio | | | | | | | | | | r | | +---------+---------+---------+---------+---------+---------+---------+---------+---------+ | DIARRHE | [id number] | | Removed | | Adilia | | Diarrhe | | | A | 8 | /17 | | /17 | Kallie | | a | | | | (SNOMED | | | | ANP | | | | | | CT) | | | | | | | | +---------+---------+---------+---------+---------+---------+---------+---------+---------+ | NAUSEA | [id number] | | Removed | | Adilia | | Nausea | | | AND | 0 | /17 | | / | Kallie | | and | | | VOMITIN | (SNOMED | | | | ANP | | vomitin | | | G | CT) | | | | | | g | | +---------+---------+---------+---------+---------+---------+---------+---------+---------+ | ABDOMIN | [id number] | | Removed | | Adilia | [...] | | | +---------+---------+---------+---------+---------+---------+---------+---------+---------+ | OTITIS | [id number] | | Inactiv | | Jorge Luis Fair | | Otitis | | | EXTERNA | | | e | | Calderón | | externa | | | | (SNOMED | | | | ACNP | | | | | | CT) | | | | | | | | +---------+---------+---------+---------+---------+---------+---------+---------+---------+ | CERUMEN | [id number] | | Inactiv | | Jorge Luis [...] | | | +---------+---------+---------+---------+---------+---------+---------+---------+---------+ | HYPOTHY | [id number] | | Active | | Adilia | | Hypothy | | | ROIDISM | 8 | | | | Kallie | | roidism | | | | (SNOMED | | | | ANP | | | | | | CT) | | | | | | | | +---------+---------+---------+---------+---------+---------+---------+---------+---------+ | ANXIETY | [id number] | | Active | | Adilia | [...] r | | +---------+---------+---------+---------+---------+---------+---------+---------+---------+ | NICOTIN | [id number] | | Active | | Adilia | | Nicotin | | | E | 8 | / | | /07 | Kallie | | e | | | ADDICTI | (SNOMED | | | | ANP | | depende | | | ON | CT) | | | | | | nce | | +---------+---------+---------+---------+---------+---------+---------+---------+---------+ | BACK | [id number] | | Active | | Adilia | | Low | | | PAIN, | 07 | /07 | | /07 | Kallie | | back | | | LUMBAR | (SNOMED | | | | ANP | | pain | | | | CT) | | | | | | | | +---------+---------+---------+---------+---------+---------+---------+---------+---------+ | PNEUMON | [id number] | | Removed | | Adilia | | Pneumon | | | IA | 07 | /07 | | /07 | Kallie | | ia | | | | (SNOMED | | | | ANP | | | | | | CT) | | | | | | | | +---------+---------+---------+---------+---------+---------+---------+---------+---------+ | ASTHMA | [id number] | | Active | | Adilia | [...] tab by | | | IBUPROFEN | [id number] | Adilia | | 800 MG | [...] 40 | | | | CITALOPRAM | [id number] | Delaney | | MG TABS | | | | | 0 | Rishi MA | | | | | | HYDROBROMI | | | | | | | | DE | | | + + + + + + + + | PREDNISONE | 1 tab po q | | | PREDNISONE | [id number] | Adilia | | 10 MG | [...] HFA | | | | ALBUTEROL | [id number] | Irma | | 108 (90 | | | | SULFATE | 0 | Killian PA-C | | Base) | | | | | | | | MCG/ACT | | | | | | | | AERS | | | | | | | + + + + + + + + | OMEPRAZOLE | 1 capsule | | | OMEPRAZOLE | [id number] | Delaney | | MAGNESIUM | by mouth | | | MAGNESIUM | 2 | Rsihi MA | | 20.6 (20 | once a day | | | | | | | Base) MG | | | | | | | | CPDR | | | | | | | + + + + + + + + | PREDNISONE | 1 tab po q | | | PREDNISONE | [id number] | Adilia | | 10 MG | d | | | | 2 | Kallie ANP | | TABS | | | | | | | + + + + + + + + | LEVOXYL 88 | | | | LEVOTHYROX | [id number] | Delaney | | MCG TABS | | | | INE SODIUM | 0 | Rishi TAIWO | + + + + + + + + | HYDROXYZIN | | | | HYDROXYZIN | 6476509425 | Delaney | | E HCL 10 | | | | E HCL | 0 | Rishi MARAVILLA | | MG TABS | | | | | | | + + + + + + + + | PROAIR HFA | as needed | | | ALBUTEROL | 5478838283 | Daniela | | 108 (90 | | | | SULFATE | 0 | Green NCMA | | Base) | | | | | | | | MCG/ACT | | | | | | | | AERS | | | | | | | + + + + + + + + | DOXYCYCLIN | | | | DOXYCYCLIN | 7136061734 | Irma | | E HYCLATE | | | | E HYCLATE | 1 | Killian PA-C | | 150 MG | | | | | | | | TBEC | | | | | | | + + + + + + + + | BUSPIRONE | 1 tab po q | | | BUSPIRONE | 7352803978 | Delaney | | HCL 15 MG | d | | | HCL | 0 | Rishi MARAVILLA | | TABS | | | | | | | + + + + + + + + | ARMOUR | 1 tab po q | | | THYROID | 3347158144 | Delaney | | THYROID 15 | d | | | | 1 | Rishi MA | | MG TABS | | | | | | | + + + + + + + + | CYCLOBENZA | 1 tab po | | | CYCLOBENZA | 9180828227 | Delaney | | GRZEGORZ HCL | BIDprn for | | | GRZEGORZ HCL | 0 | Rishi MA | | 10 MG TABS | muscle | | | | | | | | spasms | | | | | | + + + + + + + + | PROAIR HFA | | | | ALBUTEROL | 9752393818 | Delaney | | 108 (90 | | | | SULFATE | 0 | Rishi MA | | Base) | | | | | | | | MCG/ACT | | | | | | | | AERS | | | | | | | + + + + + + + + | CHANTIX | take as | | | VARENICLIN | [id number] | Camille | | STARTING | directed | | | E TARTRATE | 3 | Devereux | | MONTH TEDDY | | | | | | DNP, CITY SUPERINTENDENT-C | | 0.5 MG X | | | | | | | | 11 & 1 MG | | | | | | | | X 42 TABS | | | | | | | + + + + + + + + | PROMETHAZI | 1 tab po | | | PROMETHAZI | 6598289580 | Camille | | NE HCL 25 | Q6prn for | | | NE HCL | 0 | Devereux | | MG TABS | nausea | | | | | DNP, CITY SUPERINTENDENT-C | + + + + + + + + | MUCINEX | 1 tab two | | | GUAIFENESI | 3640056977 | Irma | | 600 MG | times per | | | N | 2 | Constantin PETERS | | [id number]-VNQ | day | | | | | | + + + + + + + + | LEVAQUIN | 1 tab | | | LEVOFLOXAC | 4452677614 | Camille | | 750 MG | every day | | | IN | 7 | Devereux | | TABS | for 6 days | | | | | DNP, CITY SUPERINTENDENT-C | + + + + + + + + | ESCITALOPR | 1 tab po | | | ESCITALOPR | 5556272140 | Delaney | | AM OXALATE | daily for | | | AM OXALATE | 7 | Rishi MA | | 20 MG | depression | | | | | | | TABS | | | | | | | + + + + + + + + | IBUPROFEN | One tab by | | | IBUPROFEN | 7849293022 | Camille | | 800 MG | mouth | | | | 0 | Devereux | | TABS | every 12 | | | | | DNP, CITY SUPERINTENDENT-C | | | hours as | | [...] take three | | | PREDNISONE | 6888497419 | Camille | | 20 MG | tablets | | | | 5 | Devereux | | TABS | daily for | | | | | DNP, CITY SUPERINTENDENT-C | | | 2 days, | | [...] DOXYCYCLIN | | | | DOXYCYCLIN | 2710105928 | Delaney | | E HYCLATE | | | | E HYCLATE | 1 | Rishi MA | | 150 MG | | | | | | | | TBEC | | | | | | | + + + + + + + + | BENZONATAT | 1 tab once | | | BENZONATAT | 7924690042 | Hanna Montero | | E 100 MG | every 8 | | | E | 0 | CNM | | CAPS | hours | | | | | | + + + + + + + + | ONDANSETRO | 1 tab po | | | ONDANSETRO | 9119012202 | Adilia | | N HCL 4 MG | daily as | | | N HCL | 0 | Kallie ANP | | TABS | needed | | | | | | + + + + + + + + | VENTOLIN | 2 puffs | | | ALBUTEROL | 4656318805 | Delaney | | HFA 108 | [...] tab once | | | BENZONATAT | 0726576471 | Camille | | E 100 MG | every 8 | | | E | 0 | Devereux | | CAPS | hours | | | | | DNP, CITY SUPERINTENDENT-C | + + + + + + + + | KLOR-CON | Take 1 tab | | | POTASSIUM | 3139214702 | Irma | | M10 10 MEQ | with | | | CHLORIDE | 0 | Constantin PEETRS | | CR-TABS | Lasix | | | ROBERTO CR | | | | | (furosemid | | | | | | | | e) | | | | | | + + + + + + + + | FUROSEMIDE | Take 1 tab | | | FUROSEMIDE | 6632596245 | Irma | | 20 MG | daily x | | | | 0 | Constantin PETERS | | TABS | 10 days. | | | | | | + + + + + + + + | ALBUTEROL | use | | | ALBUTEROL | 1084288339 | Camille | | SULFATE | nebulizer | | | SULFATE | 3 | Devereux | | 0.63 | every 6 | | | | | DNP, CITY SUPERINTENDENT-C | | MG/3ML | hours as | [...] tab two | | | GUAIFENESI | 9044476057 | [place]ille | | 600 MG | times per | | | N | 2 | Devereux | | [id number]-LJD | day | | | | | DNP, CITY SUPERINTENDENT-C | + + + + + + + + | PREDNISONE | take three | | | PREDNISONE | 6143682842 | Cam[place] | | 20 MG | tablets | | | | 5 | Devereux | | TABS | daily for | | | | | DNP, CITY SUPERINTENDENT-C | | | 2 days, | | [...] use as | | | EPINEPHRIN | 5764459395 | Camille | | 2-TEDDY 0.3 | directed | | | E | 2 | Devereux | | MG/0.3ML | for | | | | | DNP, CITY SUPERINTENDENT-C | | SOAJ | anaphylaxi | | | | | | | | s reaction | | | | | | + + + + + + + + | NICODERM | Apply one | | | NICOTINE | 1127697486 | Hanna Montero | | CQ 21 | patch | | | | 2 | CNM | | MG/24HR | every 24 | | | | | | | PT24 | hours. | | | | | | + + + + + + + + | LEVAQUIN | 1 tab | | | LEVOFLOXAC | 4008654846 | Cam[place] | | 750 MG | every day | | | IN | 7 | Devereux | | TABS | for 6 days | | | | | DNP, CITY SUPERINTENDENT-C | + + + + + + + + | CHANTIX | take as | | | VARENICLIN | 0629632345 | Cam[place] | | STARTING | directed | | | E TARTRATE | 3 | Devereux | | MONTH TEDDY | | | | | | DNP, CITY SUPERINTENDENT-C | | 0.5 MG X | | | | | | | | 11 & 1 MG | | | | | | | | X 42 TABS | | | | | | | + + + + + + + + | OMEPRAZOLE | 1 capsule | | | OMEPRAZOLE | 3425955708 | Camille | | MAGNESIUM | by mouth | | | MAGNESIUM | 2 | Devereux | | 20.6 (20 | once a day | | | | | DNP, CITY SUPERINTENDENT-C | | Base) MG | | | | | | | | CPDR | | | | | | | + + + + + + + + | ESCITALOPR | 1 tab po | | | ESCITALOPR | 7386335912 | Camille | | AM OXALATE | daily for | | | AM OXALATE | 7 | Devereux | | 20 MG | depression | | | | | DNP, CITY SUPERINTENDENT-C | | TABS | | | | | | | + + + + + + + + | BUSPIRONE | 1 tab po q | | | BUSPIRONE | 3177734250 | Camille | | HCL 15 MG | d | | | HCL | 0 | Devereux | | TABS | | | | | | DNP, CITY SUPERINTENDENT-C | + + + + + + + + | CYCLOBENZA | 1 tab po | | | CYCLOBENZA | 6093275996 | Camille | | GRZEGORZ HCL | BIDprn for | | | GRZEGORZ HCL | 0 | Devereux | | 10 MG TABS | muscle | | | | | DNP, CITY SUPERINTENDENT-C | | | spasms | | | | | | + + + + + + + + | VENTOLIN | 2 puffs | | | ALBUTEROL | 1623334680 | Camille | | HFA 108 | QIDprn for | | | SULFATE | 0 | Devereux | | (90 Base) | SOB | | | | | DNP, CITY SUPERINTENDENT-C | | MCG/ACT | | | | | | | | AERS | | | | | | | + + + + + + + + | ADVAIR | 1 puff BID | | | FLUTICASON | 3463522630 | Cam[place] | | DISKUS | for | | | E-SALMETER | 0 | Devereux | | 250-50 | asthma | | | OL | | DNP, CITY SUPERINTENDENT-C | | MCG/DOSE | | | | | | | | AEPB | | | | | | | + + + + + + + + | PROAIR HFA | as needed | | | ALBUTEROL | 4017423077 | Camille | | 108 (90 | | | | SULFATE | 0 | Devereux | | Base) | | | | | | DNP, CITY SUPERINTENDENT-C | | MCG/ACT | | | | | | | | AERS | | | | | | | + + + + + + + + | ARMOUR | 1 tab po q | | | THYROID | 8595665756 | Cam[place] | | THYROID 15 | d | | | | 1 | Devereux | | MG TABS | | | | | | DNP, CITY SUPERINTENDENT-C | + + + + + + + + | PROMETHAZI | 1 tab po | | | PROMETHAZI | 5097598008 | Adilia | | NE HCL 25 | Q6prn for | | | NE HCL | 0 | Kallie ANP | | MG TABS | nausea | | | | | | + + + + + + + + | POLYMYXIN | Place 4 | | | POLYMYXIN | 7466972568 | Jorge Luis Fair | | B-TRIMETHO | drops in | | | B-TRIMETHO | 0 | Calderón | | PRIM | the | | | PRIM | | ACNP | | 00213-5.1 | affected | | | | | [...] tab po | | | ONDANSETRO | 8187343573 | Adilia | | N HCL 4 MG | daily as | | | N HCL | 0 | Kallie ANP | | TABS | needed | | | | | | + + + + + + + + | IBUPROFEN | One tab by | | | IBUPROFEN | 3177755020 | Adilia | | 800 MG | [...] tab po | | | ESCITALOPR | 6975872699 | Adilia | | AM OXALATE | daily for | | | AM OXALATE | 2 | Kallie ANP | | 20 MG | depression | | | | | | | TABS | | | | | | | + + + + + + + + | CYCLOBENZA | 1 tab po | | | CYCLOBENZA | 3806234514 | Adilia | | GRZEGORZ HCL | [...] [place], [address] | | | | [facility] [address], | | | | [place], [address], | | | | | + + + + | Appointment | 02:20 PM | Tejas Davis MD, [address] | | | | [place] [address], | | | | [place], [address], | | | | | + + [...] [address], | | | | [place], [address] | | | | | + + + + | Referral | | Pulmonology Consult | | | | Tejas Davis, | | | | [address], [address], | | | | [place], [address] | | | | | + + + + | Referral | | [facility] ADVIS[facility] CONSULTANT Consult | + + + + | [...] | + + + + + | CPT-32185 | [facility] | | | + + + + + | CPT-30126 | Nebulizer Treatment | | | | | | | | + + + + + | CPT-J7620 | [facility] | | | + + + + + | CPT-97746 | Nebulizer/Updraft | | | | | Treatment | | | + + + + + | TSH 28325 | TSH | | | + + + + + | CHEM PROF | Comprehensive | | | | | Metabolic Panel | | | + + + + + | FREE T4 95487 | T4 Free | | | + + + + + | CPT-04892 | UA Dipstick | | | + + + + + | GC CHL PRO MULTIPLE | Chlamydia / GC DNA | | | | | Probe | | | + + + + + | CPT-H0002 | Behavioral Health | | | | | Screening (H0002) | | | + + + + + | 01179 | US Abdomen-Cmplt | | | + + + + + | [place] [address] | H. Pylori Antibody | | | + + + + + | CBC AUTO 52054 | CBC w/ Auto Diff | | | + + + + + | LIPASE 14137 | Lipase | | | + + + + + | TSH 53846 | TSH | | | + + [...]
--- OUTSIDE RECORDS SUMMARY | ~2019-10-16 | XMS | Continuity of Care Document ---
Demographics + + + | Address | [address] | | | [place] [address] | + + + | Home Phone | | + + + | Preferred Language | Unknown | + + + | Marital Status | Unknown | + + + | Quaker Affiliation | Unknown | + + + | Race | Unknown | + + + | Ethnic Group | Unknown | + + + Author + + + | Author | [facility] | + + + | Organization | [facility] | + + + | Address | [address] | | | [place] [address] | + + + | Phone | Unavailable | + + + Support + + + + + | Name | Relationship | Address | Phone | + + + + + | CARLOS Casillas | Caregiver | [facility] [address] | | | [place] | | [place] | | | | | [address] | | + + + + + | Agustin, ED | Caregiver | [address] | Unavailable | | | | [place] | | | | | [address] | | + + + + + | Syed | Fam | [facility] | | | Kami Lechuga MD | | [facility], | | | | | [place] [address] | | + + + + + | VALERIE GONZALEZ | Next Of [facility] | , [place] | | + + + + + Care Team Providers + + + + | Care Ekg Monitor Tech Name | Role | Phone | + + + + | CARLOS Casillas | Unavailable | | + + + + Insurance Providers + + + + + | Payer Name | Policy Number | Subscriber Name | Relationship | + + + + + | DCIPA/OHP | [id number] | ALY LIPSCOMB | SELF | + + + + + Chief Complaint and Reason for Visit + + + | Reason for Visit | PNEMONIA | + + + Problems Active Medical [...] | | | + + + +--------+ Medications Current Home Medications + + +-------+-------+ + + + + | Medicati | Dose | Units | Route | Directio | Days/Qty | Instruct | Start | | on | | | | ns | | ions | Date | + + +-------+-------+ + + + + | Albutero | [...] | | | | | + + +-------+-------+ + + + + | Azithrom | 0 | MG | PO | | 1 | 500 MG | 04/10/16 | | ycin | | | | DIRECTED | | ON DAY | | | (Zithrom | | | | For | | ONE, | | | ax) 250 | | | | INFECTIO | | THEN 250 | | | MG | | | | N | | MG ON | | | TABLET | | | | | | DAYS TWO | | | | | | | | | THRU | | | | | | | | | FIVE. | | + + +-------+-------+ + + + + | Benzonat | 100 | MG | PO | Every 8 | 30 | | 04/10/16 | | ate | | | | Hours as | | | | | (Tessalo | | | | Needed | | | | | n) 100 | | | | PRN | | | | | MG CAP | | | | Cough | | | | + + +-------+-------+ + + + + | Buspiron | Unknown | | | | | | | | e Hcl | Dose | | | | | | | [...] | | | | | + + +-------+-------+ + + + + | Citalopr | [...] | | | | | + + +-------+-------+ + + + + | INHALER, | 1 | EACH | MC | Every 4 | 1 | | 04/10/16 | | ASSIST | | | | Hours | | | | | DEVICES | | | | | | | | | (SPACE | | | | | | | | | CHAMBER | | | | | | | | | PLUS) 1 | | | | | | | | | EACH | | | | | | | | | SPACER | | | | | | | | + + +-------+-------+ + + + + | Levothyr | Unknown | | | | | | | | oxine | Dose | | | | | | | [...] | | | | | + + +-------+-------+ + + + + Past Home Medications [...] 30 Mg | | | | | Capsule.dr | | | | | Capsule.dr, 25 [...] Needed PRN PAIN | | | | (Lib[place] 5-325 | | | | | Tablet) [...] 20 Mg | | | | | Tablet.dr | | | | | Tablet.dr, 20 Mg Po | | | | [...] + + + + + | Thyroid (Mayking | Daily | Unknown | Discontinued | | Thyroid) 60 Mg Tab | | | | | Tab, 15 Mg Po | | | | + + + + + | Thyroid (Mayking | Daily | Unknown | Discontinued | [...] + Social History + + + + + | Query | Response | Start Date | Stop Date | + + + + + | Smoking status/ | Current Every Day | | | | | Smoker | | | + + + + + Hospital Discharge Instructions No hospital discharge instructions. Plan of Care + + + | Discharge Date | 04/15/16 | + + + | Disposition | HOME | + + + | Condition at Discharge | Good | + + + | Instructions/Education Provided | Pneumonitis | + + + | Prescriptions | See Medications Section | + + + | Referrals | [place] Casillas RESEARCH EXECUTIVE - | + + + Functional Status No functional status results. Allergies, Adverse Reactions, Alerts + +---------+ + +--------+ + | Allergen | Type | Severity | Reaction | Status | Last Updated | + +---------+ + +--------+ + | morphine | Allergy | Unknown | | Active | 04/10/16 | + +---------+ + +--------+ + | Insect | Allergy | Severe | | Active | 04/10/16 | | Extracts | | | | | | + +---------+ + +--------+ + | venom-wasp | Allergy | Severe | | Active | 04/10/16 | + +---------+ + +--------+ + | ziprasidone | Allergy | Unknown | | Active | 04/10/16 | + +---------+ + +--------+ + Immunizations No Known History of Immunizations. Vital Signs + + + + | Vital Reading | Collection Date/Time | Result | + + + + | Blood Pressure | 04/15/16 2:58pm | 119/69 | + + + + | Patient Temperature | 04/15/16 11:55am | 98.2 | + + + + | Temperature Source | 04/15/16 11:55am | Temporal | + + + + | Respiratory Rate | 04/15/16 2:58pm | 16 | + + + + | Pulse Rate | 04/15/16 2:58pm | 95 | + + + + | Bedside Pulse Oximetry | 04/15/16 2:58pm | 99 | + + + + | Height | 04/15/16 11:55am | 5 ft 1 in | + + + + | Weight | 04/15/16 11:55am | 62.60 kg | + + + + | Weight | 04/15/16 11:55am | 138 lb | + + + + | Body Mass Index | 04/15/16 11:55am | 26.1 | + + + + Results Laboratory [...] + + + + | White | 7.79 | K/mm3 | | 4.00-11. | 04/15/16 | 04/15/16 | | | Blood | | | | 30 | 12:05pm | 12:33pm | | | Count | | | | | | | | + + + +-------+ + + + + | Red | 4.61 | M/mm3 | | 3.80-5.2 | 04/15/16 | 04/15/16 | | | Blood | | | | 0 | 12:05pm | 12:33pm | | | Count | | | | | | | | + + + +-------+ + + + + | Hemoglob | 15.3 | g/dL | | 11.5-16. | 04/15/16 | 04/15/16 | | | in | | | | 0 | 12:05pm | 12:33pm | | + + + +-------+ + + + + | Hematocr | 45.4 | % | | 33.0-51. | 04/15/16 | 04/15/16 | | | it | | | | 0 | 12:05pm | 12:33pm | | + + + +-------+ + + + + | Mean | 99 | fL | | 80-100 | 04/15/16 | 04/15/16 | | | Corpuscu | | | | | 12:05pm | 12:33pm | | | lar | | | | | | | | | Volume | | | | | | | | + + + +-------+ + + + + | Mean | 33.2 | pg | | 26.0-34. | 04/15/16 | 04/15/16 | | | Corpuscu | | | | 0 | 12:05pm | 12:33pm | | | lar | | | | | | | | | Hemoglob | | | | | | | | | in | | | | | | | | + + + +-------+ + + + + | Mean | 33.7 | g/dL | | 31.5-36. | 04/15/16 | 04/15/16 | | | Corpuscu | | | | 5 | 12:05pm | 12:33pm | | | lar | | | | | | | | | Hemoglob | | | | | | | | | in | | | | | | | | | Concent | | | | | | | | + + + +-------+ + + + + | RDW | 46.8 | fL | H | 35.1-46. | 04/15/16 | 04/15/16 | | | Standard | | | | 3 | 12:05pm | 12:33pm | | | | | | | | | | | | Deviatio | | | | | | | | | n | | | | | | | | + + + +-------+ + + + + | RDW | 12.9 | % | | 11.7-14. | 04/15/16 | 04/15/16 | | | Coeffici | | | | 2 | 12:05pm | 12:33pm | | | ent of | | | | | | | | | Variatio | | | | | | | | | n | | | | | | | | + + + +-------+ + + + + | Platelet | 158 | K/mm3 | | 150-400 | 04/15/16 | 04/15/16 | | | Count | | | | | 12:05pm | 12:33pm | | + + + +-------+ + + + + | Mean | 12.1 | fL | | 9.1-12.4 | 04/15/16 | 04/15/16 | | | Platelet | | | | | 12:05pm | 12:33pm | | | Volume | | | | | | | | + + + +-------+ + + + + | Nucleate | 0.0 | /100 WBC | | 0.0-0.2 | 04/15/16 | 04/15/16 | | | d Red | | | | | 12:05pm | 12:33pm | | | Blood | | | | | | | | | Cells % | | | | | | | | + + + +-------+ + + + + | Nucleate | 0.00 | K/mm3 | | 0.00-0.0 | 04/15/16 | 04/15/16 | | | d RBC | | | | 2 | 12:05pm | 12:33pm | | | Absolute | | | | | | | | | Count | | | | | | | | | (auto) | | | | | | | | + + + +-------+ + + + + | Sodium | 139 | mmol/L | | 136-145 | 04/15/16 | 04/15/16 | | | Level | | | | | 12:05pm | 12:39pm | | + + + +-------+ + + + + | Potassiu | 4.1 | mmol/L | | 3.5-5.5 | 04/15/16 | 04/15/16 | 1+ | | m Level | | | | | 12:05pm | 12:39pm | hemolysi | | | | | [...] 105 | mmol/L | | 98-108 | 04/15/16 | 04/15/16 | | | Level | | | | | 12:05pm | 12:39pm | | + + + +-------+ + + + + | Carbon | 29 | mmol/L | | 21-32 | 04/15/16 | 04/15/16 | | | Dioxide | | | | | 12:05pm | 12:39pm | | | Level | | | | | | | | + + + +-------+ + + + + | Anion | 5 | mmol/L | L | 6-16 | 04/15/16 | 04/15/16 | | | Gap | | | | | 12:05pm | 12:39pm | | + + + +-------+ + + + + | Glucose | 97 | mg/dL | | 70-99 | 04/15/16 | 04/15/16 | | | Level | | | | | 12:05pm | 12:39pm | | + + + +-------+ + + + + | Blood | 11 | mg/dL | | 8-24 | 04/15/16 | 04/15/16 | | | Urea | | | | | 12:05pm | 12:39pm | | | Nitrogen | | | | | | | | + + + +-------+ + + + + | Creatini | 0.65 | mg/dL | | 0.40-1.0 | 04/15/16 | 04/15/16 | | | ne | | | | 0 | 12:05pm | 12:39pm | | + + + +-------+ + + + + | BUN/Crea | 16.9 | % | | 12.0-20. | 04/15/16 | 04/15/16 | | | tinine | | | | 0 | 12:05pm | 12:39pm | | | Ratio | | | | | | | | + + + +-------+ + + + + | Glomerul | >60 | | | 60- | 04/15/16 | 04/15/16 | Non-Afri | | ar | | | | | 12:05pm | 12:39pm | can | | Filtrati | | | | | | | Eritrean | | on Rate | | | | | | | GFR | | Calc | | | | | | | CalcFor | | | | | | | | | | | | | | | | | | Eritrean | | | | | | | [...] 8.9 | mg/dL | | 8.5-10.1 | 04/15/16 | 04/15/16 | | | Level | | | | | 12:05pm | 12:39pm | | + + + +-------+ + + + + | Total | 8.2 | g/dL | | 6.4-8.2 | 04/15/16 | 04/15/16 | | | Protein | | | | | 12:05pm | 12:39pm | | + + + +-------+ + + + + | Albumin | 3.7 | g/dL | | 3.4-5.0 | 04/15/16 | 04/15/16 | | | | | | | | 12:05pm | 12:39pm | | + + + +-------+ + + + + | Globulin | 4.5 | g/dL | H | 2.2-4.0 | 04/15/16 | 04/15/16 | | | | | | | | 12:05pm | 12:39pm | | + + + +-------+ + + + + | Albumin/ | 0.8 | | | 0.8-1.8 | 04/15/16 | 04/15/16 | | | Globulin | | | | | 12:05pm | 12:39pm | | | Ratio | | | | | | | | + + + +-------+ + + + + | Total | 0.3 | mg/dL | | 0.1-1.0 | 04/15/16 | 04/15/16 | | | Bilirubi | | | | | 12:05pm | 12:39pm | | | n | | | | | | | | + + + +-------+ + + + + | Alkaline | 118 | U/L | | 50-136 | 04/15/16 | 04/15/16 | | | | | | | | 12:05pm | 12:39pm | | | Phosphat | | | | | | | | | ase | | | | | | | | + + + +-------+ + + + + | Aspartat | 33 | U/L | | 12-37 | 04/15/16 | 04/15/16 | 1+ | | e Amino | | | | | 12:05pm | 12:39pm | hemolysi | | Transf | | [...] + + + + | Alanine | 62 | U/L | | 12-78 | 04/15/16 | 04/15/16 | | | Aminotra | | | | | 12:05pm | 12:39pm | | | nsferase | | | | | | | | | | | | | | | | | | (ALT/SGP | | | | | | | | | T) | | | | | | | | + + + +-------+ + + + + | Influenz | CAP SEWER Swab | | | | 04/10/16 | 04/10/16 | | | a | | | | | 9:31am | 9:53am | | | Antigen | | | | | | | | | Source | | | | | | | | + + + +-------+ + + + + | Influenz | Negative | | | NEGATIVE | 04/10/16 | 04/10/16 | "A | | a Type A | | | | | 9:31am | 9:53am | negative | | Antigen | | [...] | | | | | | | [id number] | | | | | | | | | [id number] | | | | | | | | | within | | | | | | | | | 24 | | | | | | | | | hours." | + + + +-------+ + + + + | Influenz | Negative | | | NEGATIVE | 04/10/16 | 04/10/16 | "A | | a Type B | | | | | 9:31am | 9:53am | negative | | Antigen | | [...] | | | | | | | [id number] | | | | | | | [...] + + + + | Sodium | 138 | mmol/L | | 136-145 | 04/08/16 | 04/08/16 | | | Level | | | | | 11:14am | 1:48pm | | + + + +-------+ + + + + | Potassiu | 4.3 | mmol/L | | 3.5-5.5 | 04/08/16 | 04/08/16 | | | m Level | | | | | 11:14am | 1:48pm | | + + + +-------+ + + + + | Chloride | 104 | mmol/L | | 98-108 | 04/08/16 | 04/08/16 | | | Level | | | | | 11:14am | 1:48pm | | + + + +-------+ + + + + | Carbon | 27 | mmol/L | | 21-32 | 04/08/16 | 04/08/16 | | | Dioxide | | | | | 11:14am | 1:48pm | | | Level | | | | | | | | + + + +-------+ + + + + | Anion | 7 | mmol/L | | 6-16 | 04/08/16 | 04/08/16 | | | Gap | | | | | 11:14am | 1:48pm | | + + + +-------+ + + + + | Glucose | 75 | mg/dL | | 70-99 | 04/08/16 | 04/08/16 | | | Level | | | | | 11:14am | 1:48pm | | + + + +-------+ + + + + | Blood | 18 | mg/dL | | 8-24 | 04/08/16 | 04/08/16 | | | Urea | | | | | 11:14am | 1:48pm | | | Nitrogen | | | | | | | | + + + +-------+ + + + + | Creatini | 0.64 | mg/dL | | 0.40-1.0 | 04/08/16 | 04/08/16 | | | ne | | | | 0 | 11:14am | 1:48pm | | + + + +-------+ + + + + | BUN/Crea | 28.3 | % | H | 12.0-20. | 04/08/16 | 04/08/16 | | | tinine | | | | 0 | 11:14am | 1:48pm | | | Ratio | | | | | | | | + + + +-------+ + + + + | Glomerul | >60 | | | 60- | 04/08/16 | 04/08/16 | Non-Afri | | ar | | | | | 11:14am | 1:48pm | can | | Filtrati | | | | | | | Eritrean | | on Rate | | | | | | | GFR | | Calc | | | | | | | CalcFor | | | | | | | | | | | | | | | | | | Eritrean | | | | | | | [...] + + + + | Calcium | 8.4 | mg/dL | L | 8.5-10.1 | 04/08/16 | 04/08/16 | | | Level | | | | | 11:14am | 1:48pm | | + + + +-------+ + + + + | Total | 7.4 | g/dL | | 6.4-8.2 | 04/08/16 | 04/08/16 | | | Protein | | | | | 11:14am | 1:48pm | | + + + +-------+ + + + + | Albumin | 3.4 | g/dL | | 3.4-5.0 | 04/08/16 | 04/08/16 | | | | | | | | 11:14am | 1:48pm | | + + + +-------+ + + + + | Globulin | 4.0 | g/dL | | 2.2-4.0 | 04/08/16 | 04/08/16 | | | | | | | | 11:14am | 1:48pm | | + + + +-------+ + + + + | Albumin/ | 0.8 | | | 0.8-1.8 | 04/08/16 | 04/08/16 | | | Globulin | | | | | 11:14am | 1:48pm | | | Ratio | | | | | | | | + + + +-------+ + + + + | Total | 0.3 | mg/dL | | 0.1-1.0 | 04/08/16 | 04/08/16 | | | Bilirubi | | | | | 11:14am | 1:48pm | | | n | | | | | | | | + + + +-------+ + + + + | Alkaline | 82 | U/L | | 50-136 | 04/08/16 | 04/08/16 | | | | | | | | 11:14am | 1:48pm | | | Phosphat | | | | | | | | | ase | | | | | | | | + + + +-------+ + + + + | Aspartat | 17 | U/L | | 12-37 | 04/08/16 | 04/08/16 | | | e Amino | | | | | 11:14am | 1:48pm | | | Transf | | | | | | | | | (AST/SGO | | | | | | | | | T) | | | | | | | | + + + +-------+ + + + + | Alanine | 34 | U/L | | 12-78 | 04/08/16 | 04/08/16 | | | Aminotra | | | | | 11:14am | 1:48pm | | | nsferase | | | | | | | | | | | | | | | | | | (ALT/SGP | | | | | | | | | T) | | | | | | | | + + + +-------+ + + + + | Thyroid | 0.642 | uIU/mL | | 0.360-4. | 04/08/16 | 04/08/16 | | | Stimulat | | | | 800 | 11:14am | 1:48pm | | | ing | | | | | | | | | Hormone | | | | | | | | | (TSH) | | | | | | | | + + + +-------+ + + + + | Free | 1.15 | ng/dL | | 0.70-1.6 | 04/08/16 | 04/08/16 | | | Thyroxin | | | | 0 | 11:14am | 1:48pm | | | e | | | | | | | | + + + +-------+ + + + + Procedures No Known History of Procedures. Encounters + + + + + + | Encounter | Location | Arrival/Admit | Discharge/Depar | Attending | | | | Date | t Date | Provider | + + + + + + | Departed | [facility] | 04/15/16 | 04/15/16 3:13pm | Syed, | | Emergency | [facility] | 11:33am | | Kami Lechuga MD | + + + + + + | Departed | [facility] | 04/10/16 8:09am | 04/10/16 | FRAN Craven | | Emergency | [facility] [place] | | 11:05am | Brenna | + + + + + + | Registered | [facility] | 04/08/16 | | CARLOS Casillas | | Referral | [facility] [place] | 11:14am | | [place] | + + + + + + + + | Encounter Diagnosis | + +
--- OUTSIDE RECORDS SUMMARY | ~2019-10-16 | XMS | Continuity of Care Document ---
Demographics + + + | Address | [address] | | | [place] [address] | + + + | Home Phone | | + + + | Preferred Language | Unknown | + + + | Marital Status | Unknown | + + + | Faith Affiliation | Unknown | + + + | Race | Unknown | + + + | Ethnic Group | Unknown | + + + Author + + + | Author | [facility] | + + + | Organization | [facility] | + + + | Address | [address] | | | [place] [address] | + + + | Phone | | + + + Support + + + + + | Name | Relationship | Address | Phone | + + + + + | FRAN Lindsay | Caregiver | Emergency Medicine | | | [address] | | [place] [address] | | + + + + + | SIDNEY BOYLE PCP | Caregiver | [address] | | | | | [place] | | | | | [address] | | + + + + + | ALLI ALVARADO | Next Of Kin | [address] | | | | | [place] | | | | | [address] | | + + + + + Care Team Providers + + + + | Care Drop Forge Hand Name | Role | Phone | + + + + | SIDNEY BOYLE PCP | Unavailable | | + + + + Insurance Providers + + + + + | Payer Name | Policy Number | Subscriber Name | Relationship | + + + + + | MCBAIN Pijon | [id number] | ALY LIPSCOMB | SELF | + + + + + Chief Complaint and Reason for Visit + + + | Reason for Visit | R LEG PN SWOLLEN | + + + Problems Active Medical [...] within the | | | | | [employer] content you are | | | | [...] or | | | | | contact O | | | | | Customer Support at | | | | | | | | | | [email or web address] | | | | | [email or web address] Video | | | | + + + [...] | | | | | | | (Francisco | | | | | | | [...] Hydrocodone | Every 4 Hours as | 17/15 | Discontinued | | Bit/Acetaminophen | Needed as needed | | | | ([place] 5-325 | for PAIN | | | [...] + + + + + | Thyroid ([place] | Daily | Unknown | Discontinued | | Thyroid) 60 Mg Tab | | | | | Tab, 15 Mg Oral | | | | + + + + + | Thyroid ([place] | Daily | Unknown | Discontinued | [...] + + + | Discharge Date | 09/08/17 | + + + | Disposition | HOME | + + + | Condition at Discharge | Good | + + + | Instructions/Education Provided | Muscle Cramps and Spasms | + + + | Forms Provided | ARCHITRAVE CONSENT | + + + | Prescriptions | See Medications Section | + + + | Referrals | [facility] - | + + + | Additional Instructions/Education | take tylenol or ibuprofen as needed for | | | pain avoid activities that make the pain | | | worse until the symptoms improve Follow | | | up with your Primary Provider in 3-5 days. | | | If your symptoms worsen return to the | | | Emergency Department immediately. | + + + Functional Status No functional status results. Allergies, Adverse Reactions, Alerts + +---------+ + +--------+ + | Allergen | Type | Severity | Reaction | Status | Last Updated | + +---------+ + +--------+ + | morphine | Allergy | Mild | Itching | Active | 09/08/17 | + +---------+ + +--------+ + | Insect | Allergy | Severe | | Active | 09/08/17 | | Extracts | | | | | | + +---------+ + +--------+ + | venom-wasp | Allergy | Severe | | Active | 09/08/17 | + +---------+ + +--------+ + | ziprasidone | Allergy | Unknown | | Active | 09/08/17 | + +---------+ + +--------+ + Immunizations No Known History of Immunizations. Vital Signs + + + + | Vital Reading | Collection Date/Time | Result | + + + + | Blood Pressure | 09/08/17 11:27am | 135/84 | + + + + | Blood Pressure Source | 07/03/16 11:46am | Left Arm | + + + + | Temperature | 18 11:27am | 98.7 F | + + + + | Temperature Source | 09/08/17 11:27am | Temporal | + + + + | Respiratory Rate | 18 11:27am | 18 | + + + + | Pulse Rate | 18 11:27am | 90 | + + + + | Bedside Pulse Oximetry | 18 11:27am | 98 | + + + + | Height | 18 11:27am | 5 ft 5 in | + + + + | Height | 18 11:27am | 165.1 cm | + + + + | Weight | 18 11:27am | 150 lb | + + + + | Weight | 18 11:27am | 68.04 kg | + + + + | Body Mass Index | 18 11:27am | 25.0 kg/m2 | + + + + Results No known relevant diagnostic tests, laboratory data and/or discharge summary. Procedures No Known History of Procedures. Encounters + + + + + + | Encounter | Location | Arrival/Admit | Discharge/Depar | Attending | | | | Date | t Date | Provider | + + + + + + | Departed | [facility] | 09/08/17 | 09/08/17 | FRAN Lindsay | | Emergency | [facility] [place] | 11:19am | 12:12pm | [place] L | + + + + + + + + + | Encounter Diagnosis | Onset Date | + + + | Right calf pain | | + + +"
--- OUTSIDE RECORDS SUMMARY | ~2019-10-16 | XMS | Encounter Summary ---
Demographics + + + | Address | [address] | | | [place] [address] | + + + | Home Phone | [phone] | + + + | Preferred Language | Unknown | + + + | Marital Status | | + + + | Islam Affiliation | Unknown | + + + | Race | White | + + + | Ethnic Group | Unknown | + + + Author + + + | Author | | + + + | Organization | | + + + | Address | [address] | | | [place] [address] | + + + | Phone | [phone] | + + + Care Team Providers + +------+ + | Care Motor Block Mechanic Name | Role | Phone | + +------+ + | Dr. Myesha Aguilar | 3 | [phone] | + +------+ + | Myesha Aguilar [...] | | +--------+--------+ + + +--------+-------+ | [id number] | RxNorm | Chantix | Headache | Mild | Active | | +--------+--------+ + + +--------+-------+ | [id number] | RxNorm | Geodon | | | [...] | | | Tissue | (Imaging)[address] | | | | [address], [place] [phone]) | | | | [phone] (Work Place) | + + + + | 08/13/2019 | US, Doppler Echocardiogram, | [facility] (Main) | | | W/ Color Flow | [address] | | | | [place] [address] | | | | (Work Place) | [...] | Isai Pedroza: [address] [place] [address], Ph. [phone] | + + | 08/13/2019Gynecologic Examination; Goiter; Moderate Persistent Asthma; Tobacco | | Dependence Syndrome; 22Q11.2 Deletion Syndrome; History of Repair of Patent Ductus | | Arteriosus; Mixed Anxiety and Depressive Disorder; Fatigue; Allergic Reaction to Bee | | Sting; Health Condition Feared but Not PresentHeceleste Aguilar MD: [address] | | [address], [place] [address], Ph. [phone] | + + History of Present Illness None recorded. Review of Systems None recorded. Physical Exam None recorded."
--- OUTSIDE RECORDS SUMMARY | ~2019-10-16 | XMS | Continuity of Care Document ---
Demographics + + + | Address | [address] | | | [place] [address] | + + + | Home Phone | | + + + | Preferred Language | Unknown | + + + | Marital Status | Unknown | + + + | Yazidi Affiliation | Unknown | + + + | Race | Unknown | + + + | Ethnic Group | Unknown | + + + Author + + + | Author | [facility] | + + + | Organization | [facility] | + + + | Address | [address] | | | [place] [address] | + + + | Phone | Unavailable | + + + Support + + + + + | Name | Relationship | Address | Phone | + + + + + | FRAN Craven | Caregiver | Emergency | | | [place] | | [place], | | | | | [place] [address] | | + + + + + | CARLOS Casillas | Caregiver | [facility] [address] | | | [place] | | [facility], [place] | | | | | [address] | | + + + + + | SJ Velez | Caregiver | [address] | Unavailable | | | | [facility], [place] | | | | | [address] | | + + + + + | VALERIE GONZALEZ | Next Of [facility] | , [place] | | + + + + + Care Team Providers + + + + | Care Perioperative Nurse Name | Role | Phone | + + + + | CARLOS Casillas | Unavailable | | + + + + Insurance Providers + + + + + | Payer Name | Policy Number | Subscriber Name | Relationship | + + + + + | DCIPA/OHP | [id number] | ALY LIPSCOMB | SELF | + + + + + Chief Complaint and Reason for Visit + + + | Reason for Visit | FLU SYMPTOMS | + + + Problems Active Medical [...] Needed PRN PAIN | | | | ([place] 5-325 | | | | | Tablet) [...] + + + + + | Thyroid (Grace | Daily | Unknown | Discontinued | | Thyroid) 60 Mg Tab | | | | | Tab, 15 Mg Po | | | | + + + + + | Thyroid (Grace | Daily | Unknown | Discontinued | [...] + + + | Discharge Date | 04/10/16 | + + + | Disposition | HOME | + + + | Condition at Discharge | Good | + + + | Instructions/Education Provided | Community-Acquired Pneumonia, Adult | + + + | Prescriptions | See Medications Section | + + + | Referrals | [facility] [employer] - | + + + | Additional Instructions/Education | ENCOURAGE FLUIDS | | | USE THE INHALER | | | RECHECK WITH YOUR DR IN THE NEXT WEEK | + + + Functional Status No [...] + + + | Blood Pressure | 04/10/16 11:02am | 126/83 | + + + + | Patient Temperature | 04/10/16 8:52am | 98.2 | + + + + | Temperature Source | 04/10/16 8:52am | Temporal | + + + + | Respiratory Rate | 04/10/16 11:02am | 16 | + + + + | Pulse Rate | 04/10/16 11:02am | 91 | + + + + | Bedside Pulse Oximetry | 04/10/16 11:02am | 96 | + + + + | Height | 04/10/16 8:52am | 5 ft 4 in | + + + + | Weight | 04/10/16 8:52am | 62.60 kg | + + + + | Weight | 04/10/16 8:52am | 138 lb | + + + + | Body Mass Index | 04/10/16 8:52am | 23.7 | + + + + Results Laboratory Results + + +--------+-------+ + + + + | Test | Result | Units | Flags | Referenc | Collecti | Result | Comments | | Name | | | | e | on | Date/Clif | | | | | | | | Date/Clif | e | | | | | | | | e | | | + + +--------+-------+ + + + + | Influenz | DISTRIBUTION CLERK Swab | | | | 04/10/16 | 04/10/16 | | | a | | | | | 9:31am | 9:53am | | | Antigen | | | | | | | | | Source | | | | | | | | + + +--------+-------+ + + + + | Influenz | [...] | | | | | | | [id number] | | | | | | | | | [id number] | | | | | | | | | within | | | | | | | | | 24 | | | | | | | | | hours." | + + +--------+-------+ + + + + | Influenz | [...] | | | | | | | [id number] | | | | | | | [...] | | | noassay. | + + +--------+-------+ + + + + | Sodium | 138 | mmol/L | | 136-145 | 04/08/16 | 04/08/16 | | | Level | | | | | 11:14am | 1:48pm | | + + +--------+-------+ + + + + | Potassiu | 4.3 | mmol/L | | 3.5-5.5 | 04/08/16 | 04/08/16 | | | m Level | | | | | 11:14am | 1:48pm | | + + +--------+-------+ + + + + | Chloride | 104 | mmol/L | | 98-108 | 04/08/16 | 04/08/16 | | | Level | | | | | 11:14am | 1:48pm | | + + +--------+-------+ + + + + | Carbon | 27 | mmol/L | | 21-32 | 04/08/16 | 04/08/16 | | | Dioxide | | | | | 11:14am | 1:48pm | | | Level | | | | | | | | + + +--------+-------+ + + + + | Anion | 7 | mmol/L | | 6-16 | 04/08/16 | 04/08/16 | | | Gap | | | | | 11:14am | 1:48pm | | + + +--------+-------+ + + + + | Glucose | 75 | mg/dL | | 70-99 | 04/08/16 | 04/08/16 | | | Level | | | | | 11:14am | 1:48pm | | + + +--------+-------+ + + + + | Blood | 18 | mg/dL | | 8-24 | 04/08/16 | 04/08/16 | | | Urea | | | | | 11:14am | 1:48pm | | | Nitrogen | | | | | | | | + + +--------+-------+ + + + + | Creatini | 0.64 | mg/dL | | 0.40-1.0 | 04/08/16 | 04/08/16 | | | ne | | | | 0 | 11:14am | 1:48pm | | + + +--------+-------+ + + + + | BUN/Crea | 28.3 | % | H | 12.0-20. | 04/08/16 | 04/08/16 | | | tinine | | | | 0 | 11:14am | 1:48pm | | | Ratio | | | | | | | | + + +--------+-------+ + + + + | Glomerul | >60 | | | 60- | 04/08/16 | 04/08/16 | Non-Afri | | ar | | | | | 11:14am | 1:48pm | can | | Filtrati | | | | | | | [place] | | on Rate | | | | | | | GFR | | Calc | | | | | | | CalcFor | | | | | | | | | | | | | | | | | | [place] | | | | | | | [...] | | | .73m^2 | + + +--------+-------+ + + + + | Calcium | 8.4 | mg/dL | L | 8.5-10.1 | 04/08/16 | 04/08/16 | | | Level | | | | | 11:14am | 1:48pm | | + + +--------+-------+ + + + + | Total | 7.4 | g/dL | | 6.4-8.2 | 04/08/16 | 04/08/16 | | | Protein | | | | | 11:14am | 1:48pm | | + + +--------+-------+ + + + + | Albumin | 3.4 | g/dL | | 3.4-5.0 | 04/08/16 | 04/08/16 | | | | | | | | 11:14am | 1:48pm | | + + +--------+-------+ + + + + | Globulin | 4.0 | g/dL | | 2.2-4.0 | 04/08/16 | 04/08/16 | | | | | | | | 11:14am | 1:48pm | | + + +--------+-------+ + + + + | Albumin/ | 0.8 | | | 0.8-1.8 | 04/08/16 | 04/08/16 | | | Globulin | | | | | 11:14am | 1:48pm | | | Ratio | | | | | | | | + + +--------+-------+ + + + + | Total | 0.3 | mg/dL | | 0.1-1.0 | 04/08/16 | 04/08/16 | | | Bilirubi | | | | | 11:14am | 1:48pm | | | n | | | | | | | | + + +--------+-------+ + + + + | Alkaline | 82 | U/L | | 50-136 | 04/08/16 | 04/08/16 | | | | | | | | 11:14am | 1:48pm | | | Phosphat | | | | | | | | | ase | | | | | | | | + + +--------+-------+ + + + + | Aspartat | [...] | | | | | + + +--------+-------+ + + + + | Alanine | [...] | | | | | + + +--------+-------+ + + + + | Thyroid | [...] | | | | | + + +--------+-------+ + + + + | Free | 1.15 | ng/dL | | 0.70-1.6 | 04/08/16 | 04/08/16 | | | Thyroxin | | | | 0 | 11:14am | 1:48pm | | | e | | | | | | | | + + +--------+-------+ + + + + Procedures No Known History of Procedures. Encounters + + + + + + | Encounter | Location | Arrival/Admit | Discharge/Depar | Attending | | | | Date | t Date | Provider | + + + + + + | Departed | [facility] | 04/10/16 8:09am | 04/10/16 | FRAN Craven | | Emergency | [facility] | | 11:05am | [place] | + + + + + + | Registered | [facility] | 04/08/16 | | CARLOS Casillas | | Referral | [facility] | 11:14am | | [place] | + + + + + + + + | Encounter Diagnosis | + + | Pneumonia | + +
--- OUTSIDE RECORDS SUMMARY | ~2019-10-16 | XMS | Continuity of Care Document ---
Demographics + + + | Address | [address] | | | [place] [address] | + + + | Home Phone | | + + + | Preferred Language | Unknown | + + + | Marital Status | Unknown | + + + | Gnosticism Affiliation | Unknown | + + + | Race | Unknown | + + + | Ethnic Group | Unknown | + + + Author + + + | Author | [facility] | + + + | Organization | [facility] | + + + | Address | [address] | | | [place] [address] | + + + | Phone | Unavailable | + + + Support + + + + + | Name | Relationship | Address | Phone | + + + + + | CARLOS Casillas | Caregiver | [address] | | | [place] | | [place] | | | | | [address] | | + + + + + | Provider, ED | Caregiver | [address] | Unavailable | | | | [facility] [place] | | | | | [address] | | + + + + + | Tab Junior | Caregiver | [facility] | | | | | [facility] | | | | | , [place] [address] | | + + + + + | Stevie Wilson MD | Caregiver | Emergency Services | | | | | [place] [address] | | + + + + + | ALLI ALVARADO | Next Of [facility] | , [place] | | + + + + + Care Team Providers + + + + | Care Touch Up Carver Name | Role | Phone | + + + + | CARLOS Casillas [place] | Unavailable | | + + + + Insurance Providers + + + + + | Payer Name | Policy Number | Subscriber Name | Relationship | + + + + + | DCIPA/OHP | [id number] | ALY LIPSCOMB | SELF | + + + + + Advance Directives + + + + | Directive | Response | Recorded Date/Time | + + + + | Status of Advance | Doesn't Have One | 07/03/16 4:13am | | Directive/ | | | + + + + | Information obtained from | Y | 07/03/16 4:13am | | Patient? | | | + + + + | Content of Directive and/or | FULL CODE | 07/03/16 4:13am | | patient's stated wishes: | | | + + + + | Directives? | N | 07/03/16 4:13am | + + + + Chief Complaint and Reason for Visit + +--------+ | Reason for Visit | ASTHMA | + +--------+ Problems Active Medical Problems + + + [...] within the | | | | | [employer] content you are | | | | [...] or | | | | | contact [facility] | | | | | Customer Support at | | | | | | | | | | [email or web address] | | | | | [email or web address] | | | | + + + [...] + +------+-------+-------+ + + + + | Benzonat | [...] | Cough | | | | + +------+-------+-------+ + [...] + +------+-------+-------+ + + + + | INHALER, | 1 | EACH | [facility] | Every 4 | 1 | | 01/08/17 | | ASSIST | | | | [...] Needed PRN PAIN | | | | ([place] 5-325 | | | | | Tablet) [...] + + + + + | Thyroid ([place] | Daily | Unknown | Discontinued | | Thyroid) 60 Mg Tab | | | | | Tab, 15 Mg Po | | | | + + + + + | Thyroid ([place] | Daily | Unknown | Discontinued | [...] + + + | Discharge Date | 07/03/16 | + + + | Disposition | LEFT WITHOUT TX | + + + | Prescriptions | See Medications Section | + + + Functional Status No [...] + + + | Blood Pressure | 07/03/16 11:46am | 124/76 | + + + + | Blood Pressure Source | 07/03/16 11:46am | Left Arm | + + + + | Patient Temperature | 07/03/16 11:46am | 98.4 | + + + + | Temperature Source | 07/03/16 11:46am | Temporal | + + + + | Respiratory Rate | 07/03/16 11:46am | 16 | + + + + | Pulse Rate | 07/03/16 11:46am | 94 | + + + + | Pulse Location | 07/03/16 11:46am | Monitor | + + + + | Bedside Pulse Oximetry | 07/03/16 11:46am | 94 | + + + + | Height | 07/03/16 4:33am | 162.6 cm | + + + + | Height | 07/03/16 4:33am | 5 ft 4 in | + + + + | Weight | 07/03/16 4:08am | 59.30 kg | + + + + | Weight | 07/03/16 4:08am | 130 lb 11.75 oz | + + + + | Body Mass Index | 07/03/16 4:33am | 22.4 | + + + + Results Laboratory [...] + + + + | Influenz | DRAW FRAME RUNNER Swab | | | | 07/03/16 | [...] | | | | | | | [id number] | | | | | | | [...] | | | | | | | [id number] | | | | | | | [...] | | | | | | | [place] | | on Rate | | | | | | | GFR | | Calc | | | | | | | CalcFor | | | | | | | | | | | | | | | | | | [place] | | | | | | | [...] + + + + | Discharged | [facility] | 07/02/16 | 07/03/16 | [place], | | Inpatient | [facility] | 10:31pm | 12:05pm | Tab Lechuga MD | + + + + + + | Discharged | [facility] | 07/02/16 | 07/03/16 3:40am | [place], | | Emergency | [facility] | 10:31pm | | Tab Lechuga MD | + + + + + + | Registered | [facility] | 06/27/16 | | CARLOS Casillas | | Referral | [facility] | 12:12pm | | [place] | + + + + + + + + + | Encounter Diagnosis | Onset Date | + + + | Abdominal pain | | + + + | Sore throat | | + + + | Pneumonia | | + + + | Excessive cerumen in both ear canals | | + + + | Left ear pain | | + + + | Cerumen impaction | | + + + | UTI (urinary tract infection) | | + + + | Cellulitis of right thigh | | + + + | The administrative codes within the [place] | | | content you are accessing may have | | | as of 07/02/2016. Please contact your IT | | | Dept/Help Desk and request the latest | | | Regulatory release be installed. IT | | | Dept/Help Desk- Please refer to our FAQ | | | page | | | ([email or web address] | | | aspx) or contact [facility] Customer Support at | | | | | + + +
== END 2019-10-16 03:36 | disposition home or self-care (01) ==
LOC: ED 01:40
DX: R06.00 Dyspnea, unspecified (principal); F41.9 Anxiety disorder, unspecified; F32.9 Major depressive disorder, single episode, unspecified; F17.200 Nicotine dependence, unspecified, uncomplicated; Z88.8 Allergy status to other drugs, medicaments and biological substances; Z88.5 Allergy status to narcotic agent
CPT/HCPCS: 71046; 99285-25